=== PATIENT | male | born 1975 | race Caucasian/White ===

== ENCOUNTER 2024-12-18 22:11 | Emergency (ER) | payer SELFPAY ==
--- OUTSIDE RECORDS SUMMARY | 2024-12-18 22:20 | XMS REPORT | Continuity of Care Document ---
Author Name Unknown Address [address] [facility] [address] [place] [address] [facility] thconnect Address [address] [facility] [address] [place] [address] Care Team Providers Care Four Roll Calender Operator Name Role Phone Chente Garibay MD Primary Care Physician [phone] YUDY PHAN Attending Clinician Unavailable YUDY PHAN Attending Clinician Unavailable CHENTE GARIBAY Attending Clinician Unavailable NIKIA SANCHEZ Attending Clinician Unavailable HERNÁN ROJO Attending Clinician Unavailable HERNÁN ROJO Attending Clinician Unavailable Hernán Rojo DO Attending Clinician [phone] Chente Garibay MD Attending Clinician [phone] Doctor Unassigned, Nerstrand Attending Clinician U navailable Annabelle Cervantes Attending Clinician Unavaila ble Naa Lovelace Attending Clinician [phone] AUSTYN GONSALVES Attending Clinician Unavailable Austyn Gonsalves MD Attending Clinician [phone] NAA DUBON Attending Clinician Unavailable CHARO JOSHI Attending Clinician Unavailable Charo Kelley Attending Clinician [phone] ISAC ADAMS Attending Clinician Unavailable ISAC ADAMS Attending Clinician Unavailable Chente Garibay MD Attending Clinician [phone] Agnieszka Berg RN Attending Clinician Unavailable NELIDA MERCER Attending Clinician UnavailNelida Dunham MD Attending Clinician [phone] LORRAINE MCGEE Attending Clinician Unavailable LORRAINE MCGEE Attending Clinician Unavailable Jean KodiDeyvi Attending Clinician [phone] Doctor Unassigned, [place]erstrand Attending Clinician ALE Richardson Attending Clinician Unavailable Chelsey PAC, Nayla Aggawral Attending Clinician [phone] Ale Ayala MD Attending Clinician [phone] JOSE SAM Attending Clinician Unavailable DERRICK CHANCE Attending Clinician Unavailable Derrick Chance MD Attending Clinician [phone] KAYCE FLANNERY Attending Clinician Unavailable Kayce Chavez Attending Clinician [phone] BRENDA TUCKER Attending Clinician Unavailab Brenda Lopez MD Attending Clinician [phone] MARINA ECHEVERRIA Attending Clinician Unavailable Marina Echeverria MD Attending Clinician [phone] Los Rodrigues MD Attending Clinician [phone] Cecilia Chiu DO Attending Clinician [phone] SAGRARIO INFANTE Attending Clinician Unavailab Sagrario Dumont DO Attending Clinician [phone] Nurse, Castillo Chahal Attending Clinician Unavailable Sheila Andrew LVN Attending Clinician Unavailable HERBERT MANZO Attending Clinician Unavail Li Fabian MD Attending Clinician [phone] Herbert Kendall Attending Clinician [phone] PRICILA ESPINOZA Attending Clinician Unavaila JOANIE Leo Attending Clinician Unavail LI Fabian Attending Clinician Unavailable Joanie Tamayo MD Attending Clinician [phone] YUDY PHAN Admitting Clinician Unavailable NELIDA MERCER Admitting Clinician Unavailabl LORRAINE Abdi Admitting Clinician Unavailable ALE AYALA Admitting Clinician Unavailable Ale Ayala MD Admitting Clinician [phone] DERRICK CHANCE Admitting Clinician Unavailable KAYCE FLANNERY Admitting Clinician Unavailable CECILIA CHIU Admitting Clinician Unavailable Cecilia Chiu DO Admitting Clinician SAGRARIO INFANTE Admitting Clinician Unavailab HERBERT Doshi Admitting Clinician Unavail Herbert Hannah Admitting Clinician [phone] LI HURTADO Admitting Clinician Unavailable CHENTE GARIBAY Admitting Clinician Unavailable Payers Payer Name Policy Type Policy Number Effective Date Expirati on Date Source AILYN [facility] [id number] 2024 00:00:00 2025 00:00:00 Problems Condition Name Condition Details Condition Category Status Onset Date Resolution Date Last Treatment Date Treating Clinician Comments Source Acute on chronic cholecysti tis Acute on chronic cholecysti tis Disease Active 12-06 00:00: 00 [facility] Chronic cholecysti tis Chronic cholecysti tis Disease Active 05-03 00:00: 00 Overview: Formattin g of this note might be different from the original. Added automatic ally from request for surgery [id number] [facility] Dyslipidem ia Dyslipidem ia Disease Active 04-26 00:00: 00 [facility] Cigarette nicotine dependence , uncomplica luis Cigarette nicotine dependence , uncomplica luis Disease Active 04-26 00:00: 00 [facility] Cigarette nicotine dependence , uncomplica luis Cigarette nicotine dependence , uncomplica luis Disease Active 04-26 00:00: 00 [facility] Chest pain, unspecifie d type Chest pain, unspecifie d type Disease Active 04-07 00:00: 00 [facility] Anxiety Anxiety Disease Active 2020-11 00:00: 00 [facility] Acute otitis media, unspecifie d otitis media type Acute otitis media, unspecifie d otitis media type Disease Active 06-04 00:00: 00 [facility] Pop's palsy Pop's palsy Disease Active 06-04 00:00: 00 [facility] Paresthesi a Paresthesi a Disease Active 06-04 00:00: 00 [facility] Acute seasonal allergic rhinitis, unspecifie d trigger Acute seasonal allergic rhinitis, unspecifie d trigger Disease Active 06-04 00:00: 00 [facility] Otalgia of right ear Otalgia of right ear Disease Active 06-04 00:00: 00 [facility] ADD (attention deficit disorder) ADD (attention deficit disorder) Disease Active 06-11 00:00: 00 [facility] Pain in shoulder Pain in shoulder Disease Active 2014-11 00:00: 00 [facility] Chronic back pain greater than 3 months duration Chronic back pain greater than 3 months duration Disease Active 2014-11 014 00:00: 00 [facility] Allergies, Adverse Reactions, Alerts Allergy Name Allergy Type Status Severity Reaction(s) Onset Date Inactive Date Treating Clinician Comments Source GABAPENT IN DRUG INGREDI Active Unknown-Cmnt 2023-11 00:00: 00 [facility] Gabapent in Propensi ty to adverse reaction s Active Unknown - See comments 2023-11 00:00: 00 Per patient, he does not like this medicatio n [facility] VENOM-WA SP DRUG INGREDI Active Anaphylaxis 05-07 00:00: 00 [facility] Venom-Wa sp Propensi ty to adverse reaction s Active Anaphylaxis 05-07 00:00: 00 [facility] NO KNOWN ALLERGIE S Drug Class Active [facility] Social History Social Habit Start Date Stop Date Quantity Comments Source History SDOH Alcohol Std Drinks [facility] History SDOH Alcohol Binge [facility] History SDOH Social Connections Get Together [facility] History SDOH Social Connections Uatsdin [facility] History SDOH Social Connections Membership [facility] History SDOH Social Connections Meetings [facility] History of tobacco use Passive smoker [facility] Alcoholic beverage intake 2024-12-08 00:00:00 2024-12-08 00:00:00 Ex-drinker (finding) [facility] History of Social function 2024-05-13 00:00:00 2024-05-13 00:00:00 [facility] Cigarettes smoked current (pack per day) - Reported 2024-03-11 00:00:00 2024-03-11 00:00:00 [facility] Cigarette pack-years 2024-03-11 00:00:00 2024-03-11 00:00:00 [facility] Tobacco use and exposure 2024-03-11 00:00:00 2024-03-11 00:00:00 Smokeless tobacco non-user [facility] Alcohol intake 2024-01-17 00:00:00 2024-01-17 00:00:00 Ex-drinker (finding) [facility] Tobacco Comment 2023-05-04 00:00:00 2023-05-04 00:00:00 1/2 PPD; [facility] History SDOH Alcohol Frequency 2023-04-26 00:00:00 2023-04-26 00:00:00 1 [facility] History SDOH Social Connections Phone 2023-04-26 00:00:00 2023-04-26 00:00:00 5 [facility] History SDOH Social Connections Living 2023-04-26 00:00:00 2023-04-26 00:00:00 7 [facility] History SDOH Physical Activity DPW 2023-04-26 00:00:00 2023-04-26 00:00:00 3 [facility] History SDOH Physical Activity MPS 2023-04-26 00:00:00 2023-04-26 00:00:00 1 [facility] History SDOH Financial 2023-04-26 00:00:00 2023-04-26 00:00:00 5 [facility] History SDOH Food Worry 2023-04-26 00:00:00 2023-04-26 00:00:00 1 [facility] History SDOH Food Scarcity 2023-04-26 00:00:00 2023-04-26 00:00:00 1 [facility] History SDOH Transport Med 2023-04-26 00:00:00 2023-04-26 00:00:00 2 [facility] History SDOH Transport Non-Med 2023-04-26 00:00:00 2023-04-26 00:00:00 2 [facility] History SDOH Housing Unable to Pay 2023-04-26 00:00:00 2023-04-26 00:00:00 2 [facility] History SDOH Housing Places Lived 2023-04-26 00:00:00 2023-04-26 00:00:00 1 [facility] History SDOH Housing Homeless Last Year 2023-04-26 00:00:00 2023-04-26 00:00:00 2 [facility] Alcohol Comment 2023-04-26 00:00:00 2023-04-26 00:00:00 used to drink occasionaly [facility] Exposure to SARS-CoV-2 (event) 2023-03-26 00:00:00 2023-04-05 06:46:00 Not sure [facility] Sex assigned at 1975 00:00:00 1975 00:00:00 [facility] Smoking Status Start Date Stop Date Source Smokes tobacco daily 2024-03-11 00:00:00 [facility] Medications Ordered Medication Name Filled Medication Name Start Date Stop Date Current Medication? Ordering Clinician Indication Dosage Frequency Signature (SIG) Comments Components Source methylpheni date HCl 20 mg CR capsule 12-16 00:00: 00 Yes [id number] 20mg Take 1 capsule by mouth every morning. [facility] acetaminoph en-codeine 300-60 mg tablet 12-10 00:00: 00 Yes [id number] 1{tbl} Take 1 tablet by mouth every 4 (four) hours as needed for Pain. Indication s: chronic pain [facility] dextroamphe tamine-amph etamine (ADDERALL) 20 mg tablet 12-10 00:00: 00 Yes [id number] 20mg Take 1 tablet by mouth in the morning and 1 tablet in the evening. [facility] HYDROcodone -acetaminop hen 10-325 mg tablet 12-08 00:00: 00 12-16 05:59 :00 Yes [id number] 1{tbl} Take 1 tablet by mouth every 6 (six) hours as needed for Pain (scale 4-6) for up to 7 days. Indication s: chronic pain [facility] HYDROcodone -acetaminop hen 7.5-325 mg per tablet 12-03 00:00: 00 Yes [id number] 1{tbl} Take 1 tablet by mouth every 6 (six) hours as needed for Pain. Indication s: chronic pain [facility] HYDROcodone -acetaminop hen 7.5-325 mg per tablet 12-02 00:00: 00 12-02 00:00 :00 No [id number] 1{tbl} Take 1 tablet by mouth every 6 (six) hours as needed for Pain. Indication s: chronic pain [facility] HYDROcodone -acetaminop hen 7.5-325 mg per tablet 11-26 00:00: 00 12-02 00:00 :00 No [id number] 1{tbl} Take 1 tablet by mouth every 6 (six) hours as needed for Pain. Indication s: chronic pain [facility] atorvastati n 10 mg tablet 11-12 00:00: 00 Yes [id number] 10mg Take 1 tablet by mouth at bedtime. [facility] diazePAM 10 mg tablet 11-12 00:00: 00 Yes [id number] 2 10mg Take 1 tablet by mouth in the morning and 1 tablet at noon and 1 tablet in the evening. [facility] zolpidem 10 mg tablet 11-12 00:00: 00 Yes [id number] 10mg Take 1 tablet by mouth at bedtime as needed for Insomnia. [facility] dextroamphe tamine-amph etamine (ADDERALL) 20 mg tablet 11-12 00:00: 00 12-10 00:00 :00 No [id number] 20mg Take 1 tablet by mouth in the morning and 1 tablet in the evening. [facility] HYDROcodone -acetaminop hen 7.5-325 mg per tablet 2023-11 00:00: 00 11-26 00:00 :00 No [id number] 1{tbl} Take 1 tablet by mouth every 6 (six) hours as needed for Pain. Indication s: chronic pain [facility] dextroamphe tamine-amph etamine (ADDERALL) 20 mg tablet 2023-11 00:00: 00 11-12 00:00 :00 No [id number] 20mg Take 1 tablet by mouth in the morning and 1 tablet in the evening. [facility] HYDROcodone -acetaminop hen 7.5-325 mg per tablet 2023-11 00:00: 00 10-27 00:00 :00 No [id number] 1{tbl} Take 1 tablet by mouth every 6 (six) hours as needed for Pain. Indication s: chronic pain [facility] zolpidem 10 mg tablet 2023-11 00:00: 00 11-12 00:00 :00 No [id number] 10mg Take 1 tablet by mouth at bedtime as needed for Insomnia. [facility] diazePAM 10 mg tablet 2023-11 00:00: 00 11-12 00:00 :00 No [id number] 2 10mg Take 1 tablet by mouth in the morning and 1 tablet at noon and 1 tablet in the evening. [facility] dextroamphe tamine-amph etamine (ADDERALL) 20 mg tablet 2023-11 00:00: 00 10-13 00:00 :00 No [id number] 20mg Take 1 tablet by mouth in the morning and 1 tablet in the evening. [facility] ATORVASTATI N 10 mg tablet 2023-11 1- 00:00: 00 11-12 00:00 :00 No [id number] 10mg TAKE 1 TABLET BY MOUTH EVERYDAY AT BEDTIME [facility] HYDROcodone -acetaminop hen 7.5-325 mg per tablet 2023-11 030 00:00: 00 Yes [id number] 1{tbl} Take 1 tablet by mouth every 6 (six) hours as needed for Pain. Indication s: chronic pain [facility] dextroamphe tamine-amph etamine (ADDERALL) 20 mg tablet 2023-11 0-14 00:00: 00 09-16 00:00 :00 No [id number] 20mg Take 1 tablet by mouth in the morning and 1 tablet in the evening. [facility] HYDROcodone -acetaminop hen 7.5-325 mg per tablet 2023-11 00:00: 00 09-03 00:00 :00 No [id number] 1{tbl} Take 1 tablet by mouth every 6 (six) hours as needed for Pain. Indication s: chronic pain [facility] methylPREDN ISolone (MEDROL, FAINA,) 4 mg tablets 2023-11 00:00: 00 Yes [id number] Take by mouth SEE-INSTRU CTIONS. follow package directions [facility] zolpidem 10 mg tablet 07-21 00:00: 00 09-16 00:00 :00 No [id number] 10mg Take 1 tablet by mouth at bedtime as needed for Insomnia. [facility] diazePAM 10 mg tablet 07-21 00:00: 00 09-16 00:00 :00 No [id number] 10mg Take 1 tablet by mouth in the morning and 1 tablet at noon and 1 tablet in the evening. [facility] dextroamphe tamine-amph etamine (ADDERALL) 20 mg tablet 07-21 00:00: 00 08-18 00:00 :00 No [id number] 20mg Take 1 tablet by mouth in the morning and 1 tablet in the evening. [facility] HYDROcodone -acetaminop hen 7.5-325 mg per tablet 07-21 00:00: 00 08-07 00:00 :00 No [id number] 1{tbl} Take 1 tablet by mouth every 6 (six) hours as needed for Pain. Indication s: chronic pain [facility] ondansetron 4 mg disintegrat ing tablet 06-17 00:00: 00 Yes [id number] 4mg Take 1 tablet by mouth every 8 (eight) hours as needed for Nausea and Vomiting (N/V). [facility] esomeprazol e 40 mg capsule 06-17 00:00: 00 Yes [id number] 40mg Take 1 capsule by mouth daily with breakfast. [facility] amoxicillin 500 mg capsule 06-17 00:00: 00 Yes [id number] 500mg Take 1 capsule by mouth in the morning and 1 capsule at noon and 1 capsule in the evening. [facility] predniSONE 20 mg tablet 06-17 00:00: 00 Yes [id number] 20mg Take 1 tablet by mouth in the morning. [facility] HYDROcodone -acetaminop hen 7.5-325 mg per tablet 06-17 00:00: 00 07-21 00:00 :00 No [id number] 1{tbl} Take 1 tablet by mouth every 6 (six) hours as needed for Pain. Indication s: chronic pain [facility] dextroamphe tamine-amph etamine (ADDERALL) 20 mg tablet 06-17 00:00: 00 07-21 00:00 :00 No [id number] 20mg Take 1 tablet by mouth in the morning and 1 tablet in the evening. [facility] dexAMETHaso ne (DECADRON) tablet 8 mg 05-23 09:45: 00 05-23 08:50 :00 No 8mg 8 mg, Oral, ONCE NOW, 1 dose, On Sun05/23/24 at 0445, WILLIAN [facility] hydrOXYzine (ATARAX) tablet 25 mg 05-23 09:00: 00 05-23 08:50 :00 No 25mg 25 mg, Oral, ONCE, 1 dose, On Sun05/23/24 at 0400, WILLIAN [facility] methylPREDN ISolone 4 mg tablets 05-23 00:00: 00 Yes [id number] Take by mouth SEE-INSTRU CTIONS. follow package directions [facility] hydrOXYzine 25 mg tablet 05-23 00:00: 00 06-17 00:00 :00 No [id number] 25mg Take 1 tablet by mouth every 6 (six) hours as needed for Itching. [facility] HYDROcodone -acetaminop hen 7.5-325 mg per tablet 05-21 00:00: 00 06-17 00:00 :00 No [id number] 1{tbl} Take 1 tablet by mouth every 6 (six) hours as needed for Pain. Indication s: chronic pain [facility] dextroamphe tamine-amph etamine (ADDERALL) 20 mg tablet 05-21 00:00: 00 06-17 00:00 :00 No [id number] 20mg Take 1 tablet by mouth in the morning and 1 tablet in the evening. [facility] diazePAM 10 mg tablet 05-13 00:00: 00 07-21 00:00 :00 No [id number] 10mg Take 1 tablet by mouth in the morning and 1 tablet at noon and 1 tablet in the evening. [facility] zolpidem 10 mg tablet 05-13 00:00: 00 07-21 00:00 :00 No [id number] 10mg Take 1 tablet by mouth at bedtime as needed for Insomnia. [facility] HYDROcodone -acetaminop hen 7.5-325 mg per tablet 04-24 00:00: 00 05-21 00:00 :00 No [id number] 1{tbl} Take 1 tablet by mouth every 6 (six) hours as needed for Pain. Indication s: chronic pain [facility] dextroamphe tamine-amph etamine (ADDERALL) 20 mg tablet 04-24 00:00: 00 05-21 00:00 :00 No [id number] 20mg Take 1 tablet by mouth in the morning and 1 tablet in the evening. [facility] morpHINE (4 mg/mL) injection 4 mg 04-20 20:15: 00 04-20 19:35 :00 No 4mg 4 mg, Slow IV Push, ONCE, 1 dose, On 04/20/24 at 1515, WILLIAN [facility] ketorolac (TORADOL) injection 30 mg 04-20 20:15: 00 04-20 19:34 :00 No 30mg 30 mg, Slow IV Push, ONCE, 1 dose, On 04/20/24 at 1515, WILLIAN [facility] benzonatate (TESSALON PERLES) capsule 200 mg 04-20 18:15: 00 04-20 17:43 :00 No 200mg 200 mg, Oral, ONCE, 1 dose, On 04/20/24 at 1315, WILLIAN [facility] morpHINE (4 mg/mL) injection 4 mg 04-20 18:15: 00 04-20 17:41 :00 No 4mg 4 mg, Slow IV Push, ONCE, 1 dose, [facility] ([facility] 370-500 mL) injection 75 mL 04-20 18:00: 00 04-20 18:15 :00 No [id number] 75mL 75 mL, Intravenou s, ONCE, 1 dose, On 04/20/24 at 1315, Routine [facility] ondansetron (ZOFRAN (PF)) injection 4 mg 04-20 17:30: 00 04-20 17:41 :00 No 4mg 4 mg, Slow IV Push, ONCE, 1 dose, On 04/20/24 at 1230, WILLIAN [facility] levoFLOXaci n (LEVAQUIN) tablet 750 mg 04-20 00:30: 00 04-20 00:05 :00 No 750mg 750 mg, Oral, ONCE NOW, 1 dose, On 04/19/24 at 1930, WILLIAN, Reason for Anti-Infec tive: Empiric Therapy for Suspected Infection, Empiric Therapy Site: Respirator y, Duration of therapy: Once (ED) [facility] benzonatate 200 mg capsule 04-20 00:00: 00 Yes [id number] 200mg Take 1 capsule by mouth 3 (three) times daily as needed for Cough. [facility] traMADoL 50 mg tablet 04-20 00:00: 00 12-08 00:00 :00 No [id number] 50mg Take 1 tablet by mouth every 6 (six) hours as needed (pain). Indication s: acute pain [facility] nirmatrelvi r-ritonavir (PAXLOVID) 300 mg (150 mg x 2)-100 mg tablet 04-20 00:00: 00 06-17 00:00 :00 No [id number] 3{tbl} Take 3 tablets by mouth in the morning and 3 tablets in the evening. [facility] ibuprofen (IBU) tablet 600 mg 04-19 23:45: 00 04-20 00:05 :00 No 600mg 600 mg, Oral, ONCE, 1 dose, On 04/19/24 at 1845, WILLIAN [facility] codeine-gua ifenesin (ROBITUSSIN AC) 10-100 mg/5 mL oral solution 10 mL 04-19 22:15: 00 04-19 22:25 :00 No 10mL 10 mL, Oral, ONCE, 1 dose, On 04/19/24 at 1715, WILLIAN [facility] ibuprofen 600 mg tablet 04-19 00:00: 00 Yes [id number] 600mg Take 1 tablet by mouth every 6 (six) hours as needed for Pain (scale 4-6). [facility] codeine-gua ifenesin 10-100 mg/5 mL oral solution 04-19 00:00: 00 04-27 04:59 :00 No [id number] 5mL Take 5 mL by mouth every 6 (six) hours as needed for Cough for up to 7 days. Indication s: acute pain [facility] levoFLOXaci n 750 mg tablet 04-19 00:00: 00 04-25 04:59 :00 No [id number] 750mg Take 1 tablet by mouth every 24 (twenty-fo ur) hours for 5 days. [facility] dextroamphe tamine-amph etamine (ADDERALL) 20 mg tablet 03-27 00:00: 00 04-24 00:00 :00 No [id number] 20mg Take 1 tablet by mouth in the morning and 1 tablet in the evening. [facility] HYDROcodone -acetaminop hen 7.5-325 mg per tablet 14 00:00: 00 04-24 00:00 :00 No [id number] 1{tbl} Take 1 tablet by mouth every 6 (six) hours as needed for Pain. Indication s: chronic pain [facility] HYDROcodone -acetaminop hen 7.5-325 mg per tablet 03-12 00:00: 00 Yes [id number] 1{tbl} Take 1 tablet by mouth every 6 (six) hours as needed for Pain. Indication s: chronic pain [facility] diazePAM 10 mg tablet 03-12 00:00: 00 05-13 00:00 :00 No [id number] 10mg Take 1 tablet by mouth in the morning and 1 tablet at noon and 1 tablet in the evening. [facility] zolpidem 10 mg tablet 03-12 00:00: 00 05-13 00:00 :00 No [id number] 10mg Take 1 tablet by mouth at bedtime as needed for Insomnia. [facility] HYDROcodone -acetaminop hen 7.5-325 mg per tablet 03-11 00:00: 00 03-12 00:00 :00 No [id number] 1{tbl} Take 1 tablet by mouth every 6 (six) hours as needed for Pain. Indication s: chronic pain [facility] dextroamphe tamine-amph etamine (ADDERALL) 20 mg tablet 02-24 00:00: 00 03-27 00:00 :00 No [id number] 20mg Take 1 tablet by mouth in the morning and 1 tablet in the evening. [facility] HYDROcodone -acetaminop hen 7.5-325 mg per tablet 10 00:00: 00 03-11 00:00 :00 No [id number] 1{tbl} Take 1 tablet by mouth every 6 (six) hours as needed for Pain. Indication s: chronic pain [facility] dextroamphe tamine-amph etamine 10 mg tablet 325 00:00: 00 04-24 00:00 :00 No [id number] 20mg Take 2 tablets by mouth in the morning and 2 tablets in the evening. [facility] dextroamphe tamine-amph etamine (ADDERALL) 20 mg tablet 25 00:00: 00 02-24 00:00 :00 No [id number] 20mg Take 1 tablet by mouth in the morning and 1 tablet in the evening. [facility] dextroamphe tamine-amph etamine 10 mg tablet 01-22 00:00: 00 Yes [id number] 20mg Take 2 tablets by mouth in the morning and 2 tablets in the evening. [facility] dextroamphe tamine-amph etamine 10 mg tablet 01-21 00:00: 00 01-22 00:00 :00 No [id number] 20mg Take 2 tablets by mouth in the morning and 2 tablets in the evening. [facility] atorvastati n 10 mg tablet 01-16 00:00: 00 09-08 00:00 :00 No [id number] 10mg Take 1 tablet by mouth at bedtime. [facility] zolpidem 10 mg tablet 01-16 00:00: 00 03-12 00:00 :00 No [id number] 10mg Take 1 tablet by mouth at bedtime as needed for Insomnia. [facility] diazePAM 10 mg tablet 14 00:00: 00 03-12 00:00 :00 No [id number] 10mg Take 1 tablet by mouth in the morning and 1 tablet at noon and 1 tablet in the evening. [facility] HYDROcodone -acetaminop hen 7.5-325 mg per tablet 14 00:00: 00 02-12 00:00 :00 No [id number] 1{tbl} Take 1 tablet by mouth every 6 (six) hours as needed for Pain for up to 30 days. Indication s: chronic pain [facility] dextroamphe tamine-amph etamine 10 mg tablet 3-14 00:00: 00 01-21 00:00 :00 No [id number] 20mg Take 2 tablets by mouth in the morning and 2 tablets in the evening. [facility] dextroamphe tamine-amph etamine 10 mg tablet 2-12 00:00: 00 01-16 00:00 :00 No [id number] 20mg Take 2 tablets by mouth in the morning and 2 tablets in the evening. [facility] acetaminoph en-codeine 300-60 mg tablet 2-12 00:00: 00 01-16 00:00 :00 No [id number] 1{tbl} Take 1 tablet by mouth every 4 (four) hours as needed for Pain. Indication s: chronic pain [facility] HYDROcodone -acetaminop hen 5-325 mg tablet 2-08 00:00: 00 01-16 00:00 :00 No [id number] 1{tbl} Take 1 tablet by mouth every 6 (six) hours as needed for Pain (scale 4-6). Indication s: chronic pain [facility] HYDROcodone -acetaminop hen (NORCO) 10-325 mg tablet 2-08 00:00: 00 12-19 05:59 :00 No [id number] 1{tbl} Take 1 tablet by mouth every 6 (six) hours as needed for Pain (scale 4-6) for up to 5 days. Indication s: acute pain, S/P cholecyste ctomy [facility] HYDROcodone -acetaminop hen 5-325 mg tablet 2-07 00:00: 00 12-13 00:00 :00 No [id number] 1{tbl} Take 1 tablet by mouth every 6 (six) hours as needed for Pain (scale 4-6). Indication s: chronic pain [facility] famotidine (PEPCID AC) tablet 40 mg 2- 15:00: 00 Yes 40mg 40 mg, Oral, DAILY, First dose on 2/2/24 at 0900, Until Discontinu ed, Routine [facility] diazePAM (VALIUM) tablet 10 mg 12-07 06:00: 00 Yes 10mg 10 mg, Oral, Q8H ABX, First dose (after last modificati on) on Sun12/07/23 at 0000, Until Discontinu ed, Routine [facility] ketorolac (TORADOL) injection 30 mg 12-07 06:00: 00 12-10 05:59 :00 No 30mg 30 mg, Slow IV Push, Q6H, 12 doses, First dose on Sun12/07/23 at 0000, Last dose on Sun12/09/23 at 1800, Routine [facility] HYDROcodone -acetaminop hen (NORCO) 10-325 mg tablet 1 tablet 12-07 03:00: 00 Yes 1{tbl} 1 tablet, Oral, Q4HPRN, Starting on Sun12/06/23 at 2100, Until Discontinu ed, Routine, Pain (scale 4-6) [facility] atorvastati n (LIPITOR) tablet 10 mg 12-07 03:00: 00 Yes 10mg 10 mg, Oral, QHS, First dose on Sun12/06/23 at 2100, Until Discontinu ed, [facility]NE[facility]ONT[facility] 300 mg 12-07 02:00: 00 Yes 300mg 300 mg, Oral, TID, First dose on Sun12/06/23 at 2000, Until Discontinu ed, Routine [facility] dextroamphe tamine-amph etamine (ADDERALL) 10 mg tablet 20 mg 12-07 02:00: 00 Yes 20mg 20 mg, Oral, BID, First dose on Sun12/06/23 at 2000, Until Discontinu ed, Routine [facility] gabapentin 300 mg capsule 12-07 00:00: 00 12-23 05:59 :00 No [id number] 300mg Take 1 capsule by mouth in the morning and 1 capsule at noon and 1 capsule in the evening. Do all this for 15 days. [facility] HYDROcodone -acetaminop hen 5-325 mg tablet 12-07 00:00: 00 12-12 00:00 :00 No [id number] 1{tbl} Take 1 tablet by mouth every 6 (six) hours as needed for Pain (scale 4-6) for up to 5 days. Indication s: chronic pain [facility] nicotine (NICODERM) 21 mg/24 hr patch 1 Patch 12-06 23:00: 00 Yes 1{patch } 1 Patch, Topical, Administer over 24 Hours, Q24H, First dose on [place] 12/06/23 at 1700, Until Discontinu ed, Routine [facility] HYDROcodone -acetaminop hen (NORCO) 10-325 mg tablet 1 tablet 12-06 22:57: 19 12-07 02:52 :02 No 1{tbl} 1 tablet, Oral, Q6HPRN, Starting on [place] 12/06/23 at 1657, Until [place] 12/06/23 at 2052, Routine, Pain (scale 4-6) [facility] HYDROcodone -acetaminop hen (NORCO 5) 5-325 mg tablet 1 tablet 12-06 20:15: 00 12-06 20:41 :00 No 1{tbl} 1 tablet, Oral, ONCE, 1 dose, On [place] 12/06/23 at 1415, Routine, PACU [facility] FENTanyl PF (SUBLIMAZE (PF)) injection 25 mcg 12-06 20:11: 00 12-06 21:17 :01 No 25ug 25 mcg, Slow IV Push, Q5MIN PRN, 4 doses, Starting on [place] 12/06/23 at 1411, Until [place] 12/06/23 at 1517, Routine, Pain (scale 4-6), PACU [facility] diazePAM (VALIUM) tablet 10 mg 12-06 20:00: 00 12-06 22:22 :15 No 10mg 10 mg, Oral, TID, First dose on [place] 12/06/23 at 1400, Until Discontinu ed, Routine [facility] sodium chloride 0.9 % irrigation solution 12-06 19:56: 00 12-06 20:08 :51 No PRN, Starting on [place] 12/06/23 at 1356, Until [place] 12/06/23 at 1408, Intra-op [facility] bupivacaine (preserv free) (SENSORCAIN E MPF) 0.25 % (2.5 mg/mL) 30 mL, lidocaine-e pinephrine (XYLOCAINE W/EPINEPHRI NE) 1 %-1:200,000 30 mL 12-06 19:55: 00 12-06 20:08 :51 No PRN, Starting on [place] 12/06/23 at 1355, Intra-op [facility] FENTanyl PF (SUBLIMAZE (PF)) injection 75 mcg 12-06 18:30: 00 12-06 17:37 :00 No 75ug 75 mcg, Slow IV Push, ONCE, 1 dose, On [place] 12/06/23 at 1230, Routine [facility] NaCl 0.9% (NS) IV infusion 1,000 mL 12-06 18:15: 00 Yes 1000mL at 125 mL/hr, IV Infusion, CONTINUOUS , Starting on [place] 12/06/23 at 1215, Until Discontinu ed, Routine [facility] ondansetron (ZOFRAN (PF)) injection 4 mg 12-06 18:03: 27 Yes 4mg 4 mg, Slow IV Push, Q6HPRN, Starting on [place] 12/06/23 at 1203, Until Discontinu ed, Routine, Nausea and Vomiting (N/V) [facility] morpHINE (4 mg/mL) injection 4 mg 12-06 18:03: 25 12-07 16:22 :00 No 4mg 4 mg, Slow IV Push, Q4HPRN, Starting on [place] 12/06/23 at 1203, Until Sun12/07/23 at 1022, Routine, Pain (scale 7-10) [facility] acetaminoph en (TYLENOL) tablet 650 mg 12-06 18:03: 14 Yes 650mg 650 mg, Oral, Q6HPRN, Starting on [place] 12/06/23 at 1203, Until Discontinu ed, Routine, Pain (scale 1-3), Temp > 38 C [facility] zolpidem (AMBIEN) tablet 10 mg 12-06 18:01: 24 Yes 10mg 10 mg, Oral, QHSPRN, Starting on [place] 12/06/23 at 1201, Until Discontinu ed, Routine, Insomnia [facility] NaCl 0.9% (NS) bolus infusion 1,000 mL 12-06 17:00: 00 12-06 17:39 :00 No 1000mL at 999 mL/hr, 1,000 mL, IV Infusion, ONCE, 1 dose, On [place] 12/06/23 at 1100, STAT [facility] ondansetron (ZOFRAN (PF)) injection 4 mg 12-06 16:45: 00 12-06 15:48 :00 No 4mg 4 mg, Slow IV Push, ONCE, 1 dose, On [place] 12/06/23 at 1045, WILLIAN [facility] morpHINE (4 mg/mL) injection 4 mg 12-06 16:45: 00 12-06 15:48 :00 No 4mg 4 mg, Slow IV Push, ONCE, 1 dose, On [place] 24 at 1045, STAT [facility] acetaminoph en-codeine 300-30 mg tablet 11-28 00:00: 00 12-07 00:00 :00 No [id number] 1{tbl} Take 1 tablet by mouth every 4 (four) hours as needed for Pain (scale 4-6) for up to 20 days. Indication s: chronic pain [facility] zolpidem 10 mg tablet 11-22 00:00: 00 01-16 00:00 :00 No [id number] 10mg Take 1 tablet by mouth at bedtime as needed for Insomnia. [facility] diazePAM 10 mg tablet 11-22 00:00: 00 01-16 00:00 :00 No [id number] 10mg Take 1 tablet by mouth in the morning and 1 tablet at noon and 1 tablet in the evening. [facility] dextroamphe tamine-amph etamine 10 mg tablet 11-22 00:00: 00 12-17 00:00 :00 No [id number] 20mg Take 2 tablets by mouth in the morning and 2 tablets in the evening. [facility] HYDROcodone -acetaminop hen 10-325 mg tablet 2022-11 00:00: 00 12-07 00:00 :00 No [id number] 1{tbl} Take 1 tablet by mouth every 6 (six) hours as needed for Pain (scale 4-6). Indication s: chronic pain [facility] famotidine (PEPCID) 40 mg tablet 2022-11 00:00: 00 01-16 00:00 :00 No [id number] 40mg Take 1 tablet by mouth in the morning. [facility] dextroamphe tamine-amph etamine 10 mg tablet 2022-11 00:00: 00 11-22 00:00 :00 No [id number] 20mg Take 2 tablets by mouth in the morning and 2 tablets in the evening. [facility] acetaminoph en-codeine 300-30 mg tablet 2022-11 00:00: 00 11-05 05:59 :00 No [id number] 1{tbl} Take 1 tablet by mouth every 4 (four) hours as needed for Pain (scale 4-6) for up to 20 days. Indication s: chronic pain [facility] ketorolac (TORADOL) injection 30 mg 2022-11 12:30: 00 10-13 11:23 :00 No 30mg 30 mg, Slow IV Push, ONCE, 1 dose, On 10/13/23 at 0630, Routine [facility] iopamidol (ISOVUE 370-500 mL) injection 75 mL 2022-11 11:30: 00 10-13 11:30 :00 No [id number] 2 75mL 75 mL, Intravenou s, ONCE, 1 dose, On 10/13/23 at 0530, Routine [facility] ondansetron (ZOFRAN (PF)) injection 4 mg 2022-11 10:15: 00 10-13 10:18 :00 No 4mg 4 mg, Slow IV Push, ONCE, 1 dose, On 10/13/23 at 0415, WILLIAN [facility] morpHINE (4 mg/mL) injection 4 mg 2022-11 10:15: 00 10-13 10:18 :00 No 4mg 4 mg, Slow IV Push, ONCE, 1 dose, On 10/13/23 at 0415, STAT [facility] HYDROcodone -acetaminop hen 5-325 mg tablet 2022-11 00:00: 00 12-07 00:00 :00 No [id number] 1{tbl} Take 1 tablet by mouth every 6 (six) hours as needed for Pain (scale 4-6). Indication s: chronic pain [facility] HYDROcodone -acetaminop hen 5-325 mg tablet 2022-11 00:00: 00 10-27 05:59 :00 No [id number] 1{tbl} Take 1 tablet by mouth every 6 (six) hours as needed for Pain (scale 4-6) for up to 30 days. Indication s: chronic pain [facility] dextroamphe tamine-amph etamine 10 mg tablet 2022-11 00:00: 00 10-17 00:00 :00 No [id number] 20mg Take 2 tablets by mouth in the morning and 2 tablets in the evening. [facility] diazePAM 10 mg tablet 2022-11 00:00: 00 11-22 00:00 :00 No [id number] 10mg Take 1 tablet by mouth in the morning and 1 tablet at noon and 1 tablet in the evening. [facility] zolpidem 10 mg tablet 2022-11 00:00: 00 11-22 00:00 :00 No [id number] 10mg Take 1 tablet by mouth at bedtime as needed for Insomnia. [facility] HYDROcodone -acetaminop hen 10-325 mg tablet 2022-11 00:00: 00 11-01 00:00 :00 No [id number] 1{tbl} Take 1 tablet by mouth every 4 (four) hours as needed for Pain (scale 4-6). Indication s: chronic pain [facility] dextroamphe tamine-amph etamine 10 mg tablet 2022-11 00:00: 00 09-26 00:00 :00 No [id number] 20mg Take 2 tablets by mouth in the morning and 2 tablets in the evening. [facility] iopamidol (ISOVUE 370-500 mL) injection 90 mL 2022-11 01:30: 00 09-22 01:30 :00 No [id number] 2 90mL 90 mL, Intravenou s, ONCE, 1 dose, On Sun09/21/23 at 1930, Routine [facility] NaCl 0.9% (NS) IV infusion 1,000 mL 2022-11 01:00: 00 09-22 02:02 :00 No 1000mL at 999 mL/hr, Intravenou s, ONCE, 1 dose, On Sun09/21/23 at 1900, Routine [facility] morpHINE (4 mg/mL) injection 4 mg 2022-11 00:30: 00 09-22 00:44 :00 No 4mg 4 mg, Slow IV Push, ONCE, 1 dose, On Sun09/21/23 at 1830, STAT [facility] famotidine (PEPCID (PF)) injection 20 mg 2022-11 00:30: 00 09-22 00:42 :00 No 20mg 20 mg, Slow IV Push, ONCE, 1 dose, On Sun09/21/23 at 1830, WILLIAN [facility] NaCl 0.9% (NS) bolus infusion 1,000 mL 2022-11 23:00: 00 09-22 00:02 :00 No 1000mL at 999 mL/hr, 1,000 mL, IV Infusion, ONCE, 1 dose, On Sun09/21/23 at 1700, WILLIAN [facility] morpHINE (4 mg/mL) injection 4 mg 2022-11 22:15: 00 09-21 22:26 :00 No 4mg 4 mg, Slow IV Push, ONCE, 1 dose, On Sun09/21/23 at 1615, STAT [facility] ondansetron (ZOFRAN (PF)) injection 4 mg 2022-11 22:15: 00 09-21 22:26 :00 No 4mg 4 mg, Slow IV Push, ONCE, 1 dose, On Sun09/21/23 at 1615, WILLIAN [facility] ondansetron 4 mg disintegrat ing tablet 2022-11 00:00: 00 12-06 00:00 :00 No [id number] 4mg Take 1 tablet by mouth every 8 (eight) hours as needed for Nausea and Vomiting (N/V). [facility] famotidine (PEPCID) 40 mg tablet 2022-11 00:00: 00 10-17 00:00 :00 No [id number] 40mg Take 1 tablet by mouth in the morning. [facility] ATORVASTATI N 10 mg tablet 2022-11 00:00: 00 01-16 00:00 :00 No [id number] 10mg TAKE 1 TABLET BY MOUTH EVERYDAY AT BEDTIME [facility] HYDROcodone -acetaminop hen 10-325 mg tablet 2022-11 00:00: 00 09-24 00:00 :00 No [id number] 1{tbl} Take 1 tablet by mouth every 4 (four) hours as needed for Pain (scale 4-6). Indication s: chronic pain [facility] dextroamphe tamine-amph etamine 10 mg tablet 2022-11 00:00: 00 09-24 00:00 :00 No [id number] 20mg Take 2 tablets by mouth in the morning and 2 tablets in the evening. [facility] dextroamphe tamine-amph etamine 10 mg tablet 07-30 00:00: 00 Yes [id number] 20mg Take 2 tablets by mouth in the morning and 2 tablets in the evening. [facility] ETODOLAC 400 mg tablet 07-30 00:00: 00 01-16 00:00 :00 No [id number] TAKE 1 TABLET BY MOUTH TWICE DAILY NEEDED FOR SEVERE PAIN [facility] diazePAM 10 mg tablet 07-30 00:00: 00 09-24 00:00 :00 No [id number] 10mg Take 1 tablet by mouth in the morning and 1 tablet at noon and 1 tablet in the evening. [facility] zolpidem 10 mg tablet 07-30 00:00: 00 09-24 00:00 :00 No [id number] 10mg Take 1 tablet by mouth at bedtime as needed for Insomnia. [facility] atorvastati n 10 mg tablet 07-30 00:00: 00 09-18 00:00 :00 No [id number] 10mg Take 1 tablet by mouth at bedtime. [facility] HYDROcodone -acetaminop hen 10-325 mg tablet 07-30 00:00: 00 08-27 00:00 :00 No [id number] 1{tbl} Take 1 tablet by mouth every 4 (four) hours as needed for Pain (scale 4-6). Indication s: chronic pain [facility] HYDROcodone -acetaminop hen 10-325 mg tablet 07-02 00:00: 00 07-30 00:00 :00 No [id number] 1{tbl} Take 1 tablet by mouth every 4 (four) hours as needed for Pain (scale 4-6). Indication s: chronic pain [facility] diazePAM 10 mg tablet 07-02 00:00: 00 07-30 00:00 :00 No [id number] 10mg Take 1 tablet by mouth in the morning and 1 tablet at noon and 1 tablet in the evening. [facility] zolpidem 10 mg tablet 07-02 00:00: 00 07-30 00:00 :00 No [id number] 10mg Take 1 tablet by mouth at bedtime as needed for Insomnia. [facility] dextroamphe tamine-amph etamine 10 mg tablet 07-02 00:00: 00 07-30 00:00 :00 No [id number] 20mg Take 2 tablets by mouth in the morning and 2 tablets in the evening. [facility] dextroamphe tamine-amph etamine 10 mg tablet 06-11 00:00: 00 Yes [id number] 20mg Take 2 tablets by mouth in the morning and 2 tablets in the evening. [facility] etodolac 400 mg tablet 06-04 00:00: 00 07-30 00:00 :00 No [id number] 400mg Take 1 tablet by mouth 2 (two) times daily as needed for Pain (scale 7-10). [facility] diazePAM 10 mg tablet 06-04 00:00: 00 07-02 00:00 :00 No [id number] 10mg Take 1 tablet by mouth in the morning and 1 tablet at noon and 1 tablet in the evening. [facility] HYDROcodone -acetaminop hen 10-325 mg tablet 06-04 00:00: 00 07-02 00:00 :00 No [id number] 1{tbl} Take 1 tablet by mouth every 4 (four) hours as needed for Pain (scale 4-6). Indication s: chronic pain [facility] ATORVASTATI N 10 mg tablet 05-31 00:00: 00 07-30 00:00 :00 No [id number] 10mg TAKE 1 TABLET BY MOUTH AT BEDTIME [facility] morphine 15 mg TR12 05-17 00:00: 00 05-25 04:59 :00 No [id number] 1{tbl} Take 1 tablet by mouth every 12 (twelve) hours as needed for Pain (scale 7-10) for up to 7 days. Indication s: acute pain [facility] dextroamphe tamine-amph etamine 10 mg tablet 05-10 00:00: 06-11 00:00 :00 No [id number] 20mg Take 2 tablets by mouth in the morning and 2 tablets in the evening. [facility] morphine 15 mg TR12 05-09 00:00: 05-17 04:59 :00 No [id number] 15mg Take 15 mg by mouth every 12 (twelve) hours as needed for Pain (scale 7-10) for up to 7 days. Indication s: acute pain [facility] methylPREDN ISolone 4 mg tablets 05-08 00:00: 05-15 04:59 :00 No [id number] Take by mouth SEE-INSTRU CTIONS for 6 days. follow package directions [facility] ondansetron (ZOFRAN (PF)) injection 4 mg 05-07 22:00: 00 05-07 21:56 :00 No 4mg 4 mg, Slow IV Push, ONCE, 1 dose, On Sun05/07/23 at 1700, WILLIAN [facility] morpHINE (4 mg/mL) injection 4 mg 05-07 22:00: 00 05-07 21:56 :00 No 4mg 4 mg, Slow IV Push, ONCE, 1 dose, On Sun05/07/23 at 1700, STAT [facility] methylpredn isolone sod succ (SOLU-MEDRO L) injection 125 mg 05-07 22:00: 00 05-07 21:40 :00 No 125mg 125 mg, Intravenou s, ONCE, 1 dose, On Sun05/07/23 at 1700, 2 mL [facility] famotidine (PEPCID (PF)) injection 20 mg 05-07 21:15: 00 05-07 21:41 :00 No 20mg 20 mg, Slow IV Push, ONCE, 1 dose, On Sun05/07/23 at 1615, WILLIAN [facility] diphenhydrA MINE (BENADRYL) injection 25 mg 05-07 21:15: 00 05-07 21:41 :00 No 25mg 25 mg, Slow IV Push, ONCE, 1 dose, On Sun05/07/23 at 1615, STAT [facility] EPINEPHrine (EPIPEN) 0.3 mg/0.3 mL injection 05-07 00:00: 00 Yes [id number] .3mg 0.3 mL by Intramuscu lar route as needed for Rash or Itching (allergic reaction). [facility] HYDROcodone -acetaminop hen 10-325 mg tablet 05-02 00:00: 00 06-04 00:00 :00 No [id number] 1{tbl} Take 1 tablet by mouth every 4 (four) hours as needed for Pain (scale 4-6). Indication s: chronic pain [facility] ketorolac (TORADOL) injection 15 mg 04-28 05:15: 00 04-28 04:45 :00 No 15mg 15 mg, Slow IV Push, ONCE, 1 dose, On Sun04/28/23 at 0015, [facility] ondansetron (ZOFRAN (PF)) injection 4 mg 04-28 03:30: 00 04-28 02:43 :00 No 4mg 4 mg, Slow IV Push, ONCE, 1 dose, [facility]04/27/23 at 2230[facility] 4 mg 04-28 02:30: 00 04-28 03:02 :00 No 4mg 4 mg, Slow IV Push, ONCE, 1 dose, On Sun04/27/23 at 2130, Routine [facility] ondansetron 4 mg disintegrat ing tablet 04-28 00:00: 00 06-17 00:00 :00 No [id number] 4mg Take 1 tablet by mouth every 8 (eight) hours as needed for Nausea and Vomiting (N/V). [facility] etodolac 400 mg tablet 04-28 00:00: 00 06-04 00:00 :00 No [id number] 400mg Take 1 tablet by mouth 2 (two) times daily as needed for Pain (scale 7-10). [facility] enoxaparin (LOVENOX) injection 40 mg 04-26 14:00: 00 Yes 40mg 40 mg, Subcutaneo us, DAILY, First dose on Sun04/26/23 at 0900, Until Discontinu ed, Routine [facility] iopamidol (ISOVUE 370-500 mL) injection 75 mL 04-26 10:15: 00 04-26 09:18 :00 No [id number] 75mL 75 mL, Intravenou s, ONCE, 1 dose, On Sun04/26/23 at 0515, Routine [facility] aspirin E.C. (ECOTRIN) tablet 325 mg 04-26 06:45: 00 Yes 325mg 325 mg, Oral, DAILY, First dose on Sun04/26/23 at 0145, Until Discontinu ed, Routine [facility] zolpidem (AMBIEN) tablet 10 mg 04-26 06:30: 00 Yes 10mg 10 mg, Oral, QHS, First dose on Sun04/26/23 at 0130, Until Discontinu ed, Routine [facility] atorvastati n (LIPITOR) tablet 10 mg 04-26 06:30: 00 Yes 10mg 10 mg, Oral, QHS, First dose on Sun04/26/23 at 0130, Until Discontinu ed, [facility] -acetaminop hen (NORCO) 10-325 mg tablet 1 tablet 04-26 06:24: 35 Yes [id number] 1{tbl} 1 tablet, Oral, Q4HPRN, Starting on Sun04/26/23 at 0124, Until Discontinu ed, Routine, Pain (scale 4-6) [facility] diazePAM (VALIUM) tablet 10 mg 04-26 06:23: 26 Yes 10mg 10 mg, Oral, TIDPRN, Starting on Sun04/26/23 at 0123, Until Discontinu ed, Routine, anxiety, muscle spasm [facility] ondansetron (ZOFRAN (PF)) injection 4 mg 04-26 03:36: 07 Yes 4mg 4 mg, Slow IV Push, Q6HPRN, Starting on Sun04/25/23 at 2236, Until Discontinu ed, Routine, Nausea and Vomiting (N/V) [facility] acetaminoph en (TYLENOL) tablet 650 mg 04-26 03:35: 49 Yes 650mg 650 mg, Oral, Q6HPRN, Starting on Sun04/25/23 at 2235, Until Discontinu ed, Routine, Pain (scale 1-3) [facility] ondansetron (ZOFRAN (PF)) injection 4 mg 04-26 03:00: 00 04-26 02:01 :00 No 4mg 4 mg, Slow IV Push, ONCE, 1 dose, On Sun04/25/23 at 2200, Routine [facility] morpHINE (4 mg/mL) injection 4 mg 04-26 03:00: 00 04-26 02:03 :00 No 4mg 4 mg, Slow IV Push, ONCE, 1 dose, On Sun04/25/23 at 2200, STAT [facility] maalox:diph enhydrAMINE :lidocaine 2 % viscous 1:1:1 ([facility] oral suspension 15 mL 04-26 02:00: 00 04-26 02:08 :00 No 15mL 15 mL, Oral, ONCE, 1 dose, On Sun04/25/23 at 2100, Routine [facility] LORazepam (ATIVAN) injection 1 mg 04-26 02:00: 00 04-26 02:02 :00 No 1mg 1 mg, Slow IV Push, ONCE, 1 dose, On Sun04/25/23 at 2100, STAT [facility] zolpidem 10 mg tablet 04-05 00:00: 00 07-02 00:00 :00 No [id number] 10mg Take 1 tablet by mouth at bedtime as needed for Insomnia. [facility] dextroamphe tamine-amph etamine 10 mg tablet 04-05 00:00: 00 05-10 00:00 :00 No [id number] 20mg Take 2 tablets by mouth in the morning and 2 tablets in the evening. [facility] HYDROcodone -acetaminop hen 10-325 mg tablet 04-05 00:00: 00 05-02 00:00 :00 No [id number] 1{tbl} Take 1 tablet by mouth every 4 (four) hours as needed for Pain (scale 4-6). Indication s: chronic pain [facility] ketorolac (TORADOL) injection 30 mg 03-29 09:30: 00 03-29 08:43 :00 No 30mg 30 mg, Slow IV Push, ONCE, 1 dose, On [place] 03/29/23 at 0430, Routine [facility] maalox:diph enhydrAMINE :lidocaine 2 % viscous 1:1:1 ([facility]) oral suspension 15 mL 03-29 09:15: 00 03-29 09:18 :00 No 15mL 15 mL, Oral, ONCE, 1 dose, On [place] 03/29/23 at 0415, Routine [facility] famotidine (PEPCID (PF)) injection 20 mg 03-29 09:15: 00 03-29 09:19 :00 No 20mg 20 mg, Slow IV Push, ONCE, 1 dose, On [place] 03/29/23 at 0415, WILLIAN [facility] aspirin chewable tablet 324 mg 03-29 08:30: 00 03-29 07:49 :00 No 324mg 324 mg, Oral, ONCE, 1 dose, On [place] 03/29/23 at 0330, Routine [facility] ondansetron (ZOFRAN (PF)) injection 4 mg 03-29 08:00: 00 03-29 08:06 :00 No 4mg 4 mg, Slow IV Push, ONCE, 1 dose, On [place] 03/29/23 at 0300, WILLIAN [facility] LORazepam (ATIVAN) injection 1 mg 03-29 07:45: 00 03-29 07:50 :00 No 1mg 1 mg, Slow IV Push, ONCE, 1 dose, On Sun03/29/23 at 0245, STAT [facility] ATORVASTATI N 10 mg tablet 03-05 00:00: 00 05-31 00:00 :00 No [id number] 10mg TAKE 1 TABLET BY MOUTH AT BEDTIME [facility] dextroamphe tamine-amph etamine 10 mg tablet 03-05 00:00: 00 04-05 00:00 :00 No [id number] 20mg Take 2 tablets by mouth in the morning and 2 tablets in the evening. [facility] diazePAM 10 mg tablet 03-01 00:00: 00 06-04 00:00 :00 No [id number] 10mg Take 1 tablet by mouth in the morning and 1 tablet at noon and 1 tablet in the evening. [facility] HYDROcodone -acetaminop hen 10-325 mg tablet 03-01 00:00: 00 04-05 00:00 :00 No [id number] 1{tbl} Take 1 tablet by mouth every 4 (four) hours as needed for Pain (scale 4-6). Indication s: chronic pain [facility] zolpidem 10 mg tablet 02-05 00:00: 00 04-05 00:00 :00 No [id number] 10mg Take 1 tablet by mouth at bedtime as needed for Insomnia. [facility] dextroamphe tamine-amph etamine 10 mg tablet 02-05 00:00: 00 03-05 00:00 :00 No [id number] 20mg Take 2 tablets by mouth in the morning and 2 tablets in the evening. [facility] HYDROcodone -acetaminop hen 10-325 mg tablet 02-05 00:00: 00 03-01 00:00 :00 No [id number] 1{tbl} Take 1 tablet by mouth every 4 (four) hours as needed for Pain (scale 4-6). Indication s: chronic pain [facility] diazePAM 10 mg tablet 0 4-03 00:00: 00 03-01 00:00 :00 No [id number] 10mg Take 1 tablet by mouth in the morning and 1 tablet at noon and 1 tablet in the evening. [facility] HYDROcodone -acetaminop hen 10-325 mg tablet 0 3-01 00:00: 00 02-05 00:00 :00 No [id number] 1{tbl} Take 1 tablet by mouth every 4 (four) hours as needed for Pain (scale 4-6). Indication s: chronic pain [facility] dextroamphe tamine-amph etamine 10 mg tablet 2-20 00:00: 00 02-05 00:00 :00 No [id number] 20mg Take 2 tablets by mouth in the morning and 2 tablets in the evening. [facility] atorvastati n 10 mg tablet 2-02 00:00: 00 03-05 00:00 :00 No [id number] 10mg Take 1 tablet by mouth at bedtime. [facility] zolpidem 10 mg tablet 2-02 00:00: 00 02-05 00:00 :00 No [id number] 10mg Take 1 tablet by mouth at bedtime as needed for Insomnia. [facility] diazePAM 10 mg tablet 2-02 00:00: 00 02-05 00:00 :00 No [id number] 10mg Take 1 tablet by mouth in the morning and 1 tablet at noon and 1 tablet in the evening. [facility] HYDROcodone -acetaminop hen 10-325 mg tablet 0 2-02 00:00: 00 01-03 00:00 :00 No [id number] 1{tbl} Take 1 tablet by mouth every 4 (four) hours as needed for Pain (scale 4-6). Indication s: chronic pain [facility] dextroamphe tamine-amph etamine 10 mg tablet 0 1-18 00:00: 00 2023- 02-20 00:00 :00 No [id number] 20mg Take 2 tablets by mouth in the morning and 2 tablets in the evening. [facility] HYDROcodone -acetaminop hen 10-325 mg tablet - 00:00: 00 12-07 00:00 :00 No [id number] 1{tbl} Take 1 tablet by mouth every 4 (four) hours as needed for Pain (scale 4-6). Indication s: chronic pain [facility] amphetamine -dextroamph etamine 30 mg 24 hr capsule 2021-11 2-15 00:00: 00 04-05 00:00 :00 No [id number] 30mg Take 1 capsule by mouth in the morning and 1 capsule in the evening. [facility] zolpidem 10 mg tablet 2021-11 00:00: 00 12-07 00:00 :00 No [id number] 10mg Take 1 tablet by mouth at bedtime as needed for Insomnia. [facility] diazePAM 10 mg tablet 2021-11 00:00: 00 12-07 00:00 :00 No [id number] 10mg Take 1 tablet by mouth in the morning and 1 tablet at noon and 1 tablet in the evening. [facility] atorvastati n 10 mg tablet 2021-11 00:00: 00 12-07 00:00 :00 No [id number] 10mg Take 1 tablet by mouth at bedtime. [facility] HYDROcodone -acetaminop hen 10-325 mg tablet 2021-11 00:00: 00 11-07 00:00 :00 No [id number] 1{tbl} Take 1 tablet by mouth every 4 (four) hours as needed for Pain (scale 4-6). Indication s: chronic pain [facility] ATORVASTATI N 10 mg tablet 2021-11 00:00: 00 10-10 00:00 :00 No [id number] 10mg TAKE 1 TABLET BY MOUTH AT BEDTIME [facility] dextroamphe tamine-amph etamine 20 mg tablet 2021-11 1-16 00:00: 04-25 00:00 :00 No [id number] 20mg Take 1 tablet by mouth in the morning and 1 tablet at noon and 1 tablet in the evening. [facility] HYDROcodone -acetaminop hen 10-325 mg tablet 2021-11 1-03 00:00: 00 10-10 00:00 :00 No [id number] 1{tbl} Take 1 tablet by mouth every 4 (four) hours as needed for Pain (scale 4-6). Indication s: chronic pain [facility] amphetamine -dextroamph etamine 30 mg 24 hr capsule 2021-11 0- 00:00: 00 10-19 00:00 :00 No [id number] 30mg Take 1 capsule by mouth in the morning and 1 capsule in the evening. [facility] methylPREDN ISolone (MEDROL, FAINA,) 4 mg tablets 2021-11 0- 00:00: 00 04-25 00:00 :00 No [id number] Take by mouth SEE-INSTRU CTIONS. follow package directions [facility] diazePAM 10 mg tablet 2021-11 0-06 00:00: 00 10-10 00:00 :00 No [id number] 10mg Take 1 tablet by mouth in the morning and 1 tablet at noon and 1 tablet in the evening. [facility] zolpidem 10 mg tablet 2021-11 0- 00:00: 00 10-10 00:00 :00 No [id number] 10mg Take 1 tablet by mouth at bedtime as needed for Insomnia. [facility] HYDROcodone -acetaminop hen 10-325 mg tablet 2021-11 0-06 00:00: 00 09-07 00:00 :00 No [id number] 1{tbl} Take 1 tablet by mouth every 4 (four) hours as needed for Pain (scale 4-6). Indication s: chronic pain [facility] amphetamine -dextroamph etamine 30 mg 24 hr capsule 9-19 00:00: 00 08-23 00:00 :00 No [id number] 30mg Take 1 capsule by mouth in the morning and 1 capsule in the evening. [facility] HYDROcodone -acetaminop hen 10-325 mg tablet - 00:00: 00 08-10 00:00 :00 No 2745 1{tbl} Take 1 tablet by mouth every 4 (four) hours as needed for Pain (scale 4-6). Indication s: chronic pain [facility] ATORVASTATI N 10 mg tablet 07-11 00:00: 00 10-05 00:00 :00 No [id number] 10mg TAKE 1 TABLET BY MOUTH AT BEDTIME [facility] dextroamphe tamine-amph etamine 20 mg tablet - 00:00: 00 09-20 00:00 :00 No [id number] 20mg Take 1 tablet by mouth in the morning and 1 tablet at noon and 1 tablet in the evening. [facility] diazePAM 10 mg tablet 06-12 00:00: 00 08-10 00:00 :00 No [id number] 10mg Take 1 tablet by mouth in the morning and 1 tablet at noon and 1 tablet in the evening. [facility] HYDROcodone -acetaminop hen 10-325 mg tablet 8- 00:00: 00 07-12 00:00 :00 No [id number] 1{tbl} Take 1 tablet by mouth every 4 (four) hours as needed for Pain (scale 4-6). Indication s: chronic pain [facility] PAROXETINE 10 mg tablet 8-04 00:00: 00 06-12 00:00 :00 No [id number] 10mg TAKE 1 TABLET BY MOUTH DAILY [facility] HYDROcodone -acetaminop hen 10-325 mg tablet 7-06 00:00: 00 06-12 00:00 :00 No [id number] 1{tbl} Take 1 tablet by mouth every 4 (four) hours as needed for Pain (scale 4-6). Indication s: chronic pain [facility] dextroamphe tamine-amph etamine 20 mg tablet 6-27 00:00: 00 Yes [id number] 20mg Take 1 tablet by mouth 3 (three) times daily. [facility] atorvastati n 10 mg tablet 04-12 00:00: 00 07-11 00:00 :00 No [id number] 10mg Take 1 tablet by mouth at bedtime. [facility] diazePAM 10 mg tablet 04-12 00:00: 00 06-12 00:00 :00 No [id number] 10mg Take 1 tablet by mouth 3 (three) times daily. [facility] Vital Signs Vital Name Observation Time Observation Value Comments S kiana Systolic blood pressure 2024-12-19 03:40:00 120 mm[Hg] [facility] Diastolic blood pressure 2024-12-19 03:40:00 72 mm[Hg] [facility] Heart rate 2024-12-19 03:40:00 94 /min [facility] Body temperature 2024-12-19 03:40:00 36.61 Yisel [facility] Respiratory rate 2024-12-19 03:40:00 16 /min [facility] Oxygen saturation in Arterial blood by Pulse oximetry 2024-12-19 03:40:00 96 /min [facility] Body height 2024-12-19 01:56:00 172.7 cm [facility] Body weight 2024-12-19 01:56:00 77.111 kg [facility] BMI 2024-12-19 01:56:00 25.85 kg/m2 [facility] Systolic blood pressure 2024-12-08 18:14:00 136 mm[Hg] [facility] Diastolic blood pressure 2024-12-08 18:14:00 88 mm[Hg] [facility] Heart rate 2024-12-08 18:14:00 100 /min [facility] Body height 2024-12-08 18:14:00 170.2 cm [facility] Body weight 2024-12-08 18:14:00 79.198 kg [facility] BMI 2024-12-08 18:14:00 27.35 kg/m2 [facility] Oxygen saturation in Arterial blood by Pulse oximetry 2024-12-08 18:14:00 98 /min [facility] Systolic blood pressure 2024-11-12 19:12:00 132 mm[Hg] [facility] Diastolic blood pressure 2024-11-12 19:12:00 80 mm[Hg] [facility] Heart rate 2024-11-12 19:12:00 93 /min [facility] Body height 2024-11-12 19:12:00 172.7 cm [facility] Body weight 2024-11-12 19:12:00 81.194 kg [facility] BMI 2024-11-12 19:12:00 27.22 kg/m2 [facility] Oxygen saturation in Arterial blood by Pulse oximetry 2024-11-12 19:12:00 98 /min [facility] Respiratory rate 2024-10-30 17:54:00 16 /min [facility] Body height 2024-10-30 17:54:00 170.2 cm [facility] Body weight 2024-10-30 17:54:00 78.019 kg [facility] BMI 2024-10-30 17:54:00 26.94 kg/m2 [facility] Respiratory rate 2024-10-15 18:45:00 16 /min [facility] Body height 2024-10-15 18:45:00 170.2 cm [facility] Body weight 2024-10-15 18:45:00 78.2 kg [facility] BMI 2024-10-15 18:45:00 27.00 kg[facility] 2024-10-13 18:57:00 121 mm[Hg] [facility] Diastolic blood pressure 2024-10-13 18:57:00 80 mm[Hg] [facility] Heart rate 2024-10-13 18:57:00 93 /min [facility] Body height 2024-10-13 18:57:00 170.2 cm [facility] weight 2024-10-13 18:57:00 77.52 kg [facility] BMI 2024-10-13 18:57:00 26.77 kg/m2 [facility] Oxygen saturation in Arterial blood by Pulse oximetry 2024-10-13 18:57:00 97 /min [facility] Systolic blood pressure 2024-09-16 13:13:00 129 mm[Hg] [facility] Diastolic blood pressure 2024-09-16 13:13:00 80 mm[Hg] [facility] Heart rate 2024-09-16 13:13:00 86 /min [facility] Body height 2024-09-16 13:13:00 170.2 cm [facility] Body weight 2024-09-16 13:13:00 76.885 kg [facility] BMI 2024-09-16 13:13:00 26.55 kg/m2 [facility] Oxygen saturation in Arterial blood by Pulse oximetry 2024-09-16 13:13:00 96 /min [facility] Systolic blood pressure 2024-08-06 12:00:00 140 mm[Hg] [facility] Diastolic blood pressure 2024-08-06 12:00:00 90 mm[Hg] [facility] Heart rate 2024-08-06 11:59:00 85 /min [facility] Body height 2024-08-06 11:59:00 172.7 cm [facility] Body weight 2024-08-06 11:59:00 77.111 kg [facility] BMI 2024-08-06 11:59:00 25.85 kg/m2 [facility] Oxygen saturation in Arterial blood by Pulse oximetry 2024-08-06 11:59:00 100 /min [facility] Systolic blood pressure 2024-07-21 13:53:00 105 mm[Hg] [facility] Diastolic blood pressure 2024-07-21 13:53:00 70 mm[Hg] [facility] Heart rate 2024-07-21 13:53:00 103 /min [facility] Body height 2024-07-21 13:53:00 172.7 cm [facility] weight 2024-07-21 13:53:00 78.472 kg [facility] BMI 2024-07-21 13:53:00 26.30 kg/m2 [facility] Oxygen saturation in Arterial blood by Pulse oximetry 2024-07-21 13:53:00 97 /min [facility] Systolic blood pressure 2024-06-17 13:02:00 124 mm[Hg] [facility] Diastolic blood pressure 2024-06-17 13:02:00 78 mm[Hg] [facility] Heart rate 2024-06-17 13:02:00 116 /min [facility] Body height 2024-06-17 13:02:00 170.2 cm [facility] Body weight 2024-06-17 13:02:00 77.61 kg [facility] BMI 2024-06-17 13:02:00 26.80 kg/m2 [facility] Oxygen saturation in Arterial blood by Pulse oximetry 2024-06-17 13:02:00 99 /min [facility] Systolic blood pressure 2024-05-23 08:38:00 121 mm[Hg] [facility] Diastolic blood pressure 2024-05-23 08:38:00 79 mm[Hg] [facility] Heart rate 2024-05-23 08:38:00 109 /min [facility] Body temperature 2024-05-23 08:38:00 36.61 Yisel [facility] Respiratory rate 2024-05-23 08:38:00 18 /min [facility] Body height 2024-05-23 08:38:00 172.7 cm [facility] Body weight 2024-05-23 08:38:00 75.751 kg [facility] BMI 2024-05-23 08:38:00 25.39 kg/m2 [facility] Oxygen saturation in Arterial blood by Pulse oximetry 2024-05-23 08:38:00 98 /min [facility] Systolic blood pressure 2024-05-13 13:14:00 112 mm[Hg] [facility] Diastolic blood pressure 2024-05-13 13:14:00 74 mm[Hg] [facility] Heart rate 2024-05-13 13:14:00 92 /min [facility] Body height 2024-05-13 13:14:00 172.7 cm [facility] Body weight 2024-05-13 13:14:00 72.576 kg [facility] BMI 2024-05-13 13:14:00 24.33 kg/m2 [facility] Oxygen saturation in Arterial blood by Pulse oximetry 2024-05-13 13:14:00 98 /min [facility] Systolic blood pressure 2024-04-24 13:02:00 115 mm[Hg] [facility] Diastolic blood pressure 2024-04-24 13:02:00 78 mm[Hg] [facility] Heart rate 2024-04-24 13:02:00 89 /min [facility] Body height 2024-04-24 13:02:00 172.7 cm [facility] Body weight 2024-04-24 13:02:00 73.936 kg [facility] BMI 2024-04-24 13:02:00 24.78 kg/m2 [facility] Oxygen saturation in Arterial blood by Pulse oximetry 2024-04-24 13:02:00 98 /min [facility] Systolic blood pressure 2024-04-20 20:00:00 116 mm[Hg] [facility] Diastolic blood pressure 2024-04-20 20:00:00 100 mm[Hg] [facility] Heart rate 2024-04-20 20:00:00 88 /min [facility] Respiratory rate 2024-04-20 20:00:00 22 /min [facility] Oxygen saturation in Arterial blood by Pulse oximetry 2024-04-20 20:00:00 90 /min [facility] Body temperature 2024-04-20 16:30:00 36.5 Yisel [facility] Body height 2024-04-20 16:30:00 172.7 cm [facility] Body weight 2024-04-20 16:30:00 72.576 kg [facility] BMI 2024-04-20 16:30:00 24.33 kg/m2 [facility] Systolic blood pressure 2024-04-20 00:05:00 114 mm[Hg] [facility] Diastolic blood pressure 2024-04-20 00:05:00 66 mm[Hg] [facility] Heart rate 2024-04-20 00:05:00 80 /min [facility] Body temperature 2024-04-20 00:05:00 36.56 Yisel [facility] Respiratory rate 2024-04-20 00:05:00 20 /min [facility] Oxygen saturation in Arterial blood by Pulse oximetry 2024-04-20 00:05:00 99 /min [facility] Body height 2024-04-19 22:00:00 172.7 cm [facility] Body weight 2024-04-19 22:00:00 72.576 kg [facility] BMI 2024-04-19 22:00:00 24.33 kg/m2 [facility] Systolic blood pressure 2024-03-11 12:45:00 122 mm[Hg] [facility] Diastolic blood pressure 2024-03-11 12:45:00 82 mm[Hg] [facility] Heart rate 2024-03-11 12:45:00 93 /min [facility] Body height 2024-03-11 12:45:00 172.7 cm [facility] Body weight 2024-03-11 12:45:00 72.077 kg [facility] BMI 2024-03-11 12:45:00 24.16 kg/m2 [facility] Oxygen saturation in Arterial blood by Pulse oximetry 2024-03-11 12:45:00 97 /min [facility] Systolic blood pressure 2024-01-17 13:05:00 124 mm[Hg] [facility] Diastolic blood pressure 2024-01-17 13:05:00 79 mm[Hg] [facility] Heart rate 2024-01-17 13:05:00 98 /min [facility] Body height 2024-01-17 13:05:00 172.7 cm [facility] 2024-01-17 13:05:00 70.852 kg [facility] BMI 2024-01-17 13:05:00 23.75 kg/m2 [facility] Oxygen saturation in Arterial blood by Pulse oximetry 2024-01-17 13:05:00 97 /min [facility] Systolic blood pressure 2023-12-17 19:53:00 139 mm[Hg] [facility] Diastolic blood pressure 2023-12-17 19:53:00 98 mm[Hg] [facility] Heart rate 2023-12-17 19:52:00 119 /min [facility] Body height 2023-12-17 19:52:00 170.2 cm [facility] Body weight 2023-12-17 19:52:00 70.262 kg [facility] BMI 2023-12-17 19:52:00 24.26 kg/m2 [facility] Oxygen saturation in Arterial blood by Pulse oximetry 2023-12-17 19:52:00 98 /min [facility] Systolic blood pressure 2023-12-13 16:45:00 136 mm[Hg] [facility] Diastolic blood pressure 2023-12-13 16:45:00 85 mm[Hg] [facility] Heart rate 2023-12-13 16:45:00 105 /min [facility] Body temperature 2023-12-13 16:45:00 36.72 Yisel [facility] Body weight 2023-12-13 16:45:00 69.945 kg [facility] BMI 2023-12-13 16:45:00 24.15 kg/m2 [facility] Oxygen saturation in Arterial blood by Pulse oximetry 2023-12-13 16:45:00 98 /min [facility] Systolic blood pressure 2023-12-12 14:30:00 133 mm[Hg] [facility] Diastolic blood pressure 2023-12-12 14:30:00 84 mm[Hg] [facility] Heart rate 2023-12-12 14:30:00 110 /min [facility] Body temperature 2023-12-12 14:30:00 36.83 Yisel [facility] Body height 2023-12-12 14:30:00 170.2 cm [facility] Body weight 2023-12-12 14:30:00 70.852 kg [facility] BMI 2023-12-12 14:30:00 24.46 kg/m2 [facility] Oxygen saturation in Arterial blood by Pulse oximetry 2023-12-12 14:30:00 99 /min [facility] Systolic blood pressure 2023-12-07 14:00:00 129 mm[Hg] [facility] Diastolic blood pressure 2023-12-07 14:00:00 70 mm[Hg] [facility] Heart rate 2023-12-07 14:00:00 87 /min [facility] Respiratory rate 2023-12-07 14:00:00 14 /min [facility] Oxygen saturation in Arterial blood by Pulse oximetry 2023-12-07 14:00:00 97 /min [facility] Body temperature 2023-12-07 13:10:00 35.83 Yisel [facility] Body weight 2023-12-07 10:00:00 76.476 kg [facility] BMI 2023-12-07 10:00:00 26.41 kg/m2 [facility] Body height 2023-12-06 15:22:00 170.2 cm [facility] Systolic blood pressure 2023-12-06 21:20:00 129 mm[Hg] [facility] Diastolic blood pressure 2023-12-06 21:20:00 86 mm[Hg] [facility] Heart rate 2023-12-06 21:20:00 75 /min [facility] Body temperature 2023-12-06 21:20:00 36 Yisel [facility] Respiratory rate 2023-12-06 21:20:00 16 /min [facility] Oxygen saturation in Arterial blood by Pulse oximetry 2023-12-06 21:20:00 97 /min [facility] Body height 2023-12-06 15:22:00 170.2 cm [facility] Body weight 2023-12-06 15:22:00 71.668 kg [facility] BMI 2023-12-06 15:22:00 26.41 kg/m2 [facility] Systolic blood pressure 2023-12-06 14:31:00 123 mm[Hg] [facility] Diastolic blood pressure 2023-12-06 14:31:00 84 mm[Hg] [facility] Heart rate 2023-12-06 14:31:00 110 /min [facility] Body temperature 2023-12-06 14:31:00 36.67 Yisel [facility] Respiratory rate 2023-12-06 14:31:00 18 /min [facility] Body height 2023-12-06 14:31:00 170.2 cm [facility] Body weight 2023-12-06 14:31:00 68.493 kg [facility] BMI 2023-12-06 14:31:00 23.65 kg/m2 [facility] Oxygen saturation in Arterial blood by Pulse oximetry 2023-12-06 14:31:00 100 /min [facility] Systolic blood pressure 2023-11-22 13:01:00 118 mm[Hg] [facility] Diastolic blood pressure 2023-11-22 13:01:00 74 mm[Hg] [facility] Heart rate 2023-11-22 13:01:00 90 /min [facility] Body height 2023-11-22 13:01:00 172.7 cm [facility] Body weight 2023-11-22 13:01:00 68.856 kg [facility] BMI 2023-11-22 13:01:00 23.08 kg/m2 [facility] Oxygen saturation in Arterial blood by Pulse oximetry 2023-11-22 13:01:00 99 /min [facility] Systolic blood pressure 2023-10-17 14:21:00 138 mm[Hg] [facility] Diastolic blood pressure 2023-10-17 14:21:00 79 mm[Hg] [facility] Heart rate 2023-10-17 14:21:00 68 /min [facility] 2023-10-17 14:21:00 68.947 kg [facility] BMI 2023-10-17 14:21:00 23.11 kg/m2 [facility] Heart rate 2023-10-13 11:23:00 64 /min [facility] Oxygen saturation in Arterial blood by Pulse oximetry 2023-10-13 11:23:00 100 /min [facility] Systolic blood pressure 2023-10-13 10:00:00 155 mm[Hg] [facility] Diastolic blood pressure 2023-10-13 10:00:00 90 mm[Hg] [facility] Respiratory rate 2023-10-13 10:00:00 20 /min [facility] Body temperature 2023-10-13 09:22:00 37.11 Yisel [facility] Body height 2023-10-13 09:22:00 172.7 cm [facility] Body weight 2023-10-13 09:22:00 68.04 kg [facility] BMI 2023-10-13 09:22:00 22.81 kg/m2 [facility] Systolic blood pressure 2023-09-24 18:41:00 125 mm[Hg] [facility] Diastolic blood pressure 2023-09-24 18:41:00 74 mm[Hg] [facility] Heart rate 2023-09-24 18:41:00 88 /min [facility] Body height 2023-09-24 18:41:00 170.2 cm [facility] Body weight 2023-09-24 18:41:00 66.271 kg [facility] BMI 2023-09-24 18:41:00 22.88 kg/m2 [facility] Oxygen saturation in Arterial blood by Pulse oximetry 2023-09-24 18:41:00 100 /min [facility] Body temperature 2023-09-22 02:00:00 37 Yisel [facility] Systolic blood pressure 2023-09-22 01:00:00 139 mm[Hg] [facility] Diastolic blood pressure 2023-09-22 01:00:00 78 mm[Hg] [facility] Heart rate 2023-09-22 01:00:00 82 /min [facility] Respiratory rate 2023-09-22 01:00:00 9 /min [facility] Oxygen saturation in Arterial blood by Pulse oximetry 2023-09-22 01:00:00 99 /min [facility] Body height 2023-09-21 22:05:00 170.2 cm [facility] Body weight 2023-09-21 22:05:00 70.308 kg [facility] BMI 2023-09-21 22:05:00 24.28 kg/m2 [facility] Systolic blood pressure 2023-07-30 11:56:00 113 mm[Hg] [facility] Diastolic blood pressure 2023-07-30 11:56:00 74 mm[Hg] [facility] Heart rate 2023-07-30 11:56:00 89 /min [facility] 2023-07-30 11:56:00 170.2 cm [facility] Body weight 2023-07-30 11:56:00 69.037 kg [facility] BMI 2023-07-30 11:56:00 23.84 kg/m2 [facility] Oxygen saturation in Arterial blood by Pulse oximetry 2023-07-30 11:56:00 99 /min [facility] Systolic blood pressure 2023-06-04 12:03:00 112 mm[Hg] [facility] Diastolic blood pressure 2023-06-04 12:03:00 75 mm[Hg] [facility] Heart rate 2023-06-04 12:03:00 110 /min [facility] 2023-06-04 12:03:00 170.2 cm [facility] Body weight 2023-06-04 12:03:00 69.854 kg [facility] 2023-06-04 12:03:00 24.12 kg/m2 [facility] Oxygen saturation in Arterial blood by Pulse oximetry 2023-06-04 12:03:00 99 /min [facility] Systolic blood pressure 2023-05-09 15:52:00 111 mm[Hg] [facility] Diastolic blood pressure 2023-05-09 15:52:00 72 mm[Hg] [facility] Heart rate 2023-05-09 15:52:00 86 /min [facility] Respiratory rate 2023-05-09 15:52:00 18 /min [facility] Body height 2023-05-09 15:52:00 172.7 cm [facility] Body weight 2023-05-09 15:52:00 73.936 kg [facility] BMI 2023-05-09 15:52:00 24.78 kg/m2 [facility] Oxygen saturation in Arterial blood by Pulse oximetry 2023-05-09 15:52:00 98 /min [facility] Systolic blood pressure 2023 23:00:00 111 mm[Hg] [facility] Diastolic blood pressure 2023 23:00:00 80 mm[Hg] [facility] Heart rate 2023 23:00:00 80 /min [facility] Respiratory rate 2023 23:00:00 18 /min [facility] Oxygen saturation in Arterial blood by Pulse oximetry 2023 23:00:00 97 /min [facility] Body temperature 2023 21:04:00 37.28 Yisel [facility] Body height 2023 21:04:00 172.7 cm [facility] Body weight 2023 21:04:00 70.761 kg [facility] BMI 2023 21:04:00 23.72 kg/m2 [facility] Systolic blood pressure 2023-05-03 14:18:00 130 mm[Hg] [facility] Diastolic blood pressure 2023-05-03 14:18:00 74 mm[Hg] [facility] [facility] Heart rate 2023-05-03 14:18:00 109 /min Unive [facility] Body temperature 2023-05-03 14:18:00 37.11 Yisel [facility] Respiratory rate 2023-05-03 14:18:00 18 /min [facility] Body height 2023-05-03 14:18:00 172.7 cm [facility] Body weight 2023-05-03 14:18:00 71.033 kg [facility] BMI 2023-05-03 14:18:00 23.81 kg/m2 [facility] Oxygen saturation in Arterial blood by Pulse oximetry 2023-05-03 14:18:00 99 /min [facility] Systolic blood pressure 2023-05-02 13:35:00 120 mm[Hg] [facility] Diastolic blood pressure 2023-05-02 13:35:00 79 mm[Hg] [facility] Heart rate 2023-05-02 13:35:00 93 /[facility] Respiratory rate 2023-05-02 13:35:00 17 /min [facility] Body height 2023-05-02 13:35:00 170.2 cm [facility] Body weight 2023-05-02 13:35:00 69.536 kg [facility] BMI 2023-05-02 13:35:00 24.01 kg/m2 [facility] Oxygen saturation in Arterial blood by Pulse oximetry 2023-05-02 13:35:00 99 /min [facility] Systolic blood pressure 2023-04-28 05:35:00 123 mm[Hg] [facility] Diastolic blood pressure 2023-04-28 05:35:00 76 mm[Hg] [facility] Heart rate 2023-04-28 05:35:00 58 /min [facility] Respiratory rate 2023-04-28 05:35:00 18 /min [facility] Oxygen saturation in Arterial blood by Pulse oximetry 2023-04-28 05:35:00 98 /min [facility] Body temperature 2023-04-28 01:02:00 37.5 Yisel [facility] Body height 2023-04-28 01:02:00 170.2 cm [facility] Body weight 2023-04-28 01:02:00 70.308 kg [facility] BMI 2023-04-28 01:02:00 24.28 kg/m2 [facility] Systolic blood pressure 2023-04-27 16:07:00 125 mm[Hg] [facility] Diastolic blood pressure 2023-04-27 16:07:00 76 mm[Hg] [facility] Heart rate 2023-04-27 16:07:00 72 /min [facility] Body temperature 2023-04-27 16:07:00 36.67 Yisel [facility] Respiratory rate 2023-04-27 16:07:00 18 /min [facility] Oxygen saturation in Arterial blood by Pulse oximetry 2023-04-27 16:07:00 100 /min [facility] Body weight 2023-04-27 08:18:00 70.489 kg [facility] BMI 2023-04-27 08:18:00 24.34 kg/m2 [facility] Body height 2023-04-26 04:26:00 170.2 cm [facility] Systolic blood pressure 2023-04-05 12:01:00 100 mm[Hg] [facility] Diastolic blood pressure 2023-04-05 12:01:00 69 mm[Hg] [facility] Heart rate 2023-04-05 12:01:00 103 /min [facility] Body height 2023-04-05 12:01:00 170.2 cm [facility] Body weight 2023-04-05 12:01:00 72.757 kg [facility] BMI 2023-04-05 12:01:00 25.12 kg/m2 [facility] Oxygen saturation in Arterial blood by Pulse oximetry 2023-04-05 12:01:00 98 /min [facility] Systolic blood pressure 2023-03-29 09:53:00 113 mm[Hg] [facility] Diastolic blood pressure 2023-03-29 09:53:00 68 mm[Hg] [facility] Heart rate 2023-03-29 09:53:00 83 /min [facility] Respiratory rate 2023-03-29 09:53:00 18 /min [facility] Oxygen saturation in Arterial blood by Pulse oximetry 2023-03-29 09:53:00 97 /min [facility] Body temperature 2023-03-29 07:32:00 36.44 Yisel [facility] Body height 2023-03-29 07:32:00 170.2 cm [facility] Body weight 2023-03-29 07:32:00 72.576 kg [facility] BMI 2023-03-29 07:32:00 25.06 kg/m2 [facility] Systolic blood pressure 2023-03-01 17:19:00 124 mm[Hg] [facility] Diastolic blood pressure 2023-03-01 17:19:00 85 mm[Hg] [facility] Heart rate 2023-03-01 17:19:00 86 /min [facility] in Arterial blood by Pulse oximetry 2023-03-01 17:19:00 100 /min [facility] Body height 2023-03-01 17:12:00 170.2 cm [facility] Body weight 2023-03-01 17:12:00 72.848 kg [facility] BMI 2023-03-01 17:12:00 25.15 kg/m2 [facility] Systolic blood pressure 2023-02-05 12:05:00 108 mm[Hg] [facility] Diastolic blood pressure 2023-02-05 12:05:00 78 mm[Hg] [facility] Heart rate 2023-02-05 12:05:00 100 /min [facility] Body height 2023-02-05 12:05:00 172.7 cm [facility] Body weight 2023-02-05 12:05:00 73.437 kg [facility] 2023-02-05 12:05:00 24.62 kg/m2 [facility] Oxygen saturation in Arterial blood by Pulse oximetry 2023-02-05 12:05:00 100 /min [facility] Systolic blood pressure 2022-12-07 13:03:00 111 mm[Hg] [facility] Diastolic blood pressure 2022-12-07 13:03:00 77 mm[Hg] [facility] Heart rate 2022-12-07 13:02:00 115 /min [facility] Body height 2022-12-07 13:02:00 170.2 cm [facility] Body weight 2022-12-07 13:02:00 74.118 kg Univ [facility] BMI 2022-12-07 13:02:00 25.59 kg/m2 [facility] Oxygen saturation in Arterial blood by Pulse oximetry 2022-12-07 13:02:00 99 /min [facility] Systolic blood pressure 2022-10-10 13:04:00 119 mm[Hg] [facility] Diastolic blood pressure 2022-10-10 13:04:00 80 mm[Hg] [facility] Heart rate 2022-10-10 13:04:00 106 /min [facility] Body height 2022-10-10 13:04:00 170.2 cm [facility] Body weight 2022-10-10 13:04:00 72.303 kg Univ [facility] BMI 2022-10-10 13:04:00 24.97 kg/m2 [facility] Oxygen saturation in Arterial blood by Pulse oximetry 2022-10-10 13:04:00 99 /min [facility] Systolic blood pressure 2022-08-10 12:35:00 95 mm[Hg] [facility] Diastolic blood pressure 2022-08-10 12:35:00 67 mm[Hg] [facility] Heart rate 2022-08-10 12:35:00 111 /min [facility] Body weight 2022-08-10 12:35:00 71.623 kg [facility] BMI 2022-08-10 12:35:00 24.01 kg/m2 [facility] Systolic blood pressure 2022-06-12 12:04:00 116 mm[Hg] [facility] Diastolic blood pressure 2022-06-12 12:04:00 81 mm[Hg] [facility] Heart rate 2022-06-12 12:04:00 118 /min [facility] Body weight 2022-06-12 12:04:00 69.4 kg [facility] BMI 2022-06-12 12:04:00 23.26 kg/m2 [facility] Procedures Procedure Date / Time Performed Performing Clinician Source MR LUMBAR SPINE WO CONTRAST 2024-10-30 15:53:35 Naa Dubon [facility] EKG-12 LEAD 2024-04-20 20:35:12 Nelida Mercer [facility] CT CHEST PULMONARY ANGIOGRAM 2024-04-20 18:11:53 Nelida Mercer [facility] TROPONIN I 2024-04-20 17:40:00 Nelida Mercer [facility] COMP. METABOLIC PANEL ([id number]) 2024-04-20 17:40:00 Nelida Mercer [facility] CBC WITH DIFF 2024-04-20 17:40:00 [facility] 2024-04-20 17:40:00 Nelida Mercer [facility] INFLUENZA A/B RSV COVID NAAT 2024-04-19 22:25:00 Lorraine Mcgee [facility] HEPATIC FUNCTION PANEL ([id number]) (ALB,T.PRO,BILI T,BU/BC,ALT,AST,ALK PHOS) 2023-12-07 10:46:00 Jamie [facility] BASIC METABOLIC PANEL (NA, K, CL, CO2, GLUCOSE, BUN, CREATININE, CA) 2023-12-07 10:46:00 [facility] 2023-12-07 10:46:00 Jamie [facility] HEPATIC FUNCTION PANEL ([id number]) (ALB,T.PRO,BILI T,BU/BC,ALT,AST,ALK PHOS) 2023-12-07 10:46:00 Jamie [facility] BASIC METABOLIC PANEL (NA, K, CL, CO2, GLUCOSE, BUN, CREATININE, CA) 2023-12-07 10:46:00 Jamie [facility] CBC WITH DIFF 2023-12-07 10:46:00 Jamie [facility] LAPAROSCOPIC CHOLECYSTECTOMY 2023-12-06 18:32:00 Phan [facility] LAPAROSCOPIC CHOLECYSTECTOMY 2023-12-06 18:32:00 Phan, [facility] URINALYSIS 2023-12-06 17:39:00 [facility] URINALYSIS 2023-12-06 17:39:00 Nayla Barbosa [facility] HB ECG ROUTINE & RHYTHM STRIP 2023-12-06 15:40:28 Nayla Barbosa [facility] HB ECG ROUTINE & RHYTHM STRIP 2023-12-06 15:40:28 Nayla Barbosa [facility] LIPASE 2023-12-06 15:33:00 ChelseyNayla beasley [facility] MAGNESIUM 2023-12-06 15:33:00 Nayla Barbosa [facility] TROPONIN I 2023-12-06 15:33:00 Nayla Barbosa [facility] COMP. METABOLIC PANEL ([id number]) 2023-12-06 15:33:00 Nayla Barbosa [facility] CBC WITH DIFF 2023-12-06 15:33:00 Nayla Barbosage [facility] LIPASE 2023-12-06 15:33:00 [facility] MAGNESIUM 2023-12-06 15:33:00 Chelsey, K [facility] TROPONIN I 2023-12-06 15:33:00 [facility] COMP. METABOLIC PANEL ([id number]) 2023-12-06 15:33:00 Nayla Barbosa [facility] CBC WITH DIFF 2023-12-06 15:33:00 Nayla Barbosa [facility] CONSENT/REFUSAL FOR DIAGNOSIS AND TREATMENT 2023-12-06 15:14:56 Doctor Unassigned, Nerstrand [facility] CONSENT/REFUSAL FOR DIAGNOSIS AND TREATMENT 2023-12-06 15:14:56 Doctor Unassigned, Nerstrand [facility] CT ABDOMEN PELVIS W CONTRAST 2023-10-13 10:43:02 Derrick Chance [facility] LIPASE 2023-10-13 09:32:00 Derrick Chance [facility] COMP. METABOLIC PANEL ([id number]) 2023-10-13 09:32:00 Derrick Chance [facility] CBC WITH DIFF 2023-10-13 09:32:00 Derrick Chance [facility] URINALYSIS 2023-10-13 09:32:00 Derrick Chance [facility] CONSENT/REFUSAL FOR DIAGNOSIS AND TREATMENT 2023-10-13 09:17:43 Doctor Unassigned, [place] [facility] CT CHEST PULMONARY ANGIOGRAM 2023-09-22 00:42:45 Kayce Flannery [facility] CT ABDOMEN PELVIS W CONTRAST 2023-09-22 00:40:39 Kayce Flannery [facility] D-DIMER 2023-09-21 23:05:00 Kayce Flannery [facility] US GALL BLADDER 2023-09-21 22:51:43 [facility] 2023-09-21 22:17:00 [facility] TROPONIN I 2023-09-21 22:17:00 [facility] COMP. METABOLIC PANEL ([id number]) 2023-09-21 22:17:00 Kayce Flannery [facility] CBC WITH DIFF 2023-09-21 22:17:00 Kayce Flannery [facility] URINALYSIS 2023-09-21 22:17:00 [facility] CONSENT/REFUSAL FOR DIAGNOSIS AND TREATMENT 2023-09-21 21:58:50 Doctor Unassigned, [place]erstrand [facility] CONSENT/REFUSAL FOR DIAGNOSIS AND TREATMENT 2023 20:57:38 Doctor Unassigned, Nerstrand [facility] DISCLOSURE AND CONSENT, MEDICAL AND SURGICAL PROCEDURES 2023-05-04 05:01:00 Doctor Unassigned, Nerstrand [facility] COMP. METABOLIC PANEL ([id number]) 2023-04-28 02:46:00 Marina Echeverria [facility] CBC WITH DIFF 2023-04-28 02:46:00 Marina Echeverria [facility] CONSENT/REFUSAL FOR DIAGNOSIS AND TREATMENT 2023-04-28 00:50:32 Doctor Unassigned, [place] [facility] LIPASE 2023-04-27 09:25:00 [facility]FF 2023-04-27 09:25:00 Nivia Rick [facility] US GALL BLADDER 2023-04-26 22:54:01 Nivia Rick [facility] TROPONIN I 2023-04-26 17:06:00 [facility] TRANSTHORACIC ECHO (TTE) COMPLETE 2023-04-26 15:03:00 Blade Marie [facility] THYROID STIMULATING HORMONE 2023-04-26 10:03:00 Blade Marie [facility] PROCALCITONIN 2023-04-26 10:03:00 Bldae Marie [facility] PHOSPHORUS 2023-04-26 10:02:00 Blade Marie [facility] MAGNESIUM 2023-04-26 10:02:00 Blade Marie [facility] TROPONIN I 2023-04-26 10:02:00 Blade Marie [facility] COMP. METABOLIC PANEL ([id number]) 2023-04-26 10:02:00 Frank [facility] LIPID PANEL ([id number])(TOTAL CHOLESTEROL, TRIGLYCERIDES, HDL) 2023-04-26 10:02:00 Frank [facility] DIFF CONSULT BY PATHOLOGIST 2023-04-26 10:02:00 Frank [facility] CBC WITH DIFF 2023-04-26 10:02:00 [facility]ade [facility] N-TERMINAL PRO-BNP 2023-04-26 10:02:00 Frank [facility] DIFF CONSULT INTERPRETATION 2023-04-26 10:02:[address] [facility] CT ANGIOGRAM CHEST 2023-04-26 09:17:00 Frank [facility] XR CHEST 1 VW 2023-04-26 02:22:00 Hernán Rojo [facility] LIPASE 2023-04-26 01:50:00 [facility] MAGNESIUM 2023-04-26 01:50:00 [facility] TROPONIN I 2023-04-26 01:50:00 [facility] COMP. METABOLIC PANEL ([id number]) 2023-04-26 01:50:00 Singer [facility] CBC WITH DIFF 2023-04-26 01:50:00 Singer Hernán [facility] N-TERMINAL PRO-BNP 2023-04-26 01:50:00 Singer [facility] HB ECG ROUTINE & RHYTHM STRIP 2023-04-26 01:43:40 Singer [facility] CONSENT/REFUSAL FOR DIAGNOSIS AND TREATMENT 2023-04-26 01:31:41 Doctor Unassigned, Nerstrand [facility] EKG-12 LEAD 2023-03-29 09:50:08 Sagrario Infante Un [facility] COMP. METABOLIC PANEL ([id number]) 2023-03-29 08:27:00 Sagrario Infante [facility] TROPONIN I 2023-03-29 07:45:00 Sagrario Infante [facility] CBC WITH DIFF 2023-03-29 07:45:00 Sagrario Infante [facility] CONSENT/REFUSAL FOR DIAGNOSIS AND TREATMENT 2023-03-29 07:29:14 Doctor Unassigned, Nerstrand [facility] NOTICE OF PRIVACY PRACTICES 2023-03-29 07:28:26 Doctor Unassigned, Nerstrand [facility] Encounters Start Date/Time End Date/Time Encounter Type Admission Type Attending [facility] Facility Care Department Encounter ID Source 2023-05-03 16:29:05 Outpatient [place]UDY POTTER [place] [facility] CESAR [id number] [facility] 2021-09-01 19:11:03 Emergency [facility] [id number] [facility] 2024-12-31 07:30:00 2024-12-31 07:30:00 Outpatient NIKIA LILLY [facility] [id number] [facility] 2024-12-18 19:58:00 2024-12-18 21:48:00 Emergency X HERNÁN ROJO PHILLIP [facility] ERT [id number] [facility] 2024-12-18 19:58:00 2024-12-18 21:48:00 Emergency Hernán Rojo [facility] 840.114 350.1.13.10 4.2.7.2.686 [id number] [facility] 2024-12-15 00:00:00 2024-12-16 11:41:40 Telephone Chente Garibay [facility] 1.840.114 350.1.13.10 4.2.7.2.686 [id number] [facility] 2024-12-16 00:00:00 2024-12-16 10:44:09 Patient Secure Msg Doctor Unassigned, Nerstrand Doctor Unassigned, Nerstrand [facility] DAT?[facility] 1.2840.114 350.1.13.10 4.2.7.2.686 [id number] [facility] 2024-12-10 00:00:00 2024-12-10 15:11:06 Refill Phoenix Chente [facility] DAT?[facility] 1.2840.114 350.1.13.10 4.2.7.2.686 [id number] [facility] 2024-12-08 00:00:00 2024-12-10 11:02:32 Patient Secure Msg Doctor Unassigned, [place]er[place] Doctor Unassigned, Nerstrand [facility] DAT?[facility] 1.2840.114 350.1.13.10 4.2.7.2.686 [id number] [facility] 2024-12-09 00:00:00 2024-12-10 10:46:04 Telephone Annabelle Cervantes Melody A [facility] 1.2840.114 350.1.13.10 4.2.7.2.686 [id number] [facility] 2024-12-08 12:15:00 2024-12-08 12:30:00 Office Visit Chente Garibay [facility] DAT?[facility] 1.284.114 350.1.13.10 4.2.7.2.686 [id number] [facility] 2024-12-08 12:15:00 2024-12-08 12:15:00 Outpatient R CHENTE GARIBAY [facility] [id number] [facility] 2024-12-02 00:00:00 2024-12-03 06:19:06 Telephone Chente Garibay [facility] 1.2840.114 350.1.13.10 4.2.7.2.686 [id number] [facility] 2024-12-02 00:00:00 2024-12-02 10:58:45 Patient Secure Msg Doctor Unassigned, Nerstrand Doctor Unassigned, Nerstrand [facility] DAT?[facility] 1.2840.114 350.1.13.10 4.2.7.2.686 [id number] [facility] 2024-11-26 00:00:00 2024-11-26 14:02:31 Refill Chente Garibay [facility] 1.2840.114 350.1.13.10 4.2.7.2.686 [id number] [facility] 2024-11-26 00:00:00 2024-11-26 13:19:29 [facility] 1.2840.114 350.1.13.10 4.2.7.2.686 [id number] [facility] 2024-11-14 00:00:00 2024-11-14 08:07:54 Telephone Annabelle Cervantes Melody A [facility] [place] [facility] 1.2840.114 350.1.13.10 4.2.7.2.686 [id number] [facility] 2024-11-12 13:45:00 2024-11-12 14:00:00 Office Visit Chente Garibay [facility] DAT?[facility] 1.2840.114 350.1.13.10 4.2.7.2.686 [id number] [facility] 2024-11-12 13:45:00 2024-11-12 13:45:00 Outpatient R PHOENIX CHENTE [facility] [id number] [facility] 2024-09-30 00:00:00 2024-11-01 18:16:28 Patient Secure Msg Doctor Unassigned, Nerstrand Doctor Unassigned, Nerstrand [facility] 1..840.114 350.1.13.10 4.2.7.2.686 [id number] [facility] 2024-10-01 00:00:00 2024-11-01 18:15:18 Patient Secure Msg Doctor Unassigned, Nerstrand Doctor Unassigned, Nerstrand [facility] 1.2.840.114 350.1.13.10 4.2.7.2.686 [id number] [facility] 2024-10-30 08:33:53 2024-10-30 23:59:00 Hospital Encounter CristelaNaa [facility] 1.2.840.114 350.1.13.10 4.2.7.2.686 [id number] [facility] 2024-10-30 11:15:00 2024-10-30 13:19:17 Outpatient R AUSTYN GONSALVES [facility] [id number] [facility] 2024-10-30 11:15:00 2024-10-30 13:19:17 Office Visit Austyn Gonsalves [facility] 1.2.840.114 350.1.13.10 4.2.7.2.686 [id number] [facility] 2024-10-27 00:00:00 2024-10-27 08:49:19 Patient Secure Msg Doctor Unassigned, Nerstrand Doctor Unassigned, Nerstrand [facility] 1.84114 350.1.13.10 4.2.7.2.686 [id number] [facility] 2024-10-15 13:00:00 2024-10-15 13:26:55 Outpatient R CHARO JOSHI [facility] [id number] [facility] 2024-10-15 13:00:00 2024-10-15 13:26:55 Office Visit Charo Joshi [facility] 1.84114 350.1.13.10 4.2.7.2.686 [id number] [facility] 2024-10-14 00:00:00 2024-10-14 09:14:13 Telephone Annabelle Cervantes Melody A [facility] [place] [facility] 1.114 350.1.13.10 4.2.7.2.686 [id number] [facility] 2024-10-13 13:15:00 2024-10-13 13:15:00 Office Visit Phoenix Chente [facility] 1.84.114 350.1.13.10 4.2.7.2.686 [id number] [facility] 2024-10-13 13:15:00 2024-10-13 13:02:38 Outpatient R CHENTE GARIBAY [facility] [id number] [facility] 2024-09-29 00:00:00 2024-09-29 15:36:59 Patient Secure Msg Doctor Unassigned, Ner[place] Doctor Unassigned, Nerstrand [facility] 1.84.114 350.1.13.10 4.2.7.2.686 [id number] [facility] 2024-09-22 00:00:00 2024-09-22 14:21:45 Patient Secure Msg Doctor Unassigned, Nerstrand Doctor Unassigned, Nerstrand [facility] 1.2.840.114 350.1.13.10 4.2.7.2.686 [id number] [facility] 2024-09-16 07:30:00 2024-09-16 07:45:00 Office Visit [place] Chente [facility] DA[facility] 1.2.840.114 350.1.13.10 4.2.7.2.686 [id number] [facility] 2024-09-16 07:30:00 2024-09-16 07:30:00 Outpatient R CHENTE GARIBAY [facility] [id number] [facility] 2024-08-07 00:00:00 2024-09-13 18:26:57 Patient Secure Msg Doctor Unassigned, Ner[place] Doctor Unassigned, Nerstrand [facility] DAT?[facility] 1..840.114 350.1.13.10 4.2.7.2.686 [id number] [facility] 2024-09-05 00:00:00 2024-09-08 06:16:14 Refill [place] Chente [facility] 1.2.840.114 350.1.13.10 4.2.7.2.686 [id number] [facility] 2024-08-04 00:00:00 2024-09-06 18:22:42 Patient Secure Msg Doctor Unassigned, Ner[place] Doctor Unassigned, Nerstrand [facility] 1.2.840.114 350.1.13.10 4.2.7.2.686 [id number] [facility] 2024-09-03 00:00:00 2024-09-03 09:27:25 [facility] 1.2.840.114 350.1.13.10 4.2.7.2.686 [id number] 044 [id number] [facility] 2024-08-18 00:00:00 2024-08-18 15:01:29 [facility] 1.2.840.114 350.1.13.10 4.2.7.2.686 [id number] [id number] [facility] 2024-08-07 00:00:00 2024-08-07 09:48:[address] [facility] DAT?[facility] 1..840.114 350.1.13.10 4.2.7.2.686 [id number] [id number] [facility] 2024-08-06 07:15:00 2024-08-06 07:18:17 Outpatient R CHENTE GARIBAY [facility] [id number] [facility] 2024-08-06 07:15:00 2024-08-06 07:18:[address] [place] [facility] DAT?[facility] 1..840.114 350.1.13.10 4.2.7.2.686 [id number] [id number] [facility] 2024-08-04 00:00:00 2024-08-06 07:16:[address] [facility] DAT?[facility] 1.2.840.114 350.1.13.10 4.2.7.2.686 [id number] 044 [id number] [facility] 2024-08-04 00:00:00 2024-08-04 13:31:00 Refill Chente Garibay [facility] 1.84.114 350.1.13.10 4.2.7.2.686 [id number] 044 [id number] [facility] 2024-07-21 09:30:00 2024-07-21 09:45:00 Office Visit Chente Garibay [facility] DAG[facility] 1.84.114 350.1.13.10 4.2.7.2.686 [id number] 044 [id number] [facility] 2024-07-21 09:30:00 2024-07-21 09:30:00 Outpatient CHENTE DAN [facility] [id number] [facility] 2024-07-16 00:00:00 2024-07-16 09:42:15 Refill Chente Garibay [facility] DAT?[facility] 1.84.114 350.1.13.10 4.2.7.2.686 [id number] 044 [id number] [facility] 2024-06-17 08:15:00 2024-06-17 08:30:00 Office Visit Chente Garibay [facility] 1.84.114 350.1.13.10 4.2.7.2.686 [id number] 044 [id number] [facility] 2024-06-17 08:15:00 2024-06-17 08:15:00 Outpatient CHENTE DAN [facility] [id number] [facility] 2024-05-12 00:00:00 2024-06-14 18:21:46 Patient Secure Msg Doctor Unassigned, [place] Doctor Unassigned, [place]strand [facility] DAT?[facility] 1.84.114 350.1.13.10 4.2.7.2.686 [id number] 092 [id number] [facility] 2024-05-23 03:41:00 2024-05-23 04:09:00 Emergency X VASUT, ISAC ADAMS, ISAC [facility] ERT [id number] [facility] 2024-05-23 03:41:00 2024-05-23 04:09:00 Emergency Isac Adams [facility] 1.2.840.114 350.1.13.10 4.2.7.2.686 [id number] 084 [id number] [facility] 2024-05-21 00:00:00 2024-05-21 11:34:27 [facility] 1.2840.114 350.1.13.10 4.2.7.2.686 [id number] 044 [id number] [facility] 2024-05-21 00:00:00 2024-05-21 11:34:14 Refill Chente Garibay [facility] PROFESSIO NAL BUILDING 1.2840.114 350.1.13.10 4.2.7.2.686 [id number] 044 [id number] [facility] 2024-05-19 00:00:00 2024-05-19 10:53:07 [facility] 1.2840.114 350.1.13.10 4.2.7.2.686 [id number] 044 [id number] [facility] 2024-05-13 08:45:00 2024-05-13 09:00:00 [facility] 1.2840.114 350.1.13.10 4.2.7.2.686 [id number] 044 [id number] [facility] 2024-05-13 08:45:00 2024-05-13 08:45:00 Outpatient R CHENTE GARIBAY [facility] [id number] [facility] 2024-05-12 07:30:00 2024-05-12 07:30:00 Outpatient CHENTE DAN [facility] [id number] [facility] 2024-04-24 09:00:00 2024-04-24 09:30:00 Office Visit Chente Garibay [facility] 1..840.114 350.1.13.10 4.2.7.2.686 [id number] 044 [id number] [facility] 2024-04-24 09:00:00 2024-04-24 09:00:00 Outpatient CHENTE DAN [facility] [id number] [facility] 2024-04-21 00:00:00 2024-04-21 09:12:20 Nurse Triage Agnieszka Berg [facility] 1.840.114 350.1.13.10 4.2.7.2.686 [id number] 019 [id number] [facility] 2024-04-20 11:33:00 2024-04-20 15:53:00 Emergency X NELIDA MERCER [facility] ERT [id number] [facility] 2024-04-20 11:33:00 2024-04-20 15:53:00 Emergency Nelida Mercer [facility] 1.840.114 350.1.13.10 4.2.7.2.686 [id number] 084 [id number] [facility] 2024-04-19 17:02:00 2024-04-19 19:17:00 Emergency X LORRAINE MCGEE HEE-KWANG [facility] ERT [id number] [facility] 2024-04-19 17:02:00 2024-04-19 19:17:00 Emergency Lorraine Mcgee [facility] 1.840.114 350.1.13.10 4.2.7.2.686 [id number] 084 [id number] [facility] 2024-04-15 00:00:00 2024-04-15 13:17:02 Patient Secure Msg Doctor Unassigned, [place]erstrand [facility] AILYN DAUGHERTY?[facility] 1.2840.114 350.1.13.10 4.2.7.2.686 [id number] 044 [id number] [facility] 2024-03-27 00:00:00 2024-03-27 08:44:14 Refill Chente Garibay [facility] AILYN DAUGHERTY?[facility] 1.20.114 350.1.13.10 4.2.7.2.686 [id number] 044 [id number] [facility] 2024-03-17 00:00:00 2024-03-17 16:41:34 Telephone Chente Garibay [facility] DA[facility] 1.20.114 350.1.13.10 4.2.7.2.686 [id number] 044 [id number] [facility] 2024-03-11 00:00:00 2024-03-12 14:35:50 Telephone Chente Garibay [facility] AILYN DAUGHERTY?[facility] 1.2840.114 350.1.13.10 4.2.7.2.686 [id number] 044 [id number] [facility] 2024-03-11 00:00:00 2024-03-12 06:23:31 Telephone Chente Garibay [facility] AILYN DAUGHERTY?[facility] 1.2840.114 350.1.13.10 4.2.7.2.686 [id number] 044 [id number] [facility] 2024-03-11 00:00:00 2024-03-11 16:11:10 Patient Secure Msg Doctor Unassigned, [place] [facility] DA[facility] 1.2840.114 350.1.13.10 4.2.7.2.686 [id number] 044 [id number] [facility] 2024-03-11 00:00:00 2024-03-11 09:42:47 Telephone Chente Garibay [facility] 1.2840.114 350.1.13.10 4.2.7.2.686 [id number] 044 [id number] [facility] 2024-03-11 08:15:00 2024-03-11 08:30:00 [facility] 1.2840.114 350.1.13.10 4.2.7.2.686 [id number] 044 [id number] [facility] 2024-03-11 08:15:00 2024-03-11 08:15:00 Outpatient R CHENTE GARIBAY [facility] [id number] [facility] 2024-02-26 00:00:00 2024-02-26 00:00:[address] [facility] DAT?[facility] 1.2840.114 350.1.13.10 4.2.7.2.686 [id number] 044 [id number] [facility] 2024-02-25 00:00:00 2024-02-25 00:00:00 [facility] 1.2840.114 350.1.13.10 4.2.7.2.686 [id number] 044 [id number] [facility] 2024-02-13 00:00:00 2024-02-13 00:00:00 [facility]ill [place] [facility] 1.2840.114 350.1.13.10 4.2.7.2.686 [id number] 044 [id number] [facility] 2024-01-22 00:00:00 2024-01-22 00:00:00 Telephone Chente Garibay [facility] DAT?[facility] 1.840.114 350.1.13.10 4.2.7.2.686 [id number] 044 [id number] [facility] 2024-01-17 08:45:00 2024-01-17 09:00:00 Office Visit Chente Garibay [facility] 1.840.114 350.1.13.10 4.2.7.2.686 [id number] 044 [id number] [facility] 2024-01-17 08:45:00 2024-01-17 08:20:21 Outpatient R CHENTE GARIBAY [facility] [id number] [facility] 2023-12-17 14:15:00 2023-12-17 14:15:00 [facility] 1.84.114 350.1.13.10 4.2.7.2.686 [id number] 044 [id number] [facility] 2023-12-17 14:15:00 2023-12-17 14:06:46 Outpatient CHENTE DAN [facility] [id number] [facility] 2023-12-17 00:00:00 2023-12-17 00:00:00 Telephone Chente Garibay [facility] DAT?[facility] 1.84.114 350.1.13.10 4.2.7.2.686 [id number] 044 [id number] [facility] 2023-12-13 11:15:00 2023-12-13 11:30:00 [facility] 1.840.114 350.1.13.10 4.2.7.2.686 [id number] [facility] 2023-12-13 11:15:00 2023-12-13 11:15:00 [id number] 2023-12-12 09:00:00 2023-12-12 09:30:00 [facility] 1.2.840.114 350.1.13.10 4.2.7.2.686 [id number] 044 [id number] [facility] 2023-12-12 09:00:00 2023-12-12 09:00:00 [facility] [id number] [facility] 2023-12-12 00:00:00 2023-12-12 00:00:00 Telephone [facility] 1..840.114 350.1.13.10 4.2.7.2.686 [id number] 044 [id number] [facility] 2023-12-06 09:23:00 2023-12-07 13:05:00 Outpatient X ALE A[facility] [id number] [facility] 2023-12-06 09:23:00 2023-12-07 13:05:00 [facility].114 350.1.13.10 4.2.7.2.686 [id number] 080 [id number] [facility] 2023-12-06 13:00:00 2023-12-06 15:27:00 Surgery Emilie [facility] 1.2.840.114 350.1.13.10 4.2.7.2.686 [id number] 020 [id number] [facility] 2023-12-06 09:00:00 2023-12-06 10:00:04 Outpatient R YUDY PHAN [facility] [id number] [facility] 2023-12-06 09:00:00 2023-12-06 09:15:00 Office Visit Emilie [facility] 1.84.114 350.1.13.10 4.2.7.2.686 [id number] [facility] 2023-11-28 00:00:00 2023-11-28 00:00:[address] [facility] DAT?[facility] 1.84.114 350.1.13.10 4.2.7.2.686 [id number] 044 [id number] [facility] 2023-11-22 07:30:00 2023-11-22 07:45:00 [facility] 1.84.114 350.1.13.10 4.2.7.2.686 [id number] 044 [id number] [facility] 2023-11-22 07:30:00 2023-11-22 07:30:00 Outpatient R GARIBAY CHENTE [facility] [id number] [facility] 2023-11-22 00:00:00 2023-11-22 00:00:00 [facility] [place] [facility] 1.84.114 350.1.13.10 4.2.7.2.686 [id number] 044 [id number] [facility] 2023-11-08 08:45:00 2023-11-08 08:45:00 Outpatient R PHANYUDY EMILIE [facility] [id number] [facility] 2023-11-01 00:00:00 2023-11-01 00:00:[address] [facility] DAT?[facility] 1.84.114 350.1.13.10 4.2.7.2.686 [id number] 044 [id number] [facility] 2023-10-30 00:00:00 2023-10-30 00:00:00 [facility] 1.2.840.114 350.1.13.10 4.2.7.2.686 [id number] 044 [id number] [facility] 2023-10-24 00:00:00 2023-10-24 00:00:00 [facility] 1.2.840.114 350.1.13.10 4.2.7.2.686 [id number] 044 [id number] [facility] 2023-10-22 00:00:00 2023-10-22 00:00:00 Telephone Chente Garibay [facility] 1.2.840.114 350.1.13.10 4.2.7.2.686 [id number] 044 [id number] [facility] 2023-10-17 09:00:00 2023-10-17 09:30:00 Office Visit Chente Garibay [facility] DAT?[facility] 1.2.840.114 350.1.13.10 4.2.7.2.686 [id number] 044 [id number] [facility] 2023-10-17 09:00:00 2023-10-17 09:00:00 Outpatient R CHENTE GARIBAY [facility] [id number] [facility] 2023-10-15 00:00:00 2023-10-15 00:00:00 Telephone [facility] 1.2.840.114 350.1.13.10 4.2.7.2.686 [id number] 044 [id number] [facility] 2023-10-13 03:24:00 2023-10-13 05:59:00 Emergency X DERRICK CHANCE [facility] ERT [id number] [facility] 2023-10-13 03:24:00 2023-10-13 05:59:00 Emergency Derrick Chance [facility] 1.2.840.114 350.1.13.10 4.2.7.2.686 [id number] 084 [id number] [facility] 2023-10-10 00:00:00 2023-10-10 00:00:[address] [facility] DAT?[facility] 1.2.840.114 350.1.13.10 4.2.7.2.686 [id number] 044 [id number] [facility] 2023-10-09 00:00:00 2023-10-09 00:00:[address] [facility] DAT?[facility] 1.2840.114 350.1.13.10 4.2.7.2.686 [id number] 044 [id number] [facility] 2023-09-26 07:00:00 2023-09-26 07:00:00 Outpatient R CHENTE GARIBAY [facility] [id number] [facility] 2023-09-26 00:00:00 2023-09-26 00:00:00 [facility] 1.2840.114 350.1.13.10 4.2.7.2.686 [id number] 044 [id number] [facility] 2023-09-26 00:00:00 2023-09-26 00:00:[address] [facility] DAT?[facility] 1.2.840.114 350.1.13.10 4.2.7.2.686 [id number] 044 [id number] [facility] 2023-09-24 13:15:00 2023-09-24 13:15:00 Outpatient R CHENTE GARIBAY [facility] [id number] [facility] 2023-09-24 13:15:00 2023-09-24 13:15:00 [facility] 1.2840.114 350.1.13.10 4.2.7.2.686 [id number] 044 [id number] [facility] 2023-09-21 16:06:00 2023-09-21 20:04:00 Emergency X [facility] ERT [id number] [facility] 2023-09-21 16:06:00 2023-09-21 20:04:00 Emergency Kayce Flannery [facility] 1.2840.114 350.1.13.10 4.2.7.2.686 [id number] 084 [id number] [facility] 2023-09-18 00:00:00 2023-09-18 00:00:00 Refill [facility] 1.2840.114 350.1.13.10 4.2.7.2.686 [id number] 044 [id number] [facility] 2023-08-27 00:00:00 2023-08-27 00:00:00 [facility] 1.2.840.114 350.1.13.10 4.2.7.2.686 [id number] 044 [id number] [facility] 2023-07-30 07:15:00 2023-07-30 07:15:[address] [facility] DAT?[facility] 1.2840.114 350.1.13.10 4.2.7.2.686 [id number] 044 [id number] [facility] 2023-07-30 07:15:00 2023-07-30 07:12:20 Outpatient CHENTE DAN [facility] [id number] [facility] 2023-07-30 00:00:00 2023-07-30 00:00:00 [facility] 1.2.840.114 350.1.13.10 4.2.7.2.686 [id number] 044 [id number] [facility] 2023-07-30 00:00:00 2023-07-30 00:00:00 Refill Chente Garibay [facility] 1.2840.114 350.1.13.10 4.2.7.2.686 [id number] 044 [id number] [facility] 2023-07-02 00:00:00 2023-07-02 00:00:00 Refill [place] Chente [facility] 1.2840.114 350.1.13.10 4.2.7.2.686 [id number] 044 [id number] [facility] 2023-06-11 00:00:00 2023-06-11 00:00:00 [facility]ill [facility] 1.2840.114 350.1.13.10 4.2.7.2.686 [id number] 044 [id number] [facility] 2023-06-04 07:30:00 2023-06-04 07:45:00 Office Visit GaribayChente no [facility] 1.2840.114 350.1.13.10 4.2.7.2.686 [id number] 044 [id number] [facility] 2023-06-04 07:30:00 2023-06-04 07:30:00 Outpatient R CHENTE GARIBAY [facility] [id number] [facility] 2023-05-31 00:00:00 2023-05-31 00:00:[address] [facility] DAT?[facility] 1.2.840.114 350.1.13.10 4.2.7.2.686 [id number] 044 [id number] [facility] 2023-05-17 00:00:00 2023-05-17 00:00:00 Telephone Emilie [facility] BUILDING 1..840.114 350.1.13.10 4.2.7.2.686 [id number] [facility] 2023-05-09 12:30:00 2023-05-09 12:30:[address] [place] [facility] DAT?[facility] 1..840.114 350.1.13.10 4.2.7.2.686 [id number] 044 [id number] [facility] 2023-05-09 12:30:00 2023-05-09 11:11:35 [facility] [id number] 2023-05-09 00:00:00 2023-05-09 00:00:00 Telephone Emilie [facility] BUILDING 1.2.840.114 350.1.13.10 4.2.7.2.686 [id number] [facility] 2023-05-09 00:00:00 2023-05-09 00:00:[address] [facility] DAT?[facility] 1.2.840.114 350.1.13.10 4.2.7.2.686 [id number] 044 [id number] [facility] 2023-05-09 00:00:00 2023-05-09 00:00:00 [facility] 1..840.114 350.1.13.10 4.2.7.2.686 [id number] 044 [id number] [facility] 2023 16:08:00 2023 18:12:00 [facility] [id number] [facility] 2023 16:08:00 2023 18:12:00 Emergency Schoenstein , [facility] 1..840.114 350.1.13.10 4.2.7.2.686 [id number] 084 [id number] [facility] 2023-05-04 00:00:00 2023-05-04 00:00:00 Orders Only Doctor Unassigned, [place]erstrand [facility] 1..840.114 350.1.13.10 4.2.7.2.686 [id number] [facility] 2023-05-03 10:00:00 2023-05-03 10:30:00 Office Visit Emilie [facility] BUILDING 1.2.840.114 350.1.13.10 4.2.7.2.686 [id number] [facility] 2023-05-03 10:00:00 2023-05-03 10:00:00 Outpatient R YUDY PHAN [facility] [id number] [facility] 2023-05-03 00:00:00 2023-05-03 00:00:00 Prep For Surgery Emilie [facility] BUILDING 1.2.840.114 350.1.13.10 4.2.7.2.686 [id number] [facility] 2023-05-02 09:00:00 2023-05-02 09:00:00 Office Visit Chente Garibay [facility] 1..840.114 350.1.13.10 4.2.7.2.686 [id number] 044 [id number] [facility] 2023-05-02 09:00:00 2023-05-02 08:53:51 Outpatient R GARIBAYCHENTE NO [facility] [id number] [facility] 2023-04-27 20:05:00 2023-04-28 00:46:00 Emergency X JACKI MARINA [facility] ERT [id number] [facility] 2023-04-27 20:05:00 2023-04-28 00:46:00 Emergency Jacki Marina Stephanie [facility] 1.840.114 350.1.13.10 4.2.7.2.686 [id number] 084 [id number] [facility] 2023-04-25 20:33:00 2023-04-27 12:19:00 Outpatient X ALE AYALA [facility] [id number] [facility] 2023-04-25 20:33:00 2023-04-27 12:19:00 Emergency Hernán Rojo, lAe Chaves David [facility] 1..840.114 350.1.13.10 4.2.7.2.686 [id number] [facility] 2023-04-05 07:15:00 2023-04-05 07:18:47 Outpatient R GARIBAY CHENTE [facility] [id number] [facility] 2023-04-05 07:15:00 2023-04-05 07:18:47 Office Visit [place] Chente [facility] 1..840.114 350.1.13.10 4.2.7.2.686 [id number] [id number] [facility] 2023-03-29 02:29:00 2023-03-29 04:58:00 Emergency X SAGRARIO INFANTE [facility] ERT [id number] [facility] 2023-03-29 02:29:00 2023-03-29 04:58:00 Emergency Sagrario Infante [facility] 1..114 350.1.13.10 4.2.7.2.686 [id number] [id number] [facility] 2023-03-04 00:00:00 2023-03-04 00:00:[address] [place] [facility] DAT?[facility] 1.114 350.1.13.10 4.2.7.2.686 [id number] [id number] [facility] 2023-03-01 12:15:00 2023-03-01 12:32:27 [facility] [id number] 2023-03-01 12:15:00 2023-03-01 12:32:[address] [facility] DAT?[facility] 1.114 350.1.13.10 4.2.7.2.686 [id number] [id number] [facility] 2023-02-05 07:15:00 2023-02-05 07:25:23 Outpatient R CHENTE GARIBAY [facility] [id number] [facility] 2023-02-05 07:15:00 2023-02-05 07:25:23 Office Visit [place] Chente [facility] 1.114 350.1.13.10 4.2.7.2.686 [id number] 044 [id number] [facility] 2023-01-03 00:00:00 2023-01-03 00:00:[address] [place] [facility] 1.2.840.114 350.1.13.10 4.2.7.2.686 [id number] 044 [id number] [facility] 2022-12-25 00:00:00 2022-12-25 00:00:00 [facility] 1.2840.114 350.1.13.10 4.2.7.2.686 [id number] [id number] [facility] 2022-12-07 07:00:00 2022-12-07 07:15:00 [facility] 1.2840.114 350.1.13.10 4.2.7.2.686 [id number] 044 [id number] [facility] 2022-12-07 07:00:00 2022-12-07 07:00:00 Outpatient R CHENTE GARIBAY [facility] [id number] [facility] 2022-11-20 00:00:00 2022-11-20 00:00:[address] [place] [facility] DAT?[facility] 1.840.114 350.1.13.10 4.2.7.2.686 [id number] 044 [id number] [facility] 2022-11-07 00:00:00 2022-11-07 00:00:00 [facility]phone [facility] 1.2840.114 350.1.13.10 4.2.7.2.686 [id number] 044 [id number] [facility] 2022-10-19 00:00:00 2022-10-19 00:00:00 [facility] [place] [facility] 1.2840.114 350.1.13.10 4.2.7.2.686 [id number] 044 [id number] [facility] 2022-10-10 07:00:00 2022-10-10 07:15:00 Office Visit [facility] [facility] 1.2.840.114 350.1.13.10 4.2.7.2.686 [id number] 044 [id number] [facility] 2022-10-10 07:00:00 2022-10-10 07:00:00 Outpatient R GARIBAY CHENTE [facility] [id number] [facility] 2022-10-05 00:00:00 2022-10-05 00:00:00 [facility] 1.2.840.114 350.1.13.10 4.2.7.2.686 [id number] 044 [id number] [facility] 2022-09-19 00:00:00 2022-09-19 00:00:00 Telephone Chente Garibay [facility] 1.2.840.114 350.1.13.10 4.2.7.2.686 [id number] 044 [id number] [facility] 2022-09-07 00:00:00 2022-09-07 00:00:00 [facility]ill [place] [facility] 1.2.840.114 350.1.13.10 4.2.7.2.686 [id number] 044 [id number] [facility] 2022-08-23 00:00:00 2022-08-23 00:00:00 Refill Chente Garibay [facility] 1.2.840.114 350.1.13.10 4.2.7.2.686 [id number] 044 [id number] [facility] 2022-08-10 07:45:00 2022-08-10 08:00:00 [facility] 1.2.840.114 350.1.13.10 4.2.7.2.686 [id number] 044 [id number] [facility] 2022-08-10 07:45:00 2022-08-10 07:45:00 Outpatient R CHENTE GARIBAY [facility] [id number] [facility] 2022-07-24 00:00:00 2022-07-24 00:00:00 Telephone Nurse, Castillo Chahal [facility] DAT?[facility] 1.2.840.114 350.1.13.10 4.2.7.2.686 [id number] 044 [id number] [facility] 2022-07-09 00:00:00 2022-07-09 00:00:00 Refill Garibay, Chente [facility] DAT?ALBA [facility] 1.2.840.114 350.1.13.10 4.2.7.2.686 [id number] 044 [id number] [facility] 2022-06-26 00:00:00 2022-06-26 00:00:00 Refill [place] Chente [facility] DAT?[facility] 1.2.840.114 350.1.13.10 4.2.7.2.686 [id number] 044 [id number] [facility] 2022-06-12 07:00:00 2022-06-12 07:19:18 Office Visit Garibay Chente [facility] DAT?[facility] 1.2.840.114 350.1.13.10 4.2.7.2.686 [id number] 044 [id number] [facility] 2022-06-12 07:00:00 2022-06-12 07:00:00 Outpatient CHENTE DAN [facility] [id number] [facility] 2022-06-09 00:00:00 2022-06-09 00:00:00 Abstract Sheila Andrew [facility] 1.2840.114 350.1.13.10 4.2.7.2.686 [id number] 044 [id number] [facility] 2022-06-08 00:00:00 2022-06-08 00:00:00 Refill Chente Garibay [facility] 1.2840.114 350.1.13.10 4.2.7.2.686 [id number] 044 [id number] [facility] 2022-06-08 00:00:00 2022-06-08 00:00:00 Letter (Out) Chente Garibay [facility] 1.2840.114 350.1.13.10 4.2.7.2.686 [id number] 044 [id number] [facility] 2022-05-10 00:00:00 2022-05-10 00:00:00 Telephone Chente Garibay [facility] 1.2840.114 350.1.13.10 4.2.7.2.686 [id number] 044 [id number] [facility] 2022-05-01 00:00:00 2022-05-01 00:00:00 Refill Chente Garibay [facility] 1.2840.114 350.1.13.10 4.2.7.2.686 [id number] 044 [id number] [facility] 2022-05-01 00:00:00 2022-05-01 00:00:00 Telephone Chente Garibay [facility] 1.2840.114 350.1.13.10 4.2.7.2.686 [id number] 044 [id number] [facility] 2022-04-12 07:45:00 2022-04-12 08:00:00 Office [facility] [place] [facility] 1.2.840.114 350.1.13.10 4.2.7.2.686 [id number] 044 [id number] [facility] 2022-04-12 07:45:00 2022-04-12 07:45:00 Outpatient R CHENTE GARIBAY [facility] [id number] [facility] 2022-04-12 07:45:00 2022-04-12 07:45:00 Out[facility] [id number] [facility] 2022-04-10 00:00:00 2022-04-10 00:00:00 Letter (Out) [place] [facility] DAT?[facility]BA [facility] 1..840.114 350.1.13.10 4.2.7.2.686 [id number] 044 [id number] [facility] 2022-04-07 03:22:00 2022-04-09 15:14:00 [facility] [id number] 2022-04-07 03:22:00 2022-04-09 15:14:00 [facility] 1.840.114 350.1.13.10 4.2.7.2.686 [id number] [facility] 2022-04-04 00:00:00 2022-04-04 00:00:[address] [place] [facility] DAT?ALBA [facility] 1..840.114 350.1.13.10 4.2.7.2.686 [id number] [id number] [facility] 2022-03-07 00:00:00 2022-03-07 00:00:[address] [place] [facility] DAT?ALBA [facility] 1.84.114 350.1.13.10 4.2.7.2.686 [id number] 044 [id number] [facility] 2022-02-06 09:30:00 2022-02-06 09:45:00 Office Visit Chente Garibay [facility]?ALBA [facility] 1.84114 350.1.13.10 4.2.7.2.686 [id number] 044 [id number] [facility] 2022-02-06 09:30:00 2022-02-06 09:30:00 Outpatient CHENTE DAN [facility] [id number] [facility] 2022-02-06 00:00:00 2022-02-06 00:00:00 Letter (Out) Doctor Unassigned, [place] [facility] 1.84.114 350.1.13.10 4.2.7.2.686 [id number] 044 [id number] [facility] 2022-02-03 00:00:00 2022-02-03 00:00:00 Letter (Out) [facility]BA [facility] 1.84.114 350.1.13.10 4.2.7.2.686 [id number] 044 [id number] [facility] 2022-01-09 07:15:00 2022-01-09 07:15:00 Outpatient R CHENTE GARIBAY [facility] [id number] [facility] 2021-12-26 14:30:00 2021-12-26 14:45:00 Office Visit Chente Garibay [facility] 1.84.114 350.1.13.10 4.2.7.2.686 [id number] 044 [id number] [facility] 2021-12-26 14:30:00 2021-12-26 14:44:40 Outpatient R CHENTE GARIBAY [facility] [id number] [facility] 2021-12-26 14:30:00 2021-12-26 14:30:00 Outpatient R CHENTE GARIBAY [facility] [id number] [facility] 2021-12-26 00:00:00 2021-12-26 00:00:00 Orders Only Doctor Unassigned, [place] [facility] 1.2.840.114 350.1.13.10 4.2.7.2.686 [id number] [id number] [facility] 2021-12-06 00:00:00 2021-12-06 00:00:00 [facility] 1.2.840.114 350.1.13.10 4.2.7.2.686 [id number] 044 [id number] [facility] 2021-11-07 07:15:00 2021-11-07 07:30:00 [facility] 1..840.114 350.1.13.10 4.2.7.2.686 [id number] 044 [id number] [facility] 2021-11-07 07:15:00 2021-11-07 07:20:54 Outpatient CHENTE DAN [facility] [id number] [facility] 2021-11-07 07:15:00 2021-11-07 07:15:00 Outpatient CHENTE DAN [facility] [id number] [facility] 2021-10-06 07:45:00 2021-10-06 07:45:00 Outpatient CHENTE DAN [facility] [id number] [facility] 2021-10-06 07:45:00 2021-10-06 07:30:45 Outpatient CHENTE DAN [facility] [id number] [facility] 2021-10-06 07:10:11 2021-10-06 07:25:11 Office Visit Chente Garibay [facility] AILYN DAUGHERTY?[facility] 1..840.114 350.1.13.10 4.2.7.2.686 [id number] 044 [id number] [facility] 2021-10-06 00:00:00 2021-10-06 00:00:00 Orders Only Doctor Unassigned, [place] [facility] 1.2840.114 350.1.13.10 4.2.7.2.686 [id number] [id number] [facility] 2021-09-05 12:00:00 2021-09-05 12:00:00 Outpatient R CHENTE GARIBAY [facility] [id number] [facility] 2021-09-05 12:00:00 2021-09-05 12:00:00 Outpatient CHENTE DAN [facility] [id number] [facility] 2021-09-05 10:58:09 2021-09-05 11:13:09 Office Visit Chente Garibay [facility] 1..840.114 350.1.13.10 4.2.7.2.686 [id number] 044 [id number] [facility] 2021-09-05 00:00:00 2021-09-05 00:00:00 Telephone Chente Garibay [facility] AILYN DAUGHERTY?[facility] 1..840.114 350.1.13.10 4.2.7.2.686 [id number] 044 [id number] [facility] 2021-08-11 07:45:00 2021-08-11 07:45:00 Outpatient R CHENTE GARIBAY [facility] [id number] [facility] 2021-08-11 07:23:32 2021-08-11 07:38:32 [facility] 1.114 350.1.13.10 4.2.7.2.686 [id number] 044 [id number] [facility] 2021-07-12 00:00:00 2021-07-12 00:00:00 [facility] 1.114 350.1.13.10 4.2.7.2.686 [id number] 044 [id number] [facility] 2021-07-07 00:00:00 2021-07-07 00:00:00 Refill [place] [facility] Dat?Alba [facility] Building 1.114 350.1.13.10 4.2.7.2.686 [id number] 044 [id number] [facility] 2021-06-13 08:30:00 2021-06-13 08:30:00 Outpatient R CHENTE GARIBAY [facility] [id number] [facility] 2021-06-13 08:30:00 2021-06-13 08:30:00 Outpatient R CHENTE GARIBAY [facility] [id number] [facility] 2021-06-13 07:51:33 2021-06-13 08:06:33 [facility] .114 350.1.13.10 4.2.7.2.686 [id number] 044 [id number] [facility] 2021-06-13 00:00:00 2021-06-13 00:00:00 Orders Only Doctor Unassigned, [place] [facility] . 350.1.13.10 4.2.7.2.686 [id number] [id number] [facility] 2021-05-11 00:00:00 2021-05-11 00:00:00 Refill [place] [facility] Office Building One .2.840.114 350.1.13.10 4.2.7.2.686 [id number] 044 [id number] [facility] 2021-04-14 07:00:43 2021-04-14 07:15:43 Office Visit Chente Garibay [facility] Office Building One 1.840.114 350.1.13.10 4.2.7.2.686 [id number] 044 [id number] [facility] 2021-04-14 07:15:00 2021-04-14 07:15:00 Outpatient R GARIBAY CHENTE [facility] [id number] [facility] 2021-04-12 08:15:00 2021-04-12 08:15:00 Outpatient R GARIBAYCHENTE [facility] [id number] [facility] 2021-03-18 00:00:00 2021-03-18 00:00:00 [facility] 1.840.114 350.1.13.10 4.2.7.2.686 [id number] 044 [id number] [facility] 2021-03-09 00:00:00 2021-03-09 00:00:00 [facility] 1.840.114 350.1.13.10 4.2.7.2.686 [id number] 044 [id number] [facility] 2021-02-17 00:00:00 2021-02-17 00:00:00 Refill [facility] [facility] Building One 1.840.114 350.1.13.10 4.2.7.2.686 [id number] 044 [id number] [facility] 2021-02-10 09:15:00 2021-02-10 09:15:00 Outpatient R CHENTE GARIBAY [facility] [id number] [facility] 2021-02-10 08:25:17 2021-02-10 08:40:17 Office Visit Chente Garibay [facility] Building One 1.0.114 350.1.13.10 4.2.7.2.686 [id number] 044 [id number] [facility] 2021-02-10 00:00:00 2021-02-10 00:00:00 Orders Only Doctor Unassigned, [place] [facility] 1.2840.114 350.1.13.10 4.2.7.2.686 [id number] 009 [id number] [facility] 2021-01-20 00:00:00 2021-01-20 00:00:00 Refill [place] [facility] Office Building One 1..114 350.1.13.10 4.2.7.2.686 [id number] 044 [id number] [facility] 2021-01-10 00:00:00 2021-01-10 00:00:00 Telephone Chente Garibay [facility] One 1..114 350.1.13.10 4.2.7.2.686 [id number] 044 [id number] [facility] 2021-01-07 00:00:00 2021-01-07 00:00:00 Refill Chente Garibay [facility] One 1..114 350.1.13.10 4.2.7.2.686 [id number] 044 [id number] [facility] 2020-12-29 15:15:00 2020-12-29 15:15:00 Outpatient R CHENTE GARIBAY [facility] [id number] [facility] 2020-12-29 14:54:26 2020-12-29 15:09:26 Office Visit Chente Garibay [facility] Building One 1.2.840.114 350.1.13.10 4.2.7.2.686 [id number] 044 [id number] [facility] 2020-12-29 00:00:00 2020-12-29 00:00:00 Letter (Out) Doctor Unassigned, [place] [facility] 1.2840.114 350.1.13.10 4.2.7.2.686 [id number] 044 [id number] [facility] 2020-12-28 00:00:00 2020-12-28 00:00:00 Telephone [place] [facility] Building One 1.2840.114 350.1.13.10 4.2.7.2.686 [id number] 044 [id number] [facility] 2020-12-24 00:00:00 2020-12-24 00:00:00 Telephone Chente Garibay [facility] Building One 1.2840.114 350.1.13.10 4.2.7.2.686 [id number] 044 [id number] [facility] 2020-12-23 00:00:00 2020-12-23 00:00:00 Refill Chente Garibay [facility] Building 1.2840.114 350.1.13.10 4.2.7.2.686 [id number] 044 [id number] [facility] 2020-12-13 09:30:00 2020-12-13 09:30:00 Outpatient R CHENTE GARIBAY [facility] [id number] [facility] 2020-11-23 00:00:00 2020-11-23 00:00:00 Refill [place] [facility] Building One 1.2840.114 350.1.13.10 4.2.7.2.686 [id number] 044 [id number] [facility] 2020-11-11 00:00:2020-11-11 00:00:00 Refill Chente Garibay [facility] Building One 1.84.114 350.1.13.10 4.2.7.2.686 [id number] 044 [id number] [facility] 2020-10-25 00:00:00 2020-10-25 00:00:00 Refill Chente Garibay [facility] One 1.2.114 350.1.13.10 4.2.7.2.686 [id number] 044 [id number] [facility] 2020-10-18 08:30:00 2020-10-18 08:30:00 Outpatient R CHENTE GARIBAY [facility] [id number] [facility] 2020-10-11 10:15:00 2020-10-11 10:15:00 Outpatient R CHENTE GARIBAY [facility] [id number] [facility] 2020-10-11 09:35:25 2020-10-11 09:50:25 Office Visit [place] [facility] Office Building One 1.84.114 350.1.13.10 4.2.7.2.686 [id number] 044 [id number] [facility] 2020-10-05 00:00:00 2020-10-05 00:00:00 Telephone Chente Garibay [facility] Building One 1.284.114 350.1.13.10 4.2.7.2.686 [id number] 044 [id number] [facility] 2020-09-27 00:00:00 2020-09-27 00:00:00 Telephone Chente Garibay [facility] nal Building 1.2.114 350.1.13.10 4.2.7.2.686 [id number] 044 [id number] [facility] 2020-09-15 00:00:00 2020-09-15 00:00:00 Refill Garibay, Chente [facility] Building One 1.114 350.1.13.10 4.2.7.2.686 [id number] 044 [id number] [facility] 2020-08-30 00:00:00 2020-08-30 00:00:00 Chente Butcher [facility] Building One 1.114 350.1.13.10 4.2.7.2.686 [id number] 044 [id number] [facility] 2020-08-16 10:00:00 2020-08-16 10:00:00 Outpatient CHENTE DAN [facility] [id number] [facility] 2020-08-16 09:22:59 2020-08-16 09:37:59 Office Visit Chente Garibay [facility] Building One 1.114 350.1.13.10 4.2.7.2.686 [id number] 044 [id number] [facility] 2020-08-05 09:15:00 2020-08-05 09:15:00 Outpatient R CHENTE GARIBAY [facility] [id number] [facility] 2020-08-02 00:00:00 2020-08-02 00:00:00 Chente Butcher [facility] Office Building One 1.114 350.1.13.10 4.2.7.2.686 [id number] 044 [id number] [facility] 2020-07-08 16:15:00 2020-07-08 16:15:00 Outpatient R CHENTE GARIBAY [facility] [id number] [facility] 2020-07-08 13:18:41 2020-07-08 14:09:01 Office Visit Chente Garibay [facility] Building 1.114 350.1.13.10 4.2.7.2.686 [id number] 044 [id number] [facility] 2020-07-08 13:30:00 2020-07-08 13:30:00 Outpatient PRABHA DANONY [facility] [id number] [facility] 2020-07-08 00:00:00 2020-07-08 00:00:00 Telephone [place] [facility] Office Building One 1.2840.114 350.1.13.10 4.2.7.2.686 [id number] 044 [id number] [facility] 2020-07-07 00:00:00 2020-07-07 00:00:00 Telephone Chente Garibay [facility] Office Building One 1.2.840.114 350.1.13.10 4.2.7.2.686 [id number] 044 [id number] [facility] 2020-06-24 00:00:00 2020-06-24 00:00:00 Refill Chente Garibay [facility] Building One 1.2840.114 350.1.13.10 4.2.7.2.686 [id number] 044 [id number] [facility] 2020-06-22 00:00:00 2020-06-22 00:00:00 RefChente Perez [facility] Building One 1.2.840.114 350.1.13.10 4.2.7.2.686 [id number] 044 [id number] [facility] 2020-06-14 00:00:00 2020-06-14 00:00:00 Telephone [place] [facility] Office Building One 1.2840.114 350.1.13.10 4.2.7.2.686 [id number] 044 [id number] [facility] 2020-06-07 14:00:00 2020-06-07 14:00:00 Outpatient Susan GARIBAYCHENTE [facility] [id number] [facility] 2020-06-07 00:00:00 2020-06-07 00:00:00 Telephone Chente Garibay [facility] Office Building One 1.2.840.114 350.1.13.10 4.2.7.2.686 [id number] 044 [id number] [facility] 2020-06-03 00:00:00 2020-06-03 00:00:00 Telephone Chente Garibay [facility] Building One 1.2.840.114 350.1.13.10 4.2.7.2.686 [id number] 044 [id number] [facility] 2020-05-31 09:53:09 2020-05-31 10:08:09 Office Visit Chente Garibay [facility] Building 1.2.840.114 350.1.13.10 4.2.7.2.686 [id number] 044 [id number] [facility] 2020-05-31 10:00:00 2020-05-31 10:00:00 Outpatient CHENTE DAN [facility] [id number] [facility] 2020-05-27 00:00:00 2020-05-27 00:00:00 Refill Chente Garibay [facility] Building One 1.2840.114 350.1.13.10 4.2.7.2.686 [id number] 044 [id number] [facility] 2020-05-26 00:00:00 2020-05-26 00:00:00 [facility] 1.2840.114 350.1.13.10 4.2.7.2.686 [id number] 044 [id number] [facility] 2020-05-19 14:00:00 2020-05-19 14:00:00 Outpatient PRICILA JAMES [facility] [id number] [facility] 2020-05-14 00:00:00 2020-05-14 00:00:00 Refrobbie Garibay [facility] Office Building One 1..114 350.1.13.10 4.2.7.2.686 [id number] 044 [id number] [facility] 2020-05-12 13:00:00 2020-05-12 13:00:00 Outpatient R JOANIE TAMAYO [facility] [id number] [facility] 2020-05-03 00:00:00 2020-05-03 00:00:00 Refrobbie Garibay [facility] Office Building One 1.0.114 350.1.13.10 4.2.7.2.686 [id number] 044 [id number] [facility] 2020-04-14 00:00:00 2020-04-14 00:00:00 Refrobbie Garibay [facility] Office Building One 1..114 350.1.13.10 4.2.7.2.686 [id number] 044 [id number] [facility] 2020-03-18 08:45:00 2020-03-18 08:45:00 Outpatient R CHENTE GARIBAY [facility] [id number] [facility] 2020-03-18 07:55:07 2020-03-18 08:10:07 Office Visit Chente Garibay [facility] Building 1..114 350.1.13.10 4.2.7.2.686 [id number] [id number] [facility] 2020-03-16 00:00:00 2020-03-16 00:00:00 Telephone Chente Garibay [facility] Office Building One 1..114 350.1.13.10 4.2.7.2.686 [id number] [facility] 2020-03-08 08:45:00 2020-03-08 08:45:00 Outpatient R PRABHA GARIBAYONY [facility] [id number] [facility] 2020-03-08 07:21:42 2020-03-08 07:36:42 Telemedici ne Visit Chente Garibay [facility] Building 1.2.840.114 350.1.13.10 4.2.7.2.686 [id number] [facility] 2020-03-01 23:04:49 2020-03-02 00:38:00 Emergency X LI HURTADO [facility] ERT [id number] [facility] 2020-03-01 23:04:49 2020-03-02 00:38:00 Emergency Li Hurtado [facility] 1.2.840.114 350.1.13.10 4.2.7.2.686 [id number] [facility] 2020-03-02 00:00:00 2020-03-02 00:00:00 Refill [place] [facility] Office Building One 1.2.840.114 350.1.13.10 4.2.7.2.686 [id number] [facility] 2020-02-24 00:00:00 2020-02-24 00:00:00 Refill [place] [facility] Office Building One 1.2.840.114 350.1.13.10 4.2.7.2.686 [id number] [facility] 2020-02-12 00:00:00 2020-02-12 00:00:00 Telephone [place] [facility] Office Building One 1.2.840.114 350.1.13.10 4.2.7.2.686 [id number] [facility] 2020-02-10 13:15:00 2020-02-10 13:15:00 Outpatient JOANIE BRICEÑO [facility] [id number] [facility] 2020-02-10 08:07:04 2020-02-10 08:22:04 Telemedici ne Visit Joanie Tamayo [facility] Building 1.2.840.114 350.1.13.10 4.2.7.2.686 [id number] [facility] 2020-02-10 00:00:00 2020-02-10 00:00:00 Telephone [place] [facility] Office Building One 1.2.840.114 350.1.13.10 4.2.7.2.686 [id number] [facility] 2020-02-09 08:15:00 2020-02-09 08:15:00 Outpatient [facility] [id number] [facility] 2020-02-09 06:56:25 2020-02-09 07:11:25 Telemedici ne Visit Chente Garibay [facility] nal Building 1.2.840.114 350.1.13.10 4.2.7.2.686 [id number] [facility] 2020-01-30 00:00:00 2020-01-30 00:00:00 Orders Only Doctor Unassigned, [place] [facility] 1.2.840.114 350.1.13.10 4.2.7.2.686 [id number] [facility] 2020-01-27 00:00:00 2020-01-27 00:00:00 Telephone [place] [facility] Office Building One 1.2840.114 350.1.13.10 4.2.7.2.686 [id number] 044 [id number] [facility] 2020-01-27 00:00:00 2020-01-27 00:00:00 Telephone [place] [facility] Office [facility] 1.2.840.114 350.1.13.10 4.2.7.2.686 [id number] [facility] 2020-01-21 00:00:00 2020-01-21 00:00:00 Telephone Chente Garibay [facility] Office [facility] 1.0.114 350.1.13.10 4.2.7.2.686 [id number] 044 [id number] [facility] 2020-01-19 00:00:00 2020-01-19 00:00:00 Refill [place] [facility] 1..114 350.1.13.10 4.2.7.2.686 [id number] [facility] 2020-01-13 09:11:09 2020-01-13 23:59:00 Outpatient CHENTE DAN [facility] [id number] [facility] 2020-01-13 09:11:00 2020-01-13 23:59:00 Hospital Encounter Chente Garibay [facility] 1..114 350.1.13.10 4.2.7.2.686 [id number] [facility] 2020-01-13 00:00:00 2020-01-13 00:00:00 Outpatient CHENTE DAN [facility] [id number] [facility] 2019-12-24 00:00:00 2019-12-24 00:00:00 Telephone Chente Garibay [facility] 1..114 350.1.13.10 4.2.7.2.686 [id number] [facility] 2019-12-22 07:05:26 2019-12-22 07:35:26 [facility] 1.0.114 350.1.13.10 4.2.7.2.686 [id number] [facility] 2019-12-22 00:00:00 2019-12-22 00:00:00 Orders Only Doctor Unassigned, [place] [facility] 1.2.840.114 350.1.13.10 4.2.7.2.686 [id number] [facility] 2019-12-20 13:12:36 2019-12-20 17:57:00 Emergency X LI HURTADO [facility] ERT [id number] [facility] 2019-12-20 13:12:36 2019-12-20 17:57:00 Emergency Li Hurtado [facility] 1.2.840.114 350.1.13.10 4.2.7.2.686 [id number] [facility] 2019-12-20 00:00:00 2019-12-20 00:00:00 Orders Only Doctor Unassigned, [place] [facility] 1.2.840.114 350.1.13.10 4.2.7.2.686 [id number] [facility] 2019-12-19 00:00:00 2019-12-19 00:00:[address] [facility] Office Building One 1.2.840.114 350.1.13.10 4.2.7.2.686 [id number] [facility] 2019-12-11 08:33:50 2019-12-11 08:48:50 Office Visit [facility] Office Building One 1.2.840.114 350.1.13.10 4.2.7.2.686 [id number] [facility] 2019-12-11 00:00:00 2019-12-11 00:00:00 Orders Only Doctor Unassigned, [place] [facility] 1.2.840.114 350.1.13.10 4.2.7.2.686 [id number] [facility] 2019-11-20 00:00:00 2019-11-20 00:00:00 Telephone Chente Garibay [facility] One 1.2.840.114 350.1.13.10 4.2.7.2.686 [id number] [facility] 2019-06-17 00:00:00 2019-06-17 00:00:00 Refill Chente Garibay [facility] Office [facility] One 1.2.840.114 350.1.13.10 4.2.7.2.686 [id number] [facility] Results Test Description Test Time Test Comments Results Result Comments Source MR Lumbar spine wo contrast 21:35:02 MR LUMBAR SPINE WO CONTRAST HISTORY: 49 year old male with PMH R L4-5 hemilaminectomy/discectomy [id number] at [facility] presenting to neurosurgery clinic with chronic,constant low back pain w/radiation down posterior BLE to calves worseningover last few years. + muscle spasms. BLE weakness R>L with numbness toright foot and toes. Denies gait instability, bowel/bladder incontinence orsaddle anesthesia. COMPARISON: Date 08/24/2020 TECHNIQUE: MRI lumbar spine without contrast FINDINGS: The lumbar lordosis is normal. Postsurgical changes of right L4-D6cfyxujhywlbzqmr. The vertebral bodies are normal in height and alignment.The conus medullaris terminates at the level of L1. The cauda equina nerveroots are unremarkable. Disc desiccation is noted at L3-S1. Disc space height loss at the L4-L5 andL5-S1 with associated Modic type II endplate changes. The background marrowsignal is unremarkable. L1-L2: No significant spinal canal stenosis or neural foraminal narrowing. L2-L3: No significant spinal canal stenosis and neural foraminal narrowing. L3-L4: Disc bulge and mild facet arthrosis and ligamentum flavumthickening, result in mild bilateral neural foraminal narrowing. Nosignificant spinal canal stenosis. L4-L5: Prior right hemilaminectomy. Disc bulge, endplate osteophytes andmild facet arthrosis result in moderate bilateral neural foraminalnarrowing, greater on the left. No significant spinal canal stenosis. L5-S1: Disc bulge and mild facet arthrosis arthrosis result in in moderatebilateral neural foraminal narrowing. No significant spinal canal stenosis. [facility] CT CHEST PULMONARY ANGIOGRAM 18:59:53 INDICATION: ?PE suspected, high pretest prob COVID (+); chest pain, dyspnea, smoker ORDERING PROVIDER: ?NELIDA MERCER TECHNIQUE: ?Helical CT imaging was performed through the chest followingthe infusion of intravenous contrast according to pulmonary embolusprotocol. ?Maximum intensity projection images were created and reviewed. CT was performed in accordance with the principles of ALARA. HS:YRL: ?[id number]: ?[id number] COMPARISON: ?CT angiogram 09/21/2023 FINDINGS: ?No pulmonary arterial filling defect is identified to suggestpulmonary embolus. No pericardial effusion is identified. No mediastinal or hilarlymphadenopathy is demonstrated. While the examination has not beenoptimized for evaluation of the thoracic aorta, and the thoracic aorta issuboptimally opacified, no convincing aortic dissection is noted within thestudy limitations. Emphysematous changes of the lungs again noted. Mild bilateral dependentatelectasis is present. No pleural effusion, pneumothorax, or pulmonaryconsolidation identified. Tiny nodule (2 mm) within the right upper lobe isunchanged. No acute osseous abnormality demonstrated. [facility] (ALB,T.PRO,BILI T,BU/BC,ALT,AST,ALK PHOS)2023-12-07 12:59:57* Test Item Value Reference Range Interpretation Comme nts TOTAL BILI (test code = 0472240536) 0.5 mg/dL 0.1-1.1 BILI UNCON (test code = 9083263491) 0.2 mg/dL 0.1-1.1 BILI CONJ (test code = 1218471619) 0.0 mg/dL 0.0-0.3 T PROTEIN (test code = 4222978523) 6.4 g/dL 6.3-8.2 ALBUMIN (test code = 8070733951) 3.7 g/dL 3.5-5.0 ALK PHOS (test code = 3982995536) 38 U/L 34-122 ALTv (test code = 1742-6) 45 U/L 5-50 AST(SGOT) (test code = 7982010523) 44 U/L 13-40 H Lab Interpretation (test cod e = 39437-8) [facility]normal [facility] (NA, K, CL, CO2, GLUCOSE, BUN, CREATININE, CA)2023-12-07 12:59:57* Test Item Value Reference Range Interpretation Comme nts NA (test code = 5739660735) 134 mmol/L 135-145 L K (test code = 5946528535) 4.5 mmol/L 3.5-5.0 CL (test code = 5853277636) 106 mmol/L 98-108 CO2 TOTAL (test code = 8650055928) 24 mmol/L 23-31 AGAP (test code = 0982274277) 4 2-16 BUN (test code = 7736056970) 16 mg/dL 7-23 GLUCOSE (test code = 0949670697) 110 mg/dL 70-110 CREATININE (test code = 2971435884) 0.61 mg/dL 0.60-1.25 CALCIUM (test code = 5084618148) 8.9 mg/dL 8.6-10.6 eGFR (test code = 28614-9) 118.5 mL/min/1.73m2 CKD-EPI eGFR (2020). Assuming creatinine has been stable day-to-day for at least three months, the eGFR indicates Category G1 (>= 90 mL/min/1.73 m2) Lab Interpretation (test code = 87046-2) [facility]normal [facility] (ALB,T.PRO,BILI T,BU/BC,ALT,AST,ALK PHOS)2023-12-07 12:59:57* Test Item Value Reference Range Interpretation Comme nts TOTAL BILI (test code = 3258211395) 0.5 mg/dL 0.1-1.1 BILI UNCON (test code = 9361188062) 0.2 mg/dL 0.1-1.1 BILI CONJ (test code = 0653678580) 0.0 mg/dL 0.0-0.3 T PROTEIN (test code = 4320133221) 6.4 g/dL 6.3-8.2 ALBUMIN (test code = 2743917677) 3.7 g/dL 3.5-5.0 ALK PHOS (test code = 1557893540) 38 U/L 34-122 ALTv (test code = 1742-6) 45 U/L 5-50 AST(SGOT) (test code = 1288535679) 44 U/L 13-40 H Lab Interpretation (test cod e = 36482-7) Abnormal [facility] with Dhitawdldbwu1161-96-70 12:29:33* Test Item Value Reference Range Interpretation Comme nts WBC (test code = 6690-2) 15.74 4.20-10.70 H RBC (test code = 789-8) 4.01 4.26-5.52 L HGB (test code = 718-7) 12.6 g/dL 12.2-16.4 HCT (test code = 4544-3) 37.0 % 38.4-49.3 L MCV (test code = 787-2) 92.3 fL 81.7-95.6 MCH (test code = 785-6) 31.4 pg 26.1-32.7 MCHC (test code = 786-4) 34.1 g/dL 31.2-35.0 RDW-SD (test code = 99869-8) 44.3 fL 38.5-51.6 RDW-CV (test code = 788-0) 13.0 % 12.1-15.4 PLT (test code = 777-3) 251 150-328 MPV (test code = 89415-8) 10.4 fL 9.8-13.0 NRBC/100 WBC (test code = 4476637625) 0.0 0.0-10.0 NRBC x10^3 (test code = 9169242679) See_Comment [Automated message] The system which generated this result transmitted reference range: 10*3/?L. The reference range was not used to interpret this result as normal/abnormal. GRAN MAT (NEUT) % (test code = 770-8) 87.8 % IMM GRAN % (test code = 7222536614) 0.50 % LYMPH % (test code = 736-9) 6.6 % MONO % (test code = 5905-5) 4.8 % EOS % (test code = 713-8) 0.1 % BASO % (test code = 706-2) 0.2 % GRAN MAT x10^3(ANC) (test code = 6400769612) 13.83 10*3/uL 1.99-6.95 H IMM GRAN x10^3 (test code = 3493708530) 0.08 10*3/uL 0.00-0.06 H LYMPH x10^3 (test code = 731-0) 1.04 10*3/uL 1.09-3.23 L MONO x10^3 (test code = 742-7) 0.75 10*3/uL 0.36-1.02 EOS x10^3 (test code = 711-2) 0.06-0.53 L BASO x10^3 (test code = 704-7) 0.03 10*3/uL 0.01-0.09 Lab Interpretation (test code = 83281-5) [facility] Zsgibgocmivm9136-02-59 12:29:33* Test Item Value Reference Range Interpretation Comme nts WBC (test code = 6690-2) 15.74 4.20-10.70 H RBC (test code = 789-8) 4.01 4.26-5.52 L HGB (test code = 718-7) 12.6 g/dL 12.2-16.4 HCT (test code = 4544-3) 37.0 % 38.4-49.3 L MCV (test code = 787-2) 92.3 fL 81.7-95.6 MCH (test code = 785-6) 31.4 pg 26.1-32.7 MCHC (test code = 786-4) 34.1 g/dL 31.2-35.0 RDW-SD (test code = 91341-3) 44.3 fL 38.5-51.6 RDW-CV (test code = 788-0) 13.0 % 12.1-15.4 PLT (test code = 777-3) 251 150-328 MPV (test code = 70485-0) 10.4 fL 9.8-13.0 NRBC/100 WBC (test code = 2416418904) 0.0 0.0-10.0 NRBC x10^3 (test code = 0383302883) See_Comment [Automated message] The system which generated this result transmitted reference range: 10*3/?L. The reference range was not used to interpret this result as normal/abnormal. GRAN MAT (NEUT) % (test code = 770-8) 87.8 % IMM GRAN % (test code = 2088350225) 0.50 % LYMPH % (test code = 736-9) 6.6 % MONO % (test code = 5905-5) 4.8 % EOS % (test code = 713-8) 0.1 % BASO % (test code = 706-2) 0.2 % GRAN MAT x10^3(ANC) (test code = 9722911130) 13.83 10*3/uL 1.99-6.95 H IMM GRAN x10^3 (test code = 5093784627) 0.08 10*3/uL 0.00-0.06 H LYMPH x10^3 (test code = 731-0) 1.04 10*3/uL 1.09-3.23 L MONO x10^3 (test code = 742-7) 0.75 10*3/uL 0.36-1.02 EOS x10^3 (test code = 711-2) 0.06-0.53 L BASO x10^3 (test code = 704-7) 0.03 10*3/uL 0.01-0.09 Lab Interpretation (test code = 55386-2) [facility]normal [facility] [id number] 16:42:32* Test Item Value Reference Range Interpretation Comme nts TROPONIN I (test code = 3125663832) 0.000 ng/mL <=0.034 MAXWELL (test code = MAXWELL) Reference (Normal) Range (defined by the 99th percentile reference limit): <= 0.034 ng/mL Note: Cardiac troponin begins to rise 3-4 hours after the onset of ischemia. Repeat in 4-6 hours if the sample was drawn within 3-4 hours of the onset of the symptom and found normal. Diagnosis of myocardial injury is made with acute changes in cTn concentrations with at least one serial sample above the 99th percentile upper reference limit (URL), taken together with the patient's clinical presentation. Biotin has been reported to cause a negative bias, interpret results relative to patient's use of biotin. Lab Interpretation (test code = 33042-6) Normal [facility] [id number] 16:42:32* Test Item Value Reference Range Interpretation Comme nts TROPONIN I (test code = 3951322289) 0.000 ng/mL <=0.034 MAXWELL (test code = MAXWELL) Reference (Normal) Range (defined by the 99th percentile reference limit): <= 0.034 ng/mL Note: Cardiac troponin begins to rise 3-4 hours after the onset of ischemia. Repeat in 4-6 hours if the sample was drawn within 3-4 hours of the onset of the symptom and found normal. Diagnosis of myocardial injury is made with acute changes in cTn concentrations with at least one serial sample above the 99th percentile upper reference limit (URL), taken together with the patient's clinical presentation. Biotin has been reported to cause a negative bias, interpret results relative to patient's use of biotin. Lab Interpretation (test code = 80893-7) Normal [facility] (81144)2023-12-06 16:31:12* Test Item Value Reference Range Interpretation Comme nts NA (test code = 5083107075) 137 mmol/L 135-145 K (test code = 4985816847) 4.3 mmol/L 3.5-5.0 CL (test code = 3235694937) 105 mmol/L 98-108 CO2 TOTAL (test code = 0193075739) 24 mmol/L 23-31 AGAP (test code = 3422757045) 8 2-16 BUN (test code = 9893422812) 15 mg/dL 7-23 GLUCOSE (test code = 9449422284) 101 mg/dL 70-110 CREATININE (test code = 2688661646) 0.76 mg/dL 0.60-1.25 TOTAL BILI (test code = 8988553912) 0.4 mg/dL 0.1-1.1 CALCIUM (test code = 9941346963) 9.6 mg/dL 8.6-10.6 T PROTEIN (test code = 9795379434) 7.6 g/dL 6.3-8.2 ALBUMIN (test code = 8399630053) 4.5 g/dL 3.5-5.0 ALK PHOS (test code = 0163390922) 56 U/L 34-122 ALTv (test code = 1742-6) 36 U/L 5-50 AST(SGOT) (test code = 6797625120) 36 U/L 13-40 eGFR (test code = 84497-0) 110.9 mL/min/1.73m2 CKD-EPI eGFR (20 21). Assuming creatinine has been stable day-to-day for at least three months, the eGFR indicates Category G1 (>= 90 mL/min/1.73 m2) [facility] 16:31:12* Test Item Value Reference Range Interpretation Comme nts MAGNESIUM (test code = 4008399149) 2.0 mg/dL 1.7-2.4 Lab Interpretation (test cod e = 19132-1) Normal [facility] (15772)2023-12-06 16:31:12* Test Item Value Reference Range Interpretation Comme nts NA (test code = 3955452888) 137 mmol/L 135-145 K (test code = 5102132364) 4.3 mmol/L 3.5-5.0 CL (test code = 9581362413) 105 mmol/L 98-108 CO2 TOTAL (test code = 1390762763) 24 mmol/L 23-31 AGAP (test code = 4790946082) 8 2-16 BUN (test code = 7281730264) 15 mg/dL 7-23 GLUCOSE (test code = 0435525957) 101 mg/dL 70-110 CREATININE (test code = 1492078419) 0.76 mg/dL 0.60-1.25 TOTAL BILI (test code = 7914424996) 0.4 mg/dL 0.1-1.1 CALCIUM (test code = 5682068756) 9.6 mg/dL 8.6-10.6 T PROTEIN (test code = 7330443723) 7.6 g/dL 6.3-8.2 ALBUMIN (test code = 4572009814) 4.5 g/dL 3.5-5.0 ALK PHOS (test code = 0564266539) 56 U/L 34-122 ALTv (test code = 1742-6) 36 U/L 5-50 AST(SGOT) (test code = 6926281418) 36 U/L 13-40 eGFR (test code = 98585-1) 110.9 mL/min/1.73m2 CKD-EPI eGFR (20 21). Assuming creatinine has been stable day-to-day for at least three months, the eGFR indicates Category G1 (>= 90 mL/min/1.73 m2) [facility] 16:31:12* Test Item Value Reference Range Interpretation Comme nts MAGNESIUM (test code = 7014246918) 2.0 mg/dL 1.7-2.4 Lab Interpretation (test cod e = 98338-4) Normal [facility]2024-[facility] 16:30:51* Test Item Value Reference Range Interpretation Comme nts LIPASE (test code = 9505975150) 89 U/L 0-220 Lab Interpretation (test cod e = 48766-9) Normal [facility]24-[facility] 16:30:51* Test Item Value Reference Range Interpretation Comme nts LIPASE (test code = 6244631635) 89 U/L 0-220 Lab Interpretation (test cod e = 13014-7) Normal [facility] with Lkwm7289-68-90 16:00:43* Test Item Value Reference Range Interpretation Comme nts WBC (test code = 6690-2) 8.56 4.20-10.70 RBC (test code = 789-8) 4.65 4.26-5.52 HGB (test code = 718-7) 14.9 g/dL 12.2-16.4 HCT (test code = 4544-3) 42.6 % 38.4-49.3 MCV (test code = 787-2) 91.6 fL 81.7-95.6 MCH (test code = 785-6) 32.0 pg 26.1-32.7 MCHC (test code = 786-4) 35.0 g/dL 31.2-35.0 RDW-SD (test code = 13982-8) 43.0 fL 38.5-51.6 RDW-CV (test code = 788-0) 13.0 % 12.1-15.4 PLT (test code = 777-3) 265 150-328 MPV (test code = 68309-9) 10.3 fL 9.8-13.0 NRBC/100 WBC (test code = 4313896258) 0.0 0.0-10.0 NRBC x10^3 (test code = 2125393152) See_Comment [Automated me ssage] The system which generated this result transmitted reference range: 10*3/?L. The reference range was not used to interpret this result as normal/abnormal. GRAN MAT (NEUT) % (test code = 770-8) 51.2 % IMM GRAN % (test code = 7753610660) 0.40 % LYMPH % (test code = 736-9) 35.5 % MONO % (test code = 5905-5) 7.4 % EOS % (test code = 713-8) 4.4 % BASO % (test code = 706-2) 1.1 % GRAN MAT x10^3(ANC) (test code = 6493924320) 4.39 10*3/uL 1.99-6.95 IMM GRAN x10^3 (test code = 1126656543) 0.03 10*3/uL 0.00-0.06 LYMPH x10^3 (test code = 731-0) 3.04 10*3/uL 1.09-3.23 MONO x10^3 (test code = 742-7) 0.63 10*3/uL 0.36-1.02 EOS x10^3 (test code = 711-2) 0.38 10*3/uL 0.06-0.53 BASO x10^3 (test code = 704-7) 0.09 10*3/uL 0.01-0.09 [facility] with Djty7918-75-49 16:00:43* Test Item Value Reference Range Interpretation Comme nts WBC (test code = 6690-2) 8.56 4.20-10.70 RBC (test code = 789-8) 4.65 4.26-5.52 HGB (test code = 718-7) 14.9 g/dL 12.2-16.4 HCT (test code = 4544-3) 42.6 % 38.4-49.3 MCV (test code = 787-2) 91.6 fL 81.7-95.6 MCH (test code = 785-6) 32.0 pg 26.1-32.7 MCHC (test code = 786-4) 35.0 g/dL 31.2-35.0 RDW-SD (test code = 26035-5) 43.0 fL 38.5-51.6 RDW-CV (test code = 788-0) 13.0 % 12.1-15.4 PLT (test code = 777-3) 265 150-328 MPV (test code = 51203-5) 10.3 fL 9.8-13.0 NRBC/100 WBC (test code = 1396548344) 0.0 0.0-10.0 NRBC x10^3 (test code = 7431340287) See_Comment [Automated me ssage] The system which generated this result transmitted reference range: 10*3/?L. The reference range was not used to interpret this result as normal/abnormal. GRAN MAT (NEUT) % (test code = 770-8) 51.2 % IMM GRAN % (test code = 4623781790) 0.40 % LYMPH % (test code = 736-9) 35.5 % MONO % (test code = 5905-5) 7.4 % EOS % (test code = 713-8) 4.4 % BASO % (test code = 706-2) 1.1 % GRAN MAT x10^3(ANC) (test code = 0140039104) 4.39 10*3/uL 1.99-6.95 IMM GRAN x10^3 (test code = 2401358379) 0.03 10*3/uL 0.00-0.06 LYMPH x10^3 (test code = 731-0) 3.04 10*3/uL 1.09-3.23 MONO x10^3 (test code = 742-7) 0.63 10*3/uL 0.36-1.02 EOS x10^3 (test code = 711-2) 0.38 10*3/uL 0.06-0.53 BASO x10^3 (test code = 704-7) 0.09 10*3/uL 0.01-0.09 [facility] [id number] 00:59:19* Test Item Value Reference Range Interpretation Comme nts TROPONIN I (test code = 2185979003) 0.003 ng/mL <=0.034 MAXWELL (test code = MAXWELL) Reference (Normal) Range (defined by the 99th percentile reference limit): <= 0.034 ng/mL Note: Cardiac troponin begins to rise 3-4 hours after the onset of ischemia. Repeat in 4-6 hours if the sample was drawn within 3-4 hours of the onset of the symptom and found normal. Diagnosis of myocardial injury is made with acute changes in cTn concentrations with at least one serial sample above the 99th percentile upper reference limit (URL), taken together with the patient's clinical presentation. Biotin has been reported to cause a negative bias, interpret results relative to patient's use of biotin. Lab Interpretation (test code = 91109-6) Normal [facility] WITH [id number] 23:51:53* Test Item Value Reference Range Interpretation Comme nts WBC (test code = 6690-2) 12.01 See_Comment H [Automated messa ge] The system which generated this result transmitted reference range: 4.20 - 10.70 10*3/?L. The reference range was not used to interpret this result as normal/abnormal. RBC (test code = 789-8) 4.68 See_Comment [Automated messa ge] The system which generated this result transmitted reference range: 4.26 - 5.52 10*6/?L. The reference range was not used to interpret this result as normal/abnormal. HGB (test code = 718-7) 15.1 g/dL 12.2-16.4 HCT (test code = 4544-3) 42.2 % 38.4-49.3 MCV (test code = 787-2) 90.2 fL 81.7-95.6 MCH (test code = 785-6) 32.3 pg 26.1-32.7 MCHC (test code = 786-4) 35.8 g/dL 31.2-35.0 H RDW-SD (test code = 08887-1) 42.2 fL 38.5-51.6 RDW-CV (test code = 788-0) 12.9 % 12.1-15.4 PLT (test code = 777-3) 346 See_Comment H [Automated messa ge] The system which generated this result transmitted reference range: 150 - 328 10*3/?L. The reference range was not used to interpret this result as normal/abnormal. MPV (test code = 93586-9) 10.7 fL 9.8-13.0 NRBC/100 WBC (test code = 6282528013) 0.0 See_Comment [Automated Carnad ssage] The system which generated this result transmitted reference range: 0.0 - 10.0 /100 WBCs. The reference range was not used to interpret this result as normal/abnormal. NRBC x10^3 (test code = 0683740447) See_Comment [Automated In Flowa ge] The system which generated this result transmitted reference range: 10*3/?L. The reference range was not used to interpret this result as normal/abnormal. SEG % (test code = 68018-9) 53 % 33-76 BAND % (test code = 99587-2) 3 % 0-1 H LYMPH % (test code = 83649-2) 31 % 14-54 REACT LYMPH % (test code = 2282974796) 2 % MONO % (test code = 73096-3) 8 % 0-4 H EOS % (test code = 66742-9) 3 % 0-3 ANC (test code = 753-4) 6.73 10*3/uL 1.99-6.95 Lab Interpretation (test code = 49372-8) [facility] (97201)2023-09-21 23:26:27* Test Item Value Reference Range Interpretation Comme nts NA (test code = 2846574325) 143 mmol/L 135-145 K (test code = 2456024045) 4.4 mmol/L 3.5-5.0 CL (test code = 8081556641) 107 mmol/L 98-108 CO2 TOTAL (test code = 9190952014) 27 mmol/L 23-31 AGAP (test code = 2792500682) 9 2-16 BUN (test code = 2037798002) 14 mg/dL 7-23 GLUCOSE (test code = 0476051522) 114 mg/dL 70-110 H CREATININE (test code = 8729850961) 1.92 mg/dL 0.60-1.25 H TOTAL BILI (test code = 8704830848) 0.3 mg/dL 0.1-1.1 CALCIUM (test code = 9315032760) 9.5 mg/dL 8.6-10.6 T PROTEIN (test code = 5906131920) 7.2 g/dL 6.3-8.2 ALBUMIN (test code = 9152620791) 4.7 g/dL 3.5-5.0 ALK PHOS (test code = 7131835801) 53 U/L 34-122 ALTv (test code = 1742-6) 34 U/L 5-50 AST(SGOT) (test code = 1905906432) 24 U/L 13-40 eGFR (test code = 79565-8) 42.4 mL/min/1.73m2 CKD-EPI eGFR (2020). Assuming creatinine has been stable day-to-day for at least three months, the eGFR indicates Category G3b (30 - 44 mL/min/1.73 m2) Lab Interpretation (test code = 60813-3) [facility] Test Item Value Reference Range Interpretation Comme nts LIPASE (test code = 3516677922) 320 U/L 0-220 H Lab Interpretation (test cod e = 49287-9) [facility] [id number] 21:49:53 LEUKOCYTOSIS WITH ABSOLUTE NEUTROPHILIA AND LYMPHOCYTOSIS. NO INCREASE IN BLASTS IDENTIFIED. NORMOCYTIC, MILDLY HYPERCHROMIC RED BLOOD CELLS. PLATELETS ARE UNREMARKABLE.[facility]IN2023-[facility]-22 16:26:27 * Test Item Value Reference Range Interpretation Comme nts Procalcitonin (test code = 8882377323) <=0.07 MAXWELL (test code = MAXWELL) INTERPRETATION OF PROCALCITONIN RESULTS IN ADULTS >= 18 YEARS OF AGE Initiation and discontinuation of antibiotics on patients with suspected or confirmed Lower Respiratory Tract Infection in Adults >= 18 years of age. + +-------- --------+ + -----+|Procalcitonin |Interpretation ?|Antibiotic ? ? |Considerations ? |ng/mL ? | ?|recommendation | ? + +-------- --------+ + -----+| <0.1 ? | Bacterial ? ? ?| Strongly ? ? ?| ? | ?| infection very | discouraged ? | Overruling: ? | ?| unlikely ? ? ? | ? | ? Clinically unstable ? ? ? + +-------- --------+ + ? High risk for adverse ? ? | <0.25 ?| Bacterial ? ? ?| Discouraged ? | ? outcome ? | ?| infection ? ? ?| ? | ? SEE IMPORTANT NOTE ?| ?| unlikely ? ? ? | ? | ? + +-------- --------+ + -----+| >=0.25 ? ? ? | Bacterial ? ? ?| Encouraged ? ?| ? | ?| infection ? ? ?| ? | ? | ?| likely ? | ? | Consider treatment failure ?+ +------- ---------+ -+ if levels does not decrease | >0.5 ? | Bacterial ? ? ?| Strongly ? ? ?| appropriately ? | ?| infection very | encouraged ? ?| ? | ?| likely ? | ? | ? + +-------- --------+ + -----+ Discontinuation of antibiotics in high-acuity patients with suspected or confirmed sepsis in Adults >= 18 years of age. + +-------- --------+ + -----+|Procalcitonin |Interpretation ?|Antibiotic ? ? |Considerations ? |ng/mL ? | ?|recommendation | ? + +-------- --------+ + -----+| <0.25 ?| Bacterial ? ? ?| Strongly ? ? ?| ? | ?| infection very | discouraged ? | Overruling: ? | ?| unlikely ? ? ? | ? | ? Clinically unstable ? ? ? + +-------- --------+ + ? High risk for adverse ? ? | <0.5 or drop | Bacterial ? ? ?| Discouraged ? | ? outcome ? | >80% from ? ?| infection ? ? ?| ? | ? SEE IMPORTANT NOTE ?| highest PCT ?| unlikely ? ? ? | ? | ? | level ?| ?| ? | ? + +-------- --------+ + -----+| >=0.5 ?| Bacterial ? ? ?| Encouraged ? ?| ? | ?| infection ? ? ?| ? | ? | ?| likely ? | ? | Consider treatment failure ?+ +------- ---------+ -+ if levels does not decrease | >1.0 ? | Bacterial ? ? ?| Strongly ? ? ?| appropriately ? | ?| infection very | encouraged ? ?| ? | ?| likely ? | ? | ? + +-------- --------+ + -----+ Percentage of drop of Procalcitonin calculation for Discontinuation of antibiotics in high-acuity patients with suspected or confirmed sepsis in Adults >= 18 years of age. ? Procalcitonin highest{}-Procalcitonin current{}Delta Procalcitonin = x100% ? Procalcitonin current {} IMPORTANT NOTE: Procalcitonin may be elevated without bacterial infection by physiologic stress related to trauma, forde, chronic dialysis, metastatic cancer, surgery in the past seven days, malaria, some fungal infections, and some forms of vasculitis. The interpretation algorithm may not apply to patients with immunosuppression (equivalent of >10 mg of prednisone daily), HIV with CD4 cell count < 350 cells/mm3, active malignancy on systemic chemotherapy, solid organ transplant or hematopoietic stem cell transplantation, or hospital acquired pneumonia. Additionally, some clinical trials of procalcitonin have excluded patients with shock requiring vasopressor use, acute respiratory failure requiring mechanical ventilation, or those with known lung abscess/empyema. For further information please refer to:[email or web address] Lab Interpretation (test code = 30057-0) [id number] 11:53:42 * Test Item Value Reference Range Interpretation Comme nts TSH (test code = 3156729722) 4.40 See_Comment Biotin has been reported to cause a negative bias, interpret results relative to patient's use of biotin. [Automated message] The system which generated this result transmitted reference range: 0.45 - 4.70 mIU/L. The reference range was not used to interpret this result as normal/abnormal. Lab Interpretation (test code = 41156-4) [facility] [id number] 11:52:42* Test Item Value Reference Range Interpretation Comme nts WBC (test code = 6690-2) 12.82 See_Comment H [Automated messa ge] The system which generated this result transmitted reference range: 4.20 - 10.70 10*3/?L. The reference range was not used to interpret this result as normal/abnormal. RBC (test code = 789-8) 4.00 See_Comment L [Automated messa ge] The system which generated this result transmitted reference range: 4.26 - 5.52 10*6/?L. The reference range was not used to interpret this result as normal/abnormal. HGB (test code = 718-7) 13.0 g/dL 12.2-16.4 HCT (test code = 4544-3) 36.0 % 38.4-49.3 L MCV (test code = 787-2) 90.0 fL 81.7-95.6 MCH (test code = 785-6) 32.5 pg 26.1-32.7 MCHC (test code = 786-4) 36.1 g/dL 31.2-35.0 H RDW-SD (test code = 40344-0) 42.6 fL 38.5-51.6 RDW-CV (test code = 788-0) 12.9 % 12.1-15.4 PLT (test code = 777-3) 226 See_Comment [Automated messa ge] The system which generated this result transmitted reference range: 150 - 328 10*3/?L. The reference range was not used to interpret this result as normal/abnormal. MPV (test code = 43894-4) 11.4 fL 9.8-13.0 NRBC/100 WBC (test code = 2406363290) 0.0 See_Comment [Automated [place]age] The system which generated this result transmitted reference range: 0.0 - 10.0 /100 WBCs. The reference range was not used to interpret this result as normal/abnormal. NRBC x10^3 (test code = 7471180752) See_Comment [Automated messa ge] The system which generated this result transmitted reference range: 10*3/?L. The reference range was not used to interpret this result as normal/abnormal. GRAN MAT (NEUT) % (test code = 770-8) 59.3 % IMM GRAN % (test code = 6197117053) 0.30 % LYMPH % (test code = 736-9) 31.7 % MONO % (test code = 5905-5) 6.3 % EOS % (test code = 713-8) 1.7 % BASO % (test code = 706-2) 0.7 % GRAN MAT x10^3(ANC) (test code = 7903752223) 7.59 10*3/uL 1.99-6.95 H IMM GRAN x10^3 (test code = 1454363468) 0.04 10*3/uL 0.00-0.06 LYMPH x10^3 (test code = 731-0) 4.07 10*3/uL 1.09-3.23 H MONO x10^3 (test code = 742-7) 0.81 10*3/uL 0.36-1.02 EOS x10^3 (test code = 711-2) 0.22 10*3/uL 0.06-0.53 BASO x10^3 (test code = 704-7) 0.09 10*3/uL 0.01-0.09 REACT LYMPHS (test code = 6620065943) Rare Lab Interpretation (test code = 68148-4) [id number] 11:34:03* Test Item Value Reference Range Interpretation Comme nts TROPONIN I (test code = 5290165340) 0.003 ng/mL <=0.034 MAXWELL (test code = MAXWELL) Reference (Normal) Range (defined by the 99th percentile reference limit): <= 0.034 ng/mL Note: Cardiac troponin begins to rise 3-4 hours after the onset of ischemia. Repeat in 4-6 hours if the sample was drawn within 3-4 hours of the onset of the symptom and found normal. Diagnosis of myocardial injury is made with acute changes in cTn concentrations with at least one serial sample above the 99th percentile upper reference limit (URL), taken together with the patient's clinical presentation. Biotin has been reported to cause a negative bias, interpret results relative to patient's use of biotin. Lab Interpretation (test code = 96065-7) [facility] [id number] 11:30:21* Test Item Value Reference Range Interpretation Comme nts NT-proBNP (test code = 8276726730) 77 pg/mL <=125 MAXWELL (test code = MAXWELL) Biotin has been reported to cause a negative bias, interpret results relative to patient's use of biotin. Lab Interpretation (test code = 34676-8) [facility] (48738)(TOTAL CHOLESTEROL, TRIGLYCERIDES, HDL)2023-04-26 11:23:40* Test Item Value Reference Range Interpretation Comme nts CHOL (test code = 1649162366) 131 mg/dL 120-200 HDL (test code = 8074153601) 35 mg/dL >=40 L HDLC RATIO (test code = 6505441518) 3.7 <=5.0 TRIG (test code = 0577463333) 157 mg/dL 30-170 LDL CHOL (test code = 00706-0) 65 mg/dL <=160 VLDL (test code = 1266136337) 31 mg/dL 5-60 Lab Interpretation (test cod e = 46374-0) [facility] 11:23:20* Test Item Value Reference Range Interpretation Comme nts MAGNESIUM (test code = 2721547606) 1.7 mg/dL 1.7-2.4 Lab Interpretation (test cod e = 43889-3) Normal [facility]. METABOLIC PANEL (21078)2023-04-26 11:23:00* Test Item Value Reference Range Interpretation Comme nts NA (test code = 4405505152) 139 mmol/L 135-145 K (test code = 4355689679) 3.6 mmol/L 3.5-5.0 CL (test code = 0865071338) 100 mmol/L 98-108 CO2 TOTAL (test code = 1644884435) 31 mmol/L 23-31 AGAP (test code = 0767908425) 8 2-16 BUN (test code = 3287900570) 10 mg/dL 7-23 GLUCOSE (test code = 8214922253) 114 mg/dL 70-110 H CREATININE (test code = 6677739726) 0.69 mg/dL 0.60-1.25 TOTAL BILI (test code = 9048727050) 0.5 mg/dL 0.1-1.1 CALCIUM (test code = 7875162382) 8.9 mg/dL 8.6-10.6 T PROTEIN (test code = 9715430566) 6.2 g/dL 6.3-8.2 L ALBUMIN (test code = 0767483077) 3.7 g/dL 3.5-5.0 ALK PHOS (test code = 6986573892) 58 U/L 34-122 ALTv (test code = 1742-6) 21 U/L 5-50 AST(SGOT) (test code = 8424616798) 18 U/L 13-40 eGFR (test code = 3559674081) 122.9 mL/min/1.73m2 MAXWELL (test code = MAXWELL) Association of Glomerular Filtration Rate (GFR) and Staging of Kidney Disease* + --+ --+ ------+| GFR (mL/min/1.73 m2) ?| With Kidney Damage ?| ?Without Kidney Damage+ --------+ --------+ +| ?>90 ?| ?Stage one ?| ? Normal ?+ ---+ ---+ -------+| ?60-89 ?| ?Stage two ?| ? Decreased GFR ? + --+ --+ ------+| ?30-59 ?| ?Stage three ?| ? Stage three ? + --+ --+ ------+| ?15-29 ?| ?Stage four ? | ? Stage four ?+ ---+ ---+ -------+| ?<15 (or dialysis) ? ?| ?Stage five ? | ? Stage five ?+ ---+ ---+ -------+ *Each stage assumes the associated GFR level has been in effect for at least three months. ?Stages 1 to 5, with or without kidney disease, indicate chronic kidney disease. Notes: Determination of stages one and two (with eGFR >59mL/min/1.73 m2) requires estimation of kidney damage for at least three months as defined by structural or functional abnormalities of the kidney, manifested by either:Pathological abnormalities or Markers of kidney damage (including abnormalities in the composition of the blood or urine or abnormalities in imaging tests). Lab Interpretation (test code = 20041-6) [facility] 11:23:00* Test Item Value Reference Range Interpretation Comme nts PHOSPHORUS (test code = 4669253120) 3.8 mg/dL 2.5-5.0 Lab Interpretation (test cod e = 67543-9) [facility] [id number] 03:11:32* Test Item Value Reference Range Interpretation Comme nts TROPONIN I (test code = 4714985430) 0.001 ng/mL <=0.034 MAXWELL (test code = MAXWELL) Reference (Normal) Range (defined by the 99th percentile reference limit): <= 0.034 ng/mL Note: Cardiac troponin begins to rise 3-4 hours after the onset of ischemia. Repeat in 4-6 hours if the sample was drawn within 3-4 hours of the onset of the symptom and found normal. Diagnosis of myocardial injury is made with acute changes in cTn concentrations with at least one serial sample above the 99th percentile upper reference limit (URL), taken together with the patient's clinical presentation. Biotin has been reported to cause a negative bias, interpret results relative to patient's use of biotin. Lab Interpretation (test code = 52246-5) [facility] [id number] 03:08:10* Test Item Value Reference Range Interpretation Comme nts NT-proBNP (test code = 2095949054) 39 pg/mL <=125 MAXWELL (test code = MAXWELL) Biotin has been reported to cause a negative bias, interpret results relative to patient's use of biotin. Lab Interpretation (test code = 60747-1) [facility] 02:59:47* Test Item Value Reference Range Interpretation Comme nts MAGNESIUM (test code = 4273037208) 1.7 mg/dL 1.7-2.4 Lab Interpretation (test cod e = 41701-0) [facility] METABOLIC PANEL (22094)2023-04-26 02:59:27* Test Item Value Reference Range Interpretation Comme nts NA (test code = 2192955215) 140 mmol/L 135-145 K (test code = 5352893392) 3.7 mmol/L 3.5-5.0 CL (test code = 9466225574) 101 mmol/L 98-108 CO2 TOTAL (test code = 6777663804) 27 mmol/L 23-31 AGAP (test code = 2279307842) 12 2-16 BUN (test code = 6438298777) 11 mg/dL 7-23 GLUCOSE (test code = 8451902814) 104 mg/dL 70-110 CREATININE (test code = 1384061672) 0.71 mg/dL 0.60-1.25 TOTAL BILI (test code = 3666681025) 0.5 mg/dL 0.1-1.1 CALCIUM (test code = 5622805940) 9.9 mg/dL 8.6-10.6 T PROTEIN (test code = 5675260054) 7.0 g/dL 6.3-8.2 ALBUMIN (test code = 5217944444) 4.5 g/dL 3.5-5.0 ALK PHOS (test code = 0918215750) 72 U/L 34-122 ALTv (test code = 1742-6) 22 U/L 5-50 AST(SGOT) (test code = 8929278014) 19 U/L 13-40 eGFR (test code = 5409803798) 118.9 mL/min/1.73m2 MAXWELL (test code = MAXWELL) Association of Glomerular Filtration Rate (GFR) and Staging of Kidney Disease* + + +- +| GFR (mL/min/1.73 m2) ?| With Kidney Damage ?| ?Without Kidney Damage+ ------+ ----+ ------+| ?>90 ?| ?Stage one ?| ? Normal ?+ -+ + -+| ?60-89 ?| ?Stage two ?| ? Decreased GFR ? + + +- +| ?30-59 ?| ?Stage three ?| ? Stage three ? + + +- +| ?15-29 ?| ?Stage four ? | ? Stage four ?+ -+ + -+| ?<15 (or dialysis) ? ?| ?Stage five ? | ? Stage five ?+ -+ + -+ *Each stage assumes the associated GFR level has been in effect for at least three months. ?Stages 1 to 5, with or without kidney disease, indicate chronic kidney disease. Notes: Determination of stages one and two (with eGFR >59mL/min/1.73 m2) requires estimation of kidney damage for at least three months as defined by structural or functional abnormalities of the kidney, manifested by either:Pathological abnormalities or Markers of kidney damage (including abnormalities in the composition of the blood or urine or abnormalities in imaging tests). [facility] 02:59:07* Test Item Value Reference Range Interpretation Comme nts LIPASE (test code = 7628630737) 265 U/L 0-220 H Lab Interpretation (test cod e = 17779-5) [facility]normal [facility] WITH [id number] 02:51:11* Test Item Value Reference Range Interpretation Comme nts WBC (test code = 6690-2) 17.28 See_Comment H [Automated message] The system which generated this result transmitted reference range: 4.20 - 10.70 10*3/?L. The reference range was not used to interpret this result as normal/abnormal. RBC (test code = 789-8) 4.37 See_Comment [Automated message] The system which generated this result transmitted reference range: 4.26 - 5.52 10*6/?L. The reference range was not used to interpret this result as normal/abnormal. HGB (test code = 718-7) 14.0 g/dL 12.2-16.4 HCT (test code = 4544-3) 39.5 % 38.4-49.3 MCV (test code = 787-2) 90.4 fL 81.7-95.6 MCH (test code = 785-6) 32.0 pg 26.1-32.7 MCHC (test code = 786-4) 35.4 g/dL 31.2-35.0 H RDW-SD (test code = 66843-9) 42.1 fL 38.5-51.6 RDW-CV (test code = 788-0) 12.8 % 12.1-15.4 PLT (test code = 777-3) 302 See_Comment [Automated message] The system which generated this result transmitted reference range: 150 - 328 10*3/?L. The reference range was not used to interpret this result as normal/abnormal. MPV (test code = 89985-6) 11.8 fL 9.8-13.0 NRBC/100 WBC (test code = 5733347672) 0.0 See_Comment [Automated message] The system which generated this result transmitted reference range: 0.0 - 10.0 /100 WBCs. The reference range was not used to interpret this result as normal/abnormal. NRBC x10^3 (test code = 5907082253) See_Comment [Automated message] The system which generated this result transmitted reference range: 10*3/?L. The reference range was not used to interpret this result as normal/abnormal. GRAN MAT (NEUT) % (test code = 770-8) 69.5 % IMM GRAN % (test code = 8170840471) 1.30 % LYMPH % (test code = 736-9) 21.6 % MONO % (test code = 5905-5) 5.6 % EOS % (test code = 713-8) 1.2 % BASO % (test code = 706-2) 0.8 % GRAN MAT x10^3(ANC) (test code = 1805975889) 12.01 10*3/uL 1.99-6.95 H IMM GRAN x10^3 (test code = 9977589371) 0.23 10*3/uL 0.00-0.06 H LYMPH x10^3 (test code = 731-0) 3.73 10*3/uL 1.09-3.23 H MONO x10^3 (test code = 742-7) 0.97 10*3/uL 0.36-1.02 EOS x10^3 (test code = 711-2) 0.21 10*3/uL 0.06-0.53 BASO x10^3 (test code = 704-7) 0.13 10*3/uL 0.01-0.09 H Lab Interpretation (test code = 95756-8) Abnormal [facility] WITH [id number] 09:07:38* Test Item Value Reference Range Interpretation Comme nts WBC (test code = 6690-2) 23.15 See_Comment H [Automated message] The system which generated this result transmitted reference range: 4.20 - 10.70 10*3/?L. The reference range was not used to interpret this result as normal/abnormal. RBC (test code = 789-8) 4.71 See_Comment [Automated message] The system which generated this result transmitted reference range: 4.26 - 5.52 10*6/?L. The reference range was not used to interpret this result as normal/abnormal. HGB (test code = 718-7) 14.9 g/dL 12.2-16.4 HCT (test code = 4544-3) 42.4 % 38.4-49.3 MCV (test code = 787-2) 90.0 fL 81.7-95.6 MCH (test code = 785-6) 31.6 pg 26.1-32.7 MCHC (test code = 786-4) 35.1 g/dL 31.2-35.0 H RDW-SD (test code = 63526-2) 44.8 fL 38.5-51.6 RDW-CV (test code = 788-0) 13.6 % 12.1-15.4 PLT (test code = 777-3) 353 See_Comment H [Automated message] The system which generated this result transmitted reference range: 150 - 328 10*3/?L. The reference range was not used to interpret this result as normal/abnormal. MPV (test code = 03102-4) 11.7 fL 9.8-13.0 NRBC/100 WBC (test code = 0430118315) 0.0 See_Comment [Automated message] The system which generated this result transmitted reference range: 0.0 - 10.0 /100 WBCs. The reference range was not used to interpret this result as normal/abnormal. NRBC x10^3 (test code = 9893883320) See_Comment [Automated message] The system which generated this result transmitted reference range: 10*3/?L. The reference range was not used to interpret this result as normal/abnormal. SEG % (test code = 17960-6) 80 % 33-76 H LYMPH % (test code = 17844-7) 12 % 14-54 L MONO % (test code = 84400-5) 4 % 0-4 EOS % (test code = 60418-4) 4 % 0-3 H ANC (test code = 753-4) 18.52 10*3/uL 1.99-6.95 H Lab Interpretation (test code = 68603-2) [facility] 08:47:10* Test Item Value Reference Range Interpretation Comme nts NA (test code = 4772578447) 139 mmol/L 135-145 K (test code = 9230583364) 3.6 mmol/L 3.5-5.0 CL (test code = 2426781486) 105 mmol/L 98-108 CO2 TOTAL (test code = 7957434421) 22 mmol/L 23-31 L AGAP (test code = 1102971713) 12 2-16 BUN (test code = 9559555499) 12 mg/dL 7-23 GLUCOSE (test code = 0833710229) 117 mg/dL 70-110 H CREATININE (test code = 6329028317) 0.62 mg/dL 0.60-1.25 TOTAL BILI (test code = 4628293923) 0.4 mg/dL 0.1-1.1 CALCIUM (test code = 8269650743) 9.1 mg/dL 8.6-10.6 T PROTEIN (test code = 7610292403) 6.6 g/dL 6.3-8.2 ALBUMIN (test code = 7201515632) 4.2 g/dL 3.5-5.0 ALK PHOS (test code = 9197288122) 69 U/L 34-122 ALTv (test code = 1742-6) 29 U/L 5-50 AST(SGOT) (test code = 7588889976) 20 U/L 13-40 eGFR (test code = 1084984443) 139.1 mL/min/1.73m2 MAXWELL (test code = MAXWELL) Association of Glomerular Filtration Rate (GFR) and Staging of Kidney Disease* + --+ --+ ------+| GFR (mL/min/1.73 m2) ?| With Kidney Damage ?| ?Without Kidney Damage+ --------+ --------+ +| ?>90 ?| ?Stage one ?| ? Normal ?+ ---+ ---+ -------+| ?60-89 ?| ?Stage two ?| ? Decreased GFR ? + --+ --+ ------+| ?30-59 ?| ?Stage three ?| ? Stage three ? + --+ --+ ------+| ?15-29 ?| ?Stage four ? | ? Stage four ?+ ---+ ---+ -------+| ?<15 (or dialysis) ? ?| ?Stage five ? | ? Stage five ?+ ---+ ---+ -------+ *Each stage assumes the associated GFR level has been in effect for at least three months. ?Stages 1 to 5, with or without kidney disease, indicate chronic kidney disease. Notes: Determination of stages one and two (with eGFR >59mL/min/1.73 m2) requires estimation of kidney damage for at least three months as defined by structural or functional abnormalities of the kidney, manifested by either:Pathological abnormalities or Markers of kidney damage (including abnormalities in the composition of the blood or urine or abnormalities in imaging tests). Lab Interpretation (test code = 95342-6) [facility] [id number] 08:30:04* Test Item Value Reference Range Interpretation Comme nts TROPONIN I (test code = 3171844634) 0.021 ng/mL <=0.034 MAXWELL (test code = MAXWELL) Reference (Normal) Range (defined by the 99th percentile reference limit): <= 0.034 ng/mL Note: Cardiac troponin begins to rise 3-4 hours after the onset of ischemia. Repeat in 4-6 hours if the sample was drawn within 3-4 hours of the onset of the symptom and found normal. Diagnosis of myocardial injury is made with acute changes in cTn concentrations with at least one serial sample above the 99th percentile upper reference limit (URL), taken together with the patient's clinical presentation. Biotin has been reported to cause a negative bias, interpret results relative to patient's use of biotin. Lab Interpretation (test code = 37951-0) Normal [facility] Consult Notes Date/Time Note Provider Source 2023-12-06 10:36:29 Associated Order(s): CONSULT/REFERRAL GENERAL SURGERY GENERAL SURGERY CLINIC NOTE Reason for Visit / Chief Complaint: Chronic cholecystitis History of Present Illness: Kinga Ames is a 48 year old male with PMHx as below who presents for persistent RUQ abdominal pain that persists daily and is causing him significant discomfort. He cannot keep food or water down. He reports going to the ER monthly. Last month he had CT finding of hydropic gallbladder, US with no stones - but he does have an US 6 months ago with gallstones. He has been trying to get indigent care set up but he says he hasn't been able to secure it. I had him scheduled for a lap megan 6 months ago, but he could not afford it. Past Medical History: Past Medical History: Diagnosis Date Anxiety disorder, unspecified Chronic back pain Chronic pain Dyslipidemia Past Surgical History: Past Surgical History: Procedure Laterality Date SPINE SURGERY L3-L4 Allergies: Allergies Allergen Reactions Venom-Wasp Anaphylaxis Medications: Patient's Medications START taking these medications No medications on file CONTINUE taking these medications which have NOT CHANGED ACETAMINOPHEN-CODEINE 300-30 MG TABLET Take 1 tablet by mouth every 4 (four) hours as needed for Pain (scale 4-6) for up to 20 days. Indications: chronic pain ATORVASTATIN 10 MG TABLET TAKE 1 TABLET BY MOUTH EVERYDAY AT BEDTIME DEXTROAMPHETAMINE-AMPHETAMINE 10 MG TABLET Take 2 tablets by mouth in the morning and 2 tablets in the evening. DIAZEPAM 10 MG TABLET Take 1 tablet by mouth in the morning and 1 tablet at noon and 1 tablet in the evening. EPINEPHRINE (EPIPEN) 0.3 MG/0.3 ML INJECTION 0.3 mL by Intramuscular route as needed for Rash or Itching (allergic reaction). ETODOLAC 400 MG TABLET TAKE 1 TABLET BY MOUTH TWICE DAILY NEEDED FOR SEVERE PAIN FAMOTIDINE (PEPCID) 40 MG TABLET Take 1 tablet by mouth in the morning. HYDROCODONE-ACETAMINOPHEN 10-325 MG TABLET Take 1 tablet by mouth every 6 (six) hours as needed for Pain (scale 4-6). Indications: chronic pain HYDROCODONE-ACETAMINOPHEN 5-325 MG TABLET Take 1 tablet by mouth every 6 (six) hours as needed for Pain (scale 4-6). Indications: chronic pain ONDANSETRON 4 MG DISINTEGRATING TABLET Take 1 tablet by mouth every 8 (eight) hours as needed for Nausea and Vomiting (N/V). ONDANSETRON 4 MG DISINTEGRATING TABLET Take 1 tablet by mouth every 8 (eight) hours as needed for Nausea and Vomiting (N/V). ZOLPIDEM 10 MG TABLET Take 1 tablet by mouth at bedtime as needed for Insomnia. START taking Modified Medications as Prescribed No medications on file STOP taking these medications No medications on file No current facility-administered medications for this encounter. Current Outpatient Medications Medication Sig Dispense Refill acetaminophen-codeine 300-30 mg tablet Take 1 tablet by mouth every 4 (four) hours as needed for Pain (scale 4-6) for up to 20 days. Indications: chronic pain 120 tablet 0 dextroamphetamine-amphetamine 10 mg tablet Take 2 tablets by mouth in the morning and 2 tablets in the evening. 120 tablet 0 diazePAM 10 mg tablet Take 1 tablet by mouth in the morning and 1 tablet at noon and 1 tablet in the evening. 90 tablet 1 zolpidem 10 mg tablet Take 1 tablet by mouth at bedtime as needed for Insomnia. 30 tablet 1 HYDROcodone-acetaminophen 10-325 mg tablet Take 1 tablet by mouth every 6 (six) hours as needed for Pain (scale 4-6). Indications: chronic pain 120 tablet 0 famotidine (PEPCID) 40 mg tablet Take 1 tablet by mouth in the morning. 30 tablet 5 HYDROcodone-acetaminophen 5-325 mg tablet Take 1 tablet by mouth every 6 (six) hours as needed for Pain (scale 4-6). Indications: chronic pain 120 tablet 0 ondansetron 4 mg disintegrating tablet Take 1 tablet by mouth every 8 (eight) hours as needed for Nausea and Vomiting (N/V). 15 tablet 0 ATORVASTATIN 10 mg tablet TAKE 1 TABLET BY MOUTH EVERYDAY AT BEDTIME 90 tablet 1 ETODOLAC 400 mg tablet TAKE 1 TABLET BY MOUTH TWICE DAILY NEEDED FOR SEVERE PAIN 60 tablet 1 EPINEPHrine (EPIPEN) 0.3 mg/0.3 mL injection 0.3 mL by Intramuscular route as needed for Rash or Itching (allergic reaction). 1 Each 1 ondansetron 4 mg disintegrating tablet Take 1 tablet by mouth every 8 (eight) hours as needed for Nausea and Vomiting (N/V). 15 tablet 0 Family History: Family History Problem Relation Age of Onset No Significant Medical Problems Mother No Significant Medical Problems Father Other - see comments Brother pacemaker Social History: Social History Socioeconomic History Marital status: Tobacco Use Smoking status: Every Day Packs/day: 0.50 Years: 20.00 Additional pack years: 0.00 Total pack years: 10.00 Types: Cigarettes Passive exposure: Current Smokeless tobacco: Never Tobacco comments: 1/2 PPD; Substance and Sexual Activity Alcohol use: Not Currently Comment: used to drink occasionaly Drug use: Not Currently Social Determinants of Health Financial Resource Strain: Low Risk (04/26/2023) Overall Financial Resource Strain (CARDIA) Difficulty of Paying Living Expenses: Not hard at all Food Insecurity: No Food Insecurity (04/26/2023) Hunger Vital Sign Worried About Running Out of Food in the Last Year: Never true Ran Out of Food in the Last Year: Never true Transportation Needs: No Transportation Needs (04/26/2023) PRAPARE - Transportation Lack of Transportation (Medical): No Lack of Transportation (Non-Medical): No Physical Activity: Insufficiently Active (04/26/2023) Exercise Vital Sign Days of Exercise per Week: 3 days Minutes of Exercise per Session: 10 min Social Connections: Unknown (04/26/2023) Social Connection and Isolation Panel [NHANES] Frequency of Communication with Friends and Family: More than three times a week Marital Status: Never Housing Stability: Low Risk (04/26/2023) Housing Stability Vital Sign Unable to Pay for Housing in the Last Year: No Number of Places Lived in the Last Year: 1 Unstable Housing in the Last Year: No Review of Systems: A 14 point ROS was obtained, only positive responses are in BOLD Constitutional: Fever, chills, loss of appetite, fatigue, unexplained weight loss, unexplained weight gain, weakness Head/Ears/Nose/Mouth/Throat: Head: Headache, head injury, neck pain, neck stiffness Ears: Ear discharge, hearing loss, ear pain, tinnitus Nose: Nose bleeds, sinus congestion, runny nose, postnasal drip, sneezing, sinus pressure Mouth: Dental problems, mouth sores, sore tongue, dry mouth Throat: Sore throat, trouble swallowing, voice change Eyes: Discharge, itching, pain, redness, pain, vision disturbance, blurred vision, vision loss, cataracts, glaucoma CV: Chest pain, palpitations, arrhythmias, dyspnea on exertion, othopnea, claudication, edema, coronary artery disease/history of [place] Respiratory: Cough, sputum production, hemoptysis, wheezing, shortness of breath, sleep apnea GI: Dysphagia, abdominal pain, abdominal distention, indigestion, nausea, vomiting, diarrhea, constipation, hematemesis, blood in stool or dark stool, rectal bleeding, rectal pain, jaundice : Frequency, urgency, pain or burning with urination, flank pain, hematuria, incontinence, change in urinary stream, discharge, bleeding, pelvic pain, irregular menses Musculoskeletal: Muscle pain, joint pain, joint swelling, back pain, stiffness, weakness, limitation of motion, arthritis, trauma Integumentary/Breast: Integumentary: Rash, itching, pigmented lesions, lumps, tenderness, swelling, wound Breast: Pain, lumps, nipple discharge, skin changes Neurological: Weakness, sensory changes, syncope, seizures, headache, numbness, tingling, tremor, trauma Hematologic/Lymphatic: Hematologic: Bleeding tendency, easy bruising, history of blood clots, anticoagulation/antiplatelet therapy Lymphatic: Lymphadenopathy Endocrine: Polyuria, polydipsia, polyphagia, heat or cold intolerance, hair loss, appetite changes Allergic/Immunologic: Allergic: Allergic reactions Immunologic: Recurrent infections Psychiatric: Agitation, confusion, decreased concentration, hallucinations, anxiety, self-injury, sleep disturbance, suicidal ideation Physical Exam: BP 139/86 | Pulse 108 | Temp 37.1 ?C (98.8 ?F) (Oral) | Resp 18 | Ht 1.702 m (5' 7") | Wt 71.7 kg (158 lb) | SpO2 98% | BMI 24.75 kg/m? Constitutional: Awake, alert, oriented, in no acute distress Head: Normocephalic, atraumatic Cardiovascular: Regular rate and rhythm without murmurs, gallops, or rubs Respiratory: Symmetry of chest wall motion, clear to ausculation bilaterally, no respiratory distress GI: Rectal: Extremities: No clubbing, cyanosis, or edema Musculoskeletal: Normal tone and strength, normal range of motion Neurologic: CN II through XII grossly intact, no focal deficits Skin: Warm and dry, capillary refill <2 seconds, no jaundice, rashes, lesions, or erythema Hematologic/lymphatic: No cervical, axillary, or inguinal lymphadenopathy Psychiatric: Appropriate mood and affect, no obvious deficits of insight or judgment Labs: CBC WBC (10*3/?L) Date Value 12/06/2023 8.56 RBC (10*6/?L) Date Value 12/06/2023 4.65 PLT (10*3/?L) Date Value 12/06/2023 265 HGB (g/dL) Date Value 12/06/2023 14.9 HCT (%) Date Value 12/06/2023 42.6 BMP NA (mmol/L) Date Value 12/06/2023 137 K (mmol/L) Date Value 12/06/2023 4.3 CALCIUM (mg/dL) Date Value 12/06/2023 9.6 CL (mmol/L) Date Value 12/06/2023 105 BUN (mg/dL) Date Value 12/06/2023 15 CREATININE (mg/dL) Date Value 12/06/2023 0.76 GLUCOSE (mg/dL) Date Value 12/06/2023 101 CO2 TOTAL (mmol/L) Date Value 12/06/2023 24 Hepatic Function Panel ALBUMIN (g/dL) Date Value 12/06/2023 4.5 T PROTEIN (g/dL) Date Value 12/06/2023 7.6 TOTAL BILI (mg/dL) Date Value 12/06/2023 0.4 BILI UNCON (mg/dL) Date Value 03/01/2020 0.7 BILI CONJ (mg/dL) Date Value 03/01/2020 0.0 ALT(SGPT) (U/L) Date Value 02/10/2016 41 ALTv (U/L) Date Value 12/06/2023 36 AST(SGOT) (U/L) Date Value 12/06/2023 36 ALK PHOS (U/L) Date Value 12/06/2023 56 Microbiology: There are no current results on file for these tests and/or test for 1 year.QUANTATIVE CULTURE There are no current results on file for these tests and/or test for 1 year.wound culture Radiology: No final results containing an impression from the past 30 days were found. No results found for this visit on 12/06/23. Assessment: Kinga Ames is a 48 year old male with acute on chronic cholecystitis He does report SOB and CP He had cardiac workup done 6 months ago after a hospitalization at [facility], which was all reassuring. He was discharged to followup with surgery. I deemed him a surgical candidate for lap megan 6 months ago but he couldn't afford it. He has been in the ER again and again and still has RUQ Last ER visit with JADEN (likely from poor PO intake) Plan: Pending labs, will plan for Lap megan He has chronic pain and normally takes [place] 10 q6h Yudy Phan M.D. 12/06/2023 10:36 GLUER AND SLICER [facility]-SURGERY STAFF [facility] - Health History and Physical Notes Date/Time Note Provider Source 2023-12-06 20:49:[address] [facility] Hospitalist Admission H&P Date of Service: 12/06/2023 CHIEF COMPLAINT: Acute cholecystitis HISTORY OF PRESENT ILLNESS Kinga Ames is a 48 year old male who presents with abdominal pain and was diagnosed with acute cholecystitis. Patient was taken to the operating room for laparoscopic cholecystectomy. He has been dealing with his gallbladder issues for a long time according to the patient. He did not have the financial means to go ahead and get a laparoscopic cholecystectomy so he delayed it. He went to see general surgery today and patient was admitted directly to the hospital. Patient was taken to the operating room and had a laparoscopic cholecystectomy. Patient is doing well but still having some pain. He states that the incision is causing a lot of discomfort. Patient has had chronic pain for quite a while. He is on medication at home for pain hydrocodone. Will continue with pain management at this time. Will advance diet. As long as patient is doing well clinically he should be able to discharge in the morning. Outpatient pain management and outpatient general surgery follow-up. PAST MEDICAL HISTORY Past Medical History: Diagnosis Date Anxiety disorder, unspecified Chronic back pain Chronic pain Dyslipidemia PAST SURGICAL HISTORY Past Surgical History: Procedure Laterality Date SPINE SURGERY L3-L4 ALLERGIES Allergies Allergen Reactions Venom-Wasp Anaphylaxis MEDICATIONS Current home medication list reviewed: Current Discharge Medication List STOP taking these medications acetaminophen-codeine 300-30 mg tablet Comments: Reason for Stopping: dextroamphetamine-amphetamine 10 mg tablet Comments: Reason for Stopping: diazePAM 10 mg tablet Comments: Reason for Stopping: zolpidem 10 mg tablet Comments: Reason for Stopping: HYDROcodone-acetaminophen 10-325 mg tablet Comments: Reason for Stopping: famotidine (PEPCID) 40 mg tablet Comments: Reason for Stopping: HYDROcodone-acetaminophen 5-325 mg tablet Comments: Reason for Stopping: ATORVASTATIN 10 mg tablet Comments: Reason for Stopping: ETODOLAC 400 mg tablet Comments: Reason for Stopping: EPINEPHrine (EPIPEN) 0.3 mg/0.3 mL injection Comments: Reason for Stopping: ondansetron 4 mg disintegrating tablet Comments: Reason for Stopping: FAMILY HISTORY Family History Problem Relation Age of Onset No Significant Medical Problems Mother No Significant Medical Problems Father Other - see comments Brother pacemaker SOCIAL HISTORY Social History Socioeconomic History Marital status: Tobacco Use Smoking status: Every Day Packs/day: 0.50 Years: 20.00 Additional pack years: 0.00 Total pack years: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 Tobacco Use Every Day; 0.5 packs/day; Smoked an average of 0.5 packs/day for 20.0 years; Types: Cigarettes Passive Exposure: Current Smokeless Tobacco: Never used smokeless tobacco. Comments: 1/2 PPD; Alcohol Use Not Currently. Comments: used to drink occasionaly Drug Use Not Currently. Past Surgical History: Past Surgical History: Procedure Laterality Date LAPAROSCOPIC CHOLECYSTECTOMY N/A 12/06/2023 Surgeon: Yudy Phan MD; Location: [facility] L3-L4 Review of Systems: Review of Systems Constitutional: Negative. HENT: Negative. Eyes: Negative. Respiratory: Negative. Breasts: Negative. Cardiovascular: Negative. Genitourinary: Negative. Musculoskeletal: Negative. Skin: Positive for rash. Neurological: Negative. Psychiatric/Behavioral: Negative. Endocrine: Endocrine negative Physical Exam: ED Triage Vitals [05/23/24 0338] Weight 75.8 kg (167 lb) Actual or estimated Estimated by patient/family report Height 1.727 m (5' 8") BP 121/79 Pulse 109 Resp 18 Temp 36.6 ?C (97.9 ?F) Temp source Oral SpO2 98 % Measured on Room air Physical Exam Vitals and nursing note reviewed. Constitutional: General: He is not in acute distress. Appearance: Normal appearance. He is not ill-appearing, toxic-appearing or diaphoretic. HENT: Mouth/Throat: Mouth: Mucous membranes are moist. Eyes: Pupils: Pupils are equal, round, and reactive to light. Cardiovascular: Pulses: Normal pulses. Pulmonary: Effort: Pulmonary effort is normal. No respiratory distress. Skin: Capillary Refill: Capillary refill takes less than 2 seconds. Comments: Erythematous, lacy rash to arms and legs Neurological: General: No focal deficit present. Mental Status: He is alert and oriented to person, place, and time. Psychiatric: Mood and Affect: Mood normal. Behavior: Behavior normal. Radiology: No orders to display Lab Results: Lab Results - No data to display EKG: If EKG completed, see Procedure Note. Orders and Treatments: No orders of the defined types were placed in this encounter. Orders Placed This Encounter Medications dexAMETHasone (DECADRON) tablet 8 mg hydrOXYzine (ATARAX) tablet 25 mg First Provider Eval: ED Events Date/Time Event User Comments 05/23/24341 Medical Screening Begins ISAC ADAMS MD -- 05/23/24341 First Provider Evaluation ISAC ADAMS MD -- ED COURSE Diagnosis/Impression as of 05/23/24 9128 Poison terri dermatitis Procedures: Procedures MDM: Medical Decision Making Risk Prescription drug management. Flowsheet Documentation: Scoring Tools: No data recorded A) Poison terri (Toxicodendron) dermatitis Disposition/Condition: Medrol Dospak, Atarax, f/u PCP ED Disposition None Discharge Medications: Patient's Medications START taking these medications No medications on file CONTINUE taking these medications which have NOT CHANGED ATORVASTATIN 10 MG TABLET Take 1 tablet by mouth at bedtime. BENZONATATE 200 MG CAPSULE Take 1 capsule by mouth 3 (three) times daily as needed for Cough. DEXTROAMPHETAMINE-AMPHETAMINE (ADDERALL) 20 MG TABLET Take 1 tablet by mouth in the morning and 1 tablet in the evening. DIAZEPAM 10 MG TABLET Take 1 tablet by mouth in the morning and 1 tablet at noon and 1 tablet in the evening. EPINEPHRINE (EPIPEN) 0.3 MG/0.3 ML INJECTION 0.3 mL by Intramuscular route as needed for Rash or Itching (allergic reaction). HYDROCODONE-ACETAMINOPHEN 7.5-325 MG PER TABLET Take 1 tablet by mouth every 6 (six) hours as needed for Pain. Indications: chronic pain IBUPROFEN 600 MG TABLET Take 1 tablet by mouth every 6 (six) hours as needed for Pain (scale 4-6). NIRMATRELVIR-RITONAVIR (PAXLOVID) 300 MG (150 MG X 2)-100 MG TABLET Take 3 tablets by mouth in the morning and 3 tablets in the evening. ONDANSETRON 4 MG DISINTEGRATING TABLET Take 1 tablet by mouth every 8 (eight) hours as needed for Nausea and Vomiting (N/V). TRAMADOL 50 MG TABLET Take 1 tablet by mouth every 6 (six) hours as needed (pain). Indications: acute pain ZOLPIDEM 10 MG TABLET Take 1 tablet by mouth at bedtime as needed for Insomnia. START taking Modified Medications as Prescribed No medications on file STOP taking these medications No medications on file Follow-up: PCP Electronically signed by: Isac Adams MD 05/23/24 0350 [facility] 2024-05-21 10:51:12 Notes: Please Review Last Refilled: dextroamphetamine-amphetamine (ADDERALL) 20 mg tablet 60 tablet 0 04/24/2024 -- -- Sig: Take 1 tablet by mouth in the morning and 1 tablet in the evening. Sent to pharmacy as: dextroamphetamine-amphetamine 20 mg tablet (AdderalL) Class: eRX Earliest Fill Date: 04/24/2024 Route: Oral Order: [id number] Date/Time Signed: 04/24/2024 08:20 E-Prescribing Status: Receipt confirmed by pharmacy (04/24/2024 8:20 AM CDT) Disp Refills Start End MARYJANE HYDROcodone-acetaminophen 7.5-325 mg per tablet 120 tablet 0 04/24/2024 -- -- Sig: Take 1 tablet by mouth every 6 (six) hours as needed for Pain. Indications: chronic pain Sent to pharmacy as: hydrocodone 7.5 mg-acetaminophen 325 mg tablet (NORCO) Class: eRX Earliest Fill Date: 04/24/2024 Route: Oral Order: [id number] Date/Time Signed: 04/24/2024 08:20 E-Prescribing Status: Receipt confirmed by pharmacy (04/24/2024 8:20 AM CDT) Recent Visits Date Type Provider Dept 05/13/24 Office Visit Chente Garibay MD [facility] 04/24/24 Office Visit Chente Garibay MD [facility] 03/11/24 Office Visit Chente Garibay MD [facility] 01/17/24 Office Visit Chente Garibay MD [facility] 12/17/23 Office Visit Chente Garibay MD [facility] 12/12/23 Office Visit Chente Garibay MD [facility] 11/22/23 Office Visit Chente Garibay MD [facility] 10/17/23 Office Visit Chente Garibay MD [facility] 09/24/23 Office Visit Chente Garibay MD [facility] 07/30/23 Office Visit Chente Garibay MD [facility] Showing recent visits within past 540 days with a meds authorizing provider and meeting all other requirements Future Appointments Date Type Provider Dept 07/21/24 Appointment Chente Garibay MD [facility] Showing future appointments within next 150 days with a meds authorizing provider and meeting all other requirements [facility] 2024-05-21 10:03:19 Notes: Please Review Last Refilled: Disp Refills Start End MARYJANE dextroamphetamine-amphetamine (ADDERALL) 20 mg tablet 60 tablet 0 04/24/2024 -- -- Sig: Take 1 tablet by mouth in the morning and 1 tablet in the evening. Sent to pharmacy as: dextroamphetamine-amphetamine 20 mg tablet (AdderalL) Class: eRX Earliest Fill Date: 04/24/2024 Route: Oral Order: [id number] Date/Time Signed: 04/24/2024 08:20 E-Prescribing Status: Receipt confirmed by pharmacy (04/24/2024 8:20 AM CDT) Disp Refills Start End MARYJANE HYDROcodone-acetaminophen 7.5-325 mg per tablet 120 tablet 0 04/24/2024 -- -- Sig: Take 1 tablet by mouth every 6 (six) hours as needed for Pain. Indications: chronic pain Sent to pharmacy as: hydrocodone 7.5 mg-acetaminophen 325 mg tablet (NORCO) Class: eRX Earliest Fill Date: 04/24/2024 Route: Oral Order: [id number] Date/Time Signed: 04/24/2024 08:20 E-Prescribing Status: Receipt confirmed by pharmacy (04/24/2024 8:20 AM CDT) Recent Visits Date Type Provider Dept 05/13/24 Office Visit Chente Garibay MD [facility] 04/24/24 Office Visit Chente Garibay MD [facility] 03/11/24 Office Visit Chente Garibay MD [facility] 01/17/24 Office Visit Chente Garibay MD [facility] 12/17/23 Office Visit Chente Garibay MD [facility] 12/12/23 Office Visit Chente Garibay MD [facility] 11/22/23 Office Visit Chente Garibay MD [facility] 10/17/23 Office Visit Chente Garibay MD [facility] 09/24/23 Office Visit Chente Garibay MD [facility] 07/30/23 Office Visit Chente Garibay MD [facility] Showing recent visits within past 540 days with a meds authorizing provider and meeting all other requirements Future Appointments Date Type Provider Dept 07/21/24 Appointment Chente Garibay MD [facility] Showing future appointments within next 150 days with a meds authorizing provider and meeting all other requirements T [facility] 2024-05-21 10:03:15 From: Kinga Ames To: Office of hCente Garibay Sent: 05/21/2024 8:43 AM CDT Subject: Medication Renewal Request Refills have been requested for the following medications: HYDROcodone-acetaminophen 7.5-325 mg per tablet [Chente Garibay] dextroamphetamine-amphetamine (ADDERALL) 20 mg tablet [Chente Garibay] Preferred pharmacy: [facility]/PHARMACY #[id number] - [place], [place] - [address] [facility] [address] Delivery method: Pickup T [facility] 2024-05-21 09:05:37 Kinga Ames is a 49 year old male and is calling to get a refill of his ADDERALL 20 mg tablet & HYDROcodone-acetaminophen 7.5-325 mg per tablet. Pt states he is wanting to get these refilled before Dr. Garibay's leaves for the week. Please advise the pt. [id number] [place] [facility] [address] [place] [address] [address] [address] Cara Contreras [facility] 2024-05-19 10:49:[address] Garibay T [facility] 2024-05-19 10:47:50 Notes: please Review Last Refilled: dextroamphetamine-amphetamine (ADDERALL) 20 mg tablet 60 tablet 0 04/24/2024 -- -- Sig: Take 1 tablet by mouth in the morning and 1 tablet in the evening. Sent to pharmacy as: dextroamphetamine-amphetamine 20 mg tablet (AdderalL) Class: eRX Earliest Fill Date: 04/24/2024 Route: Oral Order: [id number] Date/Time Signed: 04/24/2024 08:20 E-Prescribing Status: Receipt confirmed by pharmacy (04/24/2024 8:20 AM CDT) Disp Refills Start End MARYJANE HYDROcodone-acetaminophen 7.5-325 mg per tablet 120 tablet 0 04/24/2024 -- -- Sig: Take 1 tablet by mouth every 6 (six) hours as needed for Pain. Indications: chronic pain Sent to pharmacy as: hydrocodone 7.5 mg-acetaminophen 325 mg tablet (NORCO) Class: eRX Earliest Fill Date: 04/24/2024 Route: Oral Order: [id number] Date/Time Signed: 04/24/2024 08:20 E-Prescribing Status: Receipt confirmed by pharmacy (04/24/2024 8:20 AM CDT) Recent Visits Date Type Provider Dept 05/13/24 Office Visit Chente Garibay MD [facility] 04/24/24 Office Visit Chente Garibay MD [facility] 03/11/24 Office Visit Chente Garibay MD [facility] 01/17/24 Office Visit Chente Garibay MD [facility] 12/17/23 Office Visit Chente Garibay MD [facility] 12/12/23 Office Visit Chente Garibay MD [facility] 11/22/23 Office Visit Chente Garibay MD [facility] 10/17/23 Office Visit Chente Garibay MD [facility] 09/24/23 Office Visit Chente Garibay MD [facility] 07/30/23 Office Visit Chente Garibay MD [facility] Showing recent visits within past 540 days with a meds authorizing provider and meeting all other requirements Future Appointments Date Type Provider Dept 07/21/24 Appointment Chente Garibay MD [facility] Showing future appointments within next 150 days with a meds authorizing provider and meeting all other requirements [facility] 2024-05-19 10:41:28 Kinga Ames is a 49 year old male Patient calling for refills on ADDERALL) 20 mg tablet HYDROcodone-acetaminophen 7.5-325 mg per tablet To be sent to pharmacy on file. Annabelle Schumacher [facility] 2024-04-21 08:33:00 Regarding: Chest pain x 4 days, asking to speak with nurse ----- Message from Pierce Swan sent at 04/21/2024 8:32 AM CDT ----- Chest pain x 4 days, asking to speak with nurse Agnieszka Berg RN [facility] 2024-04-21 08:33:00 Adult Triage Assessment Last Clinic Visit: 04/20/2024 ER - COVID-19; chest pain, unspecified type; dyspnea, unspecified type Currently scheduled for follow up on Primary Symptom: chest pain Onset / Duration: past few days Location / Description: COVID-19 positive, ER twice in last two day, Pain / Severity: "it's up there" Associated Symptoms: cough Fever / Method: "been a few days since running fever" Hydration: "Mouth as been staying dry since all of this"; last void this morning Treatment so far: Paxlovid 300 mg (150 mg x 2) - 100 mg tablet - has not yet received, pharmacy didn't have it; levofloxacin 750 mg - first taken today; ibuprofen 600 mg as needed Effect on ADL's: concerned and unsure what to do - patient noted the tramadol sent by the ER was not received by the pharmacy LMP: NA Pre-existing condition / Immunocompromised: chronic back pain greater than 3 months duration; pain in shoulder; attention deficit disorder; otalgia of right ear; acute otitis media, unspecified otitis media type; Lannon' palsy; paresthesia; acute seasonal allergic rhinitis, unspecified trigger; anxiety; chest pain, unspecified type; dyslipidemia; cigarette nicotine dependence, uncomplicated; chronic cholecystitis; acute on chronic cholecystitis Advice given per Coronavirus (COVID-19) Diagnosed or Suspected Adult Protocol. Home care discussed with patient who voices understanding and denies further needs or concerns at this time. Would like an earlier follow up appointment with PCP if possible. He is currently scheduled for 04/24/2024 at 0900. Reason for Disposition Chest pain Protocols used: Coronavirus (COVID-19) - Diagnosed or [id number] [facility] 2024-04-21 08:33:00 Needs to get his meds, should be good for f/u, see how he is. [facility] 2024-04-20 15:50:47 Patient given discharge instructions on covid. Given prescriptions X 3 for tessalon perles, paxlovid, and tramadol. Pt advised to follow up with pcp. Pt left ER ambulatory, no signs of distress. Leslie Abraham RN [facility] 2024-04-20 11:29:06 Patient was here yesterday and diagnosed with covid, states he was unable to get some of his medicines due to the pharmacy not having them. He states his chest is hurting bad and he is having trouble breathing. Pain started 5 days ago. LYT Naresh Gonzalez RN [facility] 2024-04-20 11:24:00 Associated Order(s): EKG-12 Lead ROUTINE ONCE Pre-Procedure Diagnose(s): Chest pain, unspecified type Post-Procedure Diagnose(s): Chest pain, unspecified type [facility] Emergency Department Note Patient Name: Kinga Ames Date of : 1975 48 year old male Treatment Room: Room/bed info not found Primary Care Physician: Chente Garibay Patient Escorted by: Self [9] Mode of Arrival: Personal means [1] EMS Treatment Prior to ED Arrival: UNDERCOATER treatment: Analgesic UNDERCOATER treatment comments: ibuprofen 600mg last taken at 0800 Travel and Exposure Screening: Symptoms Does patient have any of these symptoms?: (not recorded) Exposure Screening Has patient had contact with someone with a communicable disease in the last month?: (not recorded) Diseases exposed to:: (not recorded) Is Patient ?: (not recorded) Exposure Date: (not recorded) Chief Complaint: Chief Complaint Patient presents with Chest Pain History of Present Illness: At least 5 days of progressively intensifying chest pain, left and right anterior, constant, aggravated with exertion, no definitive relieving factors. Concurrent dyspnea at rest and exertion. No orthopnea. (+) subjective fever at onset, resolved last 3 days. (+) cough, non-productive. (+) nausea without emesis. No diarrhea. No abdominal pain. (+) smoker. Recent encounter: . 04/19/2024. [facility] ED. 5 days of cold symptoms. COVID (+). CXR unremarkable. Rx robitussin AC, ibuprofen, levofloxacin. Levofloxacin is at pharmacy awaiting pickup. Robitussin AC is out of stock. History provided by: Patient Past Medical History/Immunizations: Past Medical History: Diagnosis Date Anxiety disorder, unspecified Chronic back pain Chronic pain Dyslipidemia Tetanus received in last 5 years: No Childhood immunizations: Up-to-date Allergies: Allergies Allergen Reactions Venom-Wasp Anaphylaxis Past Social History: Tobacco Use Every Day; 0.5 packs/day; Smoked an average of 0.5 packs/day for 20.0 years; Types: Cigarettes Passive Exposure: Current Smokeless Tobacco: Never used smokeless tobacco. Comments: 1/2 PPD; Alcohol Use Not Currently. Comments: used to drink occasionaly Drug Use Not Currently. Past Surgical History: Past Surgical History: Procedure Laterality Date LAPAROSCOPIC CHOLECYSTECTOMY N/A 12/06/2023 Surgeon: Yudy Phan MD; Location: [facility] L3-L4 Review of Systems: Review of Systems Constitutional: Positive for fever. HENT: Negative. Eyes: Negative. Respiratory: Positive for cough and shortness of breath. Cardiovascular: Positive for chest pain. Gastrointestinal: Positive for nausea. Negative for abdominal pain, diarrhea and vomiting. Genitourinary: Negative. Musculoskeletal: Negative. Skin: Negative. Neurological: Negative. Psychiatric/Behavioral: Negative. Physical Exam: ED Triage Vitals [04/20/24 1130] Weight 72.6 kg (160 lb) Actual or estimated Height 1.727 m (5' 8") BP 114/66 Pulse 101 Resp 24 Temp 36.5 ?C (97.7 ?F) Temp source Oral SpO2 100 % Measured on Physical Exam Vitals and nursing note reviewed. Constitutional: General: He is not in acute distress. Appearance: Normal appearance. He is not ill-appearing, toxic-appearing or diaphoretic. HENT: Head: Normocephalic and atraumatic. Right Ear: External ear normal. Left Ear: External ear normal. Nose: Nose normal. Mouth/Throat: Mouth: Mucous membranes are moist. Eyes: Extraocular Movements: Extraocular movements intact. Conjunctiva/sclera: Conjunctivae normal. Cardiovascular: Rate and Rhythm: Normal rate and regular rhythm. Pulmonary: Effort: Pulmonary effort is normal. Breath sounds: Rales (RLL) present. Abdominal: General: There is no distension. Palpations: Abdomen is soft. Tenderness: There is no abdominal tenderness. Musculoskeletal: General: Normal range of motion. Cervical back: Normal range of motion. Skin: General: Skin is warm and dry. Neurological: General: No focal deficit present. Mental Status: He is alert. Psychiatric: Mood and Affect: Mood normal. Behavior: Behavior normal. Thought Content: Thought content normal. Judgment: Judgment normal. Radiology: CT CHEST PULMONARY ANGIOGRAM Final Result INDICATION: PE suspected, high pretest prob COVID (+); chest pain, dyspnea, smoker ORDERING PROVIDER: NELIDA MERCER TECHNIQUE: Helical CT imaging was performed through the chest following the infusion of intravenous contrast according to pulmonary embolus protocol. Maximum intensity projection images were created and reviewed. CT was performed in accordance with the principles of ALARA. HS:Y RL: [id number] AFC: [id number] COMPARISON: CT angiogram 09/21/2023 FINDINGS: No pulmonary arterial filling defect is identified to suggest pulmonary embolus. No pericardial effusion is identified. No mediastinal or hilar lymphadenopathy is demonstrated. While the examination has not been optimized for evaluation of the thoracic aorta, and the thoracic aorta is suboptimally opacified, no convincing aortic dissection is noted within the study limitations. Emphysematous changes of the lungs again noted. Mild bilateral dependent atelectasis is present. No pleural effusion, pneumothorax, or pulmonary consolidation identified. Tiny nodule (2 mm) within the right upper lobe is unchanged. No acute osseous abnormality demonstrated. IMPRESSION No pulmonary embolus identified. Emphysematous changes and mild dependent atelectasis. Stable tiny pulmonary nodule. Lab Results: Lab Results COMP. METABOLIC PANEL (08854) - Abnormal Result Value Ref Range NA 140 135 - 145 mmol/L K 3.7 3.5 - 5.0 mmol/L CL 107 98 - 108 mmol/L CO2 TOTAL 29 23 - 31 mmol/L AGAP 4 2 - 16 BUN 11 7 - 23 mg/dL GLUCOSE 89 70 - 110 mg/dL CREATININE 0.76 0.60 - 1.25 mg/dL TOTAL BILI 0.3 0.1 - 1.1 mg/dL CALCIUM 8.8 8.6 - 10.6 mg/dL T PROTEIN 6.4 6.3 - 8.2 g/dL ALBUMIN 3.6 3.5 - 5.0 g/dL ALK PHOS 57 34 - 122 U/L ALTv 52 (*) 5 - 50 U/L AST(SGOT) 27 13 - 40 U/L eGFR 110.9 mL/min/1.73m2 TROPONIN I - Normal TROPONIN I 0.003 <=0.034 ng/mL N-TERMINAL PRO-BNP - Normal NT-proBNP <20 <=125 pg/mL CBC WITH DIFF WBC 4.77 4.20 - 10.70 10*3/?L RBC 4.36 4.26 - 5.52 10*6/?L HGB 13.6 12.2 - 16.4 g/dL HCT 40.4 38.4 - 49.3 % MCV 92.7 81.7 - 95.6 fL MCH 31.2 26.1 - 32.7 pg MCHC 33.7 31.2 - 35.0 g/dL RDW-SD 44.8 38.5 - 51.6 fL RDW-CV 13.1 12.1 - 15.4 % PLT 187 150 - 328 10*3/?L MPV 10.9 9.8 - 13.0 fL NRBC/100 WBC 0.0 0.0 - 10.0 /100 WBCs NRBC x10 3 <0.01 10*3/?L GRAN MAT (NEUT) % 47.9 % IMM GRAN % 0.20 % LYMPH % 39.6 % MONO % 8.4 % EOS % 3.1 % BASO % 0.8 % GRAN MAT x10 3 (ANC) 2.28 1.99 - 6.95 10*3/uL IMM GRAN x10 3 <0.03 0.00 - 0.06 10*3/uL LYMPH x10 3 1.89 1.09 - 3.23 10*3/uL MONO x10 3 0.40 0.36 - 1.02 10*3/uL EOS x10 3 0.15 0.06 - 0.53 10*3/uL BASO x10 3 0.04 0.01 - 0.09 10*3/uL EKG: If EKG completed, see Procedure Note. Orders and Treatments: Orders Placed This Encounter Procedures CT CHEST PULMONARY ANGIOGRAM CBC WITH DIFF COMP. METABOLIC PANEL (35309) TROPONIN I N-TERMINAL PRO-BNP Orders Placed This Encounter Medications morpHINE (4 mg/mL) injection 4 mg ondansetron (ZOFRAN (PF)) injection 4 mg benzonatate (TESSALON PERLES) capsule 200 mg iopamidol (ISOVUE 370-500 mL) injection 75 mL ketorolac (TORADOL) injection 30 mg morpHINE (4 mg/mL) injection 4 mg benzonatate 200 mg capsule traMADoL 50 mg tablet nirmatrelvir-ritonavir (PAXLOVID) 300 mg (150 mg x 2)-100 mg tablet First Provider Eval: ED Events Date/Time Event User Comments 04/20/24 1131 Medical Screening Begins NELIDA MERCER MD -- 04/20/24 1131 First Provider Evaluation NELIDA MERCER MD -- ED COURSE Diagnosis/Impression as of 04/20/24 1535 Chest pain, unspecified type Dyspnea, unspecified type COVID-19 Procedures: EKG-12 Lead ROUTINE ONCE Date/Time: 04/20/2024 12:25 PM Performed by: Nelida Mercer MD Authorized by: Nelida Mercer MD ECG interpreted by ED Physician in the absence of a forger helper: yes Previous ECG: Previous ECG: Compared to current Comparison ECG info: Compared to EKG of 04/19/2024 no significant changes Interpretation: Interpretation: non-specific Rate: ECG rate: 88 ECG rate assessment: normal Rhythm: Rhythm: sinus rhythm Ectopy: Ectopy: none QRS: QRS axis: Right (+101) ST segments: ST segments: Non-specific T waves: T waves: non-specific Comments: Qtc 428 MDM: Medical Decision Making Primary impression: covid 19 infection Secondary impression: chest pain, dyspnea Differential Diagnoses, including but not limited to: electrolyte / glucose abnl, jaden, anemia, arrhythmia, acute coronary event, pulmonary embolism, pneumonia. Problems Addressed: Chest pain, unspecified type: acute illness or injury COVID-19: acute illness or injury Dyspnea, unspecified type: acute illness or injury Amount and/or Complexity of Data Reviewed Independent Historian: Details: self External Data Reviewed: notes. Details: Recent encounter: 1. 04/19/2024. [facility] ED. 5 days of cold symptoms. COVID (+). CXR unremarkable. Rx robitussin AC, ibuprofen, levofloxacin. Levofloxacin is at pharmacy awaiting pickup. Robitussin AC is out of stock. Labs: ordered. Radiology: ordered. ECG/medicine tests: ordered and independent interpretation performed. Decision-making details documented in ED Course. Discussion of management or test interpretation with external provider(s): N/A Risk OTC drugs. Prescription drug management. Parenteral controlled substances. Risk Details: Unremarkable OBS in ED. Symptoms improved. Findings and plan discussed with patient. No findings that require acute hospitalization today. Robitussin AC out of stock. He reports symptom improvement with benzonatate in ED. Equivocal for paxlovid effectiveness. Will provide rx. Symptomatic mgmt as well. Flowsheet Documentation: Scoring Tools: No data recorded Disposition/Condition: ED Disposition ED Disposition Disch - Home Condition Stable Comment -- Discharge Medications: Patient's Medications START taking these medications BENZONATATE 200 MG CAPSULE Take 1 capsule by mouth 3 (three) times daily as needed for Cough. NIRMATRELVIR-RITONAVIR (PAXLOVID) 300 MG (150 MG X 2)-100 MG TABLET Take 3 tablets by mouth in the morning and 3 tablets in the evening. TRAMADOL 50 MG TABLET Take 1 tablet by mouth every 6 (six) hours as needed (pain). Indications: acute pain CONTINUE taking these medications which have NOT CHANGED ATORVASTATIN 10 MG TABLET Take 1 tablet by mouth at bedtime. CODEINE-GUAIFENESIN 10-100 MG/5 ML ORAL SOLUTION Take 5 mL by mouth every 6 (six) hours as needed for Cough for up to 7 days. Indications: acute pain DEXTROAMPHETAMINE-AMPHETAMINE (ADDERALL) 20 MG TABLET Take 1 tablet by mouth in the morning and 1 tablet in the evening. DEXTROAMPHETAMINE-AMPHETAMINE 10 MG TABLET Take 2 tablets by mouth in the morning and 2 tablets in the evening. DIAZEPAM 10 MG TABLET Take 1 tablet by mouth in the morning and 1 tablet at noon and 1 tablet in the evening. EPINEPHRINE (EPIPEN) 0.3 MG/0.3 ML INJECTION 0.3 mL by Intramuscular route as needed for Rash or Itching (allergic reaction). HYDROCODONE-ACETAMINOPHEN 7.5-325 MG PER TABLET Take 1 tablet by mouth every 6 (six) hours as needed for Pain. Indications: chronic pain IBUPROFEN 600 MG TABLET Take 1 tablet by mouth every 6 (six) hours as needed for Pain (scale 4-6). LEVOFLOXACIN 750 MG TABLET Take 1 tablet by mouth every 24 (twenty-four) hours for 5 days. ONDANSETRON 4 MG DISINTEGRATING TABLET Take 1 tablet by mouth every 8 (eight) hours as needed for Nausea and Vomiting (N/V). ZOLPIDEM 10 MG TABLET Take 1 tablet by mouth at bedtime as needed for Insomnia. START taking Modified Medications as Prescribed No medications on file STOP taking these medications No medications on file Follow-up: A PCP Electronically signed by: Nelida Mercer MD 04/20/24 1535 [facility] 2024-04-19 19:15:33 Pt given printed and verbal discharge instructions regarding Covid, encouraged hydration, Prescriptions provided Discussed ibuprofen and to take with food to avoid GI distress. Discussed antibiotic therapy and to take until all completed unless adverse reaction occurs - if occurs, discontinue medication and follow up with pcp/seek medical attention Discussed codeine side affects and to avoid driving/operating machinery/or engaging in activities requiring alertness while taking. Pt verbalized understanding of instructions, pt awake alert oriented, resp reg unlabored, skin w/d, color appropriate for race, moves all ext well,pt encouraged to follow up with pcp. Advised to seek medical attention for new/prolonged/worsening of symptoms. No adverse reaction to meds given in ER noted upon discharge Awake, alert oriented, resp reg unlabored, skin w/d, pt leaving amb with steady gait, in no apparent distress. Cheri Blanca RN [facility] 2024-04-19 16:58:02 Patient reports that he has been having a cough, congestion for at least 1 week and has gotten worse. States that he has been taking OTC Cough / cold medicine with minimal relief. Patient reports that he has a sore throat and his throat and chest forde when he coughs. [facility] 2024-04-19 16:52:[address] [facility] Emergency Department Note Patient Name: Kinga Ames Date of : 1975 48 year old male Treatment Room: [facility] ED [facility] Primary Care Physician: Chente Garibay Patient Escorted by: Self [9] Mode of Arrival: Personal means [1] EMS Treatment Prior to ED Arrival: UNDERCOATER treatment: None Travel and Exposure Screening: Symptoms Does patient have any of these symptoms?: (not recorded) Exposure Screening Has patient had contact with someone with a communicable disease in the last month?: (not recorded) Diseases exposed to:: (not recorded) Is Patient ?: (not recorded) Exposure Date: (not recorded) Chief Complaint: Chief Complaint Patient presents with Cough History of Present Illness: Patient here for cough, nasal congestion, pleuritic CP and SOB with fevers for the past 5 days. + smoker. Hx of HLD. Patient is taking OTC cold and cough medication which is not helping much. Denies MIRANDA, dizziness, abdominal pain, vomiting, diarrhea. Past Medical History/Immunizations: Past Medical History: Diagnosis Date Anxiety disorder, unspecified Chronic back pain Chronic pain Dyslipidemia Tetanus received in last 5 years: Unknown Allergies: Allergies Allergen Reactions Venom-Wasp Anaphylaxis Past Social History: Tobacco Use Every Day; 0.5 packs/day; Smoked an average of 0.5 packs/day for 20.0 years; Types: Cigarettes Passive Exposure: Current Smokeless Tobacco: Never used smokeless tobacco. Comments: 1/2 PPD; Alcohol Use Not Currently. Comments: used to drink occasionaly Drug Use Not Currently. Past Surgical History: Past Surgical History: Procedure Laterality Date LAPAROSCOPIC CHOLECYSTECTOMY N/A 12/06/2023 Surgeon: Yudy Phan MD; Location: [facility] L3-L4 Review of Systems: Review of Systems Constitutional: Positive for fatigue and fever. Negative for activity change, appetite change, chills, diaphoresis, unexpected weight change, weight gain and weight loss. HENT: Positive for congestion. Negative for dental problem, drooling, ear discharge, ear pain, facial swelling, hearing loss, mouth sores, nosebleeds, postnasal drip, rhinorrhea, sinus pressure, sneezing, sore throat, tinnitus, trouble swallowing and voice change. Eyes: Negative for photophobia, pain, discharge, redness, itching and visual disturbance. Respiratory: Positive for cough and shortness of breath. Negative for apnea, choking, chest tightness, wheezing and stridor. Breasts: Negative for discharge, mass, pain and unequal size. Cardiovascular: Negative for chest pain, palpitations and leg swelling. Gastrointestinal: Negative for abdominal distention, abdominal pain, anal bleeding, blood in stool, constipation, diarrhea, nausea, rectal pain and vomiting. Genitourinary: Negative for bladder incontinence, dysuria, urgency, polyuria, frequency, hematuria, flank pain, decreased urine volume, discharge, penile swelling, scrotal swelling, enuresis, difficulty urinating, genital sores, penile pain, testicular pain and nocturia. Musculoskeletal: Negative for arthralgias, back pain, gait problem, joint swelling, myalgias, neck pain and neck stiffness. Skin: Negative for color change, pallor, rash and wound. Neurological: Negative for dizziness, tremors, seizures, syncope, facial asymmetry, speech difficulty, weakness, light-headedness, numbness and headaches. Psychiatric/Behavioral: Negative for agitation, behavioral problems, confusion, decreased concentration, dysphoric mood, hallucinations, self-injury, sleep disturbance and suicidal ideas. The patient is not nervous/anxious and is not hyperactive. Hematological: Negative for adenopathy, cold intolerance and heat intolerance. Does not bruise/bleed easily. Endocrine: Negative for goiter, hair loss, cold intolerance, heat intolerance, polydipsia, polyphagia, polyuria, weight gain and weight loss. Physical Exam: ED Triage Vitals [04/19/24 1700] Weight 72.6 kg (160 lb) Actual or estimated Estimated by patient/family report Height 1.727 m (5' 8") BP 100/71 Pulse 108 Resp 18 Temp 37.2 ?C (98.9 ?F) Temp source Oral SpO2 98 % Measured on Room air Physical Exam Constitutional: General: He is not in acute distress. Appearance: Normal appearance. He is normal weight. He is not ill-appearing, toxic-appearing or diaphoretic. HENT: Head: Normocephalic and atraumatic. Right Ear: Tympanic membrane and ear canal normal. There is no impacted cerumen. Left Ear: Tympanic membrane and ear canal normal. There is no impacted cerumen. Nose: Congestion and rhinorrhea present. Mouth/Throat: Mouth: Mucous membranes are moist. Pharynx: Oropharynx is clear. No oropharyngeal exudate or posterior oropharyngeal erythema. Eyes: General: No scleral icterus. Right eye: No discharge. Left eye: No discharge. Extraocular Movements: Extraocular movements intact. Conjunctiva/sclera: Conjunctivae normal. Pupils: Pupils are equal, round, and reactive to light. Neck: Vascular: No carotid bruit. Cardiovascular: Rate and Rhythm: Normal rate and regular rhythm. Pulses: Normal pulses. Heart sounds: Normal heart sounds. No murmur heard. No friction rub. No gallop. Pulmonary: Effort: Pulmonary effort is normal. No respiratory distress. Breath sounds: Normal breath sounds. No stridor. No wheezing, rhonchi or rales. Chest: Chest wall: No tenderness. Abdominal: General: Abdomen is flat. Bowel sounds are normal. There is no distension. Palpations: Abdomen is soft. There is no mass. Tenderness: There is no abdominal tenderness. There is no right CVA tenderness, left CVA tenderness, guarding or rebound. Hernia: No hernia is present. Musculoskeletal: General: No swelling, tenderness, deformity or signs of injury. Normal range of motion. Cervical back: Normal range of motion and neck supple. No rigidity or tenderness. Right lower leg: No edema. Left lower leg: No edema. Lymphadenopathy: Cervical: No cervical adenopathy. Skin: General: Skin is warm and dry. Capillary Refill: Capillary refill takes less than 2 seconds. Coloration: Skin is not jaundiced or pale. Findings: No bruising, erythema, lesion or rash. Neurological: General: No focal deficit present. Mental Status: He is alert and oriented to person, place, and time. Mental status is at baseline. Cranial Nerves: No cranial nerve deficit. Sensory: No sensory deficit. Motor: No weakness. Coordination: Coordination normal. Gait: Gait normal. Deep Tendon Reflexes: Reflexes normal. Psychiatric: Mood and Affect: Mood normal. Behavior: Behavior normal. Thought Content: Thought content normal. Judgment: Judgment normal. Radiology: XR CHEST 2 VW Preliminary Result EXAM: XR CHEST 2 VW 04/19/2024 5:16 PM HISTORY: 48 years-old Male with cough . TECHNIQUE: PA and lateral chest radiographs. COMPARISON: Chest radiograph dated 04/25/2023, CT abdomen pelvis dated 10/13/2023., CT chest dated 09/21/2023 IMPRESSION FINDINGS/IMPRESSION: Lungs and pleura: The lungs are a mildly hyperinflated. No pleural effusion or pneumothorax is visualized. Mild hazy airspace and interstitial opacity of the right mid lung and retrocardiac could be related to aspiration/infection. Mild peribronchial thickening could be seen with bronchitis. Clinical correlation is recommended. Heart/Mediastinum: The cardiomediastinal silhouette appears normal accounting for technique and degree of inspiration. Bones and soft tissues: No acute osseous abnormality. Preliminary Report Dictated by Resident: Sharee Lr Lab Results: Lab Results INFLUENZA A/B RSV COVID NAAT - Abnormal Result Value Ref Range Influenza A NAAT Negative Negative Influenza B NAAT Negative Negative RSV by PCR Negative Negative SARS-CoV-2 NAAT Positive (*) Negative LAB ONLY SARS-COV-2 SEQUENCING EKG: If EKG completed, see Procedure Note. Orders and Treatments: Orders Placed This Encounter Procedures XR CHEST 2 VW Influenza A B RSV COVID NAAT Lab Only COVID Interpretation Lab Only Sars-Cov-2 Sequencing Orders Placed This Encounter Medications codeine-guaifenesin (ROBITUSSIN AC) 10-100 mg/5 mL oral solution 10 mL levoFLOXacin (LEVAQUIN) tablet 750 mg ibuprofen (IBU) tablet 600 mg First Provider Eval: ED Events Date/Time Event User Comments 04/19/241657 First Provider Evaluation KODI MCGEE DO -- 04/19/241658 Medical Screening Begins KODI MCGEE DO -- ED COURSE Diagnosis/Impression as of 04/19/24 1855 Acute cough COVID-19 Procedures: Procedures MDM: Medical Decision Making Patient here for cough, nasal congestion, pleuritic CP and SOB with fevers for the past 5 days. + smoker. Hx of HLD. Patient is taking OTC cold and cough medication which is not helping much. Denies MIRANDA, dizziness, abdominal pain, vomiting, diarrhea. Amount and/or Complexity of Data Reviewed Labs: ordered. Decision-making details documented in ED Course. Details: COVID positive Radiology: ordered. Decision-making details documented in ED Course. Details: EXAM: XR CHEST 2 VW 04/19/2024 5:16 PM HISTORY: 48 years-old Male with cough . TECHNIQUE: PA and lateral chest radiographs. COMPARISON: Chest radiograph dated 04/25/2023, CT abdomen pelvis dated 10/13/2023., CT chest dated 09/21/2023 IMPRESSION FINDINGS/IMPRESSION: Lungs and pleura: The lungs are a mildly hyperinflated. No pleural effusion or pneumothorax is visualized. Mild hazy airspace and interstitial opacity of the right mid lung and retrocardiac could be related to aspiration/infection. Mild peribronchial thickening could be seen with bronchitis. Clinical correlation is recommended. Heart/Mediastinum: The cardiomediastinal silhouette appears normal accounting for technique and degree of inspiration. Bones and soft tissues: No acute osseous abnormality. Preliminary Report Dictated by Resident: Sharee Lr This result has not been signed. Information might be incomplete. ECG/medicine tests: ordered and independent interpretation performed. Details: NSR 98 bpm, no acute ST-T wave changes. Discussion of management or test interpretation with external provider(s): + for COVID. No hypoxia, no respiratory distress. Risk OTC drugs. Prescription drug management. Flowsheet Documentation: Scoring Tools: No data recorded Dx: Cough, pleuritic chest pain. COVID positive, possible pneumonia. Disposition/Condition: Discharged home. Lorraine Mcgee D.O. EM Physician RTI Billing ID #[id number] Lorraine Mcgee DO 04/19/24 1852 [facility] 2024-03-27 07:56:27 Outpatient Medication Detail Disp Refills Start End MARYJANE dextroamphetamine-amphetamine (ADDERALL) 20 mg tablet 60 tablet 0 02/25/2024 -- -- Sig: Take 1 tablet by mouth in the morning and 1 tablet in the evening. Sent to pharmacy as: dextroamphetamine-amphetamine 20 mg tablet (AdderalL) Class: eRX Earliest Fill Date: 02/25/2024 Route: Oral Order: [id number] Date/Time Signed: 02/25/2024 09:32 E-Prescribing Status: Receipt confirmed by pharmacy (02/25/2024 9:32 AM CDT) Recent Visits Date Type Provider Dept 03/11/24 Office Visit Chente Garibay MD [facility] 01/17/24 Office Visit Chente Garibay MD [facility] 12/17/23 Office Visit Chente Garibay MD [facility] 12/12/23 Office Visit Chente Garibay MD [facility] 11/22/23 Office Visit Chente Garibay MD [facility] 10/17/23 Office Visit Chente Garibay MD [facility] 09/24/23 Office Visit Chente Garibay MD [facility] 07/30/23 Office Visit Chente Garibay MD [facility] 06/04/23 Office Visit Chente Garibay MD [facility] 05/09/23 Office Visit Chente aGribay MD [facility] Showing recent visits within past 540 days with a meds authorizing provider and meeting all other requirements Future Appointments Date Type Provider Dept 05/12/24 Appointment Chente Garibay MD [facility] Showing future appointments within next 150 days with a meds authorizing provider and meeting all other requirements T [facility] 2024-03-27 07:49:24 Kinga Ames is a 48 year old male Pt is needing a refill for ADDERALL 20 mg tablet. [facility]/pharmacy #[id number] [place] [address] Jenny Al [facility] 2024-03-18 06:34:30 Addended by: CHENTE GARIBAY MD on: 03/18/2024 06:34 AM Modules accepted: Orders T [facility] 2024-03-17 16:27:46 Copied from [facility] #[id number]. Topic: Clinical - Medical Advice >> March 17, 2024 4:23 PM Patient Aircraft Servicer wrote: Pt called and states that [facility] in [place] has medication. Please send WILLIAN due to limited supply. Katherine Abdi [facility] 2024-03-12 06:35:35 Sent meds this morning [facility] 2024-03-11 11:59:11 Kinga Ames is a 48 year old male. Patient calling stating that the [facility] in [place] is refusing to fill any of his medication that's prescribed by Dr. Garibay. Patient is asking if the prescriptions zolpidem 10 mg tablet , diazePAM 10 mg tablet ,and HYDROcodone-acetaminophen 7.5-325 mg per tablet to the [facility] in [place]. [id number] [address] [place] [address] Maggi Orr [facility] 2024-03-11 09:39:16 Patient called back stating he is on his way to the clinic to discuss the medications [facility] pharmacy will not accept going forward and stated he has to find a new pharmacy. Apolinar Arauz [facility] 2024-03-11 09:27:17 Kinga Ames is a 48 year old male. Patient is calling stating that the pharmacy stated that they have not received the prescription HYDROcodone-acetaminophen 7.5-325 mg per tablet . Patient is asking if the medication can be resent again. Maggi Orr [facility] 2024-02-26 12:00:43 Images from the original note were not included. Received PA placed in providers basket Tete Pavon [facility] 2024-02-26 10:51:24 Rx clarification received from [facility] Placing in providers basket for review Diego Suarez [facility] 2024-02-25 08:42:18 Images from the original note were not included. Requested Renewals dextroamphetamine-amphetamine (ADDERALL) 20 mg tablet Sig: Take 1 tablet by mouth in the morning and 1 tablet in the evening. Disp: 60 tablet Refills: 0 Start: 02/25/2024 Earliest Fill Date: 02/25/2024 Class: eRX Non-formulary For: Attention deficit disorder, unspecified hyperactivity presence Last ordered: 4 weeks ago (01/28/2024) by Chente Garibay MD Provider Review Required Tfuofe2002/25/2024 08:35 AM Protocol Details This refill cannot be delegated Valid encounter within last 12 months To be filled at: [facility] [id number] [place], [place] - [address] [facility] [address] Recent Visits Date Type Provider Dept 01/17/24 Office Visit Chente Garibay MD [facility] 12/17/23 Office Visit Chente Garibay MD [facility] 12/12/23 Office Visit Chente Garibay MD [facility] 11/22/23 Office Visit Chente Garibay MD [facility] 10/17/23 Office Visit Chente Garibay MD [facility] 09/24/23 Office Visit Chente Garibay MD [facility] 07/30/23 Office Visit Chente Garibay MD [facility] 06/04/23 Office Visit Chente Garibay MD [facility] 05/09/23 Office Visit Chente Garibay MD [facility] 05/02/23 Office Visit Chente Garibay MD [facility] Showing recent visits within past 540 days with a meds authorizing provider and meeting all other requirements Future Appointments Date Type Provider Dept 03/18/24 Appointment Chente Garibay MD [facility] Showing future appointments within next 150 days with a meds authorizing provider and meeting all other requirements Constance Vásquez LVN [facility] 2024-02-13 08:35:16 Notes: Please Review Last Refilled: HYDROcodone-acetaminophen 7.5-325 mg per tablet 120 tablet 0 01/17/2024 02/16/2024 No Sig: Take 1 tablet by mouth every 6 (six) hours as needed for Pain for up to 30 days. Indications: chronic pain Sent to pharmacy as: hydrocodone 7.5 mg-acetaminophen 325 mg tablet (NORCO) Class: eRX Earliest Fill Date: 01/17/2024 Route: Oral Order: [id number] Date/Time Signed: 01/17/2024 08:14 E-Prescribing Status: Receipt confirmed by pharmacy (01/17/2024 8:15 AM CDT) Recent Visits Date Type Provider Dept 01/17/24 Office Visit Chente Garibay MD [facility] 12/17/23 Office Visit Chente Garibay MD [facility] 12/12/23 Office Visit Chente Garibay MD [facility] 11/22/23 Office Visit Chente Garibay MD [facility] 10/17/23 Office Visit Chente Garibay MD [facility] 09/24/23 Office Visit Chente Garibay MD [facility] 07/30/23 Office Visit Chente Garibay MD [facility] 06/04/23 Office Visit Chente Garibay MD [facility] 05/09/23 Office Visit Chente Garibay MD [facility] 05/02/23 Office Visit Chente Garibay MD [facility] Showing recent visits within past 540 days with a meds authorizing provider and meeting all other requirements Future Appointments Date Type Provider Dept 03/18/24 Appointment Chente Garibay MD [facility] Showing future appointments within next 150 days with a meds authorizing provider and meeting all other requirements [facility] 2024-02-13 08:27:22 Copied from [facility] #[id number]. Topic: Clinical - Order >> Feb 13, 2024 8:24 AM Patient Aircraft Servicer wrote: Patient requesting a refill of: Medication: HYDROcodone-acetaminophen Dose: 7.5 -325 mg per tablet Route: refill Quantity: 120 Pharmacy: [facility] Last appt.: 01/17/24 Next appt.: . [facility] 2024-01-23 06:20:09 Addended by: CHENTE GARIBAY MD on: 01/23/2024 06:20 AM Modules accepted: Orders [facility] 2024-01-22 11:09:59 Please review and advise. Stephanie Castelan RN [facility] 2024-01-22 11:06:23 Copied from [facility] #[id number]. Topic: Clinical - Medical Advice >> Jan 22, 2024 11:02 AM Patient Aircraft Servicer wrote: Patient is notifying the clinic that the [facility] [address] AT [address] will not fill his prescription due to the fact that the pharmacist refuses to due to the other medicines the patient is currently on. Patient is requesting prescription be sent to [place] [id number] [place] [address] Dashawn Evans [facility] 2024-01-22 09:34:45 Contacted patient and advised him we received his request and it will be sent when [place] gets to the request. He verbalized understanding [facility] 2024-01-22 09:18:32 Copied from [facility] #[id number]. Topic: Clinical - Medical Advice >> Jan 22, 2024 9:15 AM Patient Aircraft Servicer wrote: Patient needs a prescription for dextroamphetamine-amphetamine 10 mg tablet to be sent to [facility] [address] AT [address] due to other pharmacy being out of medication. Please send stat due to patient currently being at [facility]. Patient is completely out of the medication. Dashawn Evans [facility] 2023-12-17 15:40:27 I thought we were doing the T#4 [facility] 2023-12-17 14:23:58 Kinga Ames is a 48 year old male Pt is calling stating he spoke w his pharmacy & they told pt they have (HYDROcodone-acetaminophen (NORCO) 10-325 mg tablet) in 7.5 mg. Pt is wanting to see if pcp can prescribe him the 7.5mg Please advise [facility]/pharmacy #[id number] - [place], [place] - [address] [place] [address] [address] [facility] Jame Spivey [facility] 2023-12-13 12:10:31 He needs it sent to [facility] which is what I pended it for [facility] 2023-12-13 10:56:19 So what am I supposed to do [facility] 2023-12-12 16:12:24 Kinga Ames is a 48 year old male would like a call from the clinic in regards to the medication HYDROcodone-acetaminophen 5-325 mg tablet. Please advise [facility]. [phone] (home) Patient is currently taking Tylenol 3 and has one pill left. [employer] Dashawn Evans [facility] 2023-12-12 11:15:21 Kinga Ames is a 48 year old male Pt is needing to speak to nurse directly in concerns of what to do since shortages all thru [facility] for HYDROcodone-acetaminophen 5-325 mg tablet . Pt states also that the tylenol #3 does not work and not sure if he can call in something else. Pt states unsure what to do now. [employer]ER Lulu Mejia [facility] 2023-12-12 10:36:10 Kinga Ames is a 48 year old male Pt called and states that he is now needing medication sent to the [facility] in [place]. They have medication in stock. Please advise. Y Abdi [facility] 2023-12-12 09:27:11 Kinga Ames is a 48 year old male Needs HYDROCODONE Rx sent to [facility] [id number] [place] [address] He states its the only place he can find with the Rx in stock however it is only half of the prescribed quantity Y Morales [facility] 2023-12-12 09:18:10 Pt would like to request an alternative medication for his pain. LUC 12/12/23 Please advise. [facility]/pharmacy #[id number] - [place], [place] - [address] [facility] [address] [facility] [address] [facility] [address] Y Swan [facility] 2023-12-12 09:07:21 Kinga Ames is a 48 year old male Pt called and states that pharmacy never received medication. Please re-send medication. HYDROcodone-acetaminophen 5-325 mg tablet [facility]/pharmacy #[id number] [facility] [address] [place] [address] [facility] 2023-12-07 10:54:45 Problem: Pain Goal: Control of pain at or below patient's documented comfort goal Outcome: Resolved Goal: Reduction in pain sensation Outcome: Resolved Problem: Falls, Risk of Goal: Absence of falls Outcome: Resolved Problem: Infection Risk Goal: Absence of infection Outcome: Resolved Problem: Discharge Planning Goal: Adequate for discharge Outcome: Resolved Goal: Effective communication Outcome: Resolved Y Burroughs RN [facility] 2023-12-07 10:42:51 Problem: Pain Goal: Control of pain at or below patient's documented comfort goal Outcome: Resolved Goal: Reduction in pain sensation Outcome: Resolved Problem: Falls, Risk of Goal: Absence of falls Outcome: Resolved Problem: Infection Risk Goal: Absence of infection Outcome: Resolved Problem: Discharge Planning Goal: Adequate for discharge Outcome: Resolved Goal: Effective communication Outcome: Resolved [facility] 2023-12-07 03:47:40 Problem: Pain Goal: Control of pain at or below patient's documented comfort goal Outcome: Progressing as expected Goal: Reduction in pain sensation Outcome: Progressing as expected Problem: Falls, Risk of Goal: Absence of falls Outcome: Progressing as expected Problem: Infection Risk Goal: Absence of infection Outcome: Progressing as expected Problem: Discharge Planning Goal: Adequate for discharge Outcome: Progressing as expected Goal: Effective communication Outcome: Progressing as expected [employer]ICER Jai Cloud RN [facility] 2023-12-06 17:09:12 Problem: Pain Goal: Control of pain at or below patient's documented comfort goal Outcome: Progressing as expected Goal: Reduction in pain sensation Outcome: Progressing as expected Problem: Falls, Risk of Goal: Absence of falls Outcome: Progressing as expected Problem: Infection Risk Goal: Absence of infection Outcome: Progressing as expected Problem: Discharge Planning Goal: Adequate for discharge Outcome: Progressing as expected Goal: Effective communication Outcome: Progressing as expected 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 Complications: None Indications: Kinga Ames is a 48 year old male who presented with a complaint of right upper quadrant abdominal pain. Clinical and radiological evidence demonstrated acute on chronic cholecystitis. Diagnosis and treatment options were discussed with the patient, the patient wished to proceed with surgery. Procedure: Risks, benefits, alternatives were explained to the patient; all questions were answered; and informed consent was obtained. The patient was brought to the operating room and placed in the supine position on the operating room table. IV sedation and general anesthesia with endotracheal intubation was performed by the anesthesia team without difficulty. Preoperative antibiotics were administered prior to skin incision. SCD's were placed, initiated before induction, and used throughout the operative procedure. The patient s abdomen was then prepped and draped in the standard sterile fashion. A time out was performed verifying patient data, allergies, and planned procedure prior to skin incision. The abdomen was entered through a Joann cutdown at the umbilical site. The fascia was elevated and incised. A finger sweep was performed to ensure no adhesions against the abdominal wall. A Joann port was placed and the abdomen was insufflated to 15 mmHg. Patient tolerated insufflation. A laparoscope was placed through the Joann port and a brief examination was performed. There were no injury from our cut down approach. The patient was then placed in the reverse Trendelenburg position and rotated to the left. An 5 mm port was placed in the subxiphoid region at the midline and two 5 mm port below the right costal margin in the mid clavicular and anterior axillary lines, all under direct vision and after the use of 0.25% Marcaine with epinephrine. The gallbladder was retracted superiorly over the liver and the infundibulum retracted laterally. Blunt dissection with a Maryland dissector was performed to identify the cystic duct and cystic artery. Both the cystic duct and cystic artery were readily identified, dissected, and skeletonized using the Maryland dissector. The critical view was obtained - there were only two structures entering the gallbladder and the lower 1/3 of the gallbladder was dissected off the liver. Attention was first turned to the cystic duct. Three clips were placed across the cystic duct, with two remaining on the remnant side of the cystic duct. The cystic duct was then divided using laparoscopic scissors. Attention was then turned to the cystic artery. Three clips were placed across the cystic artery, with two remaining on the cystic artery remnant. The cystic artery was then divided with laparoscopic scissors. The gallbladder was then dissected from the gallbladder fossa using electrocautery. The gallbladder was then placed in an endoscopic retrieval bag and removed via the umbilical site. The gallbladder was passed of the sterile field as a surgical specimen. The patient's right upper quadrant was then examined and hemostasis was achieved with electrocautery. The clips across the cystic duct and cystic artery were noted to be intact without evidence of bile leakage or bleeding. The fascia of the umbilicus was closed with a 0-Vicryl in simple interrupted fashion. All remaining ports were then removed under direct vision with evacuation of the pneumoperitoneum. All skin incisions were then closed using 4-0 Monocryl in a subcuticular fashion. Dermabond was applied to all skin incisions. The patient was then awakened from general anesthesia, extubated in the operating room, and then transferred to the recovery room in satisfactory condition. The counts were correct at the end of the case. The patient received no blood products. Dr. Phan was present and scrubbed for the entirety of the operative procedure. Yudy Phan M.D. 12/06/2023 14:13 [employer] [facility] 2023-12-06 11:40:06 Pt to surgery by w/c Y Escoto RN [facility] 2023-12-06 11:28:04 Patient report called to Elian SAXENA. 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 Y Burroughs RN [facility] 2023-12-06 09:21:22 Patient states "my gallbladder has been bad for a while." Patient c/o abdominal pain and vomiting, referred to the ER by Dr. Phan. Y Beard RN [facility] 2023-12-06 09:14:00 Associated Order(s): EKG-12 Lead ROUTINE ONCE Pre-Procedure Diagnose(s): Abdominal pain, unspecified abdominal location Post-Procedure Diagnose(s): Abdominal pain, unspecified abdominal location [facility] Emergency Department Note Patient Name: Kinga Ames Date of : 1975 48 year old male Treatment Room: MA5/MA5 Primary Care Physician: Chente Garibay Patient Escorted by: Family [5] Mode of Arrival: Personal means [1] EMS Treatment Prior to ED Arrival: UNDERCOATER treatment comments: Tylenol #3 Travel and Exposure Screening: Symptoms Does patient have any of these symptoms?: (not recorded) Exposure Screening Has patient had contact with someone with a communicable disease in the last month?: (not recorded) Diseases exposed to:: (not recorded) Is Patient ?: (not recorded) Exposure Date: (not recorded) Chief Complaint: Chief Complaint Patient presents with Abdominal Pain History of Present Illness: Kinga is sent to ER from Dr. Phan's office. He has a known history of cholecystitis. Complains of right upper quadrant pain and vomiting. He is able to hold down very little food and has had persistent pain. Symptoms have been present for approximately 6 months but he has flares of severe pain monthly with frequent ER visits. His RUQ pain radiates into his chest and into his right scapula. Last food was yesterday. + sip of coke this am. Past Medical History/Immunizations: Past Medical History: Diagnosis Date Anxiety disorder, unspecified Chronic back pain Chronic pain Dyslipidemia Tetanus received in last 5 years: No Childhood immunizations: Up-to-date Allergies: Allergies Allergen Reactions Venom-Wasp Anaphylaxis Past Social History: Tobacco Use Every Day; 0.50 packs/day for 20.00 years; Types: Cigarettes Passive Exposure: Current Smokeless Tobacco: Never used smokeless tobacco. Comments: 1/2 PPD; Alcohol Use Not Currently. Comments: used to drink occasionaly Drug Use Not Currently. Past Surgical History: Past Surgical History: Procedure Laterality Date SPINE SURGERY L3-L4 Review of Systems: Review of Systems Constitutional: Negative for fever. Gastrointestinal: Positive for abdominal pain, nausea and vomiting. Physical Exam: ED Triage Vitals [12/06/23 0922] Weight 71.7 kg (158 lb) Actual or estimated Height 1.702 m (5' 7") BP 139/86 Pulse 108 Resp 18 Temp 37.1 ?C (98.8 ?F) Temp source Oral SpO2 98 % Measured on Physical Exam Constitutional: General: He is not in acute distress. Appearance: Normal appearance. He is normal weight. He is ill-appearing. HENT: Head: Normocephalic. Mouth/Throat: Mouth: Mucous membranes are moist. Cardiovascular: Rate and Rhythm: Normal rate and regular rhythm. Pulses: Normal pulses. Heart sounds: Normal heart sounds. No murmur heard. Pulmonary: Effort: Pulmonary effort is normal. No respiratory distress. Breath sounds: Normal breath sounds. Abdominal: General: Bowel sounds are normal. There is no distension. Palpations: Abdomen is soft. Tenderness: There is abdominal tenderness (RUQ tender to light palpation). There is no guarding. Musculoskeletal: Cervical back: Normal range of motion and neck supple. Skin: General: Skin is warm and dry. Neurological: Mental Status: He is alert. Radiology: No orders to display Lab Results: Lab Results MAGNESIUM - Normal Result Value Ref Range MAGNESIUM 2.0 1.7 - 2.4 mg/dL LIPASE - Normal LIPASE 89 0 - 220 U/L TROPONIN I - Normal TROPONIN I 0.000 <=0.034 ng/mL CBC WITH DIFF WBC 8.56 4.20 - 10.70 10*3/?L RBC 4.65 4.26 - 5.52 10*6/?L HGB 14.9 12.2 - 16.4 g/dL HCT 42.6 38.4 - 49.3 % MCV 91.6 81.7 - 95.6 fL MCH 32.0 26.1 - 32.7 pg MCHC 35.0 31.2 - 35.0 g/dL RDW-SD 43.0 38.5 - 51.6 fL RDW-CV 13.0 12.1 - 15.4 % PLT 265 150 - 328 10*3/?L MPV 10.3 9.8 - 13.0 fL NRBC/100 WBC 0.0 0.0 - 10.0 /100 WBCs NRBC x10 3 <0.01 10*3/?L GRAN MAT (NEUT) % 51.2 % IMM GRAN % 0.40 % LYMPH % 35.5 % MONO % 7.4 % EOS % 4.4 % BASO % 1.1 % GRAN MAT x10 3 (ANC) 4.39 1.99 - 6.95 10*3/uL IMM GRAN x10 3 0.03 0.00 - 0.06 10*3/uL LYMPH x10 3 3.04 1.09 - 3.23 10*3/uL MONO x10 3 0.63 0.36 - 1.02 10*3/uL EOS x10 3 0.38 0.06 - 0.53 10*3/uL BASO x10 3 0.09 0.01 - 0.09 10*3/uL COMP. METABOLIC PANEL (75665) NA 137 135 - 145 mmol/L K 4.3 3.5 - 5.0 mmol/L CL 105 98 - 108 mmol/L CO2 TOTAL 24 23 - 31 mmol/L AGAP 8 2 - 16 BUN 15 7 - 23 mg/dL GLUCOSE 101 70 - 110 mg/dL CREATININE 0.76 0.60 - 1.25 mg/dL TOTAL BILI 0.4 0.1 - 1.1 mg/dL CALCIUM 9.6 8.6 - 10.6 mg/dL T PROTEIN 7.6 6.3 - 8.2 g/dL ALBUMIN 4.5 3.5 - 5.0 g/dL ALK PHOS 56 34 - 122 U/L ALTv 36 5 - 50 U/L AST(SGOT) 36 13 - 40 U/L eGFR 110.9 mL/min/1.73m2 URINALYSIS EKG: If EKG completed, see Procedure Note. Orders and Treatments: Orders Placed This Encounter Procedures Cbc with Diff Comp. Metabolic Panel (85047) Urinalysis Magnesium Lipase Troponin I Orders Placed This Encounter Medications morpHINE (4 mg/mL) injection 4 mg ondansetron (ZOFRAN (PF)) injection 4 mg NaCl 0.9% (NS) bolus infusion 1,000 mL FENTanyl PF (SUBLIMAZE (PF)) injection 75 mcg ondansetron (ZOFRAN (PF)) injection 4 mg First Provider Eval: ED Events Date/Time Event User Comments 12/06/23921 Medical Screening Begins ALESSIA RODRIGUEZ -- 12/06/23921 First Provider Evaluation ALESSIA RODRIGUEZ -- ED COURSE Diagnosis/Impression as of 12/06/23 1139 Abdominal pain, unspecified abdominal location Acute on chronic cholecystitis Chronic pain syndrome Procedures: EKG-12 Lead ROUTINE ONCE Date/Time: 12/06/2023 9:40 AM Performed by: Nayla Barbosa PAC Authorized by: Nayla Barbosa PAC ECG interpreted by ED Physician in the absence of a forger helper: yes Previous ECG: Previous ECG: Compared to current Similarity: No change Interpretation: Interpretation: normal Rate: ECG rate: 86 ECG rate assessment: normal Rhythm: Rhythm: sinus rhythm Ectopy: Ectopy: none QRS: QRS axis: Normal QRS intervals: Normal QRS conduction: normal ST segments: ST segments: Normal T waves: T waves: normal Q waves: Abnormal Q-waves: not present MDM: Medical Decision Making Pt sent from Dr Phan's office for eval of RUQ pain with known chronic cholecystitis. Cbc,chem unremarkable Trop neg, EKG nl Dr Holbrook states she already has gall bladder us from previous eval and does not need repeat. Admit for surgery today. Pt d/w DR Ayala Problems Addressed: Abdominal pain, unspecified abdominal location: acute illness or injury Acute on chronic cholecystitis: acute illness or injury Chronic pain syndrome: acute illness or injury Amount and/or Complexity of Data Reviewed External Data Reviewed: labs, radiology, ECG and notes. Labs: ordered. Decision-making details documented in ED Course. ECG/medicine tests: ordered and independent interpretation performed. Decision-making details documented in ED Course. Discussion of management or test interpretation with external provider(s): Pt hx, exam, and labs d/w DR Phan, surg, and Dr Gomez,hospitalist Risk Prescription drug management. Parenteral controlled substances. Flowsheet Documentation: Scoring Tools: No data recorded Disposition/Condition: ED Disposition ED Disposition Admit - Observation Condition -- Comment Is (or was) this a planned re-admission?: No Treatment Team: [facility] [[id number]] Is this patient COVID positive or a patient under investigation (PUI)?: No Electronically signed by: Nayla Barbosa PAC 12/06/23 1139 [employer] Associated attestation - Sagrario Infante DO - 12/06/2023 5:57 PM HAND [employer] I was personally available for consultation in the Emergency Department during this encounter and patient evaluation by Alessia Barbosa. [facility] 2023-11-28 13:57:03 Kinga Ames is a 48 year old male is requesting a prescription for tylenol 3 because HYDROcodone-acetaminophen 10-325 mg tablet is currently on back order. Please advise. [phone] (home) [employer] Dashawn Evans [facility] 2023-11-22 15:39:43 Addended by: CHENTE GARIBAY MD on: 11/22/2023 03:39 PM Modules accepted: Orders [facility] 2023-11-22 10:08:20 Addended by: CHENTE GARIBAY MD on: 11/22/2023 10:08 AM Modules accepted: Orders [facility] 2023-11-22 09:10:01 Pt is calling to have the Rx for his dextroamphetamine-amphetamine 10 mg tablet resent. States pharmacy is missing medication. Please advise. [facility] Pierce Swan [facility] 2023-11-01 09:52:21 Patient is requesting hydrocodone refill. His tylenol 3 was just filled 10/15/23 qty 120 and is not up for renewal until 11/04/23. Advised patient we cannot fill pain medication until 11/04/23. Please advise [facility] Constance Vásquez LVN [facility] 2023-11-01 09:22:10 Kinga Ames is a 48 year old male Pt called requesting to speak with a nurse. He states that his refill got denied because it was too soon, but he states that he hasn't gotten his medication in 2 months due to it being out of stock. Please advise. Call back number: [phone] [employer] Katherine Abdi [facility] 2023-11-01 09:05:11 Kinga Ames is a 48 year old male calling wanting to speak with a nurse about his medication refill being denied [employer] Meek Brody [facility] 2023-10-31 09:32:34 Kinga Ames is a 48 year old male Pt is calling stating he spoke w his pharmacy & they have the medication in stock. Pt is needing it refilled. Pt has not taken it for 2 mnth now. Med:(HYDROcodone-acetaminophe n 10-325 mg tablet) Please advise Thank you [facility]/pharmacy #[id number] - [place], [place] - [address] [facility] [id number] [facility] 2023-10-30 12:54:06 Kinga Ames is a 48 year old male Pt states [facility] is requesting a new script for the HYDROcodone-acetaminophen 10-325 mg tablet because last filled on 08/27/23 because not in stock since then. Contact pt because has concerns if medication not being in stock. Pt would like to speak to nurse before sending because unsure if he should get the acetaminophen-codeine 300-30 mg tablet or HYDROcodone-acetaminophen 10-325 mg table. [facility] 2023-07-02 08:47:35 Formatting of this n ote is different from the original. Recent Visits Date Type Provider Dept 06/04/23 Office Visit Chente Garibay MD [facility] 05/09/23 Office Visit Chente Garibay MD [facility] 05/02/23 Office Visit Chente Garibay MD [facility] 04/05/23 Office Visit Chente Garibay MD [facility] 03/01/23 Office Visit Chente Garibay MD [facility] 02/05/23 Office Visit Chente Garibay MD [facility] 12/07/22 Office Visit Chente Garibay MD [facility] 10/10/22 Office Visit Chente Garibay MD [facility] 08/10/22 Office Visit Chente Garibay MD [facility] 06/12/22 Office Visit Chente Garibya MD [facility] Showing recent visits within past 540 days with a meds authorizing provider and meeting all other requirements Future Appointments Date Type Provider Dept 07/30/23 Appointment Chente Garibay MD [facility] Showing future appointments within next 150 days with a meds authorizing provider and meeting all other requirements [facility] 2023-07-02 07:55:23 Formatting of this n ote might be different from the original. Pt calling for refills dextroamphetamine-amphetamine 10 mg tablet diazePAM 10 mg tablet HYDROcodone-acetaminophen 10-325 mg tablet [facility] #[id number] [place], [place] - [address] [facility] Eunice Romero [facility] 2023-06-11 08:24:45 Formatting of this n ote is different from the original. Images from the original note were not included. Requested Renewals dextroamphetamine-amphetamine 10 mg tablet Sig: Take 2 tablets by mouth in the morning and 2 tablets in the evening. Disp: 120 tablet Refills: 0 Start: 06/11/2023 Earliest Fill Date: 06/11/2023 Class: eRX For: Attention deficit disorder, unspecified hyperactivity presence Last ordered: 1 month ago (05/10/2023) by Chente Garibay MD Provider Review Required Failed 06/11/2023 07:44 AM Protocol Details This refill cannot be delegated Valid encounter within last 12 months To be filled at: [facility] #[id number] - [place], [place] - [address] [facility] [employer] Recent Visits Date Type Provider Dept 06/04/23 Office Visit Chente Garibay MD [facility] 05/09/23 Office Visit Chente Garibay MD [facility] 05/02/23 Office Visit Chente Garibay MD [facility] 04/05/23 Office Visit Chente Garibay MD [facility] 03/01/23 Office Visit Chente Garibay MD [facility] 02/05/23 Office Visit Chente Garibay MD [facility] 12/07/22 Office Visit Chente Garibay MD [facility] 10/10/22 Office Visit Chente Garibay MD [facility] 08/10/22 Office Visit Chente Garibay MD [facility] 06/12/22 Office Visit Chente Garibay MD [facility] Showing recent visits within past 540 days with a meds authorizing provider and meeting all other requirements Future Appointments Date Type Provider Dept 07/30/23 Appointment Chente Gariaby MD [facility] Showing future appointments within next 150 days with a meds authorizing provider and meeting all other requirements [facility] 2023-06-11 07:41:55 Formatting of this n ote might be different from the original. Kinga Ames is a 48 year old male Patient is calling to refill medication. [id number] [place] [id number] [address] [facility] GIUL[place] ' [facility] 2023-06-04 07:30:00 Addended by: CHENTE GARIBAY MD on: 06/04/2023 07:12 AM Modules accepted: Orders [facility]
[2024-12-18] MEDS ORDERED: ONDANSETRON 4 MG/2 ML VIAL ONE (22:51)
[2024-12-18] MEDS ORDERED: KETOROLAC 30 MG/ML INJ ONE (22:51)
[2024-12-18] MEDS ORDERED: METHOCARBAMOL 1,000 MG/10 ML VIAL ONE (22:51)
[2024-12-18] MEDS ORDERED: NA CHLORIDE 0.9% 500 ML ONE (22:52)
[2024-12-18] MEDS ORDERED: MORPHINE 4 MG/ML SYR ONE (22:52)
[2024-12-18] MEDS ORDERED: NA CHLORIDE 0.9% 100 ML ONE (22:52)
[2024-12-19] MEDS ORDERED: HYDROCODONE/APAP 5/325 MG TAB ONE (00:47)
--- NOTE | 2024-12-19 01:07 | RAD REPORT ---
EXAM DESCRIPTION: Spine Lumbar Wo Con CLINICAL HISTORY: 49 years Male Back pain acute. COMPARISON: None. TECHNIQUE: Images were obtained in axial, coronal and sagittal planes. No contrast administration. This exam was performed according to our departmental dose-optimization program which includes use of Automated Exposure Control, adjustment of the mA and/or kV according to patient size and/or use of iterative re construction technique. FINDINGS: Height of the vertebral bodies is intact. Satisfactory alignment and articular facets. Moderate anter ior and lateral osteophyte formation L4-5 and L5-S1 levels. Vacuum disc phenomenon seen at these levels. No sacral fracture. Transverse processes intact all levels. T12-L1 intervertebral disc is within normal limits. Neural foramina are patent bilaterally at this le aziza. No significant narrowing of the canal. L1-2 intervertebral disc is within normal limits. Neural foramen are patent bilaterally at this level . No significant narrowing of spinal canal. L2-3 intervertebral disc is within normal limits. Neural foramina are patent bilaterally at this leve l. No significant narrowing of spinal canal. Mild right lateral bulging at L3-4 intervertebral disc. Neural foraminal narrowing at this level on t he right. Patent neural foramen on the left. No significant narrowing of spinal canal. Intervertebral disc space narrowing L4-5 level. Diffuse bulging L4-5 intervertebral disc. Neural fora nedra narrowing bilaterally at this level. No significant narrowing of spinal canal. Diffuse bulging L5-S1 intervertebral disc. Neural foraminal narrowing bilaterally at this level. No s ignificant narrowing of spinal canal. Mild distention right renal pelvis. IMPRESSION: No acute fracture or subluxation seen. 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 Multilev el disc bulging with no significant narrowing of spinal canal. Electronically signed by: Janice Mckay MD 12/19/2024 12:55 AM [facility] Due to temporary technical issues with the PACS/[employer] reporting system, reports are being young d by the in-house radiologist without review as a courtesy to ensure prompt reporting the interpreting radiologist is fully responsible for the content of the report. Transcribed Date/Time: 12/19/2024 1:07 AM
--- NOTE | 2024-12-19 01:07 | RAD REPORT ---
EXAM DESCRIPTION: Pelvis Wo Cont CLINICAL HISTORY: 49 years Male Acute severe back pain. COMPARISON: None. TECHNIQUE: Images were obtained in axial, coronal and sagittal planes. No contrast administration. This exam was performed according to our departmental dose-optimization program which includes use of Automated Exposure Control, adjustment of the mA and/or kV according to patient size and/or use of iterative re construction technique. FINDINGS: Satisfactory articulation of femoral heads bilaterally with acetabular regions. No acute fractures se en. Normal bony mineralization. No erosive or lytic lesions. Unremarkable sacroiliac joints bilaterally. No sacral fracture. Moderate degenerative changes lower lumbar spine. Vacuum disc phenomenon at L5-S1. No abnormality i nvolving the coccyx. No abnormal pelvic fluid. Prostate gland is mildly enlarged measuring 4.2 cm in transverse dimension. Unremarkable bladder. IMPRESSION: No acute fracture or dislocation seen. Moderate degenerative changes lower lumbar spine. Unremarkable pelvis. Electronically signed by: Janice Mckay MD 12/19/2024 01:01 AM [facility] Due to temporary technical issues with the PACS/[employer] reporting system, reports are being young d by the in-house radiologist without review as a courtesy to ensure prompt reporting the interpreting radiologist is fully responsible for the content of the report. Transcribed Date/Time: 12/19/2024 1:07 AM
--- NOTE | 2024-12-19 01:10 | RAD REPORT ---
CLINICAL HISTORY: Acute back pain. COMPARISON: None. 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 FINDINGS: There is no acute fracture. Vertebral body heights are preserved. Alignment is anatomic. Disc spaces are maintained. Soft tissues are unremarkable. IMPRESSION: No acute fracture or subluxation. Electronically signed by: Horacio Healy MD 12/19/2024 01:05 AM [facility] Due to temporary technical issues with the PACS/[employer] reporting system, reports are being young d by the in-house radiologist without review as a courtesy to ensure prompt reporting the interpreting radiologist is fully responsible for the content of the report. Transcribed Date/Time: 12/19/2024 1:09 AM
--- NOTE | 2024-12-19 01:27 | EDPHYS ---
Physician Documentation [facility] Name: Juanito Diaz Age: 49 yrs Sex: Male : 1975 Arrival Date: 12/18/2024 Time: 22:11 Bed 4 Private MD: ED Physician Berto Fang HPI: 12/18 22:20 This 49 yrs old Male presents to ER via Unassigned with complaints of Fall sp4 Injury, Back Pain. 12/20 00:56 49-year-old male presents with complaint of back pain after a fall. Moderate to severe sp4 back pain reported. Historical: - Allergies: 12/18 22:40 GABAPENTIN; ha1 - PSHx: 22:40 BACK SURGERY 2011; Cholecystectomy; ha1 - Immunization history:: Adult Immunizations up to date. - Infectious Disease History:: Denies. - Social history:: Smoking status: Patient reports the use of cigarette tobacco products, denies chronic smoking, but will smoke occasionally. - Family history:: not pertinent. ROS: 12/20 00:56 Constitutional: Negative for fever, chills, and weight loss, positive lower back pain sp4 All other systems are negative, Exam: 00:56 Constitutional: This is a well developed, well nourished patient who is awake, alert, sp4 and in no acute distress. Head/Face: Normocephalic, atraumatic. Eyes: Pupils equal round and reactive to light, extra-ocular motions intact. Lids and lashes normal. Conjunctiva and sclera are not injected. Cornea within normal limits. Periorbital areas with no swelling, redness, or edema. ENT: Nares patent. No nasal discharge, no septal abnormalities noted. Tympanic membranes are normal and external auditory canals are clear. Oropharynx with no redness, swelling, or masses, exudates, or evidence of obstruction, uvula midline. Mucous membranes moist. Neck: Trachea midline, no thyromegaly or masses palpated, and no cervical lymphadenopathy. Supple, full range of motion without nuchal rigidity, or vertebral point tenderness. Chest/axilla: Normal chest wall appearance and motion. Nontender with no deformity. No lesions are appreciated. Cardiovascular: Regular rate and rhythm with a normal S1 and S2. No gallops, murmurs, or rubs. Normal PMI, no JVD. No pulse deficits. Respiratory: Lungs have equal breath sounds bilaterally, clear to auscultation and percussion. No rales, rhonchi or wheezes noted. No increased work of breathing, no retractions or nasal flaring. Abdomen/GI: Soft, with normal bowel sounds. No distension or tympany. No guarding or rebound. No evidence of tenderness throughout. Back: No spinal tenderness. No costovertebral tenderness. Skin: Warm, dry with normal turgor. Normal color with no rashes, no lesions, and no evidence of cellulitis. MS/ Extremity: Pulses equal, no cyanosis. Neurovascular intact. Full, normal range of motion. Neuro: Awake and alert, GCS 15, oriented to person, place, time, and situation. Cranial nerves II-XII grossly intact. Motor strength 5/5 in all extremities. Sensory grossly intact. Psych: Awake, alert, with orientation to person, place and time. Behavior, mood, and affect are within normal limits Vital Signs: 12/18 22:19 BP 132 / 86; Pulse 87; Resp 18 S; Temp 97.6; Pulse Ox 98% on R/A; Weight 81.19 kg; ha1 Height 5 ft. 9 in. ; 23:00 BP 115 / 70; Pulse 80; Resp 16; Pulse Ox 97% on R/A; dd2 12/19 00:00 BP 113 / 71; Pulse 75; Resp 16; Pulse Ox 98% on R/A; dd2 01:32 BP 121 / 75; Pulse 78; Resp 16; Temp 98.2; Pulse Ox 98% on R/A; dd2 12/18 22:19 Body Mass Index 26.43 (81.19 kg, 175.26 cm) ha1 Hernandez Coma Score: 12/18 22:56 Eye Response: spontaneous(4). Motor Response: obeys commands(6). Verbal Response: dd2 oriented(5). Total: 15. 12/20 00:56 Eye Response: spontaneous(4). Motor Response: obeys commands(6). Verbal Response: sp4 oriented(5). Total: 15. MDM: 12/18 23:06 Medical Screening Exam initiated sp4 12/19 01:04 ED course: EXAM DESCRIPTION: Pelvis Wo Cont CLINICAL HISTORY: 49 years Male Acute sp4 severe back pain. COMPARISON: None. TECHNIQUE: Images were obtained in axial, coronal and sagittal planes. No contrast administration. This exam was performed according to our departmental dose-optimization program which includes use of Automated Exposure Control, adjustment of the mA and/or kV according to patient size and/or use of iterative reconstruction technique. FINDINGS: Satisfactory articulation of femoral heads bilaterally with acetabular regions. No acute fractures seen. Normal bony mineralization. No erosive or lytic lesions. Unremarkable sacroiliac joints bilaterally. No sacral fracture. Moderate degenerative changes lower lumbar spine. Vacuum disc phenomenon at L5-S1. No abnormality involving the coccyx. No abnormal pelvic fluid. Prostate gland is mildly enlarged measuring 4.2 cm in transverse dimension. Unremarkable bladder. IMPRESSION: No acute fracture or dislocation seen. Moderate degenerative changes lower lumbar spine. Unremarkable pelvis. . ED course: TECHNIQUE: Images were obtained in axial, coronal and sagittal planes. No contrast administration. This exam was performed according to our departmental dose-optimization program which includes use of Automated Exposure Control, adjustment of the mA and/or kV according to patient size and/or use of iterative reconstruction technique. FINDINGS: Satisfactory articulation of femoral heads bilaterally with acetabular regions. No acute fractures seen. Normal bony mineralization. No erosive or lytic lesions. Unremarkable sacroiliac joints bilaterally. No sacral fracture. Moderate degenerative changes lower lumbar spine. Vacuum disc phenomenon at L5-S1. No abnormality involving the coccyx. No abnormal pelvic fluid. Prostate gland is mildly enlarged measuring 4.2 cm in transverse dimension. Unremarkable bladder. IMPRESSION: No acute fracture or dislocation seen. Moderate degenerative changes lower lumbar spine. Unremarkable pelvis. . ED course: COMPARISON: None. TECHNIQUE: Images were obtained in axial, coronal and sagittal planes. No contrast administration. This exam was performed according to our departmental dose-optimization program which includes use of Automated Exposure Control, adjustment of the mA and/or kV according to patient size and/or use of iterative reconstruction technique. FINDINGS: Height of the vertebral bodies is intact. Satisfactory alignment and articular facets. Moderate anterior and lateral osteophyte formation L4-5 and L5-S1 levels. Vacuum disc phenomenon seen at these levels. No sacral fracture. Transverse processes intact all levels. T12-L1 intervertebral disc is within normal limits. Neural foramina are patent bilaterally at this level. No significant narrowing of the canal. L1-2 intervertebral disc is within normal limits. Neural foramen are patent bilaterally at this level. No significant narrowing of spinal canal. L2-3 intervertebral disc is within normal limits. Neural foramina are patent bilaterally at this level. No significant narrowing of spinal canal. Mild right lateral bulging at L3-4 intervertebral disc. Neural foraminal narrowing at this level on the right. Patent neural foramen on the left. No significant narrowing of spinal canal. Intervertebral disc space narrowing L4-5 level. Diffuse bulging L4-5 intervertebral disc. Neural foraminal narrowing bilaterally at this level. No significant narrowing of spinal canal. Diffuse bulging L5-S1 intervertebral disc. Neural foraminal narrowing bilaterally at this level. No significant narrowing of spinal canal. Mild distention right renal pelvis. IMPRESSION: No acute fracture or subluxation seen. 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 Multilevel disc bulging with no significant narrowing of spinal canal. Electronically signed by: Janice Mckay MD 12/19/2024 12:55 AM . ED course: CLINICAL HISTORY: Acute back pain. COMPARISON: None. TECHNIQUE: CT THORACIC SPINE WITHOUT IV CONTRAST on 12/18/2024 10:31 PM HEALTHCARE TECHNICIAN This exam was performed according to our departmental dose-optimization program, which includes automated exposure control, adjustment of the mA and/or kV according to patient size and/or use of iterative reconstruction technique. FINDINGS: There is no acute fracture. Vertebral body heights are preserved. Alignment is anatomic. Disc spaces are maintained. Soft tissues are unremarkable. IMPRESSION: No acute fracture or subluxation. Electronically signed by: Horacio Healy MD 12/19/2024 . 12/20 00:56 Differential diagnosis: abrasion, contusion, multiple trauma, sprain, strain. Data sp4 reviewed: vital signs, nurses notes, radiologic studies, CT scan. Consideration of Admission/Observation Escalation of care including admission/observation considered. ED course: Patient improved after medications. Patient stable for discharge home.. 12/18 22:31 Order name: CT Thoracic Spine Wo Cont sp4 12/18 22:31 Order name: CT Lumbar Spine Wo Con sp4 12/18 22:32 Order name: CT Pelvis wo Cont sp4 12/18 22:31 Order name: Saline Lock; Complete Time: 22:43 sp4 Administered Medications: 12/18 23:07 Drug: morphine IVP or IV 8 mg IVP once over 4 mins Route: IVP; Infused Over: 4 mins; dd2 Site: left antecubital; 23:22 Follow up: Response: No adverse reaction dd2 23:08 Drug: Ketorolac IVP 30 mg IVP once Route: IVP; Site: left antecubital; dd2 23:23 Follow up: Response: No adverse reaction dd2 23:08 Drug: Ondansetron IVP 4 mg IVP once; over 2 minutes Route: IVP; Site: left antecubital; dd2 23:23 Follow up: Response: No adverse reaction dd2 23:08 Drug: Methocarbamol IVPB 1 grams IVPB once over 1 hrs; (mix in NS 100 mL) Route: IVPB; dd2 Infused Over: 1 hrs; Site: left antecubital; 12/19 00:08 Follow up: IV Status: Completed infusion; IV Intake: 100ml dd2 12/18 23:08 Drug: NS 0.9% IV 500 ml 500 ml IV at 1 bolus once; to be given as a bolus over 30 dd2 minutes Volume: 500 ml; Route: IV; Rate: 1 bolus; Site: left antecubital; 12/19 00:38 Follow up: IV Status: Completed infusion; IV Intake: 500ml dd2 00:49 Drug: HYDROcodone-acetaminophen PO 5 mg-325 mg 2 tabs PO once Route: PO; dd2 01:19 Follow up: Response: No adverse reaction dd2 01:44 Drug: predniSONE PO 60 mg PO once Route: PO; dd2 01:50 Follow up: Response: Medication administered at discharge. dd2 Disposition: 12/20 00:58 Chart complete. sp4 Disposition Summary: 12/19/24 01:26 Discharge Ordered Notes: Location: Home sp4 Problem: new sp4 Symptoms: have improved sp4 Condition: Stable sp4 Diagnosis - Multiple herniated lumbar disks, lumbar foraminal narrowing, acute right lower sp4 back pain, acute lumbar radiculopathy, Followup: sp4 - With: Private Physician - When: 7 - 10 days - Reason: Recheck today's complaints Discharge Instructions: - Discharge Summary Sheet sp4 - Lumbosacral Radiculopathy sp4 Forms: - Patient Portal Instructions sp4 Prescriptions: - naproxen 500 mg Oral tablet - take 1 tablet ORAL route every 12 hours as needed for pain; 30 tablet; Refills: sp4 0, Product Selection Permitted - Prednisone 20 mg Oral Tablet - take 2 tablets ORAL route once daily for 5 days; 10 tablet; Refills: 0, Product sp4 Selection Permitted - methocarbamol 750 mg Oral tablet - take 2 tablets ORAL route every 8 hours for 2 days PRN pain; 60 tablet; sp4 Refills: 0, Product Selection Permitted Signatures: Dispatcher [employer] Agata Real RN RN ha1 Berto Fang MD MD sp4 MARVIN DRAKE RN RN dd2
--- NOTE | 2024-12-19 01:27 | ER ---
Nurse's Notes [facility] Name: Juanito Diaz Age: 49 yrs Sex: Male : 1975 Arrival Date: 12/18/2024 Time: 22:11 Bed 4 Private MD: Diagnosis: Multiple herniated lumbar disks, lumbar foraminal narrowing, acute right lower back pain, acute lumbar radiculopathy, Presentation: 12/18 22:19 Chief complaint: Patient states: I FELL AND HURT MY BACK. I INJURED MY BACK ON 2011 AND ha1 HAD IT FIXED. TODAY I STOOD UP AND THEN I HEARD A POPPING ON MY BACK. SEVER BACK PAIN AND NAUSEA. 22:19 Coronavirus screen: Client denies travel out of the [place] in the last 14 days. Ebola ha1 Screen: Patient negative for fever greater than or equal to 101.5 degrees Fahrenheit, and additional compatible Ebola Virus Disease symptoms. Initial Sepsis Screen: Does the patient meet any 2 criteria? No. Patient's initial sepsis screen is negative. Does the patient have a suspected source of infection? No. Patient's initial sepsis screen is negative. Risk Assessment: Do you want to hurt yourself or someone else? Patient reports no desire to harm self or others. Onset of symptoms was December 18, 2024. 22:19 Method Of Arrival: Wheelchair ha1 22:19 Acuity: OLYA 3 ha1 Historical: - Allergies: 22:40 GABAPENTIN; ha1 - PSHx: 22:40 BACK SURGERY 2011; Cholecystectomy; ha1 - Immunization history:: Adult Immunizations up to date. - Infectious Disease History:: Denies. - Social history:: Smoking status: Patient reports the use of cigarette tobacco products, denies chronic smoking, but will smoke occasionally. - Family history:: not pertinent. Screenin:56 [facility] ED Fall Risk Assessment (Adult) History of falling in the last 3 months, dd2 including since admission Yes- single mechanical fall (1 pt) Confusion or Disorientation No (0 pts) Intoxicated or Sedated No (0 pts) Impaired Gait No (0 pts) Mobility Assist Device Used No (0 pt) Altered Elimination No (0 pt) Score/Fall Risk Level 0 - 2 = Low Risk Oriented to surroundings, Maintained a safe environment, Educated pt \T\ family on fall prevention, incl call for assistance when getting out of bed, Assessed \T\ reinforced patient's understanding of fall precautions, Hourly rounding (assess needs \T\ fall precautionary measures) done. Abuse screen: Denies threats or abuse. Nutritional screening: No deficits noted. Tuberculosis screening: No symptoms or risk factors identified. Assessment: 22:56 General: Appears in no apparent distress. uncomfortable, Behavior is calm, cooperative, dd2 appropriate for age. Pain: Complains of pain in back Pain does not radiate. Pain currently is 10 out of 10 on a pain scale. Quality of pain is described as shooting, stabbing. Neuro: Escobar Agitation-Sedation Scale (RASS): 0 - Alert and Calm Level of Consciousness is awake, alert, obeys commands, Oriented to person, place, time, situation, Appropriate for age. Cardiovascular: No deficits noted. Patient's skin is warm and dry. Respiratory: No deficits noted. Airway is patent Respiratory effort is even, unlabored, Respiratory pattern is regular, symmetrical. GI: No deficits noted. No signs and/or symptoms were reported involving the gastrointestinal system. Abdomen is non-distended, Abd is soft and non tender X 4 quads. : No deficits noted. No signs and/or symptoms were reported regarding the genitourinary system. EENT: No deficits noted. No signs and/or symptoms were reported regarding the EENT system. Derm: No deficits noted. No signs and/or symptoms reported regarding the dermatologic system. Musculoskeletal: Circulation, motion, and sensation intact. Range of motion: intact in all extremities, Tenderness present in back Reports pain in back. Vital Signs: 22:19 BP 132 / 86; Pulse 87; Resp 18 S; Temp 97.6; Pulse Ox 98% on R/A; Weight 81.19 kg; ha1 Height 5 ft. 9 in. ; 23:00 BP 115 / 70; Pulse 80; Resp 16; Pulse Ox 97% on R/A; dd2 12/19 00:00 BP 113 / 71; Pulse 75; Resp 16; Pulse Ox 98% on R/A; dd2 01:32 BP 121 / 75; Pulse 78; Resp 16; Temp 98.2; Pulse Ox 98% on R/A; dd2 12/18 22:19 Body Mass Index 26.43 (81.19 kg, 175.26 cm) ha1 Jaime Coma Score: 12/18 22:56 Eye Response: spontaneous(4). Motor Response: obeys commands(6). Verbal Response: dd2 oriented(5). Total: 15. 12/20 00:56 Eye Response: spontaneous(4). Motor Response: obeys commands(6). Verbal Response: sp4 oriented(5). Total: 15. ED Course: 12/18 22:13 Patient arrived in ED. ra3 22:19 Berto Fang MD is Attending Physician. sp4 22:30 Harley Purcell, HEMANTH is Primary Nurse. bm8 22:40 Triage completed. ha1 22:43 No provider procedures requiring assistance completed. Inserted saline lock: 20 gauge dd2 in left antecubital area, using aseptic technique. Flushed with 10 mL NS. 22:56 Patient maintains SpO2 saturation greater than 95% on room air. dd2 22:56 Patient has correct armband on for positive identification. Bed in low position. Call dd2 light in reach. Side rails up X2. Client placed on continuous cardiac and pulse oximetry monitoring. NIBP monitoring applied. Door closed. Noise minimized. Warm blanket given. Pillow given. Verbal reassurance given. 23:50 CT Thoracic Spine Wo Cont In Process Unspecified. EDMS 23:50 CT Lumbar Spine Wo Con In Process Unspecified. EDMS 23:50 CT Pelvis wo Cont In Process Unspecified. EDMS 12/19 01:48 IV discontinued, intact, bleeding controlled, No redness/swelling at site. Pressure dd2 dressing applied. Administered Medications: 12/18 23:07 Drug: morphine IVP or IV 8 mg IVP once over 4 mins Route: IVP; Infused Over: 4 mins; dd2 Site: left antecubital; 23:22 Follow up: Response: No adverse reaction dd2 23:08 Drug: Ketorolac IVP 30 mg IVP once Route: IVP; Site: left antecubital; dd2 23:23 Follow up: Response: No adverse reaction dd2 23:08 Drug: Ondansetron IVP 4 mg IVP once; over 2 minutes Route: IVP; Site: left antecubital; dd2 23:23 Follow up: Response: No adverse reaction dd2 23:08 Drug: Methocarbamol IVPB 1 grams IVPB once over 1 hrs; (mix in NS 100 mL) Route: IVPB; dd2 Infused Over: 1 hrs; Site: left antecubital; 12/19 00:08 Follow up: IV Status: Completed infusion; IV Intake: 100ml dd2 12/18 23:08 Drug: NS 0.9% IV 500 ml 500 ml IV at 1 bolus once; to be given as a bolus over 30 dd2 minutes Volume: 500 ml; Route: IV; Rate: 1 bolus; Site: left antecubital; 12/19 00:38 Follow up: IV Status: Completed infusion; IV Intake: 500ml dd2 00:49 Drug: HYDROcodone-acetaminophen PO 5 mg-325 mg 2 tabs PO once Route: PO; dd2 01:19 Follow up: Response: No adverse reaction dd2 01:44 Drug: predniSONE PO 60 mg PO once Route: PO; dd2 01:50 Follow up: Response: Medication administered at discharge. dd2 Medication: 12/18 22:56 VIS not applicable for this client. dd2 Intake: 12/19 00:08 IV: 100ml; Total: 100ml. dd2 00:38 IV: 500ml; Total: 600ml. dd2 Outcome: 01:26 Discharge ordered by . sp4 01:48 Discharged to home via wheelchair, with family, dd2 01:48 Condition: stable 01:48 Discharge instructions given to patient, Instructed on discharge instructions, follow up and referral plans. medication usage, Demonstrated understanding of instructions, follow-up care, medications, Prescriptions given X 4, 01:49 Patient left the ED. dd2 Signatures: Dispatcher [employer] EDMS Agata Curran, RN RN ha1 Berto Fang MD MD spDori Workman ra3 Harley Purcell RN RN bm8 MARVIN DRAKE RN RN dd2 Corrections: (The following items were deleted from the chart) 01:49 02 22:56 [facility] ED Fall Risk Assessment (Adult) History of falling in the last 3 dd2 months, including since admission No falls in past 3 months (0 pts) Confusion or Disorientation No (0 pts) Intoxicated or Sedated No (0 pts) Impaired Gait No (0 pts) Mobility Assist Device Used No (0 pt) Altered Elimination No (0 pt) Score/Fall Risk Level 0 - 2 = Low Risk Oriented to surroundings, Maintained a safe environment, Educated pt \T\ family on fall prevention, incl call for assistance when getting out of bed, Assessed \T\ reinforced patient's understanding of fall precautions, Hourly rounding (assess needs \T\ fall precautionary measures) done, dd2
[2024-12-19] MEDS ORDERED: predniSONE 20 MG TAB ONE (01:31)
[2024-12-19 02:31] VITALS: O2SAT 98
[2024-12-19 02:32] VITALS: BP 121/75; TEMP 98.2
== END 2024-12-19 01:49 | disposition home or self-care (01) ==
LOC: ER 22:11
DX: M51.16 Intervertebral disc disorders with radiculopathy, lumbar region (principal); M48.061 Spinal stenosis, lumbar region without neurogenic claudication
CPT/HCPCS: 72128; 72131; 72192; 96365; 96375; 99284; J2405; J2800; J7040; J7512

== ENCOUNTER 2024-12-25 14:51 | Emergency (ER) | payer SELFPAY ==
--- OUTSIDE RECORDS SUMMARY | 2024-12-25 14:59 | XMS REPORT | Continuity of Care Document ---
Author Name Unknown Address [address] [place] [address] [facility] thconnect Address [address] [place] [address] Care Team Providers Care Maintenance Technician Name Role Phone Pcp, Pcp Primary Care Physician Unavailab YUDY Cooper Attending Clinician Unavailable YUDY PHAN Attending Clinician Unavailable CHENTE GARIBAY Attending Clinician Unavailable AUSTYN GONSALVES Attending Clinician Unavailable NIKIA SANCHEZ Attending Clinician Unavailable Doctor Unassigned, Kronenwetter Attending Clinician U Chente Lowery MD Attending Clinician [phone] CAESAR JOSHUA Attending Clinician Unav CAESAR Cardenas Attending Clinician Unav Caesar Cardenas MD Attending Clinician + Opal Garibay MD Attending Clinician [phone] OPAL GARIBAY Attending Clinician UnavailHERNÁN Hobbs Attending Clinician Unavailable HERNÁN ROJO Attending Clinician Unavailable Hernán Rojo DO Attending Clinician [phone] Annabelle Cervantes Attending Clinician Unavaila Naa Beaver Attending Clinician [phone] Austyn Gonsalves MD Attending Clinician [phone] NAA DUBON Attending Clinician Unavailable CHARO JOSHI Attending Clinician Unavailable Charo Kelley Attending Clinician [phone] ISAC ADAMS Attending Clinician Unavailable ISAC ADAMS Attending Clinician Unavailable Chente Garibay MD Attending Clinician [phone] Agnieszka Berg RN Attending Clinician Unavailable NELIDA MERCER Attending Clinician UnavailNelida Dunham MD Attending Clinician [phone] LORRAINE MCGEE Attending Clinician Unavailable EVERARDOLORRAINE Corona Attending Clinician Unavailable Everardo DO KodiHeideCalvin Attending Clinician [phone] Doctor Unassigned, Kronenwetter Attending Clinician U ALE Leal Attending Clinician Unavailable Nayla Hankins Attending Clinician [phone] Ale Ayala MD Attending Clinician [phone] JOSE SAM Attending Clinician Unavailable DERRICK CHANCE Attending Clinician Unavailable Derrick Chance MD Attending Clinician [phone] KAYCE FLANNERY Attending Clinician Unavailable Kayce Chavez Attending Clinician [phone] BRENDA TUCKER Attending Clinician Unavailab Brenda Lopez MD Attending Clinician [phone] MARINA ECHEVERRIA Attending Clinician Unavailable Marina Echeverria MD Attending Clinician [phone] Los Rodrigues MD Attending Clinician [phone] Cecilia Chiu DO Attending Clinician [phone] SAGRARIO INFANTE Attending Clinician Unavailab Sagrario Dumont DO Attending Clinician [phone] NurseCastillo Attending Clinician Unavailable Sheila Andrew LVN Attending Clinician Unavailable HERBERT MANZO Attending Clinician Unavail able Li Hurtado MD Attending Clinician [phone] Herbert Kendall Attending Clinician [phone] PRICILA ESPINOZA Attending Clinician Unavaila JOANIE Leo Attending Clinician Unavail able LI HURTADO Attending Clinician Unavailable Joanie Tamayo MD Attending Clinician [phone] PHAN, YUDY Admitting Clinician Unavailable NELIDA MERCER Admitting Clinician Unavailstarla LORRAINE Abdi Admitting Clinician Unavailable ALE AYALA Admitting Clinician Unavailable Ale Ayala MD Admitting Clinician [phone] DERRICK CHANCE Admitting Clinician Unavailable KAYCE FLANNERY Admitting Clinician Unavailable CECILIA CHIU Admitting Clinician Unavailable Cecilia Chiu DO Admitting Clinician [phone] SAGRARIO INFANTE Admitting Clinician Unavailab le HERBERT MANZO Admitting Clinician Unavail able Jovany Herbert CHAVEZ Admitting Clinician [phone] LI HURTADO Admitting Clinician Unavailable CHENTE GARIBAY Admitting Clinician Unavailable Payers Payer Name Policy Type Policy Number Effective Date Expirati on Date Source [id number] 2024 00:00:00 2025 00:00:00 Problems Condition Name Condition Details Condition Category Status Onset Date Resolution Date Last Treatment Date Treating Clinician Comments Source Acute on chronic cholecysti tis Acute on chronic cholecysti tis Disease Active 12-06 00:00: 00 [facility] Chronic cholecysti tis Chronic cholecysti tis Disease Active 05-03 00:00: 00 Overview: Formattin g of this note might be different from the original. Added automatic ally from request for surgery [id number] [facility] Dyslipidem ia Dyslipidem ia Disease Active 04-26 00:00: 00 [facility] Cigarette nicotine dependence , uncomplica luis Cigarette nicotine dependence , uncomplica luis Disease Active 04-26 00:00: 00 [facility] Cigarette nicotine dependence , uncomplica luis Cigarette nicotine dependence , uncomplica luis Disease Active 04-26 00:00: 00 [facility] Chest pain, unspecifie d type Chest pain, unspecifie d type Disease Active 04-07 00:00: 00 [facility] Anxiety Anxiety Disease Active 2020-11 2 00:00: 00 [facility] Acute otitis media, unspecifie d otitis media type Acute otitis media, unspecifie d otitis media type Disease Active 06-04 00:00: 00 [facility] Pop's palsy Pop's palsy Disease Active 06-04 00:00: 00 [facility] Paresthesi a Paresthesi a Disease Active 06-04 00:00: 00 [facility] Acute seasonal allergic rhinitis, unspecifie d trigger Acute seasonal allergic rhinitis, unspecifie d trigger Disease Active 06-04 00:00: 00 [facility] Otalgia of right ear Otalgia of right ear Disease Active 06-04 00:00: 00 [facility] ADD (attention deficit disorder) ADD (attention deficit disorder) Disease Active 06-11 00:00: 00 [facility] Pain in shoulder Pain in shoulder Disease Active 2014-11 112 00:00: 00 [facility] Chronic back pain greater than 3 months duration Chronic back pain greater than 3 months duration Disease Active 2014-11 014 00:00: 00 [facility] Allergies, Adverse Reactions, Alerts Allergy Name Allergy Type Status Severity Reaction(s) Onset Date Inactive Date Treating Clinician Comments Source Gabapent in Propensi ty to adverse reaction s Active Itching 12-21 00:00: 00 Gavin Nunes GABAPENT IN DRUG INGREDI Active Unknown-Cmnt 2023-11 00:00: 00 [facility] Gabapent in Propensi ty to adverse reaction s Active Unknown - See comments 2023-11 00:00: 00 Per patient, he does not like this medicatio n [facility] VENOM-WA SP DRUG INGREDI Active Anaphylaxis 05-07 00:00: 00 [facility] Venom-Wa sp Propensi ty to adverse reaction s Active Anaphylaxis 05-07 00:00: 00 [facility] NO KNOWN ALLERGIE S Drug Class Active [facility] Social History Social Habit Start Date Stop Date Quantity Comments Source History SDOH Alcohol Std Drinks [facility] History SDOH Alcohol Binge [facility] History SDOH Social Connections Get Together [facility] History SDOH Social Connections Hoahaoism [facility] History SDOH Social Connections Membership [facility] History SDFL Social Connections Meetings [facility] History of tobacco use Passive smoker [facility] Gender identity Josias rey Nunes Sexual orientation Jb morales Armando Nunes Alcoholic beverage intake 2024-12-24 00:00:00 2024-12-24 00:00:00 Ex-drinker (finding) [facility] History of Social function 2024-05-13 00:00:00 2024-05-13 00:00:[address] [facility] Cigarettes smoked current (pack per day) - Reported 2024-03-11 00:00:00 2024-03-11 00:00:[address] [facility] Cigarette pack-years 2024-03-11 00:00:00 2024-03-11 00:00:[address] [facility] Tobacco use and exposure 2024-03-11 00:00:00 2024-03-11 00:00:00 Smokeless tobacco non-user [facility] Alcohol intake 2024-01-17 00:00:00 2024-01-17 00:00:00 Ex-drinker (finding) [facility] Tobacco Comment 2023-05-04 00:00:00 2023-05-04 00:00:00 1/2 PPD; [facility] History SDOH Alcohol Frequency 2023-04-26 00:00:00 2023-04-26 00:00:[address] [facility] History SDOH Social Connections Phone 2023-04-26 00:00:00 2023-04-26 00:00:[address] [facility] History SDOH Social Connections Living 2023-04-26 00:00:00 2023-04-26 00:00:[address] [facility] History SDOH Physical Activity DPW 2023-04-26 00:00:00 2023-04-26 00:00:[address] [facility] History SDOH Physical Activity MPS 2023-04-26 00:00:00 2023-04-26 00:00:[address] [facility] History SDOH Financial 2023-04-26 00:00:00 2023-04-26 00:00:[address] [facility] History SDOH Food Worry 2023-04-26 00:00:00 2023-04-26 00:00:[address] [facility] History SDOH Food Scarcity 2023-04-26 00:00:00 2023-04-26 00:00:[address] [facility] History SDOH Transport Med 2023-04-26 00:00:00 2023-04-26 00:00:[address] [facility] History SDOH Transport Non-Med 2023-04-26 00:00:00 2023-04-26 00:00:[address] [facility] History SDOH Housing Unable to Pay 2023-04-26 00:00:00 2023-04-26 00:00:[address] [facility] History SDOH Housing Places Lived 2023-04-26 00:00:00 2023-04-26 00:00:[address] [facility] History SDOH Housing Homeless Last Year 2023-04-26 00:00:00 2023-04-26 00:00:[address] [facility] Alcohol Comment 2023-04-26 00:00:00 2023-04-26 00:00:00 used to drink occasionaly [facility] Exposure to SARS-CoV-2 (event) 2023-03-26 00:00:00 2023-04-05 06:46:[address] [facility] Sex assigned at 1975 00:00:00 1975 00:00:[address] [facility] Smoking Status Start Date Stop Date Source Tobacco smoking consumption unknown [facility] Smokes tobacco daily 2024-03-11 00:00:[address] [facility] Medications Ordered Medication Name Filled Medication Name Start Date Stop Date Current Medication? Ordering Clinician Indication Dosage Frequency Signature (SIG) Comments Components Source ketorolac (TORADOL) injection 60 mg 12-24 21:45: 00 12-24 21:15 :00 No [id number] 2 60mg 60 mg, Intramuscu lar, ONCE, 1 dose, On Sun12/24/24 at 1545, [facility] HYDROcodone -acetaminop hen (NORCO) 10-325 mg tablet 1 tablet 12-24 02:30: 00 12-24 01:38 :00 No 1{tbl} 1 tablet, Oral, ONCE NOW, 1 dose, On Sun12/23/24 at 2030, Routine [facility] ketorolac (TORADOL) injection 15 mg 12-24 01:45: 00 12-24 01:01 :00 No 15mg 15 mg, Slow IV Push, ONCE NOW, 1 dose, On Sun12/23/24 at 1945, Routine [facility] methylpredn isolone sod succ (SOLU-MEDRO L) injection 125 mg 12-24 00:45: 00 12-23 23:58 :00 No 125mg 125 mg, Intravenou s, ONCE, 1 dose, On Sun12/23/24 at 1845, 2 mL [facility] ondansetron (ZOFRAN (PF)) injection 4 mg 12-23 23:45: 00 12-23 23:58 :00 No 4mg 4 mg, Slow IV Push, ONCE, 1 dose, On Sun12/23/24 at 1745, Administer over 2-5 Minutes, 2 mL [facility] fentanyl PF (SUBLIMAZE (PF)) injection 50 mcg 12-23 23:45: 00 12-23 23:56 :00 No 50ug 50 mcg, Slow IV Push, ONCE, 1 dose, On Sun12/23/24 at 1745, Routine [facility] ketorolac 10 mg tablet 12-23 00:00: 00 Yes [id number] 10mg Take 1 tablet by mouth every 6 (six) hours as needed for Pain (scale 4-6). [facility] cyclobenzap rine 10 mg tablet 12-23 00:00: 00 12-29 05:59 :00 Yes [id number] 10mg Take 1 tablet by mouth in the morning and 1 tablet at noon and 1 tablet in the evening. Do all this for 5 days. [facility] HYDROmorpho ne (Dilaudid) injection 1 mg HYDROmorpho ne (Dilaudid) injection 1 mg 16 18:50: 00 12-21 19:06 :00 No 1mg 1 mg, Intramuscu lar, Once, On 12/21/24 at 1850, For 1 dose Gavin Nunes cyclobenzap rine (Flexeril) tablet 10 mg cyclobenzap rine (Flexeril) tablet 10 mg 12-21 17:30: 00 12-21 17:46 :00 No 10mg 10 mg, Oral, Once, On 12/21/24 at 1730, For 1 dose Gavin Nunes HYDROcodone -acetaminop hen ([place]) 10-325 MG per tablet 1 tablet HYDROcodone -acetaminop hen ([place]) 10-325 MG per tablet 1 tablet 12-21 17:30: 00 12-21 17:46 :00 No 1{tbl} 1 tablet, Oral, Once, On 12/21/24 at 1730, For 1 dose Gavin Nunes methocarbam ol (Robaxin) 750 MG tablet methocarbam ol (Robaxin) 750 MG tablet 12-21 00:00: 00 12-31 23:59 :00 No 750mg Q.25D Take 1 tablet by mouth in the morning and 1 tablet at noon and 1 tablet in the evening and 1 tablet before bedtime. Do all this for 10 days. Gavin Nunes methylPREDN ISolone (Medrol Dospak) 4 MG tablets methylPREDN ISolone (Medrol Dospak) 4 MG tablets 12-21 00:00: 00 12-28 23:59 :00 No Follow schedule on package instructio ns Gavin Nunes ketorolac (Toradol) 10 MG tablet ketorolac (Toradol) 10 MG tablet 16 00:00: 00 12-26 23:59 :00 No 10mg Q6H Take 1 tablet by mouth every 6 hours if needed for moderate pain (4-6) for up to 5 days. Gavin Nunes HYDROcodone -acetaminop hen (NORCO) 10-325 mg tablet 1 tablet 12-19 03:00: 00 12-19 02:16 :00 No 1{tbl} 1 tablet, Oral, ONCE, 1 dose, On [facility] 12/18/24 at 2100, Routine [facility] dexamethaso ne (DECADRON) injection 10 mg 12-19 03:00: 00 12-19 02:19 :00 No 10mg 10 mg, Oral, ONCE, 1 dose, On [facility] 12/18/24 at 2100, Routine [facility] diazePAM (VALIUM) tablet 5 mg 12-19 02:00: 00 12-19 02:16 :00 No 5mg 5 mg, Oral, ONCE, 1 dose, On [facility] 12/18/24 at 1999, [facility] methocarbam oL (ROBAXIN) tablet 1,000 mg 12-19 02:00: 00 12-19 02:16 :00 No 1000mg 1,000 mg, Oral, ONCE, 1 dose, On [facility] 12/18/24 at 2000, [facility] methylpheni date HCl 20 mg CR capsule 12-16 00:00: 00 Yes [id number] 20mg Take 1 capsule by mouth every morning. [facility] acetaminoph en-codeine 300-60 mg tablet 12-10 00:00: 00 Yes [id number] 1{tbl} Take 1 tablet by mouth every 4 (four) hours as needed for Pain. Indication s: chronic pain [facility] dextroamphe tamine-amph etamine (ADDERALL) 20 mg tablet 2 00:00: 00 Yes [id number] 20mg Take 1 tablet by mouth in the morning and 1 tablet in the evening. [facility] HYDROcodone -acetaminop hen 10-325 mg tablet 2- 00:00: 00 12-16 05:59 :00 Yes [id number] 1{tbl} Take 1 tablet by mouth every 6 (six) hours as needed for Pain (scale 4-6) for up to 7 days. Indication s: chronic pain [facility] HYDROcodone -acetaminop hen 7.5-325 mg per tablet 12-03 00:00: 00 Yes [id number] 1{tbl} Take 1 tablet by mouth every 6 (six) hours as needed for Pain. Indication s: chronic pain [facility] HYDROcodone -acetaminop hen 7.5-325 mg per tablet 12-02 00:00: 12-02 00:00 :00 No [id number] 1{tbl} Take 1 tablet by mouth every 6 (six) hours as needed for Pain. Indication s: chronic pain [facility] HYDROcodone -acetaminop hen 7.5-325 mg per tablet 11-26 00:00: 00 12-02 00:00 :00 No [id number] 1{tbl} Take 1 tablet by mouth every 6 (six) hours as needed for Pain. Indication s: chronic pain [facility] atorvastati n 10 mg tablet 11-12 00:00: 00 Yes [id number] 10mg Take 1 tablet by mouth at bedtime. [facility] diazePAM 10 mg tablet 11-12 00:00: 00 Yes [id number] 2 10mg Take 1 tablet by mouth in the morning and 1 tablet at noon and 1 tablet in the evening. [facility] zolpidem 10 mg tablet 11-12 00:00: 00 Yes [id number] 10mg Take 1 tablet by mouth at bedtime as needed for Insomnia. [facility] dextroamphe tamine-amph etamine (ADDERALL) 20 mg tablet 11-12 00:00: 00 12-10 00:00 :00 No [id number] 20mg Take 1 tablet by mouth in the morning and 1 tablet in the evening. [facility] HYDROcodone -acetaminop hen 7.5-325 mg per tablet 2023-11 00:00: 00 11-26 00:00 :00 No [id number] 1{tbl} Take 1 tablet by mouth every 6 (six) hours as needed for Pain. Indication s: chronic pain [facility] dextroamphe tamine-amph etamine (ADDERALL) 20 mg tablet 2023-11 2-09 00:00: 00 11-12 00:00 :00 No [id number] 20mg Take 1 tablet by mouth in the morning and 1 tablet in the evening. [facility] HYDROcodone -acetaminop hen 7.5-325 mg per tablet 2023-11 1 00:00: 00 10-27 00:00 :00 No [id number] 1{tbl} Take 1 tablet by mouth every 6 (six) hours as needed for Pain. Indication s: chronic pain [facility] zolpidem 10 mg tablet 2023-11 00:00: 00 11-12 00:00 :00 No [id number] 10mg Take 1 tablet by mouth at bedtime as needed for Insomnia. [facility] diazePAM 10 mg tablet 2023-11 00:00: 00 11-12 00:00 :00 No [id number] 2 10mg Take 1 tablet by mouth in the morning and 1 tablet at noon and 1 tablet in the evening. [facility] dextroamphe tamine-amph etamine (ADDERALL) 20 mg tablet 2023-11 00:00: 00 10-13 00:00 :00 No [id number] 20mg Take 1 tablet by mouth in the morning and 1 tablet in the evening. [facility] ATORVASTATI N 10 mg tablet 2023-11 1-04 00:00: 00 11-12 00:00 :00 No [id number] 10mg TAKE 1 TABLET BY MOUTH EVERYDAY AT BEDTIME [facility] HYDROcodone -acetaminop hen 7.5-325 mg per tablet 2023-11 0-30 00:00: 00 Yes [id number] 1{tbl} Take 1 tablet by mouth every 6 (six) hours as needed for Pain. Indication s: chronic pain [facility] dextroamphe tamine-amph etamine (ADDERALL) 20 mg tablet 2023-11 0-14 00:00: 00 09-16 00:00 :00 No [id number] 20mg Take 1 tablet by mouth in the morning and 1 tablet in the evening. [facility] HYDROcodone -acetaminop hen 7.5-325 mg per tablet 2023-11 00:00: 00 09-03 00:00 :00 No [id number] 1{tbl} Take 1 tablet by mouth every 6 (six) hours as needed for Pain. Indication s: chronic pain [facility] methylPREDN ISolone (MEDROL, FAINA,) 4 mg tablets 2023-11 00:00: 00 Yes [id number] Take by mouth SEE-INSTRU CTIONS. follow package directions [facility] zolpidem 10 mg tablet 07-21 00:00: 00 09-16 00:00 :00 No [id number] 10mg Take 1 tablet by mouth at bedtime as needed for Insomnia. [facility] diazePAM 10 mg tablet 07-21 00:00: 00 09-16 00:00 :00 No [id number] 10mg Take 1 tablet by mouth in the morning and 1 tablet at noon and 1 tablet in the evening. [facility] dextroamphe tamine-amph etamine (ADDERALL) 20 mg tablet 07-21 00:00: 00 08-18 00:00 :00 No [id number] 20mg Take 1 tablet by mouth in the morning and 1 tablet in the evening. [facility] HYDROcodone -acetaminop hen 7.5-325 mg per tablet 07-21 00:00: 00 08-07 00:00 :00 No [id number] 1{tbl} Take 1 tablet by mouth every 6 (six) hours as needed for Pain. Indication s: chronic pain [facility] ondansetron 4 mg disintegrat ing tablet 06-17 00:00: 00 Yes [id number] 4mg Take 1 tablet by mouth every 8 (eight) hours as needed for Nausea and Vomiting (N/V). [facility] esomeprazol e 40 mg capsule 06-17 00:00: 00 Yes [id number] 40mg Take 1 capsule by mouth daily with breakfast. [facility] amoxicillin 500 mg capsule 06-17 00:00: 00 Yes [id number] 500mg Take 1 capsule by mouth in the morning and 1 capsule at noon and 1 capsule in the evening. [facility] predniSONE 20 mg tablet 06-17 00:00: 00 Yes [id number] 20mg Take 1 tablet by mouth in the morning. [facility] HYDROcodone -acetaminop hen 7.5-325 mg per tablet 06-17 00:00: 00 07-21 00:00 :00 No [id number] 1{tbl} Take 1 tablet by mouth every 6 (six) hours as needed for Pain. Indication s: chronic pain [facility] dextroamphe tamine-amph etamine (ADDERALL) 20 mg tablet 06-17 00:00: 00 07-21 00:00 :00 No [id number] 20mg Take 1 tablet by mouth in the morning and 1 tablet in the evening. [facility] dexAMETHaso ne (DECADRON) tablet 8 mg 05-23 09:45: 00 05-23 08:50 :00 No 8mg 8 mg, Oral, ONCE NOW, 1 dose, On Sun05/23/24 at 0445, [facility] hydrOXYzine (ATARAX) tablet 25 mg 05-23 09:00: 00 05-23 08:50 :00 No 25mg 25 mg, Oral, ONCE, 1 dose, On Sun05/23/24 at 0400, [facility] methylPREDN ISolone 4 mg tablets 05-23 00:00: 00 Yes [id number] Take by mouth SEE-INSTRU CTIONS. follow package directions [facility] hydrOXYzine 25 mg tablet 05-23 00:00: 00 06-17 00:00 :00 No [id number] 25mg Take 1 tablet by mouth every 6 (six) hours as needed for Itching. [facility] HYDROcodone -acetaminop hen 7.5-325 mg per tablet 05-21 00:00: 00 06-17 00:00 :00 No [id number] 1{tbl} Take 1 tablet by mouth every 6 (six) hours as needed for Pain. Indication s: chronic pain [facility] dextroamphe tamine-amph etamine (ADDERALL) 20 mg tablet 05-21 00:00: 00 06-17 00:00 :00 No [id number] 20mg Take 1 tablet by mouth in the morning and 1 tablet in the evening. [facility] diazePAM 10 mg tablet 05-13 00:00: 00 07-21 00:00 :00 No [id number] 10mg Take 1 tablet by mouth in the morning and 1 tablet at noon and 1 tablet in the evening. [facility] zolpidem 10 mg tablet 05-13 00:00: 00 07-21 00:00 :00 No [id number] 10mg Take 1 tablet by mouth at bedtime as needed for Insomnia. [facility] HYDROcodone -acetaminop hen 7.5-325 mg per tablet 04-24 00:00: 00 05-21 00:00 :00 No [id number] 1{tbl} Take 1 tablet by mouth every 6 (six) hours as needed for Pain. Indication s: chronic pain [facility] dextroamphe tamine-amph etamine (ADDERALL) 20 mg tablet 04-24 00:00: 00 05-21 00:00 :00 No [id number] 20mg Take 1 tablet by mouth in the morning and 1 tablet in the evening. [facility] morpHINE (4 mg/mL) injection 4 mg 04-20 20:15: 00 04-20 19:35 :00 No 4mg 4 mg, Slow IV Push, ONCE, 1 dose, On 04/20/24 at 1515, [facility] ketorolac (TORADOL) injection 30 mg 04-20 20:15: 00 04-20 19:34 :00 No 30mg 30 mg, Slow IV Push, ONCE, 1 dose, [facility]TESSALON PERLES[facility] capsule 200 mg 04-20 18:15: 00 04-20 17:43 :00 No 200mg 200 mg, Oral, ONCE, 1 dose, On 04/20/24 at 1315, [facility] acute [facility] morpHINE (4 mg/mL) injection 4 mg 04-20 18:15: 00 04-20 17:41 :00 No 4mg 4 mg, Slow IV Push, ONCE, 1 dose, On 04/20/24 at 1315, [facility] acute [facility] iopamidol (ISOVUE 370-500 mL) injection 75 mL 04-20 18:00: 00 04-20 18:15 :00 No [id number] 75mL 75 mL, Intravenou s, ONCE, 1 dose, On 04/20/24 at 1315, Routine [facility] ondansetron (ZOFRAN (PF)) injection 4 mg 04-20 17:30: 00 04-20 17:41 :00 No 4mg 4 mg, Slow IV Push, ONCE, 1 dose, On 04/20/24 at 1230, [facility] acute [facility] levoFLOXaci n (LEVAQUIN) tablet 750 mg 04-20 00:30: 00 04-20 00:05 :00 No 750mg 750 mg, Oral, ONCE NOW, 1 dose, On 04/19/24 at 1930, [facility], Reason for Anti-Infec tive: Empiric Therapy for Suspected Infection, Empiric Therapy Site: Respirator y, Duration of therapy: Once (ED) [facility] benzonatate 200 mg capsule 04-20 00:00: 00 Yes [id number] 200mg Take 1 capsule by mouth 3 (three) times daily as needed for Cough. [facility] traMADoL 50 mg tablet 04-20 00:00: 00 12-08 00:00 :00 No [id number] 50mg Take 1 tablet by mouth every 6 (six) hours as needed (pain). Indication s: acute pain [facility] nirmatrelvi r-ritonavir (PAXLOVID) 300 mg (150 mg x 2)-100 mg tablet 04-20 00:00: 00 06-17 00:00 :00 No [id number] 3{tbl} Take 3 tablets by mouth in the morning and 3 tablets in the evening. [facility] ibuprofen (IBU) tablet 600 mg 04-19 23:45: 00 04-20 00:05 :00 No 600mg 600 mg, Oral, ONCE, 1 dose, On 04/19/24 at 1845, [facility] codeine-gua ifenesin (ROBITUSSIN AC) 10-100 mg/5 mL oral solution 10 mL 04-19 22:15: 00 04-19 22:25 :00 No 10mL 10 mL, Oral, ONCE, 1 dose, On 04/19/24 at 1715, [facility] ibuprofen 600 mg tablet 04-19 00:00: 00 Yes [id number] 600mg Take 1 tablet by mouth every 6 (six) hours as needed for Pain (scale 4-6). [facility] codeine-gua ifenesin 10-100 mg/5 mL oral solution 04-19 00:00: 00 04-27 04:59 :00 No [id number] 5mL Take 5 mL by mouth every 6 (six) hours as needed for Cough for up to 7 days. Indication s: acute pain [facility] levoFLOXaci n 750 mg tablet 04-19 00:00: 00 04-25 04:59 :00 No [id number] 750mg Take 1 tablet by mouth every 24 (twenty-fo ur) hours for 5 days. [facility] dextroamphe tamine-amph etamine (ADDERALL) 20 mg tablet 03-27 00:00: 00 04-24 00:00 :00 No [id number] 20mg Take 1 tablet by mouth in the morning and 1 tablet in the evening. [facility] HYDROcodone -acetaminop hen 7.5-325 mg per tablet 5-14 00:00: 00 04-24 00:00 :00 No [id number] 1{tbl} Take 1 tablet by mouth every 6 (six) hours as needed for Pain. Indication s: chronic pain [facility] HYDROcodone -acetaminop hen 7.5-325 mg per tablet 08 00:00: 00 Yes [id number] 1{tbl} Take 1 tablet by mouth every 6 (six) hours as needed for Pain. Indication s: chronic pain [facility] diazePAM 10 mg tablet 03-12 00:00: 00 05-13 00:00 :00 No [id number] 10mg Take 1 tablet by mouth in the morning and 1 tablet at noon and 1 tablet in the evening. [facility] zolpidem 10 mg tablet 03-12 00:00: 00 05-13 00:00 :00 No [id number] 10mg Take 1 tablet by mouth at bedtime as needed for Insomnia. [facility] HYDROcodone -acetaminop hen 7.5-325 mg per tablet 03-11 00:00: 00 03-12 00:00 :00 No [id number] 1{tbl} Take 1 tablet by mouth every 6 (six) hours as needed for Pain. Indication s: chronic pain [facility] dextroamphe tamine-amph etamine (ADDERALL) 20 mg tablet 02-24 00:00: 00 03-27 00:00 :00 No [id number] 20mg Take 1 tablet by mouth in the morning and 1 tablet in the evening. [facility] HYDROcodone -acetaminop hen 7.5-325 mg per tablet -10 00:00: 00 03-11 00:00 :00 No [id number] 1{tbl} Take 1 tablet by mouth every 6 (six) hours as needed for Pain. Indication s: chronic pain [facility] dextroamphe tamine-amph etamine 10 mg tablet 01-27 00:00: 00 04-24 00:00 :00 No [id number] 20mg Take 2 tablets by mouth in the morning and 2 tablets in the evening. [facility] dextroamphe tamine-amph etamine (ADDERALL) 20 mg tablet 01-27 00:00: 00 02-24 00:00 :00 No [id number] 20mg Take 1 tablet by mouth in the morning and 1 tablet in the evening. [facility] dextroamphe tamine-amph etamine 10 mg tablet 01-22 00:00: 00 Yes [id number] 20mg Take 2 tablets by mouth in the morning and 2 tablets in the evening. [facility] dextroamphe tamine-amph etamine 10 mg tablet 01-21 00:00: 00 01-22 00:00 :00 No [id number] 20mg Take 2 tablets by mouth in the morning and 2 tablets in the evening. [facility] atorvastati n 10 mg tablet 01-16 00:00: 00 09-08 00:00 :00 No [id number] 10mg Take 1 tablet by mouth at bedtime. [facility] zolpidem 10 mg tablet 01-16 00:00: 00 03-12 00:00 :00 No [id number] 10mg Take 1 tablet by mouth at bedtime as needed for Insomnia. [facility] diazePAM 10 mg tablet 01-16 00:00: 00 03-12 00:00 :00 No [id number] 10mg Take 1 tablet by mouth in the morning and 1 tablet at noon and 1 tablet in the evening. [facility] HYDROcodone -acetaminop hen 7.5-325 mg per tablet 01-16 00:00: 00 02-12 00:00 :00 No [id number] 1{tbl} Take 1 tablet by mouth every 6 (six) hours as needed for Pain for up to 30 days. Indication s: chronic pain [facility] dextroamphe tamine-amph etamine 10 mg tablet 2024-0 3-14 00:00: 00 01-21 00:00 :00 No [id number] 20mg Take 2 tablets by mouth in the morning and 2 tablets in the evening. [facility] dextroamphe tamine-amph etamine 10 mg tablet 2-12 00:00: 00 01-16 00:00 :00 No [id number] 20mg Take 2 tablets by mouth in the morning and 2 tablets in the evening. [facility] acetaminoph en-codeine 300-60 mg tablet 2-12 00:00: 00 01-16 00:00 :00 No [id number] 1{tbl} Take 1 tablet by mouth every 4 (four) hours as needed for Pain. Indication s: chronic pain [facility] HYDROcodone -acetaminop hen 5-325 mg tablet - 00:00: 00 01-16 00:00 :00 No [id number] 1{tbl} Take 1 tablet by mouth every 6 (six) hours as needed for Pain (scale 4-6). Indication s: chronic pain [facility] HYDROcodone -acetaminop hen (NORCO) 10-325 mg tablet -08 00:00: 00 12-19 05:59 :00 No [id number] 1{tbl} Take 1 tablet by mouth every 6 (six) hours as needed for Pain (scale 4-6) for up to 5 days. Indication s: acute pain, S/P cholecyste ctomy [facility] HYDROcodone -acetaminop hen 5-325 mg tablet 2-07 00:00: 00 12-13 00:00 :00 No [id number] 1{tbl} Take 1 tablet by mouth every 6 (six) hours as needed for Pain (scale 4-6). Indication s: chronic pain [facility] famotidine (PEPCID AC) tablet 40 mg 12-07 15:00: 00 Yes 40mg 40 mg, Oral, DAILY, First dose on Sun12/07/23 at 0900, Until Discontinu ed, Routine [facility] diazePAM (VALIUM) tablet 10 mg 12-07 06:00: 00 Yes 10mg 10 mg, Oral, Q8H ABX, First dose (after last modificati on) on Sun12/07/23 at 0000, Until Discontinu ed, Routine [facility] ketorolac (TORADOL) injection 30 mg 12-07 06:00: 00 12-10 05:59 :00 No 30mg 30 mg, Slow IV Push, Q6H, 12 doses, First dose on Sun12/07/23 at 0000, Last dose on Sun12/09/23 at 1800, [facility] -[facility]aminop [facility] (NORCO) 10-325 mg tablet 1 tablet 12-07 03:00: 00 Yes 1{tbl} 1 tablet, Oral, Q4HPRN, Starting on Sun12/06/23 at 2100, Until Discontinu ed, Routine, Pain (scale 4-6) [facility] atorvastati n (LIPITOR) tablet 10 mg 12-07 03:00: 00 Yes 10mg 10 mg, Oral, QHS, First dose on Sun12/06/23 at 2100, Until Discontinu ed, [facility] gab[facility] (NEURONTIN) capsule 300 mg 12-07 02:00: 00 Yes 300mg 300 mg, Oral, TID, First dose on Sun12/06/23 at 2000, Until Discontinu ed, Routine [facility] dextroamphe tamine-amph etamine (ADDERALL) 10 mg tablet 20 mg 12-07 02:00: 00 Yes 20mg 20 mg, Oral, BID, First dose on Sun12/06/23 at 2000, Until Discontinu ed, [facility] 300 mg capsule 12-07 00:00: 00 12-23 05:59 :00 No [id number] 300mg Take 1 capsule by mouth in the morning and 1 capsule at noon and 1 capsule in the evening. Do all this for 15 days. [facility] HYDROcodone -acetaminop hen 5-325 mg tablet 12-07 00:00: 00 12-12 00:00 :00 No [id number] 1{tbl} Take 1 tablet by mouth every 6 (six) hours as needed for Pain (scale 4-6) for up to 5 days. Indication s: chronic pain [facility] nicotine (NICODERM) 21 mg/24 hr patch 1 Patch 12-06 23:00: 00 Yes 1{patch } 1 Patch, Topical, Administer over 24 Hours, Q24H, First dose on Isamar 12/06/23 at 1700, Until Discontinu ed, Routine [facility] HYDROcodone -acetaminop hen (NORCO) 10-325 mg tablet 1 tablet 12-06 22:57: 19 12-07 02:52 :02 No 1{tbl} 1 tablet, Oral, Q6HPRN, Starting on Isamar 12/06/23 at 1657, Until Isamar 12/06/23 at 2052, Routine, Pain (scale 4-6) [facility] HYDROcodone -acetaminop hen (NORCO 5) 5-325 mg tablet 1 tablet 12-06 20:15: 00 12-06 20:41 :00 No 1{tbl} 1 tablet, Oral, ONCE, 1 dose, On Isamar 12/06/23 at 1415, Routine, PACU [facility] FENTanyl PF (SUBLIMAZE (PF)) injection 25 mcg 12-06 20:11: 00 12-06 21:17 :01 No 25ug 25 mcg, Slow IV Push, Q5MIN PRN, 4 doses, Starting on Isamar 12/06/23 at 1411, Until Isamar 12/06/23 at 1517, Routine, Pain (scale 4-6), PACU [facility] diazePAM (VALIUM) tablet 10 mg 12-06 20:00: 00 12-06 22:22 :15 No 10mg 10 mg, Oral, TID, First dose on Isamar 12/06/23 at 1400, Until Discontinu ed, Routine [facility] sodium chloride 0.9 % irrigation solution 12-06 19:56: 00 12-06 20:08 :51 No PRN, Starting on Isamar 12/06/23 at 1356, Until Isamar 12/06/23 at 1408, Intra-op [facility] bupivacaine (preserv free) (SENSORCAIN E MPF) 0.25 % (2.5 mg/mL) 30 mL, lidocaine-e pinephrine (XYLOCAINE W/EPINEPHRI NE) 1 %-1:200,000 30 mL 12-06 19:55: 00 12-06 20:08 :51 No PRN, Starting on Isamar 12/06/23 at 1355, Intra-op [facility] FENTanyl PF (SUBLIMAZE (PF)) injection 75 mcg 12-06 18:30: 00 12-06 17:37 :00 No 75ug 75 mcg, Slow IV Push, ONCE, 1 dose, On Isamar 12/06/23 at 1230, Routine [facility] NaCl 0.9% (NS) IV infusion 1,000 mL 12-06 18:15: 00 Yes 1000mL at 125 mL/hr, IV Infusion, CONTINUOUS , Starting on Isamar 12/06/23 at 1215, Until Discontinu ed, Routine [facility] ondansetron (ZOFRAN (PF)) injection 4 mg 12-06 18:03: 27 Yes 4mg 4 mg, Slow IV Push, Q6HPRN, Starting on Isamar 12/06/23 at 1203, Until Discontinu ed, Routine, Nausea and Vomiting (N/V) [facility] morpHINE (4 mg/mL) injection 4 mg 12-06 18:03: 25 12-07 16:22 :00 No 4mg 4 mg, Slow IV Push, Q4HPRN, Starting on Isamar 12/06/23 at 1203, Until Sun12/07/23 at 1022, Routine, Pain (scale 7-10) [facility] acetaminoph en (TYLENOL) tablet 650 mg 12-06 18:03: 14 Yes 650mg 650 mg, Oral, Q6HPRN, Starting on Isamar 12/06/23 at 1203, Until Discontinu ed, Routine, Pain (scale 1-3), Temp > 38 C [facility] zolpidem (AMBIEN) tablet 10 mg 12-06 18:01: 24 Yes 10mg 10 mg, Oral, QHSPRN, Starting on Isamar 12/06/23 at 1201, Until Discontinu ed, Routine, Insomnia [facility] NaCl 0.9% (NS) bolus infusion 1,000 mL 12-06 17:00: 00 12-06 17:39 :00 No 1000mL at 999 mL/hr, 1,000 mL, IV Infusion, ONCE, 1 dose, On Isamar 12/06/23 at 1100, STAT [facility] ondansetron (ZOFRAN (PF)) injection 4 mg 12-06 16:45: 00 12-06 15:48 :00 No 4mg 4 mg, Slow IV Push, ONCE, 1 dose, On Isamar 12/06/23 at 1045, [facility] morpHINE (4 mg/mL) injection 4 mg 12-06 16:45: 00 12-06 15:48 :00 No 4mg 4 mg, Slow IV Push, ONCE, 1 dose, On Isamar 12/06/23 at 1045, STAT [facility] acetaminoph en-codeine 300-30 mg tablet 11-28 00:00: 00 12-07 00:00 :00 No [id number] 1{tbl} Take 1 tablet by mouth every 4 (four) hours as needed for Pain (scale 4-6) for up to 20 days. Indication s: chronic pain [facility] zolpidem 10 mg tablet 11-22 00:00: 00 01-16 00:00 :00 No [id number] 10mg Take 1 tablet by mouth at bedtime as needed for Insomnia. [facility] diazePAM 10 mg tablet 18 00:00: 00 01-16 00:00 :00 No [id number] 10mg Take 1 tablet by mouth in the morning and 1 tablet at noon and 1 tablet in the evening. [facility] dextroamphe tamine-amph etamine 10 mg tablet 11-22 00:00: 00 12-17 00:00 :00 No [id number] 20mg Take 2 tablets by mouth in the morning and 2 tablets in the evening. [facility] HYDROcodone -acetaminop hen 10-325 mg tablet 2022-11 00:00: 00 12-07 00:00 :00 No [id number] 1{tbl} Take 1 tablet by mouth every 6 (six) hours as needed for Pain (scale 4-6). Indication s: chronic pain [facility] famotidine (PEPCID) 40 mg tablet 2022-11 00:00: 00 01-16 00:00 :00 No [id number] 40mg Take 1 tablet by mouth in the morning. [facility] dextroamphe tamine-amph etamine 10 mg tablet 2022-11 00:00: 00 11-22 00:00 :00 No [id number] 20mg Take 2 tablets by mouth in the morning and 2 tablets in the evening. [facility] acetaminoph en-codeine 300-30 mg tablet 2022-11 00:00: 00 11-05 05:59 :00 No [id number] 1{tbl} Take 1 tablet by mouth every 4 (four) hours as needed for Pain (scale 4-6) for up to 20 days. Indication s: chronic pain [facility] ketorolac (TORADOL) injection 30 mg 2022-11 12:30: 00 10-13 11:23 :00 No 30mg 30 mg, Slow IV Push, ONCE, 1 dose, On 10/13/23 at 0630, Routine [facility] iopamidol (ISOVUE 370-500 mL) injection 75 mL 2022-11 11:30: 00 10-13 11:30 :00 No [id number] 2 75mL 75 mL, Intravenou s, ONCE, 1 dose, On 10/13/23 at 0530, Routine [facility] ondansetron (ZOFRAN (PF)) injection 4 mg 2022-11 10:15: 00 10-13 10:18 :00 No 4mg 4 mg, Slow IV Push, ONCE, 1 dose, On 10/13/23 at 0415, [facility] morpHINE (4 mg/mL) injection 4 mg 2022-11 10:15: 00 10-13 10:18 :00 No 4mg 4 mg, Slow IV Push, ONCE, 1 dose, On 10/13/23 at 0415, STAT [facility] HYDROcodone -acetaminop hen 5-325 mg tablet 2022-11 00:00: 00 12-07 00:00 :00 No [id number] 1{tbl} Take 1 tablet by mouth every 6 (six) hours as needed for Pain (scale 4-6). Indication s: chronic pain [facility] HYDROcodone -acetaminop hen 5-325 mg tablet 2022-11 00:00: 00 10-27 05:59 :00 No 2745 1{tbl} Take 1 tablet by mouth every 6 (six) hours as needed for Pain (scale 4-6) for up to 30 days. Indication s: chronic pain [facility] dextroamphe tamine-amph etamine 10 mg tablet 2022-11 00:00: 00 10-17 00:00 :00 No [id number] 20mg Take 2 tablets by mouth in the morning and 2 tablets in the evening. [facility] diazePAM 10 mg tablet 2022-11 00:00: 00 11-22 00:00 :00 No [id number] 10mg Take 1 tablet by mouth in the morning and 1 tablet at noon and 1 tablet in the evening. [facility] zolpidem 10 mg tablet 2022-11 00:00: 00 11-22 00:00 :00 No [id number] 10mg Take 1 tablet by mouth at bedtime as needed for Insomnia. [facility] HYDROcodone -acetaminop hen 10-325 mg tablet 2022-11 00:00: 00 11-01 00:00 :00 No [id number] 1{tbl} Take 1 tablet by mouth every 4 (four) hours as needed for Pain (scale 4-6). Indication s: chronic pain [facility] dextroamphe tamine-amph etamine 10 mg tablet 2022-11 00:00: 00 09-26 00:00 :00 No [id number] 20mg Take 2 tablets by mouth in the morning and 2 tablets in the evening. [facility] iopamidol (ISOVUE 370-500 mL) injection 90 mL 2022-11 01:30: 00 09-22 01:30 :00 No [id number] 2 90mL 90 mL, Intravenou s, ONCE, 1 dose, On Sun09/21/23 at 1930, Routine [facility] NaCl 0.9% (NS) IV infusion 1,000 mL 2022-11 01:00: 00 09-22 02:02 :00 No 1000mL at 999 mL/hr, Intravenou s, ONCE, 1 dose, On Sun09/21/23 at 1900, Routine [facility] morpHINE (4 mg/mL) injection 4 mg 2022-11 00:30: 00 09-22 00:44 :00 No 4mg 4 mg, Slow IV Push, ONCE, 1 dose, On Sun09/21/23 at 1830, STAT [facility] famotidine (PEPCID (PF)) injection 20 mg 2022-11 00:30: 00 09-22 00:42 :00 No 20mg 20 mg, Slow IV Push, ONCE, 1 dose, On Sun09/21/23 at 1830, [facility] NaCl 0.9% (NS) bolus infusion 1,000 mL 2022-11 23:00: 00 09-22 00:02 :00 No 1000mL at 999 mL/hr, 1,000 mL, IV Infusion, ONCE, 1 dose, On Sun09/21/23 at 1700, [facility] morpHINE (4 mg/mL) injection 4 mg 2022-11 22:15: 00 09-21 22:26 :00 No 4mg 4 mg, Slow IV Push, ONCE, 1 dose, On Sun09/21/23 at 1615, STAT [facility] ondansetron (ZOFRAN (PF)) injection 4 mg 2022-11 22:15: 00 09-21 22:26 :00 No 4mg 4 mg, Slow IV Push, ONCE, 1 dose, On Sun09/21/23 at 1615, [facility] ondansetron 4 mg disintegrat ing tablet 2022-11 00:00: 00 12-06 00:00 :00 No [id number] 4mg Take 1 tablet by mouth every 8 (eight) hours as needed for Nausea and Vomiting (N/V). [facility] famotidine (PEPCID) 40 mg tablet 2022-11 00:00: 00 10-17 00:00 :00 No [id number] 40mg Take 1 tablet by mouth in the morning. [facility] ATORVASTATI N 10 mg tablet 2022-11 00:00: 00 01-16 00:00 :00 No [id number] 10mg TAKE 1 TABLET BY MOUTH EVERYDAY AT BEDTIME [facility] HYDROcodone -acetaminop hen 10-325 mg tablet 2022-11 00:00: 00 09-24 00:00 :00 No [id number] 1{tbl} Take 1 tablet by mouth every 4 (four) hours as needed for Pain (scale 4-6). Indication s: chronic pain [facility] dextroamphe tamine-amph etamine 10 mg tablet 2022-11 00:00: 00 09-24 00:00 :00 No [id number] 20mg Take 2 tablets by mouth in the morning and 2 tablets in the evening. [facility] dextroamphe tamine-amph etamine 10 mg tablet - 00:00: 00 Yes [id number] 20mg Take 2 tablets by mouth in the morning and 2 tablets in the evening. [facility] ETODOLAC 400 mg tablet 07-30 00:00: 00 01-16 00:00 :00 No [id number] TAKE 1 TABLET BY MOUTH TWICE DAILY NEEDED FOR SEVERE PAIN [facility] diazePAM 10 mg tablet 07-30 00:00: 00 09-24 00:00 :00 No [id number] 10mg Take 1 tablet by mouth in the morning and 1 tablet at noon and 1 tablet in the evening. [facility] zolpidem 10 mg tablet 07-30 00:00: 00 09-24 00:00 :00 No [id number] 10mg Take 1 tablet by mouth at bedtime as needed for Insomnia. [facility] atorvastati n 10 mg tablet 07-30 00:00: 00 09-18 00:00 :00 No [id number] 10mg Take 1 tablet by mouth at bedtime. [facility] HYDROcodone -acetaminop hen 10-325 mg tablet 07-30 00:00: 00 08-27 00:00 :00 No [id number] 1{tbl} Take 1 tablet by mouth every 4 (four) hours as needed for Pain (scale 4-6). Indication s: chronic pain [facility] HYDROcodone -acetaminop hen 10-325 mg tablet 07-02 00:00: 00 07-30 00:00 :00 No 2745 1{tbl} Take 1 tablet by mouth every 4 (four) hours as needed for Pain (scale 4-6). Indication s: chronic pain [facility] diazePAM 10 mg tablet 07-02 00:00: 00 07-30 00:00 :00 No [id number] 10mg Take 1 tablet by mouth in the morning and 1 tablet at noon and 1 tablet in the evening. [facility] zolpidem 10 mg tablet 07-02 00:00: 00 07-30 00:00 :00 No [id number] 10mg Take 1 tablet by mouth at bedtime as needed for Insomnia. [facility] dextroamphe tamine-amph etamine 10 mg tablet 07-02 00:00: 00 07-30 00:00 :00 No [id number] 20mg Take 2 tablets by mouth in the morning and 2 tablets in the evening. [facility] dextroamphe tamine-amph etamine 10 mg tablet 06-11 00:00: 00 Yes [id number] 20mg Take 2 tablets by mouth in the morning and 2 tablets in the evening. [facility] etodolac 400 mg tablet 06-04 00:00: 00 07-30 00:00 :00 No [id number] 400mg Take 1 tablet by mouth 2 (two) times daily as needed for Pain (scale 7-10). [facility] diazePAM 10 mg tablet 06-04 00:00: 00 07-02 00:00 :00 No [id number] 10mg Take 1 tablet by mouth in the morning and 1 tablet at noon and 1 tablet in the evening. [facility] HYDROcodone -acetaminop hen 10-325 mg tablet 06-04 00:00: 00 07-02 00:00 :00 No [id number] 1{tbl} Take 1 tablet by mouth every 4 (four) hours as needed for Pain (scale 4-6). Indication s: chronic pain [facility] ATORVASTATI N 10 mg tablet 05-31 00:00: 00 07-30 00:00 :00 No [id number] 10mg TAKE 1 TABLET BY MOUTH AT BEDTIME [facility] morphine 15 mg TR12 7-13 00:00: 00 05-25 04:59 :00 No [id number] 1{tbl} Take 1 tablet by mouth every 12 (twelve) hours as needed for Pain (scale 7-10) for up to 7 days. Indication s: acute pain [facility] dextroamphe tamine-amph etamine 10 mg tablet 05-10 00:00: 00 06-11 00:00 :00 No [id number] 20mg Take 2 tablets by mouth in the morning and 2 tablets in the evening. [facility] morphine 15 mg TR12 05-09 00:00: 05-17 04:59 :00 No [id number] 15mg Take 15 mg by mouth every 12 (twelve) hours as needed for Pain (scale 7-10) for up to 7 days. Indication s: acute pain [facility] methylPREDN ISolone 4 mg tablets 05-08 00:00: 00 05-15 04:59 :00 No [id number] Take by mouth SEE-INSTRU CTIONS for 6 days. follow package directions [facility] ondansetron (ZOFRAN (PF)) injection 4 mg 05-07 22:00: 00 05-07 21:56 :00 No 4mg 4 mg, Slow IV Push, ONCE, 1 dose, On Sun05/07/23 at 1700, [facility] morpHINE (4 mg/mL) injection 4 mg 05-07 22:00: 00 05-07 21:56 :00 No 4mg 4 mg, Slow IV Push, ONCE, 1 dose, On Sun05/07/23 at 1700, STAT [facility] methylpredn isolone sod succ (SOLU-MEDRO L) injection 125 mg 05-07 22:00: 00 05-07 21:40 :00 No 125mg 125 mg, Intravenou s, ONCE, 1 dose, On Sun05/07/23 at 1700, 2 mL [facility] famotidine (PEPCID (PF)) injection 20 mg 05-07 21:15: 00 05-07 21:41 :00 No 20mg 20 mg, Slow IV Push, ONCE, 1 dose, On Sun05/07/23 at 1615, [facility] diphenhydrA MINE (BENADRYL) injection 25 mg 05-07 21:15: 00 05-07 21:41 :00 No 25mg 25 mg, Slow IV Push, ONCE, 1 dose, On Sun05/07/23 at 1615, STAT [facility] EPINEPHrine (EPIPEN) 0.3 mg/0.3 mL injection 05-07 00:00: 00 Yes [id number] .3mg 0.3 mL by Intramuscu lar route as needed for Rash or Itching (allergic reaction). [facility] HYDROcodone -acetaminop hen 10-325 mg tablet 05-02 00:00: 00 06-04 00:00 :00 No [id number] 1{tbl} Take 1 tablet by mouth every 4 (four) hours as needed for Pain (scale 4-6). Indication s: chronic pain [facility] ketorolac (TORADOL) injection 15 mg 04-28 05:15: 00 04-28 04:45 :00 No 15mg 15 mg, Slow IV Push, ONCE, 1 dose, On Sun04/28/23 at 0015, [facility] ondansetron (ZOFRAN (PF)) injection 4 mg 04-28 03:30: 00 04-28 02:43 :00 No 4mg 4 mg, Slow IV Push, ONCE, 1 dose, On Sun04/27/23 at 2230, [facility] morpHINE (4 mg/mL) injection 4 mg 04-28 02:30: 00 04-28 03:02 :00 No 4mg 4 mg, Slow IV Push, ONCE, 1 dose, On Sun04/27/23 at 2130, Routine [facility] ondansetron 4 mg disintegrat ing tablet 04-28 00:00: 00 06-17 00:00 :00 No [id number] 4mg Take 1 tablet by mouth every 8 (eight) hours as needed for Nausea and Vomiting (N/V). [facility] etodolac 400 mg tablet 04-28 00:00: 00 06-04 00:00 :00 No [id number] 400mg Take 1 tablet by mouth 2 (two) times daily as needed for Pain (scale 7-10). [facility] enoxaparin (LOVENOX) injection 40 mg 04-26 14:00: 00 Yes 40mg 40 mg, Subcutaneo us, DAILY, First dose on Sun04/26/23 at 0900, Until Discontinu ed, Routine [facility] iopamidol (ISOVUE 370-500 mL) injection 75 mL 04-26 10:15: 00 04-26 09:18 :00 No [id number] 75mL 75 mL, Intravenou s, ONCE, 1 dose, On Sun04/26/23 at 0515, Routine [facility] aspirin E.C. (ECOTRIN) tablet 325 mg 04-26 06:45: 00 Yes 325mg 325 mg, Oral, DAILY, First dose on Sun04/26/23 at 0145, Until Discontinu ed, Routine [facility] zolpidem (AMBIEN) tablet 10 mg 04-26 06:30: 00 Yes 10mg 10 mg, Oral, QHS, First dose on Sun04/26/23 at 0130, Until Discontinu ed, [facility] at[facility] (LIPITOR[facility] tablet 10 mg 04-26 06:30: 00 Yes 10mg 10 mg, Oral, QHS, First dose on Sun04/26/23 at 0130, Until Discontinu ed, [facility] HYDR[facility] -acetaminop hen (NORCO) 10-325 mg tablet 1 tablet 04-26 06:24: 35 Yes [id number] 1{tbl} 1 tablet, Oral, Q4HPRN, Starting on Sun04/26/23 at 0124, Until Discontinu ed, Routine, Pain (scale 4-6) [facility] diazePAM (VALIUM) tablet 10 mg 04-26 06:23: 26 Yes 10mg 10 mg, Oral, TIDPRN, Starting on Sun04/26/23 at 0123, Until Discontinu ed, Routine, anxiety, muscle spasm [facility] ondansetron (ZOFRAN (PF)) injection 4 mg 04-26 03:36: 07 Yes 4mg 4 mg, Slow IV Push, Q6HPRN, Starting on Sun04/25/23 at 2236, Until Discontinu ed, Routine, Nausea and Vomiting (N/V) [facility] acetaminoph en (TYLENOL) tablet 650 mg 04-26 03:35: 49 Yes 650mg 650 mg, Oral, Q6HPRN, Starting on Sun04/25/23 at 2235, Until Discontinu ed, Routine, Pain (scale 1-3) [facility] ondansetron (ZOFRAN (PF)) injection 4 mg 04-26 03:00: 00 04-26 02:01 :00 No 4mg 4 mg, Slow IV Push, ONCE, 1 dose, On Sun04/25/23 at 2200, Routine [facility] morpHINE (4 mg/mL) injection 4 mg 04-26 03:00: 00 04-26 02:03 :00 No 4mg 4 mg, Slow IV Push, ONCE, 1 dose, On Sun04/25/23 at 2200, STAT [facility] maalox:diph enhydrAMINE :lidocaine 2 % viscous 1:1:1 ([facility]) oral suspension 15 mL 04-26 02:00: 00 04-26 02:08 :00 No 15mL 15 mL, Oral, ONCE, 1 dose, On Sun04/25/23 at 2100, Routine [facility] LORazepam (ATIVAN) injection 1 mg 04-26 02:00: 00 04-26 02:02 :00 No 1mg 1 mg, Slow IV Push, ONCE, 1 dose, On Sun04/25/23 at 2100, STAT [facility] zolpidem 10 mg tablet 04-05 00:00: 00 07-02 00:00 :00 No [id number] 10mg Take 1 tablet by mouth at bedtime as needed for Insomnia. [facility] dextroamphe tamine-amph etamine 10 mg tablet 04-05 00:00: 00 05-10 00:00 :00 No [id number] 20mg Take 2 tablets by mouth in the morning and 2 tablets in the evening. [facility] HYDROcodone -acetaminop hen 10-325 mg tablet 04-05 00:00: 00 05-02 00:00 :00 No [id number] 1{tbl} Take 1 tablet by mouth every 4 (four) hours as needed for Pain (scale 4-6). Indication s: chronic pain [facility] ketorolac (TORADOL) injection 30 mg 03-29 09:30: 00 03-29 08:43 :00 No 30mg 30 mg, Slow IV Push, ONCE, 1 dose, On Isamar 03/29/23 at 0430, Routine [facility] maalox:diph enhydrAMINE :lidocaine 2 % viscous 1:1:1 ([facility]) oral suspension 15 mL 03-29 09:15: 00 03-29 09:18 :00 No 15mL 15 mL, Oral, ONCE, 1 dose, On Isamar 03/29/23 at 0415, Routine [facility] famotidine (PEPCID (PF)) injection 20 mg 03-29 09:15: 00 03-29 09:19 :00 No 20mg 20 mg, Slow IV Push, ONCE, 1 dose, On Isamar 03/29/23 at 0415, [facility] aspirin chewable tablet 324 mg 03-29 08:30: 00 03-29 07:49 :00 No 324mg 324 mg, Oral, ONCE, 1 dose, On Isamar 03/29/23 at 0330, Routine [facility] ondansetron (ZOFRAN (PF)) injection 4 mg 03-29 08:00: 00 03-29 08:06 :00 No 4mg 4 mg, Slow IV Push, ONCE, 1 dose, On Isamar 03/29/23 at 0300, [facility] LORazepam (ATIVAN) injection 1 mg 03-29 07:45: 00 03-29 07:50 :00 No 1mg 1 mg, Slow IV Push, ONCE, 1 dose, On Isamar 03/29/23 at 0245, STAT [facility] ATORVASTATI N 10 mg tablet 03-05 00:00: 05-31 00:00 :00 No [id number] 10mg TAKE 1 TABLET BY MOUTH AT BEDTIME [facility] dextroamphe tamine-amph etamine 10 mg tablet 03-05 00:00: 04-05 00:00 :00 No [id number] 20mg Take 2 tablets by mouth in the morning and 2 tablets in the evening. [facility] diazePAM 10 mg tablet 03-01 00:00: 06-04 00:00 :00 No [id number] 10mg Take 1 tablet by mouth in the morning and 1 tablet at noon and 1 tablet in the evening. [facility] HYDROcodone -acetaminop hen 10-325 mg tablet 03-01 00:00: 00 04-05 00:00 :00 No [id number] 1{tbl} Take 1 tablet by mouth every 4 (four) hours as needed for Pain (scale 4-6). Indication s: chronic pain [facility] zolpidem 10 mg tablet 02-05 00:00: 00 04-05 00:00 :00 No [id number] 10mg Take 1 tablet by mouth at bedtime as needed for Insomnia. [facility] dextroamphe tamine-amph etamine 10 mg tablet 02-05 00:00: 00 03-05 00:00 :00 No [id number] 20mg Take 2 tablets by mouth in the morning and 2 tablets in the evening. [facility] HYDROcodone -acetaminop hen 10-325 mg tablet 02-05 00:00: 00 03-01 00:00 :00 No 2745 1{tbl} Take 1 tablet by mouth every 4 (four) hours as needed for Pain (scale 4-6). Indication s: chronic pain [facility] diazePAM 10 mg tablet 2023-0 4-03 00:00: 00 03-01 00:00 :00 No [id number] 10mg Take 1 tablet by mouth in the morning and 1 tablet at noon and 1 tablet in the evening. [facility] HYDROcodone -acetaminop hen 10-325 mg tablet 0 3-01 00:00: 00 02-05 00:00 :00 No [id number] 1{tbl} Take 1 tablet by mouth every 4 (four) hours as needed for Pain (scale 4-6). Indication s: chronic pain [facility] dextroamphe tamine-amph etamine 10 mg tablet 2-20 00:00: 00 02-05 00:00 :00 No [id number] 20mg Take 2 tablets by mouth in the morning and 2 tablets in the evening. [facility] atorvastati n 10 mg tablet 2-02 00:00: 00 03-05 00:00 :00 No [id number] 10mg Take 1 tablet by mouth at bedtime. [facility] zolpidem 10 mg tablet 2-02 00:00: 00 02-05 00:00 :00 No [id number] 10mg Take 1 tablet by mouth at bedtime as needed for Insomnia. [facility] diazePAM 10 mg tablet 2-02 00:00: 00 02-05 00:00 :00 No [id number] 10mg Take 1 tablet by mouth in the morning and 1 tablet at noon and 1 tablet in the evening. [facility] HYDROcodone -acetaminop hen 10-325 mg tablet 0 2-02 00:00: 00 01-03 00:00 :00 No [id number] 1{tbl} Take 1 tablet by mouth every 4 (four) hours as needed for Pain (scale 4-6). Indication s: chronic pain [facility] dextroamphe tamine-amph etamine 10 mg tablet 0 1-18 00:00: 00 12-25 00:00 :00 No [id number] 20mg Take 2 tablets by mouth in the morning and 2 tablets in the evening. [facility] HYDROcodone -acetaminop hen 10-325 mg tablet - 00:00: 00 12-07 00:00 :00 No 2745 1{tbl} Take 1 tablet by mouth every 4 (four) hours as needed for Pain (scale 4-6). Indication s: chronic pain [facility] amphetamine -dextroamph etamine 30 mg 24 hr capsule 2021-11 2-15 00:00: 00 04-05 00:00 :00 No [id number] 30mg Take 1 capsule by mouth in the morning and 1 capsule in the evening. [facility] zolpidem 10 mg tablet 2021-11 00:00: 00 12-07 00:00 :00 No [id number] 10mg Take 1 tablet by mouth at bedtime as needed for Insomnia. [facility] diazePAM 10 mg tablet 2021-11 00:00: 12-07 00:00 :00 No [id number] 10mg Take 1 tablet by mouth in the morning and 1 tablet at noon and 1 tablet in the evening. [facility] atorvastati n 10 mg tablet 2021-11 00:00: 00 12-07 00:00 :00 No [id number] 10mg Take 1 tablet by mouth at bedtime. [facility] HYDROcodone -acetaminop hen 10-325 mg tablet 2021-11- 00:00: 00 11-07 00:00 :00 No 2745 1{tbl} Take 1 tablet by mouth every 4 (four) hours as needed for Pain (scale 4-6). Indication s: chronic pain [facility] ATORVASTATI N 10 mg tablet 2021-11 2- 00:00: 00 10-10 00:00 :00 No [id number] 10mg TAKE 1 TABLET BY MOUTH AT BEDTIME [facility] dextroamphe tamine-amph etamine 20 mg tablet 2021-11 1-16 00:00: 00 04-25 00:00 :00 No [id number] 20mg Take 1 tablet by mouth in the morning and 1 tablet at noon and 1 tablet in the evening. [facility] HYDROcodone -acetaminop hen 10-325 mg tablet 2021-11 1- 00:00: 00 10-10 00:00 :00 No [id number] 1{tbl} Take 1 tablet by mouth every 4 (four) hours as needed for Pain (scale 4-6). Indication s: chronic pain [facility] amphetamine -dextroamph etamine 30 mg 24 hr capsule 2021-11 00:00: 00 10-19 00:00 :00 No [id number] 30mg Take 1 capsule by mouth in the morning and 1 capsule in the evening. [facility] methylPREDN ISolone (MEDROL, FAINA,) 4 mg tablets 2021-11 0 00:00: 00 04-25 00:00 :00 No [id number] Take by mouth SEE-INSTRU CTIONS. follow package directions [facility] diazePAM 10 mg tablet 2021-11 00:00: 00 10-10 00:00 :00 No [id number] 10mg Take 1 tablet by mouth in the morning and 1 tablet at noon and 1 tablet in the evening. [facility] zolpidem 10 mg tablet 2021-11 0 00:00: 00 10-10 00:00 :00 No [id number] 10mg Take 1 tablet by mouth at bedtime as needed for Insomnia. [facility] HYDROcodone -acetaminop hen 10-325 mg tablet 2021-11 0 00:00: 00 09-07 00:00 :00 No 2745 1{tbl} Take 1 tablet by mouth every 4 (four) hours as needed for Pain (scale 4-6). Indication s: chronic pain [facility] amphetamine -dextroamph etamine 30 mg 24 hr capsule 07-24 00:00: 00 08-23 00:00 :00 No [id number] 30mg Take 1 capsule by mouth in the morning and 1 capsule in the evening. [facility] HYDROcodone -acetaminop hen 10-325 mg tablet 07-12 00:00: 08-10 00:00 :00 No 2745 1{tbl} Take 1 tablet by mouth every 4 (four) hours as needed for Pain (scale 4-6). Indication s: chronic pain [facility] ATORVASTATI N 10 mg tablet 07-11 00:00: 00 10-05 00:00 :00 No [id number] 10mg TAKE 1 TABLET BY MOUTH AT BEDTIME [facility] dextroamphe tamine-amph etamine 20 mg tablet 8-23 00:00: 00 09-20 00:00 :00 No [id number] 20mg Take 1 tablet by mouth in the morning and 1 tablet at noon and 1 tablet in the evening. [facility] diazePAM 10 mg tablet 06-12 00:00: 00 08-10 00:00 :00 No [id number] 10mg Take 1 tablet by mouth in the morning and 1 tablet at noon and 1 tablet in the evening. [facility] HYDROcodone -acetaminop hen 10-325 mg tablet 8-08 00:00: 00 07-12 00:00 :00 No 2745 1{tbl} Take 1 tablet by mouth every 4 (four) hours as needed for Pain (scale 4-6). Indication s: chronic pain [facility] PAROXETINE 10 mg tablet 8-04 00:00: 00 06-12 00:00 :00 No [id number] 10mg TAKE 1 TABLET BY MOUTH DAILY [facility] HYDROcodone -acetaminop hen 10-325 mg tablet 7-06 00:00: 00 06-12 00:00 :00 No 2745 1{tbl} Take 1 tablet by mouth every 4 (four) hours as needed for Pain (scale 4-6). Indication s: chronic pain [facility] dextroamphe tamine-amph etamine 20 mg tablet 6-27 00:00: 00 Yes [id number] 20mg Take 1 tablet by mouth 3 (three) times daily. [facility] atorvastati n 10 mg tablet 04-12 00:00: 00 07-11 00:00 :00 No [id number] 10mg Take 1 tablet by mouth at bedtime. [facility] diazePAM 10 mg tablet 04-12 00:00: 00 06-12 00:00 :00 No [id number] 10mg Take 1 tablet by mouth 3 (three) times daily. [facility] Vital Signs Vital Name Observation Time Observation Value Comments S ource Systolic blood pressure 2024-12-24 20:30:00 138 [facility]Hg[facility] Di[facility] blood [facility] 2024-12-24 20:30:00 88 mm[Hg] [facility] Heart rate 2024-12-24 20:30:00 101 /min [facility] Body height 2024-12-24 20:30:00 175.3 cm [facility] Body weight 2024-12-24 20:30:00 83.416 kg [facility] BMI 2024-12-24 20:30:00 27.16 kg/m2 [facility] Oxygen saturation in Arterial blood by Pulse oximetry 2024-12-24 20:30:00 98 /min [facility] Systolic blood pressure 2024-12-24 01:00:00 119 mm[Hg] [facility] Diastolic blood pressure 2024-12-24 01:00:00 78 mm[Hg] [facility] Heart rate 2024-12-24 01:00:00 79 /min [facility] Body temperature 2024-12-24 01:00:[address] [facility] Respiratory rate 2024-12-24 01:00:00 11 /min [facility] Oxygen saturation in Arterial blood by Pulse oximetry 2024-12-24 01:00:00 95 /min [facility] Body height 2024-12-23 23:16:00 172.7 cm [facility] Body weight 2024-12-23 23:16:00 79.379 kg [facility] BMI 2024-12-23 23:16:00 26.61 kg/m2 [facility] Systolic blood pressure 2024-12-21 19:12:00 125 mm[Hg] [facility] Diastolic blood pressure 2024-12-21 19:12:00 84 mm[Hg] [facility] Al[facility] Heart rate 2024-12-21 19:12:00 84 /min [facility] [place] [facility] Body temperature 2024-12-21 19:12:00 36.67 Yisel [facility] [place] [facility] Respiratory rate 2024-12-21 19:12:00 18 /min [facility] [place] [facility] Oxygen saturation in Arterial blood by Pulse oximetry 2024-12-21 19:12:00 100 /min [facility] BMI 2024-12-21 16:40:00 25.11 kg/m2 [facility] [place] [facility] Body height 2024-12-21 16:40:00 172.7 cm [facility] [place] [facility] Body weight 2024-12-21 16:40:00 74.9 kg [facility] [place] [facility] Systolic blood pressure 2024-12-21 19:12:00 125 mm[Hg] [facility] Diastolic blood pressure 2024-12-21 19:12:00 84 mm[Hg] [facility] Heart rate 2024-12-21 19:12:00 84 /min [facility] Body temperature 2024-12-21 19:12:00 36.67 Yisel [facility] [place] [facility] Respiratory rate 2024-12-21 19:12:00 18 /min [facility] Oxygen saturation in Arterial blood by Pulse oximetry 2024-12-21 19:12:00 100 /min [facility] vil[facility] BMI 2024-12-21 16:40:00 25.11 kg/m2 [facility] [place] [facility] Body height 2024-12-21 16:40:00 172.7 cm [facility] Body weight 2024-12-21 16:40:00 74.9 kg [facility] [place] [facility] Systolic blood pressure 2024-12-19 03:40:00 120 mm[Hg] [facility] Diastolic blood pressure 2024-12-19 03:40:00 72 mm[Hg] [facility] Heart rate 2024-12-19 03:40:00 94 /min [facility] Body temperature 2024-12-19 03:40:[address] [facility] Respiratory rate 2024-12-19 03:40:00 16 /min [facility] Oxygen saturation in Arterial blood by Pulse oximetry 2024-12-19 03:40:00 96 /min [facility] Body height 2024-12-19 01:56:00 172.7 cm [facility] Body weight 2024-12-19 01:56:00 77.111 kg [facility] BMI 2024-12-19 01:56:00 25.85 kg/m2 [facility] Systolic blood pressure 2024-12-08 18:14:00 136 mm[Hg] [facility] Diastolic blood pressure 2024-12-08 18:14:00 88 mm[Hg] [facility] Heart rate 2024-12-08 18:14:00 100 /min [facility] Body height 2024-12-08 18:14:00 170.2 cm [facility] Body weight 2024-12-08 18:14:00 79.198 kg [facility] BMI 2024-12-08 18:14:00 27.35 kg/m2 [facility] Oxygen saturation in Arterial blood by Pulse oximetry 2024-12-08 18:14:00 98 /min [facility] Systolic blood pressure 2024-11-12 19:12:00 132 mm[Hg] [facility] Diastolic blood pressure 2024-11-12 19:12:00 80 mm[Hg] [facility] Heart rate 2024-11-12 19:12:00 93 /min [facility] Body height 2024-11-12 19:12:00 172.7 cm [facility] Body weight 2024-11-12 19:12:00 81.194 kg [facility] BMI 2024-11-12 19:12:00 27.22 [facility] in Arterial blood by Pulse oximetry 2024-11-12 19:12:00 98 /min [facility] Respiratory rate 2024-10-30 17:54:00 16 /min [facility] Body height 2024-10-30 17:54:00 170.2 cm [facility] Body weight 2024-10-30 17:54:00 78.019 kg [facility] BMI 2024-10-30 17:54:00 26.94 kg/m2 [facility] Respiratory rate 2024-10-15 18:45:00 16 /min [facility] Body height 2024-10-15 18:45:00 170.2 cm [facility] Body weight 2024-10-15 18:45:00 78.2 kg [facility] BMI 2024-10-15 18:45:00 27.00 kg/m2 [facility] Systolic blood pressure 2024-10-13 18:57:00 121 mm[Hg] [facility] Diastolic blood pressure 2024-10-13 18:57:00 80 mm[Hg] [facility] Heart rate 2024-10-13 18:57:00 93 /min [facility] Body height 2024-10-13 18:57:00 170.2 cm [facility] Body weight 2024-10-13 18:57:00 77.52 kg [facility] BMI 2024-10-13 18:57:00 26.77 kg/m2 [facility] Oxygen saturation in Arterial blood by Pulse oximetry 2024-10-13 18:57:00 97 /min [facility] Systolic blood pressure 2024-09-16 13:13:00 129 mm[Hg] [facility] Diastolic blood pressure 2024-09-16 13:13:00 80 mm[Hg] [facility] Heart rate 2024-09-16 13:13:00 86 /min [facility] Body height 2024-09-16 13:13:00 170.2 cm [facility] Body weight 2024-09-16 13:13:00 76.885 kg [facility] BMI 2024-09-16 13:13:00 26.55 kg/m2 [facility] Oxygen saturation in Arterial blood by Pulse oximetry 2024-09-16 13:13:00 96 /min [facility] Systolic blood pressure 2024-08-06 12:00:00 140 mm[Hg] [facility] Diastolic blood pressure 2024-08-06 12:00:00 90 mm[Hg] [facility] Heart rate 2024-08-06 11:59:00 85 /min [facility] Body height 2024-08-06 11:59:00 172.7 cm [facility] Body weight 2024-08-06 11:59:00 77.111 kg [facility] BMI 2024-08-06 11:59:00 25.85 kg/m2 [facility] Oxygen saturation in Arterial blood by Pulse oximetry 2024-08-06 11:59:00 100 /min [facility] Systolic blood pressure 2024-07-21 13:53:00 105 mm[Hg] [facility] Diastolic blood pressure 2024-07-21 13:53:00 70 mm[Hg] [facility] Heart rate 2024-07-21 13:53:00 103 /min [facility] Body height 2024-07-21 13:53:00 172.7 cm [facility] Body weight 2024-07-21 13:53:00 78.472 kg [facility] BMI 2024-07-21 13:53:00 26.30 kg/m2 [facility] Oxygen saturation in Arterial blood by Pulse oximetry 2024-07-21 13:53:00 97 /min [facility] Systolic blood pressure 2024-06-17 13:02:00 124 mm[Hg] [facility] Diastolic blood pressure 2024-06-17 13:02:00 78 mm[Hg] [facility] Heart rate 2024-06-17 13:02:00 116 /min [facility] Body height 2024-06-17 13:02:00 170.2 cm [facility] Body weight 2024-06-17 13:02:00 77.61 kg [facility] BMI 2024-06-17 13:02:00 26.80 kg/m2 [facility] Oxygen saturation in Arterial blood by Pulse oximetry 2024-06-17 13:02:00 99 /min [facility] Systolic blood pressure 2024-05-23 08:38:00 121 mm[Hg] [facility] Diastolic blood pressure 2024-05-23 08:38:00 79 mm[Hg] [facility] Heart rate 2024-05-23 08:38:00 109 /min [facility] Body temperature 2024-05-23 08:38:[address] [facility] Respiratory rate 2024-05-23 08:38:00 18 /min [facility] Body height 2024-05-23 08:38:00 172.7 cm [facility] Body weight 2024-05-23 08:38:00 75.751 kg [facility] BMI 2024-05-23 08:38:00 25.39 kg/m2 [facility] Oxygen saturation in Arterial blood by Pulse oximetry 2024-05-23 08:38:00 98 /min [facility] Systolic blood pressure 2024-05-13 13:14:00 112 mm[Hg] [facility] Diastolic blood pressure 2024-05-13 13:14:00 74 mm[Hg] [facility] Heart rate 2024-05-13 13:14:00 92 /min [facility] height 2024-05-13 13:14:00 172.7 cm [facility] Body weight 2024-05-13 13:14:00 72.576 kg [facility] BMI 2024-05-13 13:14:00 24.33 kg/m2 [facility] Oxygen saturation in Arterial blood by Pulse oximetry 2024-05-13 13:14:00 98 /min [facility] Systolic blood pressure 2024-04-24 13:02:00 115 mm[Hg] [facility] Diastolic blood pressure 2024-04-24 13:02:00 78 mm[Hg] [facility] Heart rate 2024-04-24 13:02:00 89 /min [facility] Body height 2024-04-24 13:02:00 172.7 cm [facility] Body weight 2024-04-24 13:02:00 73.936 kg [facility] BMI 2024-04-24 13:02:00 24.78 kg/m2 [facility] Oxygen saturation in Arterial blood by Pulse oximetry 2024-04-24 13:02:00 98 /min [facility] Systolic blood pressure 2024-04-20 20:00:00 116 mm[Hg] [facility] Diastolic blood pressure 2024-04-20 20:00:00 100 mm[Hg] [facility] Heart rate 2024-04-20 20:00:00 88 /min [facility] Respiratory rate 2024-04-20 20:00:00 22 /min [facility] Oxygen saturation in Arterial blood by Pulse oximetry 2024-04-20 20:00:00 90 /min [facility] Body temperature 2024-04-20 16:30:[address] [facility] Body height 2024-04-20 16:30:00 172.7 cm [facility] Body weight 2024-04-20 16:30:00 72.576 kg [facility] BMI 2024-04-20 16:30:00 24.33 kg/m2 [facility] Systolic blood pressure 2024-04-20 00:05:00 114 mm[Hg] [facility] Diastolic blood pressure 2024-04-20 00:05:00 66 mm[Hg] [facility] Heart rate 2024-04-20 00:05:00 80 /min [facility] Body temperature 2024-04-20 00:05:[address] [facility] Respiratory rate 2024-04-20 00:05:00 20 /min [facility] Oxygen saturation in Arterial blood by Pulse oximetry 2024-04-20 00:05:00 99 /min [facility] Body height 2024-04-19 22:00:00 172.7 cm [facility] Body weight 2024-04-19 22:00:00 72.576 kg [facility] BMI 2024-04-19 22:00:00 24.33 kg/m2 [facility] Systolic blood pressure 2024-03-11 12:45:00 122 mm[Hg] [facility] Diastolic blood pressure 2024-03-11 12:45:00 82 mm[Hg] [facility] Heart rate 2024-03-11 12:45:00 93 /min [facility] Body height 2024-03-11 12:45:00 172.7 cm [facility] Body weight 2024-03-11 12:45:00 72.077 kg [facility] BMI 2024-03-11 12:45:00 24.16 kg/m2 [facility] Oxygen saturation in Arterial blood by Pulse oximetry 2024-03-11 12:45:00 97 /min [facility] Systolic blood pressure 2024-01-17 13:05:00 124 mm[Hg] [facility] Diastolic blood pressure 2024-01-17 13:05:00 79 mm[Hg] [facility] Heart rate 2024-01-17 13:05:00 98 /min [facility] Body height 2024-01-17 13:05:00 172.7 cm [facility] Body weight 2024-01-17 13:05:00 70.852 kg [facility] BMI 2024-01-17 13:05:00 23.75 kg/m2 [facility] Oxygen saturation in Arterial blood by Pulse oximetry 2024-01-17 13:05:00 97 /min [facility] Systolic blood pressure 2023-12-17 19:53:00 139 mm[Hg] [facility] Diastolic blood pressure 2023-12-17 19:53:00 98 mm[Hg] [facility] Heart rate 2023-12-17 19:52:00 119 /min [facility] Body height 2023-12-17 19:52:00 170.2 cm [facility] Body weight 2023-12-17 19:52:00 70.262 kg [facility] BMI 2023-12-17 19:52:00 24.26 kg/m2 [facility] Oxygen saturation in Arterial blood by Pulse oximetry 2023-12-17 19:52:00 98 /min [facility] Systolic blood pressure 2023-12-13 16:45:00 136 mm[Hg] [facility] Diastolic blood pressure 2023-12-13 16:45:00 85 mm[Hg] [facility] Heart rate 2023-12-13 16:45:00 105 /min [facility] Body temperature 2023-12-13 16:45:[address] [facility] Body weight 2023-12-13 16:45:00 69.945 kg [facility] BMI 2023-12-13 16:45:00 24.15 kg/m2 [facility] Oxygen saturation in Arterial blood by Pulse oximetry 2023-12-13 16:45:00 98 /min [facility] Systolic blood pressure 2023-12-12 14:30:00 133 mm[Hg] [facility] Diastolic blood pressure 2023-12-12 14:30:00 84 mm[Hg] [facility] Heart rate 2023-12-12 14:30:00 110 /min [facility] Body temperature 2023-12-12 14:30:[address] [facility] Body height 2023-12-12 14:30:00 170.2 cm [facility] Body weight 2023-12-12 14:30:00 70.852 kg [facility] BMI 2023-12-12 14:30:00 24.46 kg/m2 [facility] Oxygen saturation in Arterial blood by Pulse oximetry 2023-12-12 14:30:00 99 /min [facility] Systolic blood pressure 2023-12-07 14:00:00 129 mm[Hg] [facility] Diastolic blood pressure 2023-12-07 14:00:00 70 mm[Hg] [facility] Heart rate 2023-12-07 14:00:00 87 /min [facility] Respiratory rate 2023-12-07 14:00:00 14 /min [facility] Oxygen saturation in Arterial blood by Pulse oximetry 2023-12-07 14:00:00 97 /min [facility] Body temperature 2023-12-07 13:10:[address] [facility] Body weight 2023-12-07 10:00:00 76.476 kg [facility] BMI 2023-12-07 10:00:00 26.41 kg/m2 [facility] Body height 2023-12-06 15:22:00 170.2 cm [facility] Systolic blood pressure 2023-12-06 21:20:00 129 mm[facility]Hg[facility] Diastolic blood pressure 2023-12-06 21:20:00 86 mm[Hg] [facility] Heart rate 2023-12-06 21:20:00 75 /min [facility] Body temperature 2023-12-06 21:20:[address] [facility] Respiratory rate 2023-12-06 21:20:00 16 /min [facility] Oxygen saturation in Arterial blood by Pulse oximetry 2023-12-06 21:20:00 97 /min [facility] Body height 2023-12-06 15:22:00 170.2 cm [facility] Body weight 2023-12-06 15:22:00 71.668 kg [facility] BMI 2023-12-06 15:22:00 26.41 kg/m2 [facility] Systolic blood pressure 2023-12-06 14:31:00 123 mm[Hg[facility] Diastolic blood pressure 2023-12-06 14:31:00 84 mm[Hg] [facility] Heart rate 2023-12-06 14:31:00 110 /min [facility] Body temperature 2023-12-06 14:31:[address] [facility] Respiratory rate 2023-12-06 14:31:00 18 /min [facility] Body height 2023-12-06 14:31:00 170.2 cm [facility] Body weight 2023-12-06 14:31:00 68.493 kg [facility] BMI 2023-12-06 14:31:00 23.65 kg/m2 [facility] Oxygen saturation in Arterial blood by Pulse oximetry 2023-12-06 14:31:00 100 /min [facility] Systolic blood pressure 2023-11-22 13:01:00 118 mm[Hg[facility] Diastolic blood pressure 2023-11-22 13:01:00 74 mm[Hg] [facility] Heart rate 2023-11-22 13:01:00 90 /min [facility] Body height 2023-11-22 13:01:00 172.7 cm [facility] Body weight 2023-11-22 13:01:00 68.856 kg [facility] BMI 2023-11-22 13:01:00 23.08 kg/m2 [facility] Oxygen saturation in Arterial blood by Pulse oximetry 2023-11-22 13:01:00 99 /min [facility] Systolic blood pressure 2023-10-17 14:21:00 138 mm[Hg[facility] Diastolic blood pressure 2023-10-17 14:21:00 79 mm[Hg] [facility] Heart rate 2023-10-17 14:21:00 68 /min [facility] Body weight 2023-10-17 14:21:00 68.947 kg [facility] BMI 2023-10-17 14:21:00 23.11 kg/m2 [facility] Heart rate 2023-10-13 11:23:00 64 /min [facility] Oxygen saturation in Arterial blood by Pulse oximetry 2023-10-13 11:23:00 100 /min [facility] Systolic blood pressure 2023-10-13 10:00:00 155 mm[Hg[facility] Diastolic blood pressure 2023-10-13 10:00:00 90 mm[Hg] [facility] Respiratory rate 2023-10-13 10:00:00 20 /min [facility] Body temperature 2023-10-13 09:22:[address] [facility] Body height 2023-10-13 09:22:00 172.7 cm [facility] Body weight 2023-10-13 09:22:00 68.04 kg [facility] BMI 2023-10-13 09:22:00 22.81 kg/m2 [facility] Systolic blood pressure 2023-09-24 18:41:00 125 mm[Hg[facility] Diastolic blood pressure 2023-09-24 18:41:00 74 mm[Hg] [facility] Heart rate 2023-09-24 18:41:00 88 /min [facility] Body height 2023-09-24 18:41:00 170.2 cm [facility] Body weight 2023-09-24 18:41:00 66.271 kg [facility] BMI 2023-09-24 18:41:00 22.88 kg/m2 [facility] Oxygen saturation in Arterial blood by Pulse oximetry 2023-09-24 18:41:00 100 /min [facility] Body temperature 2023-09-22 02:00:[address] [facility] Systolic blood pressure 2023-09-22 01:00:00 139 mm[Hg[facility] Diastolic blood pressure 2023-09-22 01:00:00 78 mm[Hg] [facility] Heart rate 2023-09-22 01:00:00 82 /min [facility] Respiratory rate 2023-09-22 01:00:00 9 /min [facility] Oxygen saturation in Arterial blood by Pulse oximetry 2023-09-22 01:00:00 99 /min [facility] Body height 2023-09-21 22:05:00 170.2 cm [facility] Body weight 2023-09-21 22:05:00 70.308 kg [facility] BMI 2023-09-21 22:05:00 24.28 kg/m2 [facility] Systolic blood pressure 2023-07-30 11:56:00 113 mm[Hg[facility] Diastolic blood pressure 2023-07-30 11:56:00 74 mm[Hg] [facility] Heart rate 2023-07-30 11:56:00 89 /min [facility] Body height 2023-07-30 11:56:00 170.2 cm [facility] Body weight 2023-07-30 11:56:00 69.037 kg [facility] BMI 2023-07-30 11:56:00 23.84 kg/m2 [facility] Oxygen saturation in Arterial blood by Pulse oximetry 2023-07-30 11:56:00 99 /min [facility] Systolic blood pressure 2023-06-04 12:03:00 112 mm[Hg] [facility] Diastolic blood pressure 2023-06-04 12:03:00 75 mm[Hg] [facility] Heart rate 2023-06-04 12:03:00 110 /min [facility] Body height 2023-06-04 12:03:00 170.2 cm [facility] Body weight 2023-06-04 12:03:00 69.854 kg [facility] BMI 2023-06-04 12:03:00 24.12 kg/m2 [facility] Oxygen saturation in Arterial blood by Pulse oximetry 2023-06-04 12:03:00 99 /min [facility] Systolic blood pressure 2023-05-09 15:52:00 111 mm[Hg] [facility] Diastolic blood pressure 2023-05-09 15:52:00 72 mm[Hg] [facility] Heart rate 2023-05-09 15:52:00 86 /min [facility] Respiratory rate 2023-05-09 15:52:00 18 /min [facility] Body height 2023-05-09 15:52:00 172.7 cm [facility] Body weight 2023-05-09 15:52:00 73.936 kg [facility] BMI 2023-05-09 15:52:00 24.78 kg/m2 [facility] Oxygen saturation in Arterial blood by Pulse oximetry 2023-05-09 15:52:00 98 /min [facility] Systolic blood pressure 2023 23:00:00 111 mm[Hg[facility] Diastolic blood pressure 2023 23:00:00 80 mm[Hg] [facility] Heart rate 2023 23:00:00 80 /min [facility] Respiratory rate 2023 23:00:00 18 /min [facility] Oxygen saturation in Arterial blood by Pulse oximetry 2023 23:00:00 97 /min [facility] Body temperature 2023 21:04:[address] [facility] Body height 2023 21:04:00 172.7 cm [facility] Body weight 2023 21:04:00 70.761 kg [facility] BMI 2023 21:04:00 23.72 kg/m2 [facility] Systolic blood pressure 2023-05-03 14:18:00 130 mm[Hg[facility] Diastolic blood pressure 2023-05-03 14:18:00 74 mm[Hg] [facility] Heart rate 2023-05-03 14:18:00 109 /min [facility] 2023-05-03 14:18:[address] [facility] Respiratory rate 2023-05-03 14:18:00 18 /min [facility] Body height 2023-05-03 14:18:00 172.7 cm [facility] Body weight 2023-05-03 14:18:00 71.033 kg [facility] BMI 2023-05-03 14:18:00 23.81 kg/m2 [facility] Oxygen saturation in Arterial blood by Pulse oximetry 2023-05-03 14:18:00 99 /min [facility] Systolic blood pressure 2023-05-02 13:35:00 120 mm[Hg] [facility] Diastolic blood pressure 2023-05-02 13:35:00 79 mm[Hg] [facility] Heart rate 2023-05-02 13:35:00 93 /min [facility] Respiratory rate 2023-05-02 13:35:00 17 /min [facility] Body height 2023-05-02 13:35:00 170.2 cm [facility] Body weight 2023-05-02 13:35:00 69.536 kg [facility] BMI 2023-05-02 13:35:00 24.01 kg/m2 [facility] Oxygen saturation in Arterial blood by Pulse oximetry 2023-05-02 13:35:00 99 /min [facility] Systolic blood pressure 2023-04-28 05:35:00 123 mm[Hg] [facility] Diastolic blood pressure 2023-04-28 05:35:00 76 mm[Hg] [facility] Heart rate 2023-04-28 05:35:00 58 /min [facility] Respiratory rate 2023-04-28 05:35:00 18 /min [facility] Oxygen saturation in Arterial blood by Pulse oximetry 2023-04-28 05:35:00 98 /min [facility] Body temperature 2023-04-28 01:02:[address] [facility] Body height 2023-04-28 01:02:00 170.2 cm [facility] Body weight 2023-04-28 01:02:00 70.308 kg [facility] BMI 2023-04-28 01:02:00 24.28 kg/m2 [facility] Systolic blood pressure 2023-04-27 16:07:00 125 mm[Hg[facility] Diastolic blood pressure 2023-04-27 16:07:00 76 mm[Hg] [facility] Heart rate 2023-04-27 16:07:00 72 /min [facility] Body temperature 2023-04-27 16:07:[address] [facility] Respiratory rate 2023-04-27 16:07:00 18 /min [facility] Oxygen saturation in Arterial blood by Pulse oximetry 2023-04-27 16:07:00 100 /min [facility] Body weight 2023-04-27 08:18:00 70.489 kg [facility] BMI 2023-04-27 08:18:00 24.34 kg/m2 [facility] Body height 2023-04-26 04:26:00 170.2 cm [facility] Systolic blood pressure 2023-04-05 12:01:00 100 mm[Hg] [facility] Diastolic blood pressure 2023-04-05 12:01:00 69 mm[Hg] [facility] Heart rate 2023-04-05 12:01:00 103 /min [facility] Body height 2023-04-05 12:01:00 170.2 cm [facility] Body weight 2023-04-05 12:01:00 72.757 kg [facility] BMI 2023-04-05 12:01:00 25.12 kg/m2 [facility] Oxygen saturation in Arterial blood by Pulse oximetry 2023-04-05 12:01:00 98 /min [facility] Systolic blood pressure 2023-03-29 09:53:00 113 mm[Hg] [facility] Diastolic blood pressure 2023-03-29 09:53:00 68 mm[Hg] [facility] Heart rate 2023-03-29 09:53:00 83 /min [facility] Respiratory rate 2023-03-29 09:53:00 18 /min [facility] Oxygen saturation in Arterial blood by Pulse oximetry 2023-03-29 09:53:00 97 /min [facility] Body temperature 2023-03-29 07:32:[address] [facility] Body height 2023-03-29 07:32:00 170.2 cm [facility] Body weight 2023-03-29 07:32:00 72.576 kg [facility] BMI 2023-03-29 07:32:00 25.06 kg/m2 [facility] Systolic blood pressure 2023-03-01 17:19:00 124 mm[Hg[facility] Diastolic blood pressure 2023-03-01 17:19:00 85 mm[Hg] [facility] Heart rate 2023-03-01 17:19:00 86 /min [facility] Oxygen saturation in Arterial blood by Pulse oximetry 2023-03-01 17:19:00 100 /min [facility] Body height 2023-03-01 17:12:00 170.2 cm [facility] Body weight 2023-03-01 17:12:00 72.848 kg [facility] BMI 2023-03-01 17:12:00 25.15 kg/m2 [facility] Systolic blood pressure 2023-02-05 12:05:00 108 mm[Hg] [facility] Diastolic blood pressure 2023-02-05 12:05:00 78 mm[Hg] [facility] Heart rate 2023-02-05 12:05:00 100 /min [facility] Body height 2023-02-05 12:05:00 172.7 cm [facility] Body weight 2023-02-05 12:05:00 73.437 kg [facility] BMI 2023-02-05 12:05:00 24.62 kg/m2 [facility] Oxygen saturation in Arterial blood by Pulse oximetry 2023-02-05 12:05:00 100 /min [facility] Systolic blood pressure 2022-12-07 13:03:00 111 mm[Hg] [facility] Diastolic blood pressure 2022-12-07 13:03:00 77 mm[Hg] [facility] Heart rate 2022-12-07 13:02:00 115 /min [facility] Body height 2022-12-07 13:02:00 170.2 cm [facility] Body weight 2022-12-07 13:02:00 74.118 kg [facility] BMI 2022-12-07 13:02:00 25.59 kg/m2 [facility] Oxygen saturation in Arterial blood by Pulse oximetry 2022-12-07 13:02:00 99 /min [facility] Systolic blood pressure 2022-10-10 13:04:00 119 mm[Hg] [place] [facility] Diastolic blood pressure 2022-10-10 13:04:00 80 mm[Hg] [facility] Heart rate 2022-10-10 13:04:00 106 /min [facility] Body height 2022-10-10 13:04:00 170.2 cm [facility] Body weight 2022-10-10 13:04:00 72.303 kg [facility] BMI 2022-10-10 13:04:00 24.97 kg/m2 [facility] Oxygen saturation in Arterial blood by Pulse oximetry 2022-10-10 13:04:00 99 /min [facility] Systolic blood pressure 2022-08-10 12:35:00 95 mm[Hg] [facility] [employer] Diastolic blood pressure 2022-08-10 12:35:00 67 mm[Hg] [facility] Heart rate 2022-08-10 12:35:00 111 /min [facility] Body weight 2022-08-10 12:35:00 71.623 kg [facility] BMI 2022-08-10 12:35:00 24.01 kg/m2 [facility] Systolic blood pressure 2022-06-12 12:04:00 116 mm[Hg] [facility] Diastolic blood pressure 2022-06-12 12:04:00 81 mm[Hg] [facility] Heart rate 2022-06-12 12:04:00 118 /min [facility] Body weight 2022-06-12 12:04:00 69.4 kg [facility] BMI 2022-06-12 12:04:00 23.26 kg/m2 [facility] Procedures Procedure Date / Time Performed Performing Clinician Source CT LUMBAR SPINE WO CONTRAST 2024-12-24 00:12:23 Dannyopheliasimona Caesarsaritha Tapia [facility] CT LUMBAR SPINE WO IV CONTRAST 2024-12-21 18:16:33 Kylee Stephens [facility] MR LUMBAR SPINE WO CONTRAST 2024-10-30 15:53:[address] [facility] EKG-12 LEAD 2024-04-20 20:35:12 Nelida [facility] CT CHEST PULMONARY ANGIOGRAM 2024-04-20 18:11:[address] [facility] TROPONIN I 2024-04-20 17:40:00 Nelida [facility] COMP. METABOLIC PANEL ([id number]) 2024-04-20 17:40:[address] [facility] CBC WITH DIFF 2024-04-20 17:40:00 Nelida [facility] N-TERMINAL PRO-BNP 2024-04-20 17:40:00 Nelida Mercer [facility] INFLUENZA A/B RSV COVID NAAT 2024-04-19 22:25:[address] [facility] HEPATIC FUNCTION PANEL ([id number]) (ALB,T.PRO,BILI T,BU/BC,ALT,AST,ALK PHOS) 2023-12-07 10:46:[address] [facility] BASIC METABOLIC PANEL (NA, K, CL, CO2, GLUCOSE, BUN, CREATININE, CA) 2023-12-07 10:46[facility] 2023-12-07 10:46:[address] [facility] HEPATIC FUNCTION PANEL ([id number]) (ALB,T.PRO,BILI T,BU/BC,ALT,AST,ALK PHOS) 2023-12-07 10:46:00 [facility]OLIC PANEL (NA, K, CL, CO2, GLUCOSE, BUN, CREATININE, CA) 2023-12-07 10:46:[address] [facility] CBC WITH DIFF 2023-12-07 10:46:[address] [facility] LAPAROSCOPIC CHOLECYSTECTOMY 2023-12-06 18:32:00 Phan, [facility] LAPAROSCOPIC CHOLECYSTECTOMY 2023-12-06 18:32:00 Phan, [facility] URINALYSIS 2023-12-06 17:39:00 ChelseyNayla beasley [facility] URINALYSIS 2023-12-06 17:39:00 Nayla Barbosa [facility] HB ECG ROUTINE & RHYTHM STRIP 2023-12-06 15:40:[address] [facility] HB ECG ROUTINE & RHYTHM STRIP 2023-12-06 15:40:[address] [facility] LIPASE 2023-12-06 15:33:00 ChelseyNayla miles [facility] MAGNESIUM 2023-12-06 15:33:00 ChelseyNayla [facility] TROPONIN I 2023-12-06 15:33:00 ChelseyNayla miles [facility] COMP. METABOLIC PANEL ([id number]) 2023-12-06 15:33:[address] [facility] CBC WITH DIFF 2023-12-06 15:33:00 ChelseyNayla beasley [facility] LIPASE 2023-12-06 15:33:00 ChelseyNayla [facility] MAGNESIUM 2023-12-06 15:33:00 ChelseyNayla [facility] TROPONIN I 2023-12-06 15:33:00 ChelseyNayla [facility] COMP. METABOLIC PANEL ([id number]) 2023-12-06 15:33:[address] [facility] CBC WITH DIFF 2023-12-06 15:33:00 Chelsey, K Alessia [facility] CONSENT/REFUSAL FOR DIAGNOSIS AND TREATMENT 2023-12-06 15:14:56 Doctor Unassigned, [place] [facility] CONSENT/REFUSAL FOR DIAGNOSIS AND TREATMENT 2023-12-06 15:14:56 Doctor Unassigned, [place] [facility] CT ABDOMEN PELVIS W CONTRAST 2023-10-13 10:43:[address] [facility] LIPASE 2023-10-13 09:32:00 Derrick Chance [facility] COMP. METABOLIC PANEL ([id number]) 2023-10-13 09:32:[address] [facility] CBC WITH DIFF 2023-10-13 09:32:00 Derrick [facility] URINALYSIS 2023-10-13 09:32[facility]00 [facility] AND TREATMENT 2023-10-13 09:17:43 Doctor Unassigned, [place] [facility] CT CHEST PULMONARY ANGIOGRAM 2023-09-22 00:42:[address] [facility] CT ABDOMEN PELVIS W CONTRAST 2023-09-22 00:40:[address] [facility] D-DIMER 2023-09-21 23:05:00 Kayce Flannery [facility] US GALL BLADDER 2023-09-21 22:51:43 [facility] 2023-09-21 22:17:00 Kayce Flannery [facility] TROPONIN I 2023-09-21 22:17:[address] [facility] COMP. METABOLIC PANEL ([id number]) 2023-09-21 22:17:[address] [facility] CBC WITH DIFF 2023-09-21 22:17:00 Kayce Flannery [facility] URINALYSIS 2023-09-21 22:17:[address] [facility] CONSENT/REFUSAL FOR DIAGNOSIS AND TREATMENT 2023-09-21 21:58:50 Doctor Unassigned, [place] [facility] CONSENT/REFUSAL FOR DIAGNOSIS AND TREATMENT 2023 20:57:38 Doctor Unassigned, [place] [facility] DISCLOSURE AND CONSENT, MEDICAL AND SURGICAL PROCEDURES 2023-05-04 05:01:00 Doctor Unassigned, [place] [facility] COMP. METABOLIC PANEL ([id number]) 2023-04-28 02:46:[address] [facility] CBC WITH DIFF 2023-04-28 02:46:00 Marina [facility]verria [facility] CONSENT/REFUSAL FOR DIAGNOSIS AND TREATMENT 2023-04-28 00:50:32 Doctor Unassigned, [place] [facility] LIPASE 2023-04-27 09:25:00 Nivia Rick [facility] CBC WITH DIFF 2023-04-27 09:25:[address] [facility] US GALL BLADDER 2023-04-26 22:54:[address] [facility] TROPONIN I 2023-04-26 17:06:00 Blade Marie [facility] TRANSTHORACIC ECHO (TTE) COMPLETE 2023-04-26 15:03:[address] [facility] THYROID STIMULATING HORMONE 2023-04-26 10:03:[address] [facility] PROCALCITONIN 2023-04-26 10:03:00 Blade Marie [facility] PHOSPHORUS 2023-04-26 10:02:00 Blade Marie [facility] MAGNESIUM 2023-04-26 10:02:00 Frank isaak [facility] TROPONIN I 2023-04-26 10:02:00 Frank isaak [facility] COMP. METABOLIC PANEL ([id number]) 2023-04-26 10:02:[address] [facility] LIPID PANEL ([id number])(TOTAL CHOLESTEROL, TRIGLYCERIDES, HDL) 2023-04-26 10:02:[address] [facility] DIFF CONSULT BY PATHOLOGIST 2023-04-26 10:02:[address] [facility] CBC WITH DIFF 2023-04-26 10:02:[address] [facility] N-TERMINAL PRO-BNP 2023-04-26 10:02:[address] [facility] DIFF CONSULT INTERPRETATION 2023-04-26 10:02:[address] [facility] CT ANGIOGRAM CHEST 2023-04-26 09:17:[address] [facility] XR CHEST 1 VW 2023-04-26 02:22:00 Singer [facility] LIPASE 2023-04-26 01:50:00 Singer [facility] MAGNESIUM 2023-04-26 01:50:00 Singer [facility] TROPONIN I 2023-04-26 01:50:00 Singer [facility] COMP. METABOLIC PANEL ([id number]) 2023-04-26 01:50:00 Singer [facility] CBC WITH DIFF 2023-04-26 01:50:00 Singer [facility] N-TERMINAL PRO-BNP 2023-04-26 01:50:00 Singer [facility] HB ECG ROUTINE & RHYTHM STRIP 2023-04-26 01:43:40 Singer [facility] CONSENT/REFUSAL FOR DIAGNOSIS AND TREATMENT 2023-04-26 01:31:41 Doctor Unassigned, [place] [facility] EKG-12 LEAD 2023-03-29 09:50:08 Sagrario Infante [facility] COMP. METABOLIC PANEL ([id number]) 2023-03-29 08:27:[address] [facility] TROPONIN I 2023-03-29 07:45:00 Sagrario Infante [facility] CBC WITH DIFF 2023-03-29 07:45:00 Sagrario Infante [facility] CONSENT/REFUSAL FOR DIAGNOSIS AND TREATMENT 2023-03-29 07:29:14 Doctor Unassigned, [place] [facility] NOTICE OF PRIVACY PRACTICES 2023-03-29 07:28:26 Doctor Unassigned, Kronenwetter [facility] Encounters Start Date/Time End Date/Time Encounter Type Admission Type [facility] Facility Care Department Encounter ID Source 2023-05-03 16:29:05 Outpatient R YUDY PHAN YUDY [facility] [id number] [facility] 2021-09-01 19:11:03 Emergency [facility] [id number] [facility] 2024-12-31 07:30:00 2024-12-31 07:30:00 Outpatient R SANCHEZ NIKIA [facility] [id number] [facility] 2024-12-25 00:00:00 2024-12-25 09:45:43 Patient Secure Msg Doctor Unassigned, Kronenwetter Doctor Unassigned, Kronenwetter [facility] 1.2.840.114 350.1.13.10 4.2.7.2.686 [id number] 044 [id number] [facility] 2024-12-25 00:00:00 2024-12-25 09:39:47 Refill [place] [facility] 1.2.840.114 350.1.13.10 4.2.7.2.686 [id number] 044 [id number] [facility] 2024-12-24 14:15:00 2024-12-24 15:03:44 Outpatient R CHENTE GARIBAY [facility] [id number] [facility] 2024-12-24 14:15:00 2024-12-24 15:03:44 Office Visit [place] [facility] 1.2.840.114 350.1.13.10 4.2.7.2.686 [id number] 044 [id number] [facility] 2024-12-23 17:22:00 2024-12-23 19:54:00 Emergency X AUFDERSIMONA , CAESAR DANNYERSIMONA , CAESAR [facility] ERT [id number] [facility] 2024-12-23 17:22:00 2024-12-23 19:54:00 Emergency Caesar Joshua [facility] 1.2.840.114 350.1.13.10 4.2.7.2.686 [id number] 084 [id number] [facility] 2024-12-21 17:15:00 2024-12-21 19:13:00 Emergency Opal Garibay [facility] 1.2840.114 350.1.13.70 8.2.7.2.686 [id number] [facility] 2024-12-21 17:15:00 2024-12-21 19:13:00 Emergency Emergency OPAL GARIBAY [facility] General Medicine [id number] [facility] 2024-12-18 19:58:00 2024-12-18 21:48:00 Emergency HERNÁN BARNES PHILLIP [facility] ERT [id number] [facility] 2024-12-18 19:58:00 2024-12-18 21:48:00 Emergency Hernán Rojo [facility] 1.2840.114 350.1.13.10 4.2.7.2.686 [id number] 084 [id number] [facility] 2024-12-15 00:00:00 2024-12-16 11:41:40 Telephone Chente Garibay [facility] 1.2.840.114 350.1.13.10 4.2.7.2.686 [id number] 044 [id number] [facility] 2024-12-16 00:00:00 2024-12-16 10:44:09 Patient Secure Msg Doctor Unassigned, Kronenwetter Doctor Unassigned, Kronenwetter [facility] 1.2.840.114 350.1.13.10 4.2.7.2.686 [id number] 044 [id number] [facility] 2024-12-10 00:00:00 2024-12-10 15:11:06 Refill Chente Garibay [facility] DAT?[facility] 1..114 350.1.13.10 4.2.7.2.686 [id number] 044 [id number] [facility] 2024-12-08 00:00:00 2024-12-10 11:02:32 Patient Secure Msg Doctor Unassigned, Kronenwetter Doctor Unassigned, Kronenwetter [facility] 1.114 350.1.13.10 4.2.7.2.686 [id number] 044 [id number] [facility] 2024-12-09 00:00:00 2024-12-10 10:46:04 Telephone Annabelle Cervantes Melody A [facility] 1.0.114 350.1.13.10 4.2.7.2.686 [id number] 019 [id number] [facility] 2024-12-08 12:15:00 2024-12-08 12:30:00 Office Visit Chente Garibay [facility] DAT?[facility] 1.114 350.1.13.10 4.2.7.2.686 [id number] 044 [id number] [facility] 2024-12-08 12:15:00 2024-12-08 12:15:00 Outpatient R CHENTE GARIBAY [facility] [id number] [facility] 2024-12-02 00:00:00 2024-12-03 06:19:06 Telephone Chente Garibay [facility] DAT?[facility] 1.84.114 350.1.13.10 4.2.7.2.686 [id number] 044 [id number] [facility] 2024-12-02 00:00:00 2024-12-02 10:58:45 Patient Secure Msg Doctor Unassigned, Kronenwetter Doctor Unassigned, Kronenwetter [facility] DAT?[facility] 1.2.840.114 350.1.13.10 4.2.7.2.686 [id number] 044 [id number] [facility] 2024-11-26 00:00:00 2024-11-26 14:02:31 Refill [place] Chente [facility] DAT?[facility] 1.2.840.114 350.1.13.10 4.2.7.2.686 [id number] 044 [id number] [facility] 2024-11-26 00:00:00 2024-11-26 13:19:29 Refill [place] [facility] DAT?[facility] 1.2.840.114 350.1.13.10 4.2.7.2.686 [id number] 044 [id number] [facility] 2024-11-14 00:00:00 2024-11-14 08:07:54 Telephone Annabelle Cervantes Melody A [facility]) 1.2.840.114 350.1.13.10 4.2.7.2.686 [id number] 019 [id number] [facility] 2024-11-12 13:45:00 2024-11-12 14:00:00 Office Visit [place] Cehnte [facility] DAT?[facility] 1.2.840.114 350.1.13.10 4.2.7.2.686 [id number] 044 [id number] [facility] 2024-11-12 13:45:00 2024-11-12 13:45:00 Outpatient R CHENTE GARIBAY [facility] [id number] [facility] 2024-09-30 00:00:00 2024-11-01 18:16:28 Patient Secure Msg Doctor Unassigned, Kronenwetter Doctor Unassigned, Kronenwetter [facility] 1..840.114 350.1.13.10 4.2.7.2.686 [id number] 044 [id number] [facility] 2024-10-01 00:00:00 2024-11-01 18:15:18 Patient Secure Msg Doctor Unassigned, Kronenwetter Doctor Unassigned, Kronenwetter [facility] 1.840.114 350.1.13.10 4.2.7.2.686 [id number] 044 [id number] [facility] 2024-10-30 08:33:53 2024-10-30 23:59:00 Hospital Encounter Naa Dubon [facility] 1.840.114 350.1.13.10 4.2.7.2.686 [id number] [facility] 2024-10-30 11:15:00 2024-10-30 13:19:17 Outpatient R AUSTYN GONSALVES [facility] [id number] [facility] 2024-10-30 11:15:00 2024-10-30 13:19:17 Office Visit Austyn Gonsalves [facility] 1..840.114 350.1.13.10 4.2.7.2.686 [id number] [facility] 2024-10-27 00:00:00 2024-10-27 08:49:19 Patient Secure Msg Doctor Unassigned, Kronenwetter Doctor Unassigned, Kronenwetter [facility] 1..840.114 350.1.13.10 4.2.7.2.686 [id number] 044 [id number] [facility] 2024-10-15 13:00:00 2024-10-15 13:26:55 Outpatient R CHARO JOSHI [facility] [id number] [facility] 2024-10-15 13:00:00 2024-10-15 13:26:55 Office Visit Charo Joshi [facility] 1.284.114 350.1.13.10 4.2.7.2.686 [id number] [facility] 2024-10-14 00:00:00 2024-10-14 09:14:13 Telephone Annabelle Cervantes Melody A [facility] ([facility] 1..114 350.1.13.10 4.2.7.2.686 [id number] 019 [id number] [facility] 2024-10-13 13:15:00 2024-10-13 13:15:00 Office Visit Garibay Chente [facility] 1.84.114 350.1.13.10 4.2.7.2.686 [id number] 044 [id number] [facility] 2024-10-13 13:15:00 2024-10-13 13:02:38 Outpatient R CHENTE GARIBAY [facility] [id number] [facility] 2024-09-29 00:00:00 2024-09-29 15:36:59 Patient Secure Msg Doctor Unassigned, Kronenwetter Doctor Unassigned, Kronenwetter [facility] 1.84.114 350.1.13.10 4.2.7.2.686 [id number] [id number] [facility] 2024-09-22 00:00:00 2024-09-22 14:21:45 Patient Secure Msg Doctor Unassigned, Kronenwetter Doctor Unassigned, Kronenwetter [facility] 1.2.840.114 350.1.13.10 4.2.7.2.686 [id number] 044 [id number] [facility] 2024-09-16 07:30:00 2024-09-16 07:45:00 Office Visit [facility]ayChente [facility] 1.2840.114 350.1.13.10 4.2.7.2.686 [id number] 044 [id number] [facility] 2024-09-16 07:30:00 2024-09-16 07:30:00 Outpatient R CHENTE GARIBAY [facility] [id number] [facility] 2024-08-07 00:00:00 2024-09-13 18:26:57 Patient Secure Msg Doctor Unassigned, Kronenwetter Doctor Unassigned, Kronenwetter [facility] DAT?[facility] 1.2840.114 350.1.13.10 4.2.7.2.686 [id number] 044 [id number] [facility] 2024-09-05 00:00:00 2024-09-08 06:16:14 [facility]ill [place] [facility] 1.284.114 350.1.13.10 4.2.7.2.686 [id number] 044 [id number] [facility] 2024-08-04 00:00:00 2024-09-06 18:22:42 Patient Secure Msg Doctor Unassigned, Kronenwetter Doctor Unassigned, Kronenwetter [facility] 1.84.114 350.1.13.10 4.2.7.2.686 [id number] 044 [id number] [facility] 2024-09-03 00:00:00 2024-09-03 09:27:25 Refill [facility] 1.84.114 350.1.13.10 4.2.7.2.686 [id number] 044 [id number] [facility] 2024-08-18 00:00:00 2024-08-18 15:01:29 Refill [facility] 1.2.840.114 350.1.13.10 4.2.7.2.686 [id number] 044 [id number] [facility] 2024-08-07 00:00:00 2024-08-07 09:48:16 Telephone Chente Garibay [facility] 1.2840.114 350.1.13.10 4.2.7.2.686 [id number] 044 [id number] [facility] 2024-08-06 07:15:00 2024-08-06 07:18:17 Out[facility] [id number] [facility] 2024-08-06 07:15:00 2024-08-06 07:18:17 Office Visit [place] [facility] DAT?[facility] 1.2840.114 350.1.13.10 4.2.7.2.686 [id number] [id number] [facility] 2024-08-04 00:00:00 2024-08-06 07:16:07 Telephone Chente Garibay [facility] 1.2840.114 350.1.13.10 4.2.7.2.686 [id number] 044 [id number] [facility] 2024-08-04 00:00:00 2024-08-04 13:31:00 [facility]ill [place] [facility] 1.2.840.114 350.1.13.10 4.2.7.2.686 [id number] 044 [id number] [facility] 2024-07-21 09:30:00 2024-07-21 09:45:00 Office Visit Chente Garibay [facility] DAT?[facility] 1.2.840.114 350.1.13.10 4.2.7.2.686 [id number] 044 [id number] [facility] 2024-07-21 09:30:00 2024-07-21 09:30:00 Outpatient CHENTE DAN [facility] [id number] [facility] 2024-07-16 00:00:00 2024-07-16 09:42:15 Refill [place] [facility] DAT?[facility] 1.2.840.114 350.1.13.10 4.2.7.2.686 [id number] 044 [id number] [facility] 2024-06-17 08:15:00 2024-06-17 08:30:00 Office Visit Chente Garibay [facility] DAT?[facility] 1.2.840.114 350.1.13.10 4.2.7.2.686 [id number] 044 [id number] [facility] 2024-06-17 08:15:00 2024-06-17 08:15:00 Outpatient CHENTE DAN [facility] [id number] [facility] 2024-05-12 00:00:00 2024-06-14 18:21:46 Patient Secure Msg Doctor Unassigned, Kronenwetter Doctor Unassigned, Kronenwetter [facility] 1.2.840.114 350.1.13.10 4.2.7.2.686 [id number] [facility] 2024-05-23 03:41:00 2024-05-23 04:09:00 Emergency X VASUT, ISAC TAVO, ISAC [facility] ERT [id number] [facility] 2024-05-23 03:41:00 2024-05-23 04:09:00 Emergency Vasut, Isac J [facility] 1.2.840.114 350.1.13.10 4.2.7.2.686 [id number] [facility] 2024-05-21 00:00:00 2024-05-21 11:34:27 Refill [place] [facility] DAT?[facility] 1.2.840.114 350.1.13.10 4.2.7.2.686 [id number] 044 [id number] [facility] 2024-05-21 00:00:00 2024-05-21 11:34:14 Refrobbie Garibay Chente [facility] 1.2.840.114 350.1.13.10 4.2.7.2.686 [id number] 044 [id number] [facility] 2024-05-19 00:00:00 2024-05-19 10:53:07 Refill [place] [facility] DAT?[facility] 1.2.840.114 350.1.13.10 4.2.7.2.686 [id number] 044 [id number] [facility] 2024-05-13 08:45:00 2024-05-13 09:00:00 Office Visit Garibay, Chente [facility] 1.2.840.114 350.1.13.10 4.2.7.2.686 [id number] 044 [id number] [facility] 2024-05-13 08:45:00 2024-05-13 08:45:00 Outpatient CHENTE DAN [facility] [id number] [facility] 2024-05-12 07:30:00 2024-05-12 07:30:00 Outpatient CHENTE DAN [facility] [id number] [facility] 2024-04-24 09:00:00 2024-04-24 09:30:00 Office Visit Chente Garibay [facility] 1.84.114 350.1.13.10 4.2.7.2.686 [id number] 044 [id number] [facility] 2024-04-24 09:00:00 2024-04-24 09:00:00 Outpatient R CHENTE GARIBAY [facility] [id number] [facility] 2024-04-21 00:00:00 2024-04-21 09:12:20 Nurse Triage Agnieszka Berg [facility] 1.114 350.1.13.10 4.2.7.2.686 [id number] 019 [id number] [facility] 2024-04-20 11:33:00 2024-04-20 15:53:00 Emergency X SYLVIENELIDA [facility] ERT [id number] [facility] 2024-04-20 11:33:00 2024-04-20 15:53:00 Emergency Sylvie St[place] [facility] 1.84.114 350.1.13.10 4.2.7.2.686 [id number] [id number] [facility] 2024-04-19 17:02:00 2024-04-19 19:17:00 Emergency X LORRAINE MCGEE EVERARDO LORRAINE [facility] ERT [id number] [facility] 2024-04-19 17:02:00 2024-04-19 19:17:00 Emergency Erin Mcgeeang [facility] 1..114 350.1.13.10 4.2.7.2.686 [id number] 084 [id number] [facility] 2024-04-15 00:00:00 2024-04-15 13:17:02 Patient Secure Msg Doctor Unassigned, Kronenwetter [facility] 1.840.114 350.1.13.10 4.2.7.2.686 [id number] 044 [id number] [facility] 2024-03-27 00:00:00 2024-03-27 08:44:14 Refill Chente Garibay [facility] AILYN DAUGHERTY?[facility]ILD[facility] 1.2.840.114 350.1.13.10 4.2.7.2.686 [id number] 044 [id number] [facility] 2024-03-17 00:00:00 2024-03-17 16:41:34 Telephone Chente Garibay [facility] AILYN DAUGHERTY?[facility] 1.2840.114 350.1.13.10 4.2.7.2.686 [id number] 044 [id number] [facility] 2024-03-11 00:00:00 2024-03-12 14:35:50 Telephone Chente Garibay [facility] AILYN DAUGHERTY?[facility] 1.2840.114 350.1.13.10 4.2.7.2.686 [id number] 044 [id number] [facility] 2024-03-11 00:00:00 2024-03-12 06:23:31 Telephone Chente Garibay [facility] AILYN DAUGHERTY?[facility] 1.2840.114 350.1.13.10 4.2.7.2.686 [id number] 044 [id number] [facility] 2024-03-11 00:00:00 2024-03-11 16:11:10 Patient Secure Msg Doctor Unassigned, Kronenwetter [facility] AILYN DAUGHERTY?[facility] 1.2.840.114 350.1.13.10 4.2.7.2.686 [id number] 044 [id number] [facility] 2024-03-11 00:00:00 2024-03-11 09:42:47 Telephone Chente Garibay [facility] AILYN DAUGHERTY?[facility] 1.2.840.114 350.1.13.10 4.2.7.2.686 [id number] 044 [id number] [facility] 2024-03-11 08:15:00 2024-03-11 08:30:00 [facility] 1.2840.114 350.1.13.10 4.2.7.2.686 [id number] 044 [id number] [facility] 2024-03-11 08:15:00 2024-03-11 08:15:00 Outpatient R CHENTE GARIBAY [facility] [id number] [facility] 2024-02-26 00:00:00 2024-02-26 00:00:00 Telephone [place] [facility] DAT?[facility]ILD[facility] 1.2840.114 350.1.13.10 4.2.7.2.686 [id number] 044 [id number] [facility] 2024-02-25 00:00:00 2024-02-25 00:00:00 Refill [place] [facility] 1.2840.114 350.1.13.10 4.2.7.2.686 [id number] 044 [id number] [facility] 2024-02-13 00:00:00 2024-02-13 00:00:00 Refill [place] [facility] 1.2840.114 350.1.13.10 4.2.7.2.686 [id number] 044 [id number] [facility] 2024-01-22 00:00:00 2024-01-22 00:00:00 Telephone [place] [facility] DAT?[facility] 1.2840.114 350.1.13.10 4.2.7.2.686 [id number] 044 [id number] [facility] 2024-01-17 08:45:00 2024-01-17 09:00:00 [facility] 1.2.840.114 350.1.13.10 4.2.7.2.686 [id number] 044 [id number] [facility] 2024-01-17 08:45:00 2024-01-17 08:20:21 Outpatient R CHENTE GARIBAY [facility] [id number] [facility] 2023-12-17 14:15:00 2023-12-17 14:15:00 Office Visit [facility] OFF[facility] BUILD[facility] 1.2.840.114 350.1.13.10 4.2.7.2.686 [id number] 044 [id number] [facility] 2023-12-17 14:15:00 2023-12-17 14:06:46 Outpatient R CHENTE GARIBAY [facility] [id number] [facility] 2023-12-17 00:00:00 2023-12-17 00:00:00 Telephone Chente Garibay [facility] 1.2.840.114 350.1.13.10 4.2.7.2.686 [id number] 044 [id number] [facility] 2023-12-13 11:15:00 2023-12-13 11:30:00 [facility] 1.2.840.114 350.1.13.10 4.2.7.2.686 [id number] [facility] 2023-12-13 11:15:00 2023-12-13 11:15:00 [facility] [id number] 2023-12-12 09:00:00 2023-12-12 09:30:00 Office Visit [place] [facility] 1..840.114 350.1.13.10 4.2.7.2.686 [id number] [id number] [facility] 2023-12-12 09:00:00 2023-12-12 09:00:00 Outpatient [facility] [id number] [facility] 2023-12-12 00:00:00 2023-12-12 00:00:00 [facility] [place] [facility] 1.840.114 350.1.13.10 4.2.7.2.686 [id number] [facility] 2023-12-06 09:23:00 2023-12-07 13:05:00 [facility] [id number] 2023-12-06 09:23:00 2023-12-07 13:05:00 [facility] 1.840.114 350.1.13.10 4.2.7.2.686 [id number] [facility] 2023-12-06 13:00:00 2023-12-06 15:27:00 Surgery Latoya [facility] 1.840.114 350.1.13.10 4.2.7.2.686 [id number] [facility] 2023-12-06 09:00:00 2023-12-06 10:00:04 [id number] 2023-12-06 09:00:00 2023-12-06 09:15:00 Office Visit Latoya [facility] 1.840.114 350.1.13.10 4.2.7.2.686 [id number] [facility] 2023-11-28 00:00:00 2023-11-28 00:00:00 Telephone [facility] 1.84.114 350.1.13.10 4.2.7.2.686 [id number] [id number] [facility] 2023-11-22 07:30:00 2023-11-22 07:45:00 Office [facility] 1.84.114 350.1.13.10 4.2.7.2.686 [id number] [facility] 2023-11-22 07:30:00 2023-11-22 07:30:00 Outpatient R [facility] [id number] [facility] 2023-11-22 00:00:00 2023-11-22 00:00:00 Telephone [place] [facility] DAT?[facility] 1.84.114 350.1.13.10 4.2.7.2.686 [id number] [facility] 2023-11-08 08:45:00 2023-11-08 08:45:00 Outpatient R YUDY [facility] [id number] [facility] 2023-11-01 00:00:00 2023-11-01 00:00:00 [facility] [place] [facility] 1.84.114 350.1.13.10 4.2.7.2.686 [id number] [id number] [facility] 2023-10-30 00:00:00 2023-10-30 00:00:00 [facility] [place] [facility] 1.840.114 350.1.13.10 4.2.7.2.686 [id number] [facility] 2023-10-24 00:00:00 2023-10-24 00:00:00 Refill [place] [facility] DAT?[facility] 1.2.840.114 350.1.13.10 4.2.7.2.686 [id number] [facility] 2023-10-22 00:00:00 2023-10-22 00:00:00 Telephone [place] [facility] 1.2.840.114 350.1.13.10 4.2.7.2.686 [id number] [id number] [facility] 2023-10-17 09:00:00 2023-10-17 09:30:00 [facility] [place] [facility] 1.2.840.114 350.1.13.10 4.2.7.2.686 [id number] [id number] [facility] 2023-10-17 09:00:00 2023-10-17 09:00:00 [facility] [id number] [facility] 2023-10-15 00:00:00 2023-10-15 00:00:00 Telephone [facility] 1.2.840.114 350.1.13.10 4.2.7.2.686 [id number] [facility] 2023-10-13 03:24:00 2023-10-13 05:59:00 Emergency X [facility] [id number] [facility] 2023-10-13 03:24:00 2023-10-13 05:59:00 Emergency Derrick Chance [facility] 1.2.840.114 350.1.13.10 4.2.7.2.686 [id number] [facility] 2023-10-10 00:00:00 2023-10-10 00:00:00 Telephone Chente Garibay [facility] DAT?[facility] 1.2.840.114 350.1.13.10 4.2.7.2.686 [id number] 044 [id number] [facility] 2023-10-09 00:00:00 2023-10-09 00:00:00 Telephone Chente Garibay [facility] DAT?[facility] 1.2.840.114 350.1.13.10 4.2.7.2.686 [id number] 044 [id number] [facility] 2023-09-26 07:00:00 2023-09-26 07:00:00 Outpatient CHENTE DAN [facility] [id number] [facility] 2023-09-26 00:00:00 2023-09-26 00:00:00 Telephone Chente Garibay [facility] DAT?[facility] 1.2.840.114 350.1.13.10 4.2.7.2.686 [id number] 044 [id number] [facility] 2023-09-26 00:00:00 2023-09-26 00:00:00 [facility] 1.2.840.114 350.1.13.10 4.2.7.2.686 [id number] 044 [id number] [facility] 2023-09-24 13:15:00 2023-09-24 13:15:00 Outpatient CHENTE DAN [facility] [id number] [facility] 2023-09-24 13:15:00 2023-09-24 13:15:00 [facility] 1.2.840.114 350.1.13.10 4.2.7.2.686 [id number] 044 [id number] [facility] 2023-09-21 16:06:00 2023-09-21 20:04:00 Emergency X KAYCE FLANNERY [facility] ERT [id number] [facility] 2023-09-21 16:06:00 2023-09-21 20:04:00 Emergency Kayce Flannery [facility] 1.2.840.114 350.1.13.10 4.2.7.2.686 [id number] [id number] [facility] 2023-09-18 00:00:00 2023-09-18 00:00:00 Refill [place] [facility] DAT?[facility] 1.2.840.114 350.1.13.10 4.2.7.2.686 [id number] 044 [id number] [facility] 2023-08-27 00:00:00 2023-08-27 00:00:00 Refill [place] [facility] DAT?[facility] 1.2.840.114 350.1.13.10 4.2.7.2.686 [id number] 044 [id number] [facility] 2023-07-30 07:15:00 2023-07-30 07:15:00 Office Visit [place] Chente [facility] DAT?[facility] 1.2.840.114 350.1.13.10 4.2.7.2.686 [id number] 044 [id number] [facility] 2023-07-30 07:15:00 2023-07-30 07:12:20 Outpatient R CHENTE GARIBAY [facility] [id number] [facility] 2023-07-30 00:00:00 2023-07-30 00:00:00 Refrobbie [facility] 1.2840.114 350.1.13.10 4.2.7.2.686 [id number] 044 [id number] [facility] 2023-07-30 00:00:00 2023-07-30 00:00:00 [facility] 1.2840.114 350.1.13.10 4.2.7.2.686 [id number] [id number] [facility] 2023-07-02 00:00:00 2023-07-02 00:00:00 Refill [place] [facility] 1.84.114 350.1.13.10 4.2.7.2.686 [id number] 044 [id number] [facility] 2023-06-11 00:00:00 2023-06-11 00:00:00 Refill [place] [facility] 1.84.114 350.1.13.10 4.2.7.2.686 [id number] 044 [id number] [facility] 2023-06-04 07:30:00 2023-06-04 07:45:00 Office Visit [place] [facility] 1.284.114 350.1.13.10 4.2.7.2.686 [id number] [id number] [facility] 2023-06-04 07:30:00 2023-06-04 07:30:00 Outpatient R CHENTE GARIBAY [facility] [id number] [facility] 2023-05-31 00:00:00 2023-05-31 00:00:00 Refill [place] [facility] 1.284.114 350.1.13.10 4.2.7.2.686 [id number] 044 [id number] [facility] 2023-05-17 00:00:00 2023-05-17 00:00:00 Telephone Latoya [facility] BUILDING 1.2.840.114 350.1.13.10 4.2.7.2.686 [id number] [facility] 2023-05-09 12:30:00 2023-05-09 12:30:00 [facility] 1.2.840.114 350.1.13.10 4.2.7.2.686 [id number] 044 [id number] [facility] 2023-05-09 12:30:00 2023-05-09 11:11:35 Out[facility] [id number] [facility] 2023-05-09 00:00:00 2023-05-09 00:00:00 Telephone Latoya [facility] BUILDING 1.2.840.114 350.1.13.10 4.2.7.2.686 [id number] [facility] 2023-05-09 00:00:00 2023-05-09 00:00:00 Telephone Chente Garibay [facility] DAT?[facility] 1.2.840.114 350.1.13.10 4.2.7.2.686 [id number] 044 [id number] [facility] 2023-05-09 00:00:00 2023-05-09 00:00:00 Telephone Chente Garibay [facility] DAT?[facility] 1.2.840.114 350.1.13.10 4.2.7.2.686 [id number] 044 [id number] [facility] 2023 16:08:00 2023 18:12:00 Emergency X BRENDA TUCKER [facility] ERT [id number] [facility] 2023 16:08:00 2023 18:12:00 Emergency Brenda Tucker [facility] 1.2840.114 350.1.13.10 4.2.7.2.686 [id number] [id number] [facility] 2023-05-04 00:00:00 2023-05-04 00:00:00 Orders Only Doctor Unassigned, Kronenwetter [facility] 1.2840.114 350.1.13.10 4.2.7.2.686 [id number] [facility] 2023-05-03 10:00:00 2023-05-03 10:30:00 Office Visit Latoya [facility] 1.840.114 350.1.13.10 4.2.7.2.686 [id number] [facility] 2023-05-03 10:00:00 2023-05-03 10:00:00 Outpatient R YUDY PHAN [facility] [id number] [facility] 2023-05-03 00:00:00 2023-05-03 00:00:00 Prep For Surgery Latoya [facility] 1.840.114 350.1.13.10 4.2.7.2.686 [id number] [facility] 2023-05-02 09:00:00 2023-05-02 09:00:00 Office Visit Chente [facility]ib[facility] 1..840.114 350.1.13.10 4.2.7.2.686 [id number] 044 [id number] [facility] 2023-05-02 09:00:00 2023-05-02 08:53:51 Outpatient R CHENTE GARIBAY [facility] [id number] [facility] 2023-04-27 20:05:00 2023-04-28 00:46:00 Emergency X MARINA ECHEVERRIA [facility] ERT [id number] [facility] 2023-04-27 20:05:00 2023-04-28 00:46:00 Emergency Marina Echeverria [facility] 1.840.114 350.1.13.10 4.2.7.2.686 [id number] [id number] [facility] 2023-04-25 20:33:00 2023-04-27 12:19:00 Outpatient X ALE AYALA [facility] ЕЛЕНА [id number] [facility] 2023-04-25 20:33:00 2023-04-27 12:19:00 Emergency Hernán Rojo, Ale Chaves David [facility] 1.840.114 350.1.13.10 4.2.7.2.686 [id number] [facility] 2023-04-05 07:15:00 2023-04-05 07:18:47 Outpatient CHENTE DAN [facility] [id number] [facility] 2023-04-05 07:15:00 2023-04-05 07:18:47 Office Visit Chente Garibay [facility] 1.840.114 350.1.13.10 4.2.7.2.686 [id number] 044 [id number] [facility] 2023-03-29 02:29:00 2023-03-29 04:58:00 Emergency SAGRARIO FISCHER [facility] ERT [id number] [facility] 2023-03-29 02:29:00 2023-03-29 04:58:00 Emergency Sagrario Infante [facility] 1.840.114 350.1.13.10 4.2.7.2.686 [id number] [id number] [facility] 2023-03-04 00:00:00 2023-03-04 00:00:00 Refill Chente Garibay [facility] AILYN DAUGHERTY?[facility] 1.2840.114 350.1.13.10 4.2.7.2.686 [id number] 044 [id number] [facility] 2023-03-01 12:15:00 2023-03-01 12:32:27 Outpatient R CHENTE GARIBAY [facility] [id number] [facility] 2023-03-01 12:15:00 2023-03-01 12:32:27 Office Visit Chente [facility]ib[facility] 1.84.114 350.1.13.10 4.2.7.2.686 [id number] 044 [id number] [facility] 2023-02-05 07:15:00 2023-02-05 07:25:23 Outpatient R CHENTE GARIBAY [facility] [id number] [facility] 2023-02-05 07:15:00 2023-02-05 07:25:23 Office Visit Chente Garibay [facility] 1.84.114 350.1.13.10 4.2.7.2.686 [id number] 044 [id number] [facility] 2023-01-03 00:00:00 2023-01-03 00:00:00 Refill Chente Garibay [facility] 1.84.114 350.1.13.10 4.2.7.2.686 [id number] 044 [id number] [facility] 2022-12-25 00:00:00 2022-12-25 00:00:00 Refill [facility] BU[facility] 1.2.840.114 350.1.13.10 4.2.7.2.686 [id number] 044 [id number] [facility] 2022-12-07 07:00:00 2022-12-07 07:15:00 Office Visit [facility] 1.2840.114 350.1.13.10 4.2.7.2.686 [id number] 044 [id number] [facility] 2022-12-07 07:00:00 2022-12-07 07:00:00 Outpatient R CHENTE GARIBAY [facility] [id number] [facility] 2022-11-20 00:00:00 2022-11-20 00:00:00 Telephone [place] [facility] DAT?[facility] BUILD[facility] 1.0.114 350.1.13.10 4.2.7.2.686 [id number] [id number] [facility] 2022-11-07 00:00:00 2022-11-07 00:00:00 Telephone [place] [facility] 1.2840.114 350.1.13.10 4.2.7.2.686 [id number] 044 [id number] [facility] 2022-10-19 00:00:00 2022-10-19 00:00:00 Refill [place] [facility] DAT?[facility] 1.2840.114 350.1.13.10 4.2.7.2.686 [id number] 044 [id number] [facility] 2022-10-10 07:00:00 2022-10-10 07:15:00 Office Visit [facility] 1.2840.114 350.1.13.10 4.2.7.2.686 [id number] 044 [id number] [facility] 2022-10-10 07:00:00 2022-10-10 07:00:00 Outpatient Susan PRABHA GARIBAYONY [facility] [id number] [facility] 2022-10-05 00:00:00 2022-10-05 00:00:00 Refill [place] [facility] 1.2.840.114 350.1.13.10 4.2.7.2.686 [id number] 044 [id number] [facility] 2022-09-19 00:00:00 2022-09-19 00:00:00 Telephone Chente Garibay [facility] 1.2.840.114 350.1.13.10 4.2.7.2.686 [id number] 044 [id number] [facility] 2022-09-07 00:00:00 2022-09-07 00:00:00 Refill [place] [facility] 1.2840.114 350.1.13.10 4.2.7.2.686 [id number] 044 [id number] [facility] 2022-08-23 00:00:00 2022-08-23 00:00:00 Refill [place] [facility] DAT?[facility] 1.2840.114 350.1.13.10 4.2.7.2.686 [id number] 044 [id number] [facility] 2022-08-10 07:45:00 2022-08-10 08:00:00 Office Visit Prabha [facility] 1.2.840.114 350.1.13.10 4.2.7.2.686 [id number] 044 [id number] [facility] 2022-08-10 07:45:00 2022-08-10 07:45:00 Outpatient R CHENTE GARIBAY [facility] [id number] [facility] 2022-07-24 00:00:00 2022-07-24 00:00:00 Telephone Nurse, Castillo Chahal [facility] 1.2.840.114 350.1.13.10 4.2.7.2.686 [id number] 044 [id number] [facility] 2022-07-09 00:00:00 2022-07-09 00:00:00 Refill [place] [facility] 1.2.840.114 350.1.13.10 4.2.7.2.686 [id number] [id number] [facility] 2022-06-26 00:00:00 2022-06-26 00:00:00 Refill [place] Chente [facility] 1.2.840.114 350.1.13.10 4.2.7.2.686 [id number] 044 [id number] [facility] 2022-06-12 07:00:00 2022-06-12 07:19:18 Office Visit Chente Garibay [facility] 1.2.840.114 350.1.13.10 4.2.7.2.686 [id number] [id number] [facility] 2022-06-12 07:00:00 2022-06-12 07:00:00 Outpatient R CHENTE GARIBAY [facility] [id number] [facility] 2022-06-09 00:00:00 2022-06-09 00:00:00 Abstract Sheila Andrew [facility] DAT?[facility] 1.2.840.114 350.1.13.10 4.2.7.2.686 [id number] [id number] [facility] 2022-06-08 00:00:00 2022-06-08 00:00:00 Refill Chente Garibay [facility] AILYN DAUGHERTY?[facility] 1.2840.114 350.1.13.10 4.2.7.2.686 [id number] 044 [id number] [facility] 2022-06-08 00:00:00 2022-06-08 00:00:00 Letter (Out) Chente Garibay [facility] AILYN DAUGHERTY?[facility] 1.2840.114 350.1.13.10 4.2.7.2.686 [id number] 044 [id number] [facility] 2022-05-10 00:00:00 2022-05-10 00:00:00 Telephone Chente Garibay [facility] AILYN DAUGHERTY?[facility] 1.2840.114 350.1.13.10 4.2.7.2.686 [id number] 044 [id number] [facility] 2022-05-01 00:00:00 2022-05-01 00:00:00 Refill Chente Garibay [facility] 1.2840.114 350.1.13.10 4.2.7.2.686 [id number] 044 [id number] [facility] 2022-05-01 00:00:00 2022-05-01 00:00:00 Telephone Chente Garibay [facility] 1.2840.114 350.1.13.10 4.2.7.2.686 [id number] 044 [id number] [facility] 2022-04-12 07:45:00 2022-04-12 08:00:00 Office Visit Chente Garibay [facility] AILYN DAUGHERTY?[facility] 1.2840.114 350.1.13.10 4.2.7.2.686 [id number] 044 [id number] [facility] 2022-04-12 07:45:00 2022-04-12 07:45:00 Outpatient R CHENTE GARIBAY [facility] [id number] [facility] 2022-04-12 07:45:00 2022-04-12 07:45:00 Outpatient R CHENTE GARIBAY [facility] [id number] [facility] 2022-04-10 00:00:00 2022-04-10 00:00:00 Letter (Out) Prabha [facility]Od[facility] CenterAL[facility] DA[facility]ILD[facility] 1.2.840.114 350.1.13.10 4.2.7.2.686 [id number] 044 [id number] [facility] 2022-04-07 03:22:00 2022-04-09 15:14:00 [id number] 2022-04-07 03:22:00 2022-04-09 15:14:00 Emergency [facility] 1.2840.114 350.1.13.10 4.2.7.2.686 [id number] [facility] 2022-04-04 00:00:00 2022-04-04 00:00:00 Refill [place] [facility] DAT?[facility] 1.2.840.114 350.1.13.10 4.2.7.2.686 [id number] 044 [id number] [facility] 2022-03-07 00:00:00 2022-03-07 00:00:00 Refill [place] [facility] 1.2.840.114 350.1.13.10 4.2.7.2.686 [id number] 044 [id number] [facility] 2022-02-06 09:30:00 2022-02-06 09:45:00 Office [facility] 1.2.840.114 350.1.13.10 4.2.7.2.686 [id number] 044 [id number] [facility] 2022-02-06 09:30:00 2022-02-06 09:30:00 Outpatient CHENTE DAN [facility] [id number] [facility] 2022-02-06 00:00:00 2022-02-06 00:00:00 Letter (Out) Doctor Unassigned, Kronenwetter [facility] 1.2.840.114 350.1.13.10 4.2.7.2.686 [id number] [id number] [facility] 2022-02-03 00:00:00 2022-02-03 00:00:00 Letter (Out) Chente Garibay [facility] 1.2.840.114 350.1.13.10 4.2.7.2.686 [id number] 044 [id number] [facility] 2022-01-09 07:15:00 2022-01-09 07:15:00 Outpatient CHENTE DAN [facility] [id number] [facility] 2021-12-26 14:30:00 2021-12-26 14:45:00 Office Visit [place] Chente [facility] 1.2.840.114 350.1.13.10 4.2.7.2.686 [id number] [id number] [facility] 2021-12-26 14:30:00 2021-12-26 14:44:40 Outpatient CHENTE DAN [facility] [id number] [facility] 2021-12-26 14:30:00 2021-12-26 14:30:00 Outpatient CHENTE DAN [facility] [id number] [facility] 2021-12-26 00:00:2021-12-26 00:00:00 Orders Only Doctor Unassigned, Kronenwetter [facility] 1.0.114 350.1.13.10 4.2.7.2.686 [id number] [facility] 2021-12-06 00:00:00 2021-12-06 00:00:00 Refill Chente Garibay [facility] 1..114 350.1.13.10 4.2.7.2.686 [id number] 044 [id number] [facility] 2021-11-07 07:15:00 2021-11-07 07:30:00 Office Visit Chente Garibay [facility] 1.84.114 350.1.13.10 4.2.7.2.686 [id number] [id number] [facility] 2021-11-07 07:15:00 2021-11-07 07:20:54 Outpatient R GARIBAYCHENTE NO [facility] [id number] [facility] 2021-11-07 07:15:00 2021-11-07 07:15:00 Outpatient Susan CARVALHOGARIBAYCHENTE NO [facility] [id number] [facility] 2021-10-06 07:45:00 2021-10-06 07:45:00 Outpatient Susan GARIBAY CHENTE [facility] [id number] [facility] 2021-10-06 07:45:00 2021-10-06 07:30:45 Outpatient R CHENTE GARIBAY [facility] [id number] [facility] 2021-10-06 07:10:11 2021-10-06 07:25:11 [facility] 1.284.114 350.1.13.10 4.2.7.2.686 [id number] [id number] [facility] 2021-10-06 00:00:00 2021-10-06 00:00:00 Orders Only Doctor Unassigned, Kronenwetter [facility] 1.2.840.114 350.1.13.10 4.2.7.2.686 [id number] [facility] 2021-09-05 12:00:00 2021-09-05 12:00:00 Outpatient R CHENTE GARIBAY [facility] [id number] [facility] 2021-09-05 12:00:00 2021-09-05 12:00:00 Outpatient R CHENTE GARIBAY [facility] [id number] [facility] 2021-09-05 10:58:09 2021-09-05 11:13:09 [facility] [place] [facility]?YURIAmena [facility] 1.2.840.114 350.1.13.10 4.2.7.2.686 [id number] [facility] 2021-09-05 00:00:00 2021-09-05 00:00:00 Telephone [place] [facility]?YURIAmena [facility] 1.2.840.114 350.1.13.10 4.2.7.2.686 [id number] [facility] 2021-08-11 07:45:00 2021-08-11 07:45:00 Outpatient R CHENTE GARIBAY [facility] [id number] [facility] 2021-08-11 07:23:32 2021-08-11 07:38:32 [facility] [place] [facility]ena [facility] 1.2.840.114 350.1.13.10 4.2.7.2.686 [id number] [facility] 2021-07-12 00:00:00 2021-07-12 00:00:00 [facility] [place] [facility] 1..114 350.1.13.10 4.2.7.2.686 [id number] [facility] 2021-07-07 00:00:00 2021-07-07 00:00:00 [facility] 1.84.114 350.1.13.10 4.2.7.2.686 [id number] [facility] 2021-06-13 08:30:00 2021-06-13 08:30:00 Outpatient R CHENTE GARIBAY [facility] [id number] [facility] 2021-06-13 08:30:00 2021-06-13 08:30:00 Outpatient CHENTE DAN [facility] [id number] [facility] 2021-06-13 07:51:33 2021-06-13 08:06:33 Office Visit [place] [facility] 1.114 350.1.13.10 4.2.7.2.686 [id number] [facility] 2021-06-13 00:00:00 2021-06-13 00:00:00 Orders Only Doctor Unassigned, [place] [facility] 1.114 350.1.13.10 4.2.7.2.686 [id number] [facility] 2021-05-11 00:00:00 2021-05-11 00:00:00 Refill [place] [facility] .114 350.1.13.10 4.2.7.2.686 [id number] [id number] [facility] 2021-04-14 07:00:43 2021-04-14 07:15:43 [facility] 1.840.114 350.1.13.10 4.2.7.2.686 [id number] [facility] 2021-04-14 07:15:00 2021-04-14 07:15:00 Outpatient R CHENTE GARIBAY [facility] [id number] [facility] 2021-04-12 08:15:00 2021-04-12 08:15:00 Outpatient R PHOENIXCHENTE [facility] [id number] [facility] 2021-03-18 00:00:00 2021-03-18 00:00:00 Refill [place] [facility] 1.0.114 350.1.13.10 4.2.7.2.686 [id number] [id number] [facility] 2021-03-09 00:00:00 2021-03-09 00:00:00 Refill [place] [facility] 1.0.114 350.1.13.10 4.2.7.2.686 [id number] [id number] [facility] 2021-02-17 00:00:00 2021-02-17 00:00:00 Refrobbie Garibay [facility] 1.0.114 350.1.13.10 4.2.7.2.686 [id number] 044 [id number] [facility] 2021-02-10 09:15:00 2021-02-10 09:15:00 Outpatient R GARIBAY CHENTE [facility] [id number] [facility] 2021-02-10 08:25:17 2021-02-10 08:40:17 Office Visit [place] [facility] 1.0.114 350.1.13.10 4.2.7.2.686 [id number] [id number] [facility] 2021-02-10 00:00:00 2021-02-10 00:00:00 Orders Only Doctor Unassigned, [place] [facility] 1..114 350.1.13.10 4.2.7.2.686 [id number] [facility] 2021-01-20 00:00:00 2021-01-20 00:00:00 Refill [place] [facility] 1..114 350.1.13.10 4.2.7.2.686 [id number] 044 [id number] [facility] 2021-01-10 00:00:00 2021-01-10 00:00:00 Telephone [place] [facility] 1..114 350.1.13.10 4.2.7.2.686 [id number] 044 [id number] [facility] 2021-01-07 00:00:00 2021-01-07 00:00:00 Refill [place] [facility] ..114 350.1.13.10 4.2.7.2.686 [id number] [id number] [facility] 2020-12-29 15:15:00 2020-12-29 15:15:00 Outpatient R CHENTE GARIBAY [facility] [id number] [facility] 2020-12-29 14:54:26 2020-12-29 15:09:26 Office Visit [place] [facility] Office Building One ..114 350.1.13.10 4.2.7.2.686 [id number] 044 [id number] [facility] 2020-12-29 00:00:00 2020-12-29 00:00:00 Letter (Out) Doctor Unassigned, [place] [facility] 1.2.840.114 350.1.13.10 4.2.7.2.686 [id number] 044 [id number] [facility] 2020-12-28 00:00:00 2020-12-28 00:00:00 Telephone [place] [facility] Office Building One 1.2840.114 350.1.13.10 4.2.7.2.686 [id number] 044 [id number] [facility] 2020-12-24 00:00:00 2020-12-24 00:00:00 Telephone [place] [facility] Office Building One 1.840.114 350.1.13.10 4.2.7.2.686 [id number] 044 [id number] [facility] 2020-12-23 00:00:00 2020-12-23 00:00:00 Refill [place] [facility] Building 1.840.114 350.1.13.10 4.2.7.2.686 [id number] 044 [id number] [facility] 2020-12-13 09:30:00 2020-12-13 09:30:00 Outpatient R CHENTE GARIBAY [facility] [id number] [facility] 2020-11-23 00:00:00 2020-11-23 00:00:00 Refrobbie Garibay, [facility] Office Building One 1.840.114 350.1.13.10 4.2.7.2.686 [id number] 044 [id number] [facility] 2020-11-11 00:00:00 2020-11-11 00:00:00 Jaja Garibay [facility] Office Building One 1.840.114 350.1.13.10 4.2.7.2.686 [id number] 044 [id number] [facility] 2020-10-25 00:00:00 2020-10-25 00:00:00 Refill Chente Garibay [facility] Office Building One 1..114 350.1.13.10 4.2.7.2.686 [id number] 044 [id number] [facility] 2020-10-18 08:30:00 2020-10-18 08:30:00 Outpatient R CHENTE GARIBAY [facility] [id number] [facility] 2020-10-11 10:15:00 2020-10-11 10:15:00 Outpatient R CHENTE GARIBAY [facility] [id number] [facility] 2020-10-11 09:35:25 2020-10-11 09:50:25 Office Visit [place] [facility] Office Building One 1..114 350.1.13.10 4.2.7.2.686 [id number] 044 [id number] [facility] 2020-10-05 00:00:00 2020-10-05 00:00:00 Telephone [place] [facility] Office Building One 1..114 350.1.13.10 4.2.7.2.686 [id number] 044 [id number] [facility] 2020-09-27 00:00:00 2020-09-27 00:00:00 Telephone Chente Garibay [facility] nal Building 1.2.114 350.1.13.10 4.2.7.2.686 [id number] 044 [id number] [facility] 2020-09-15 00:00:00 2020-09-15 00:00:00 Refill Chente Garibay [facility] Office Building One 1..114 350.1.13.10 4.2.7.2.686 [id number] 044 [id number] [facility] 2020-08-30 00:00:00 2020-08-30 00:00:00 Refill Chente Garibay [facility] Office Building One 1..840.114 350.1.13.10 4.2.7.2.686 [id number] 044 [id number] [facility] 2020-08-16 10:00:00 2020-08-16 10:00:00 Outpatient R CHENTE GARIBAY [facility] [id number] [facility] 2020-08-16 09:22:59 2020-08-16 09:37:59 Office Visit Chente Garibay [facility] Office Building One 1..840.114 350.1.13.10 4.2.7.2.686 [id number] 044 [id number] [facility] 2020-08-05 09:15:00 2020-08-05 09:15:00 Outpatient R PRABHA GARIBAYONY [facility] [id number] [facility] 2020-08-02 00:00:00 2020-08-02 00:00:00 [facility] 1..840.114 350.1.13.10 4.2.7.2.686 [id number] 044 [id number] [facility] 2020-07-08 16:15:00 2020-07-08 16:15:00 Outpatient R PRABHA GARIBAYONY [facility] [id number] [facility] 2020-07-08 13:18:41 2020-07-08 14:09:01 Office Visit Chente Garibay [facility] Building 1..840.114 350.1.13.10 4.2.7.2.686 [id number] 044 [id number] [facility] 2020-07-08 13:30:00 2020-07-08 13:30:00 Outpatient R CHENTE GARIBAY [facility] [id number] [facility] 2020-07-08 00:00:00 2020-07-08 00:00:00 Telephone [place] [facility] Office Building One 1.2.840.114 350.1.13.10 4.2.7.2.686 [id number] 044 [id number] [facility] 2020-07-07 00:00:00 2020-07-07 00:00:00 Telephone Chente Garibay [facility] Office Building One 1.2.840.114 350.1.13.10 4.2.7.2.686 [id number] 044 [id number] [facility] 2020-06-24 00:00:00 2020-06-24 00:00:00 Refill Chente Garibay [facility] Office Building One 1.2.840.114 350.1.13.10 4.2.7.2.686 [id number] 044 [id number] [facility] 2020-06-22 00:00:00 2020-06-22 00:00:00 Refill [place] [facility] Office Building One 1.2.840.114 350.1.13.10 4.2.7.2.686 [id number] 044 [id number] [facility] 2020-06-14 00:00:00 2020-06-14 00:00:00 Telephone Chente Garibay [facility] Office Building One 1.2.840.114 350.1.13.10 4.2.7.2.686 [id number] 044 [id number] [facility] 2020-06-07 14:00:00 2020-06-07 14:00:00 Outpatient R CHENTE GARIBAY [facility] [id number] [facility] 2020-06-07 00:00:00 2020-06-07 00:00:00 Telephone [place] [facility] Office Building One 1.2.840.114 350.1.13.10 4.2.7.2.686 [id number] 044 [id number] [facility] 2020-06-03 00:00:00 2020-06-03 00:00:00 Telephone Chente Garibay [facility] Office Building One 1.840.114 350.1.13.10 4.2.7.2.686 [id number] 044 [id number] [facility] 2020-05-31 09:53:09 2020-05-31 10:08:09 Office Visit Chente Garibay [facility] Building 1.2840.114 350.1.13.10 4.2.7.2.686 [id number] 044 [id number] [facility] 2020-05-31 10:00:00 2020-05-31 10:00:00 Outpatient R CHENTE GARIBAY [facility] [id number] [facility] 2020-05-27 00:00:00 2020-05-27 00:00:00 Refill Chente Garibay [facility] Office Building One 1.0.114 350.1.13.10 4.2.7.2.686 [id number] 044 [id number] [facility] 2020-05-26 00:00:00 2020-05-26 00:00:00 Refill Chente Garibay [facility] Office Building One 1..114 350.1.13.10 4.2.7.2.686 [id number] 044 [id number] [facility] 2020-05-19 14:00:00 2020-05-19 14:00:00 Outpatient R PRICILA ESPINOZA [facility] [id number] [facility] 2020-05-14 00:00:00 2020-05-14 00:00:00 Refill [place] [facility] Office Building One 1..114 350.1.13.10 4.2.7.2.686 [id number] 044 [id number] [facility] 2020-05-12 13:00:00 2020-05-12 13:00:00 Outpatient R JOANIE TAMAYO [facility] [id number] [facility] 2020-05-03 00:00:00 2020-05-03 00:00:00 Refill [place] [facility] Office Building One 1..114 350.1.13.10 4.2.7.2.686 [id number] 044 [id number] [facility] 2020-04-14 00:00:00 2020-04-14 00:00:00 Refill [place] Chente [facility] Office Building One 1..114 350.1.13.10 4.2.7.2.686 [id number] 044 [id number] [facility] 2020-03-18 08:45:00 2020-03-18 08:45:00 Outpatient R CHENTE GARIBAY [facility] [id number] [facility] 2020-03-18 07:55:07 2020-03-18 08:10:07 Office Visit [place] [facility] Building 1..114 350.1.13.10 4.2.7.2.686 [id number] 044 [id number] [facility] 2020-03-16 00:00:00 2020-03-16 00:00:00 Telephone Chente Garibay [facility] Office Building One 1..114 350.1.13.10 4.2.7.2.686 [id number] 044 [id number] [facility] 2020-03-08 08:45:00 2020-03-08 08:45:00 Outpatient R CHENTE GARIBAY [facility] [id number] [facility] 2020-03-08 07:21:42 2020-03-08 07:36:42 Telemedici ne Visit Chente Garibay [facility] Building 1.2.114 350.1.13.10 4.2.7.2.686 [id number] 044 [id number] [facility] 2020-03-01 23:04:49 2020-03-02 00:38:00 Emergency X LI HURTADO [facility] ERT [id number] [facility] it[facility] 2020-03-01 23:04:49 2020-03-02 00:38:00 Emergency Li Hurtado [facility] 1.2.840.114 350.1.13.10 4.2.7.2.686 [id number] 084 [id number] [facility] 2020-03-02 00:00:00 2020-03-02 [facility] 1.2840.114 350.1.13.10 4.2.7.2.686 [id number] 044 [id number] [facility] 2020-02-24 00:00:00 2020-02-24 00:00:00 Refill [place] [facility] Office Building One 1.2840.114 350.1.13.10 4.2.7.2.686 [id number] 044 [id number] [facility] 2020-02-12 00:00:00 2020-02-12 00:00:00 Telephone [place] [facility] Office Building One 1.2840.114 350.1.13.10 4.2.7.2.686 [id number] 044 [id number] [facility] ity [facility] 2020-02-10 13:15:00 2020-02-10 13:15:00 Outpatient R CINDYJOANIE EMERY [facility] [id number] [facility] 2020-02-10 08:07:04 2020-02-10 08:22:04 Telemedici ne [facility] 1.2840.114 350.1.13.10 4.2.7.2.686 [id number] [facility] 2020-02-10 00:00:00 2020-02-10 00:00:00 Telephone Chente Garibay [facility] Office Building One 1.840.114 350.1.13.10 4.2.7.2.686 [id number] 044 [id number] [facility] 2020-02-09 08:15:00 2020-02-09 08:15:00 Outpatient R CHENTE GARIBAY [facility] [id number] [facility] 2020-02-09 06:56:25 2020-02-09 07:11:25 [facility]ici ne [facility] 1.840.114 350.1.13.10 4.2.7.2.686 [id number] 044 [id number] [facility] 2020-01-30 00:00:00 2020-01-30 00:00:00 Orders Only Doctor Unassigned, [place] [facility] 1.2.840.114 350.1.13.10 4.2.7.2.686 [id number] [id number] [facility] 2020-01-27 00:00:00 2020-01-27 00:00:00 Telephone [place] [facility] Office Building One 1.2840.114 350.1.13.10 4.2.7.2.686 [id number] 044 [id number] [facility] 2020-01-27 00:00:00 2020-01-27 00:00:00 Telephone [place] [facility] Office Building One 1.2840.114 350.1.13.10 4.2.7.2.686 [id number] 044 [id number] [facility] 2020-01-21 00:00:00 2020-01-21 00:00:00 Telephone [place] [facility] Office Building One 1.840.114 350.1.13.10 4.2.7.2.686 [id number] 044 [id number] [facility] 2020-01-19 00:00:00 2020-01-19 00:00:00 Refill [place] [facility] Office Building One 1.114 350.1.13.10 4.2.7.2.686 [id number] 044 [id number] [facility] 2020-01-13 09:11:09 2020-01-13 23:59:00 Outpatient CHENTE DAN [facility] [id number] [facility] 2020-01-13 09:11:00 2020-01-13 23:59:00 Hospital Encounter Chente Garibay [facility] 1.114 350.1.13.10 4.2.7.2.686 [id number] [facility] 2020-01-13 00:00:00 2020-01-13 00:00:00 Outpatient CHENTE DAN [facility] [id number] [facility] 2019-12-24 00:00:00 2019-12-24 00:00:00 Telephone Chente Garibay [facility] Office Building One 1.114 350.1.13.10 4.2.7.2.686 [id number] 044 [id number] [facility] 2019-12-22 07:05:26 2019-12-22 07:35:26 Office Visit Chente Garibay [facility] Office Building One 1..114 350.1.13.10 4.2.7.2.686 [id number] 044 [id number] [facility] 2019-12-22 00:00:00 2019-12-22 00:00:00 Orders Only Doctor Unassigned, [place] [facility] 1..114 350.1.13.10 4.2.7.2.686 [id number] [id number] [facility] 2019-12-20 13:12:36 2019-12-20 17:57:00 Emergency X LI HURTADO [facility] ERT [id number] [facility] 2019-12-20 13:12:36 2019-12-20 17:57:00 Emergency Li Hurtado [facility] 1.2.840.114 350.1.13.10 4.2.7.2.686 [id number] 084 [id number] [facility] 2019-12-20 00:00:00 2019-12-20 00:00:00 Orders Only Doctor Unassigned, [place] [facility] 1.2.840.114 350.1.13.10 4.2.7.2.686 [id number] 009 [id number] [facility] 2019-12-19 00:00:00 2019-12-19 00:00:[address] 1.840.114 350.1.13.10 4.2.7.2.686 [id number] 044 [id number] [facility] 2019-12-11 08:33:50 2019-12-11 08:48:50 [facility] 1.840.114 350.1.13.10 4.2.7.2.686 [id number] 044 [id number] [facility] 2019-12-11 00:00:00 2019-12-11 00:00:00 Orders Only Doctor Unassigned, [place] [facility] 1.2840.114 350.1.13.10 4.2.7.2.686 [id number] 009 [id number] [facility] 2019-11-20 00:00:00 2019-11-20 00:00:[address] [facility] 1.840.114 350.1.13.10 4.2.7.2.686 [id number] 044 [id number] [facility] 2019-06-17 00:00:00 2019-06-17 00:00:00 Chente Butcher [facility] One 1.2.840.114 350.1.13.10 4.2.7.2.686 [id number] 044 [id number] [facility] Results Test Description Test Time Test Comments Results Result Comments Source CT Lumbar spine wo contrast 00:33:49 CT LUMBAR SPINE WO CONTRAST HISTORY: ?Low back pain, increased fracture risk COMPARISON: None. TECHNIQUE: Nonenhanced CT scan of the lumbar spine was done in multipledimensions. FINDINGS: The lumbar curvature is normal. The vertebral bodies are normal in heightand in normal alignment. No facet fracture or subluxation is present. Mild L4-S1 degenerative changes seen. The visualized sacrum and pelvic bones are unremarkable. Mild aortoiliac calcifications seen. [facility] MR Lumbar spine wo contrast 21:35:02 MR LUMBAR SPINE WO CONTRAST HISTORY: 49 year old male with PMH R L4-5 hemilaminectomy/discectomy [id number] at [facility] presenting to neurosurgery clinic with chronic,constant low back pain w/radiation down posterior BLE to calves worseningover last few years. + muscle spasms. BLE weakness R>L with numbness toright foot and toes. Denies gait instability, bowel/bladder incontinence orsaddle anesthesia. COMPARISON: Date 08/24/2020 TECHNIQUE: MRI lumbar spine without contrast FINDINGS: The lumbar lordosis is normal. Postsurgical changes of right L4-C5xeyuuxcquubrawt. The vertebral bodies are normal in height [...] foraminal narrowing. No significant spinal canal stenosis. [facility] CT CHEST PULMONARY ANGIOGRAM 18:59:53 INDICATION: ?PE suspected, high pretest prob COVID (+); chest pain, dyspnea, smoker ORDERING PROVIDER: ?NELIDA MERCER TECHNIQUE: ?Helical CT imaging was performed through the chest followingthe infusion of intravenous contrast according to pulmonary embolusprotocol. ?Maximum intensity projection images were created and reviewed. CT was performed in accordance with the principles of ALARA. HS:YRL: ?5944AFC: ?56130 COMPARISON: ?CT angiogram 09/21/2023 FINDINGS: ?No pulmonary [...] lobe isunchanged. No acute osseous abnormality demonstrated. [facility] ([facility]10) (ALB,T.PRO,BILI T,BU/BC,ALT,AST,ALK PHOS)2023-12-07 12:59:57* Test Item Value Reference Range Interpretation Comme nts TOTAL BILI (test code = 4848727558) 0.5 mg/dL 0.1-1.1 BILI UNCON (test code = 0925796443) 0.2 mg/dL 0.1-1.1 BILI CONJ (test code = 6879825832) 0.0 mg/dL 0.0-0.3 T PROTEIN (test code = 6388937604) 6.4 g/dL 6.3-8.2 ALBUMIN (test code = 9190650906) 3.7 g/dL 3.5-5.0 ALK PHOS (test code = 0371272557) 38 U/L 34-122 ALTv (test code = 1742-6) 45 U/L 5-50 AST(SGOT) (test code = 4222608888) 44 U/L 13-40 H Lab Interpretation (test cod e = 41721-2) Abnormal [facility] (NA, K, CL, CO2, GLUCOSE, BUN, CREATININE, CA)2023-12-07 12:59:57* Test Item Value Reference Range Interpretation Comme nts NA (test code = 3854207929) 134 mmol/L 135-145 L K (test code = 5336224148) 4.5 mmol/L 3.5-5.0 CL (test code = 8043538298) 106 mmol/L 98-108 CO2 TOTAL (test code = 4702217418) 24 mmol/L 23-31 AGAP (test code = 1844418542) 4 2-16 BUN (test code = 1225403736) 16 mg/dL 7-23 GLUCOSE (test code = 0625532658) 110 mg/dL 70-110 CREATININE (test code = 6479670593) 0.61 mg/dL 0.60-1.25 CALCIUM (test code = 9121779235) 8.9 mg/dL 8.6-10.6 eGFR (test code = 05146-4) 118.5 mL/min/1.73m2 CKD-EPI eGFR (2020). Assuming creatinine has been stable day-to-day for at least three months, the eGFR indicates Category G1 (>= 90 mL/min/1.73 m2) Lab Interpretation (test code = 94131-0) Abnormal [facility] (46606) (ALB,T.PRO,BILI T,BU/BC,ALT,AST,ALK PHOS)2023-12-07 12:59:57* Test Item Value Reference Range Interpretation Comme nts TOTAL BILI (test code = 5528517851) 0.5 mg/dL 0.1-1.1 BILI UNCON (test code = 9116840639) 0.2 mg/dL 0.1-1.1 BILI CONJ (test code = 4386972798) 0.0 mg/dL 0.0-0.3 T PROTEIN (test code = 3612221206) 6.4 g/dL 6.3-8.2 ALBUMIN (test code = 2815753250) 3.7 g/dL 3.5-5.0 ALK PHOS (test code = 2122845523) 38 U/L 34-122 ALTv (test code = 1742-6) 45 U/L 5-50 AST(SGOT) (test code = 2651628667) 44 U/L 13-40 H Lab Interpretation (test cod e = 50037-8) Abnormal [facility] with Wuqvesldmvok6801-81-98 12:29:33* Test Item Value Reference Range Interpretation [...] 34.1 g/dL 31.2-35.0 RDW-SD (test code = 48282-2) 44.3 fL 38.5-51.6 RDW-CV (test code = 788-0) 13.0 % 12.1-15.4 PLT (test code = 777-3) 251 150-328 MPV (test code = 88228-5) 10.4 fL 9.8-13.0 NRBC/100 WBC (test code = 8738411019) 0.0 0.0-10.0 NRBC x10^3 (test code = 8326326679) See_Comment [Automated message] The system which generated this result transmitted reference range: 10*3/?L. The reference range was not used to interpret this result as normal/abnormal. GRAN MAT (NEUT) % (test code = 770-8) 87.8 % IMM GRAN % (test code = 5960252751) 0.50 % LYMPH % (test code = 736-9) 6.6 % MONO % (test code = 5905-5) 4.8 % EOS % (test code = 713-8) 0.1 % BASO % (test code = 706-2) 0.2 % GRAN MAT x10^3(ANC) (test code = 8081860724) 13.83 10*3/uL 1.99-6.95 H IMM GRAN x10^3 (test code = 7493444930) 0.08 10*3/uL 0.00-0.06 H LYMPH x10^3 (test code = 731-0) 1.04 10*3/uL 1.09-3.23 L MONO x10^3 (test code = 742-7) 0.75 10*3/uL 0.36-1.02 EOS x10^3 (test code = 711-2) 0.06-0.53 L BASO x10^3 (test code = 704-7) 0.03 10*3/uL 0.01-0.09 Lab Interpretation (test code = 88795-0) Abnormal [facility] with Cifwalxktuoy9490-61-52 12:29:33* Test Item Value Reference Range Interpretation [...] 34.1 g/dL 31.2-35.0 RDW-SD (test code = 90469-0) 44.3 fL 38.5-51.6 RDW-CV (test code = 788-0) 13.0 % 12.1-15.4 PLT (test code = 777-3) 251 150-328 MPV (test code = 32336-1) 10.4 fL 9.8-13.0 NRBC/100 WBC (test code = 8952978320) 0.0 0.0-10.0 NRBC x10^3 (test code = 3395410065) See_Comment [Automated message] The system which generated this result transmitted reference range: 10*3/?L. The reference range was not used to interpret this result as normal/abnormal. GRAN MAT (NEUT) % (test code = 770-8) 87.8 % IMM GRAN % (test code = 1729025328) 0.50 % LYMPH % (test code = 736-9) 6.6 % MONO % (test code = 5905-5) 4.8 % EOS % (test code = 713-8) 0.1 % BASO % (test code = 706-2) 0.2 % GRAN MAT x10^3(ANC) (test code = 0846910035) 13.83 10*3/uL 1.99-6.95 H IMM GRAN x10^3 (test code = 9674888373) 0.08 10*3/uL 0.00-0.06 H LYMPH x10^3 (test code = 731-0) 1.04 10*3/uL 1.09-3.23 L MONO x10^3 (test code = 742-7) 0.75 10*3/uL 0.36-1.02 EOS x10^3 (test code = 711-2) 0.06-0.53 L BASO x10^3 (test code = 704-7) 0.03 10*3/uL 0.01-0.09 Lab Interpretation (test code = 49356-4) Abnormal [facility] CenterTr[facility] [id number] 16:42:32* Test Item Value Reference Range Interpretation Comme nts TROPONIN I (test code = 2986022958) 0.000 ng/mL <=0.034 MAXWELL (test code = [...] of biotin. Lab Interpretation (test code = 19481-4) Normal [facility] CenterTroponin [id number] 16:42:32* Test Item Value Reference Range Interpretation Comme nts TROPONIN I (test code = 1588001783) 0.000 ng/mL <=0.034 MAXWELL (test code = [...] of biotin. Lab Interpretation (test code = 09801-4) Normal [facility]. Metabolic Panel (35626)2023-12-06 16:31:12* Test Item Value Reference Range Interpretation Comme nts NA (test code = 7300309201) 137 mmol/L 135-145 K (test code = 3517326942) 4.3 mmol/L 3.5-5.0 CL (test code = 3338668623) 105 mmol/L 98-108 CO2 TOTAL (test code = 0069973677) 24 mmol/L 23-31 AGAP (test code = 0386421711) 8 2-16 BUN (test code = 2348218965) 15 mg/dL 7-23 GLUCOSE (test code = 5776544215) 101 mg/dL 70-110 CREATININE (test code = 0505286624) 0.76 mg/dL 0.60-1.25 TOTAL BILI (test code = 7630110653) 0.4 mg/dL 0.1-1.1 CALCIUM (test code = 8882630883) 9.6 mg/dL 8.6-10.6 T PROTEIN (test code = 5087240204) 7.6 g/dL 6.3-8.2 ALBUMIN (test code = 1811590943) 4.5 g/dL 3.5-5.0 ALK PHOS (test code = 0513453510) 56 U/L 34-122 ALTv (test code = 1742-6) 36 U/L 5-50 AST(SGOT) (test code = 4401485572) 36 U/L 13-40 eGFR (test code = 17090-8) 110.9 mL/min/1.73m2 CKD-EPI eGFR (20 21). Assuming creatinine has been stable day-to-day for at least three months, the eGFR indicates Category G1 (>= 90 mL/min/1.73 m2) [facility] Center[facility]esium2024-02-01 16:31:12* Test Item Value Reference Range Interpretation Comme nts MAGNESIUM (test code = 3880686668) 2.0 mg/dL 1.7-2.4 Lab Interpretation (test cod e = 93073-2) Normal [facility] Metabolic Panel (23833)2023-12-06 16:31:12* Test Item Value Reference Range Interpretation Comme nts NA (test code = 0406902297) 137 mmol/L 135-145 K (test code = 4228603816) 4.3 mmol/L 3.5-5.0 CL (test code = 3383230113) 105 mmol/L 98-108 CO2 TOTAL (test code = 6139978776) 24 mmol/L 23-31 AGAP (test code = 7030264535) 8 2-16 BUN (test code = 8774157537) 15 mg/dL 7-23 GLUCOSE (test code = 3081148050) 101 mg/dL 70-110 CREATININE (test code = 2056298410) 0.76 mg/dL 0.60-1.25 TOTAL BILI (test code = 2694817272) 0.4 mg/dL 0.1-1.1 CALCIUM (test code = 3566880866) 9.6 mg/dL 8.6-10.6 T PROTEIN (test code = 8165939634) 7.6 g/dL 6.3-8.2 ALBUMIN (test code = 8988094236) 4.5 g/dL 3.5-5.0 ALK PHOS (test code = 3658540984) 56 U/L 34-122 ALTv (test code = 1742-6) 36 U/L 5-50 AST(SGOT) (test code = 7068637870) 36 U/L 13-40 eGFR (test code = 22178-1) 110.9 mL/min/1.73m2 CKD-EPI eGFR (20 21). Assuming creatinine has been stable day-to-day for at least three months, the eGFR indicates Category G1 (>= 90 mL/min/1.73 m2) [facility] 16:31:12* Test Item Value Reference Range Interpretation Comme nts MAGNESIUM (test code = 5009371344) 2.0 mg/dL 1.7-2.4 Lab Interpretation (test cod e = 00259-3) Normal [facility] 16:30:51* Test Item Value Reference Range Interpretation Comme nts LIPASE (test code = 0516719907) 89 U/L 0-220 Lab Interpretation (test cod e = 23875-5) Normal [facility] 16:30:51* Test Item Value Reference Range Interpretation Comme nts LIPASE (test code = 8380198417) 89 U/L 0-220 Lab Interpretation (test cod e = 92874-6) Normal [facility] Center[facility]b with Tjvd0101-63-07 16:00:43* Test Item Value Reference Range Interpretation [...] 35.0 g/dL 31.2-35.0 RDW-SD (test code = 54522-3) 43.0 fL 38.5-51.6 RDW-CV (test code = 788-0) 13.0 % 12.1-15.4 PLT (test code = 777-3) 265 150-328 MPV (test code = 39892-5) 10.3 fL 9.8-13.0 NRBC/100 WBC (test code = 0462819162) 0.0 0.0-10.0 NRBC x10^3 (test code = 9775946639) See_Comment [Automated me ssage] The system which generated this result transmitted reference range: 10*3/?L. The reference range was not used to interpret this result as normal/abnormal. GRAN MAT (NEUT) % (test code = 770-8) 51.2 % IMM GRAN % (test code = 3072911083) 0.40 % LYMPH % (test code = 736-9) 35.5 % MONO % (test code = 5905-5) 7.4 % EOS % (test code = 713-8) 4.4 % BASO % (test code = 706-2) 1.1 % GRAN MAT x10^3(ANC) (test code = 0237715250) 4.39 10*3/uL 1.99-6.95 IMM GRAN x10^3 (test code = 7762841859) 0.03 10*3/uL 0.00-0.06 LYMPH x10^3 (test code = 731-0) 3.04 10*3/uL 1.09-3.23 MONO x10^3 (test code = 742-7) 0.63 10*3/uL 0.36-1.02 EOS x10^3 (test code = 711-2) 0.38 10*3/uL 0.06-0.53 BASO x10^3 (test code = 704-7) 0.09 10*3/uL 0.01-0.09 [facility] with [id number] 16:00:43* Test Item Value Reference Range Interpretation [...] 35.0 g/dL 31.2-35.0 RDW-SD (test code = 50056-8) 43.0 fL 38.5-51.6 RDW-CV (test code = 788-0) 13.0 % 12.1-15.4 PLT (test code = 777-3) 265 150-328 MPV (test code = 87367-4) 10.3 fL 9.8-13.0 NRBC/100 WBC (test code = 4744741297) 0.0 0.0-10.0 NRBC x10^3 (test code = 7170092314) See_Comment [Automated me ssage] The system which generated this result transmitted reference range: 10*3/?L. The reference range was not used to interpret this result as normal/abnormal. GRAN MAT (NEUT) % (test code = 770-8) 51.2 % IMM GRAN % (test code = 5515393341) 0.40 % LYMPH % (test code = 736-9) 35.5 % MONO % (test code = 5905-5) 7.4 % EOS % (test code = 713-8) 4.4 % BASO % (test code = 706-2) 1.1 % GRAN MAT x10^3(ANC) (test code = 0975134886) 4.39 10*3/uL 1.99-6.95 IMM GRAN x10^3 (test code = 0799964745) 0.03 10*3/uL 0.00-0.06 LYMPH x10^3 (test code = 731-0) 3.04 10*3/uL 1.09-3.23 MONO x10^3 (test code = 742-7) 0.63 10*3/uL 0.36-1.02 EOS x10^3 (test code = 711-2) 0.38 10*3/uL 0.06-0.53 BASO x10^3 (test code = 704-7) 0.09 10*3/uL 0.01-0.[address] [facility]TR[facility] [id number] 00:59:19* Test Item Value Reference Range Interpretation Comme nts TROPONIN I (test code = 8250007456) 0.003 ng/mL <=0.034 MAXWELL (test code = [...] of biotin. Lab Interpretation (test code = 23356-3) Normal [facility] WITH [id number] 23:51:53* Test Item Value Reference Range Interpretation Comme nts WBC (test code = 6690-2) 12.01 See_Comment H [Automated LIQUITYa ge] The system which generated this result transmitted reference range: 4.20 - 10.70 10*3/?L. The reference range was not used to interpret this result as normal/abnormal. RBC (test code = 789-8) 4.68 See_Comment [Automated LIQUITYa Poolami] The system which generated this result transmitted [...] g/dL 31.2-35.0 H RDW-SD (test code = 51519-0) 42.2 fL 38.5-51.6 RDW-CV (test code = 788-0) 12.9 % 12.1-15.4 PLT (test code = 777-3) 346 See_Comment H [Automated messa ge] The system which generated this result transmitted reference range: 150 - 328 10*3/?L. The reference range was not used to interpret this result as normal/abnormal. MPV (test code = 24101-4) 10.7 fL 9.8-13.0 NRBC/100 WBC (test code = 7601831142) 0.0 See_Comment [Automated MyPronostic ssage] The system which generated this result transmitted reference range: 0.0 - 10.0 /100 WBCs. The reference range was not used to interpret this result as normal/abnormal. NRBC x10^3 (test code = 2224619295) See_Comment [Automated messa ge] The system which generated this result transmitted reference range: 10*3/?L. The reference range was not used to interpret this result as normal/abnormal. SEG % (test code = 07764-1) 53 % 33-76 BAND % (test code = 36928-9) 3 % 0-1 H LYMPH % (test code = 69821-6) 31 % 14-54 REACT LYMPH % (test code = 6092938380) 2 % MONO % (test code = 17174-3) 8 % 0-4 H EOS % (test code = 50666-6) 3 % 0-3 ANC (test code = 753-4) 6.73 10*3/uL 1.99-6.95 Lab Interpretation (test code = 91049-1) Abnormal [facility]. METABOLIC PANEL (17318)2023-09-21 23:26:27* Test Item Value Reference Range Interpretation Comme nts NA (test code = 7854351857) 143 mmol/L 135-145 K (test code = 3077371808) 4.4 mmol/L 3.5-5.0 CL (test code = 1436885672) 107 mmol/L 98-108 CO2 TOTAL (test code = 6688809480) 27 mmol/L 23-31 AGAP (test code = 4215419164) 9 2-16 BUN (test code = 5929130067) 14 mg/dL 7-23 GLUCOSE (test code = 8660348562) 114 mg/dL 70-110 H CREATININE (test code = 7844991532) 1.92 mg/dL 0.60-1.25 H TOTAL BILI (test code = 9598361866) 0.3 mg/dL 0.1-1.1 CALCIUM (test code = 8888502257) 9.5 mg/dL 8.6-10.6 T PROTEIN (test code = 5716351692) 7.2 g/dL 6.3-8.2 ALBUMIN (test code = 2657133182) 4.7 g/dL 3.5-5.0 ALK PHOS (test code = 5966674191) 53 U/L 34-122 ALTv (test code = 1742-6) 34 U/L 5-50 AST(SGOT) (test code = 3288575726) 24 U/L 13-40 eGFR (test code = 81875-8) 42.4 mL/min/1.73m2 CKD-EPI eGFR (2020). Assuming creatinine has been stable day-to-day for at least three months, the eGFR indicates Category G3b (30 - 44 mL/min/1.73 m2) Lab Interpretation (test code = 27256-7) [facility]normal [facility]2023-[facility]17 23:25:46* Test Item Value Reference Range Interpretation Comme nts LIPASE (test code = 4025134264) 320 U/L 0-220 H Lab Interpretation (test cod e = 71922-5) [facility]normal [facility] CenterDIFF CONSULT [id number] 21:49:53 LEUKOCYTOSIS WITH ABSOLUTE NEUTROPHILIA AND LYMPHOCYTOSIS. NO INCREASE IN BLASTS IDENTIFIED. NORMOCYTIC, MILDLY HYPERCHROMIC RED BLOOD CELLS. PLATELETS ARE UNREMARKABLE.[facility] CenterPROCALCITONIN2023-06-22 16:26:27 * Test Item Value Reference Range Interpretation Comme nts Procalcitonin (test code = 5384860104) <=0.07 MAXWELL (test code = MAXEWLL) INTERPRETATION OF PROCALCITONIN RESULTS IN ADULTS >= [...] lung abscess/empyema. For further information please refer to:[email or web address] Lab Interpretation (test code = 82485-6) Normal [facility] CenterTHYROID STIMULATING [id number] 11:53:42 * Test Item Value Reference Range Interpretation Comme nts TSH (test code = 3248972864) 4.40 See_Comment Biotin has been reported to cause a negative bias, interpret results relative to patient's use of biotin. [Automated message] The system which generated this result transmitted reference range: 0.45 - 4.70 mIU/L. The reference range was not used to interpret this result as normal/abnormal. Lab Interpretation (test code = 12794-8) Normal [facility] CenterCBC WITH [id number] 11:52:42* Test Item Value Reference Range Interpretation [...] g/dL 31.2-35.0 H RDW-SD (test code = 58078-1) 42.6 fL 38.5-51.6 RDW-CV (test code = 788-0) 12.9 % 12.1-15.4 PLT (test code = 777-3) 226 See_Comment [Automated LIQUITYa ge] The system which generated this result transmitted reference range: 150 - 328 10*3/?L. The reference range was not used to interpret this result as normal/abnormal. MPV (test code = 80974-2) 11.4 fL 9.8-13.0 NRBC/100 WBC (test code = 9337505775) 0.0 See_Comment [Automated MyPronostic ssage] The system which generated this result transmitted reference range: 0.0 - 10.0 /100 WBCs. The reference range was not used to interpret this result as normal/abnormal. NRBC x10^3 (test code = 8917622207) See_Comment [Automated LIQUITYa ge] The system which generated this result transmitted reference range: 10*3/?L. The reference range was not used to interpret this result as normal/abnormal. GRAN MAT (NEUT) % (test code = 770-8) 59.3 % IMM GRAN % (test code = 5842063744) 0.30 % LYMPH % (test code = 736-9) 31.7 % MONO % (test code = 5905-5) 6.3 % EOS % (test code = 713-8) 1.7 % BASO % (test code = 706-2) 0.7 % GRAN MAT x10^3(ANC) (test code = 9273676686) 7.59 10*3/uL 1.99-6.95 H IMM GRAN x10^3 (test code = 8153965100) 0.04 10*3/uL 0.00-0.06 LYMPH x10^3 (test code = 731-0) 4.07 10*3/uL 1.09-3.23 H MONO x10^3 (test code = 742-7) 0.81 10*3/uL 0.36-1.02 EOS x10^3 (test code = 711-2) 0.22 10*3/uL 0.06-0.53 BASO x10^3 (test code = 704-7) 0.09 10*3/uL 0.01-0.09 REACT LYMPHS (test code = 7828731440) Rare Lab Interpretation (test code = 55935-5) [facility]normal [facility] CenterTROPONIN [id number] 11:34:03* Test Item Value Reference Range Interpretation Comme nts TROPONIN I (test code = 8630063081) 0.003 ng/mL <=0.034 MAXWELL (test code = [...] of biotin. Lab Interpretation (test code = 33508-1) Normal [facility] CenterN-TERMINAL [id number] 11:30:21* Test Item Value Reference Range Interpretation Comme nts NT-proBNP (test code = 5999479162) 77 pg/mL <=125 MAXWELL (test code = MAXWELL) Biotin has been reported to cause a negative bias, interpret results relative to patient's use of biotin. Lab Interpretation (test code = 14235-4) Normal [facility] CenterLIPID PANEL (03049)(TOTAL CHOLESTEROL, TRIGLYCERIDES, HDL)2023-04-26 11:23:40* Test Item Value Reference Range Interpretation Comme nts CHOL (test code = 5921953938) 131 mg/dL 120-200 HDL (test code = 0685733025) 35 mg/dL >=40 L HDLC RATIO (test code = 5193106914) 3.7 <=5.0 TRIG (test code = 3220211258) 157 mg/dL 30-170 LDL CHOL (test code = 36522-3) 65 mg/dL <=160 VLDL (test code = 7788649227) 31 mg/dL 5-60 Lab Interpretation (test cod e = 11017-4) [facility]normal [facility] CenterMAGNESIUM2023-06-22 11:23:20* Test Item Value Reference Range Interpretation Comme nts MAGNESIUM (test code = 1487265233) 1.7 mg/dL 1.7-2.4 Lab Interpretation (test cod e = 58809-3) Normal [facility]. METABOLIC PANEL (07459)2023-04-26 11:23:00* Test Item Value Reference Range Interpretation Comme nts NA (test code = 9827247889) 139 mmol/L 135-145 K (test code = 9524737869) 3.6 mmol/L 3.5-5.0 CL (test code = 8221926235) 100 mmol/L 98-108 CO2 TOTAL (test code = 3288412329) 31 mmol/L 23-31 AGAP (test code = 2711650992) 8 2-16 BUN (test code = 3354589833) 10 mg/dL 7-23 GLUCOSE (test code = 8675602703) 114 mg/dL 70-110 H CREATININE (test code = 6472215984) 0.69 mg/dL 0.60-1.25 TOTAL BILI (test code = 8768663436) 0.5 mg/dL 0.1-1.1 CALCIUM (test code = 8050666678) 8.9 mg/dL 8.6-10.6 T PROTEIN (test code = 7153793822) 6.2 g/dL 6.3-8.2 L ALBUMIN (test code = 8857878067) 3.7 g/dL 3.5-5.0 ALK PHOS (test code = 8893491801) 58 U/L 34-122 ALTv (test code = 1742-6) 21 U/L 5-50 AST(SGOT) (test code = 1908456498) 18 U/L 13-40 eGFR (test code = 6131426456) 122.9 mL/min/1.73m2 MAXWELL (test code = MAXWELL) [...] imaging tests). Lab Interpretation (test code = 16221-9) [facility]normal [facility] CenterPHOSPHORUS2023-06-22 11:23:00* Test Item Value Reference Range Interpretation Comme nts PHOSPHORUS (test code = 9592004107) 3.8 mg/dL 2.5-5.0 Lab Interpretation (test cod e = 98273-6) Normal [facility] CenterTROPONIN [id number] 03:11:32* Test Item Value Reference Range Interpretation Comme nts TROPONIN I (test code = 2016685952) 0.001 ng/mL <=0.034 MAXWELL (test code = [...] of biotin. Lab Interpretation (test code = 05532-8) Normal [facility] CenterN-TERMINAL [id number] 03:08:10* Test Item Value Reference Range Interpretation Comme nts NT-proBNP (test code = 0241941637) 39 pg/mL <=125 MAXWELL (test code = MAXWELL) Biotin has been reported to cause a negative bias, interpret results relative to patient's use of biotin. Lab Interpretation (test code = 29924-1) Normal [facility] CenterMAGNESIUM2023-06-22 02:59:47* Test Item Value Reference Range Interpretation Comme nts MAGNESIUM (test code = 2505004929) 1.7 mg/dL 1.7-2.4 Lab Interpretation (test cod e = 45878-2) Normal [facility] CenterCOM. METABOLIC PANEL (59583)2023-04-26 02:59:27* Test Item Value Reference Range Interpretation Comme nts NA (test code = 2369916673) 140 mmol/L 135-145 K (test code = 8083194205) 3.7 mmol/L 3.5-5.0 CL (test code = 0014465247) 101 mmol/L 98-108 CO2 TOTAL (test code = 9199564796) 27 mmol/L 23-31 AGAP (test code = 4502120812) 12 2-16 BUN (test code = 5413895820)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 principles of ALA. HS:Y RL: [facility]: [id number] COMPARISON: CT angiogram 09/21/2023 FINDINGS: No pulmonary [...] Lab Results: Lab Results COMP. METABOLIC PANEL (39837) - Abnormal Result Value Ref Range NA [...] 0.0 0.0 - 10.0 /100 WBCs NRBC x103<0.01 10*3/?L GRAN MAT (NEUT) % 47.9 % IMM GRAN % 0.20 % LYMPH % 39.6 % MONO % 8.4 % EOS % 3.1 % BASO % 0.8 % GRAN MAT x103(ANC) 2.28 1.99 - 6.95 10*3/uL IMM GRAN x103<0.03 0.00 - 0.06 10*3/uL LYMPH x1031.89 1.09 - 3.23 10*3/uL MONO x1030.40 0.36 - 1.02 10*3/uL EOS x1030.15 0.06 - 0.53 10*3/uL BASO x1030.04 0.01 - 0.09 10*3/uL EKG: If EKG completed, see Procedure Note. Orders and Treatments: Orders Placed This Encounter Procedures CT CHEST PULMONARY ANGIOGRAM CBC WITH DIFF COMP. METABOLIC PANEL (42576) TROPONIN I N-TERMINAL PRO-BNP Orders Placed This [...] ED Physician in the absence of a instrument tech: yes Previous ECG: Previous ECG: Compared to [...] Reviewed: notes. Details: Recent encounter: 1. 04/19/2024. [facility] ED. 5 days of cold symptoms. COVID [...] signed by: Nelida Mercer MD 04/20/24 1535 [facility] - Quykoa0722-38-73 19:15:33 Pt given printed and verbal discharge [...] gait, in no apparent distress. Cheri Blanca RNWilson Memorial HospitalDxgnqj5207-68-64 16:58:02 Patient reports that he has been having a cough, congestion for at least 1 week and has gotten worse. States that he has been taking OTC Cough / cold medicine with minimal relief. Patient reports that he has a sore throat and his throat and chest forde when he coughs. [facility] HospitalDxntfb7603-81-21 16:52:00 [facility] Emergency Department Note Patient Name: Kinga Ames Date of : 1975 48 year old male Treatment Room: [facility] ED [facility] Primary Care Physician: Chente Garibay Patient Escorted by: Self [9] Mode of Arrival: Personal means [1] EMS Treatment Prior to ED Arrival: IRRIGATION MANAGER treatment: None Travel and Exposure Screening: Symptoms [...] N/A 12/06/2023 Surgeon: Yudy Phan MD; Location: [facility] L3-L4 Review of Systems: Review [...] ID #[id number] Lorraine Mcgee DO 04/19/24 1852 [facility] HospitalJhugfk4025-12-87 07:56:27 Outpatient Medication Detail Disp Refills Start End MARYJANE dextroamphetamine-amphetamine (ADDERALL) 20 mg tablet 60 tablet 0 02/25/2024 -- -- Sig: Take 1 tablet by mouth in the morning and 1 tablet in the evening. Sent to pharmacy as: dextroamphetamine-amphetamine 20 mg tablet (AdderalL) Class: eRX Earliest Fill Date: 02/25/2024 Route: Oral Order: [id number] Date/Time Signed: 02/25/2024 09:32 E-Prescribing Status: Receipt [...] authorizing provider and meeting all other requirements [place] 017684-05-23 07:49:24 Kinga Ames is a 48 year old male Pt is needing a refill for ADDERALL 20 mg tablet. [facility]/pharmacy #[address] [place] [address] Jenny AlWilson Memorial HospitalCimqby9132-66-01 06:34:30 Addended by: CHENTE GARIBAY MD on: 03/18/2024 06:34 AM Modules accepted: Orders [place] 017684-05-13 16:27:46 Copied from [facility] #[id number]. Topic: Clinical - Medical Advice >> March 17, 2024 4:23 PM Patient Public Affairs Specialist wrote: Pt called and states that [facility] [place] [facility] Please send WILLIAN due to limited supply. Katherine AbdiWilson Memorial HospitalImkfny4850-87-03 06:35:35 Sent meds this morning [facility] HospitalZtcxbu6652-29-32 11:59:11 Kinga Ames is a 48 year old male. Patient calling stating that the [facility] [place] [facility] refusing to fill any of his medication that's prescribed by Dr. Garibay. Patient is asking if the prescriptions zolpidem 10 mg tablet , diazePAM 10 mg tablet ,and HYDROcodone-acetaminophen 7.5-325 mg per tablet to the [facility] in [place]. [facility]/pharmacy #6725 - [place] [address] Maggi ThorntonMagruder HospitalIhjuta0464-77-79 09:39:16 Patient called back stating he is on his way to the clinic to discuss the medications [facility] pharmacy will not accept going forward and stated he has to find a new pharmacy. Apolinar ArauzWilson Memorial HospitalKmrjgs8010-18-46 09:27:17 Kinga Ames is a 48 year old male. Patient is calling stating that the pharmacy stated that they have not received the prescription HYDROcodone-acetaminophen 7.5-325 mg per tablet . Patient is asking if the medication can be resent again. Maggi ThorntonMagruder HospitalNhiewv4917-10-23 12:00:43 Images from the original note were not included. Received PA placed in providers basket Tete HuiMagruder HospitalLjamsy7721-64-94 10:51:24 Rx clarification received from [facility] pharmacy Placing in providers basket for review Diego RileyAkron Children'S HospitalJtfabn8883-35-24 08:42:18 Images from the original note were [...] by Chente Garibay MD Provider Review Required Kfxkeq3502/25/2024 08:35 AM Protocol Details This refill cannot be delegated Valid encounter within last 12 months To be filled at: [facility] [address] [place] [address] Recent Visits Date Type Provider Dept 01/17/24 Office Visit hCente Garibay MD Ang-Db [...] and meeting all other requirements Constance Vásquez [facility] - Dvdpvi2481-54-78 08:35:16 Notes: Please Review Last Refilled: HYDROcodone-acetaminophen 7.5-325 mg per tablet 120 tablet 0 01/17/2024 02/16/2024 No Sig: Take 1 tablet by mouth every 6 (six) hours as needed for Pain for up to 30 days. Indications: chronic pain Sent to pharmacy as: hydrocodone 7.5 mg-acetaminophen 325 mg tablet (NORCO) Class: eRX Earliest Fill Date: 01/17/2024 Route: Oral Order: [id number] Date/Time Signed: 01/17/2024 08:14 E-Prescribing Status: Receipt [...] authorizing provider and meeting all other requirements [facility] - Lsgkqy0047-13-32 08:27:22 Copied from [facility] #[id number]. Topic: Clinical - Order >> Feb 13, 2024 8:24 AM Patient Public Affairs Specialist wrote: Patient requesting a refill of: Medication: HYDROcodone-acetaminophen Dose: 7.5 -325 mg per tablet Route: refill Quantity: 120 Pharmacy: [facility] Last appt.: 01/17/24 Next appt.: . T [place] 017684-03-20 06:20:09 Addended by: CHENTE GARIBAY MD on: 01/23/2024 06:20 AM Modules accepted: Orders T [place] 017684-03-19 11:09:59 Please review and advise. Stephanie Castelan RNWilson Memorial HospitalRrriri7628-23-24 11:06:23 Copied from [facility] #[id number]. Topic: Clinical - Medical Advice >> Jan 22, 2024 11:02 AM Patient Public Affairs Specialist wrote: Patient is notifying the clinic that the [facility] [address] AT [address] will not fill his prescription due to the fact that the pharmacist refuses to due to the other medicines the patient is currently on. Patient is requesting prescription be sent to [place] [address] [place] [address] [facility] Dashawn EvansWilson Memorial HospitalAhtpgu5325-34-84 09:34:45 Contacted patient and advised him we received his request and it will be sent when [place] gets to the request. He verbalized understanding T [place] 017684-03-19 09:18:32 Copied from [facility] #[id number]. Topic: Clinical - Medical Advice >> Jan 22, 2024 9:15 AM Patient Public Affairs Specialist wrote: Patient needs a prescription for dextroamphetamine-amphetamine 10 mg tablet to be sent to [facility] Pharmacy [place], [place] - [address] [place] [address] Drive [address] due to other pharmacy being out of medication. Please send stat due to patient currently being at [facility]. Patient is completely out of the medication. Dash[facility]Iredell [facility]2024-02-12 15:40:27 I thought we were doing the T#[address] [facility]2024-02-12 14:23:58 Kinga Ames is a 48 year old male Pt is calling stating he spoke w his pharmacy & they told pt they have (HYDROcodone-acetaminophen (NORCO) 10-325 mg tablet) in 7.5 mg. Pt is wanting to see if pcp can prescribe him the 7.5mg Please advise [facility]/pharmacy #6734 - [place], [place] - [address] [facility] [address] [address] [facility] Jame NeriMagruder HospitalVrlcjz5646-56-91 12:10:31 He needs it sent to [facility] which is what I pended it for [facility]2024-02-08 10:56:19 So what am I supposed to do COATER [facility] HospitalViuctc6454-30-53 16:12:24 Kinga Ames is a 48 year old male would like a call from the clinic in regards to the medication HYDROcodone-acetaminophen 5-325 mg tablet. Please advise WILLIAN. [phone] (home) Patient is currently taking Tylenol 3 and has one pill left. Y EvansWilson Memorial HospitalLgxucy5017-03-86 11:15:21 Kinga Ames is a 48 year old male Pt is needing to speak to nurse directly in concerns of what to do since shortages all thru [facility] for HYDROcodone-acetaminophen 5-325 mg tablet . Pt states also that the tylenol #3 does not work and not sure if he can call in something else. Pt states unsure what to do now. Y MejiaWilson Memorial HospitalYkqhqy6370-97-49 10:36:10 Kinga Ames is a 48 year old male Pt called and states that he is now needing medication sent to the [facility] in [place]. They have medication in stock. Please advise. Y AbdiWilson Memorial HospitalPqfkto6446-38-88 09:27:11 Kinga Ames is a 48 year old male Needs HYDROCODONE Rx sent to [facility] [address] IN [place], [place] - [facility] [address] He states its the only place he can find with the Rx in stock however it is only half of the prescribed quantity Y MoralesWilson Memorial HospitalVykknu0484-41-42 09:18:10 Pt would like to request an alternative medication for his pain. LUC 12/12/23 Please advise. [facility]/pharmacy #6725 - [place], [place] - [address] [facility] [address] [facility] [address] [facility] [address] COATER Pierce SwanWilson Memorial HospitalYcuhzs4404-38-75 09:07:21 Kinga Ames is a 48 year old male Pt called and states that pharmacy never received medication. Please re-send medication. HYDROcodone-acetaminophen 5-325 mg tablet [facility] [place], [place] - [address] [facility] [address] [facility]2024-02-02 10:54:45 Problem: Pain Goal: Control of pain at or below patient's documented comfort goal Outcome: Resolved Goal: Reduction in pain sensation Outcome: Resolved Problem: Falls, Risk of Goal: Absence of falls Outcome: Resolved Problem: Infection Risk Goal: Absence of infection Outcome: Resolved Problem: Discharge Planning Goal: Adequate for discharge Outcome: Resolved Goal: Effective communication Outcome: Resolved [id number] 10:42:51 Problem: Pain Goal: Control of pain at or below patient's documented comfort goal Outcome: Resolved Goal: Reduction in pain sensation Outcome: Resolved Problem: Falls, Risk of Goal: Absence of falls Outcome: Resolved Problem: Infection Risk Goal: Absence of infection Outcome: Resolved Problem: Discharge Planning Goal: Adequate for discharge Outcome: Resolved Goal: Effective communication Outcome: Resolved [facility]2024-02-02 03:47:40 Problem: Pain Goal: Control of pain [...] Goal: Effective communication Outcome: Progressing as expected Y Zacarias V [facility] CenterJnikpy5807-09-26 17:09:12 Problem: Pain Goal: Control of pain [...] Goal: Effective communication Outcome: Progressing as expected Y Orellana [facility] CenterXywzjn9137-14-22 13:15:00 FULL OPERATIVE NOTE Date of Surgery: 12/06/2023 Preoperative diagnosis: Acute on chronic cholecystitis Postoperative diagnosis: Same Procedure: Laparoscopic cholecystectomy (CPT 64980) Surgeons: Faculty: Yudy Phan MD Resident: None available Anesthesiologist: Nick Nunes CRNA; Berta Marie MD Anesthesia: General endotracheal intubation EBL: [...] and used throughout the operative procedure. The patients abdomen was then prepped and draped in [...] operative procedure. Yudy Phan M.D. 12/06/2023 14:13 [place] [id number] 11:40:06 Pt to surgery by w/c Y Escoto [facility] CenterJciyvu8824-17-38 11:28:04 Patient report called to Elian SAXENA. Will come sheepskin pickler patient for surgery. Y Burroughs [place] [id number] 09:21:22 Patient states "my gallbladder has been bad for a while." Patient c/o abdominal pain and vomiting, referred to the ER by Dr. Phan. Y Beard [place] [id number] 09:14:00 Associated Order(s): EKG-12 Lead ROUTINE ONCE Pre-Procedure Diagnose(s): Abdominal pain, unspecified abdominal location Post-Procedure Diagnose(s): Abdominal pain, unspecified abdominal location [facility] Emergency Department Note Patient Name: Kinga Ames Date of : 1975 48 year old male Treatment Room: TX5/TX5 Primary Care Physician: Chente Garibay Patient Escorted by: Family [5] Mode of Arrival: Personal means [1] EMS Treatment Prior to ED Arrival: IRRIGATION MANAGER treatment comments: Tylenol #3 Travel and Exposure [...] 0.0 0.0 - 10.0 /100 WBCs NRBC x103<0.01 10*3/?L GRAN MAT (NEUT) % 51.2 % IMM GRAN % 0.40 % LYMPH % 35.5 % MONO % 7.4 % EOS % 4.4 % BASO % 1.1 % GRAN MAT x103(ANC) 4.39 1.99 - 6.95 10*3/uL IMM GRAN x1030.03 0.00 - 0.06 10*3/uL LYMPH x1033.04 1.09 - 3.23 10*3/uL MONO x1030.63 0.36 - 1.02 10*3/uL EOS x1030.38 0.06 - 0.53 10*3/uL BASO x1030.09 0.01 - 0.09 10*3/uL COMP. METABOLIC PANEL (38207) NA 137 135 - 145 mmol/L K [...] Procedures Cbc with Diff Comp. Metabolic Panel (62441) Urinalysis Magnesium Lipase Troponin I Orders Placed [...] ED Physician in the absence of a instrument tech: yes Previous ECG: Previous ECG: Compared to [...] this a planned re-admission?: No Treatment Team: [employer] [[id number]] Is this patient COVID positive or a patient under investigation (PUI)?: No Electronically signed by: Nayla Barbosa PAC 12/06/23 1139 COATER Associated attestation - Sagrario Infante DO - 12/06/2023 5:57 PM LEAD COATER I was personally available for consultation in the Emergency Department during this encounter and patient evaluation by Alessia Barbosa. [facility]cgtdu2167-41-38 13:57:03 Kinga Ames is a 48 year old male is requesting a prescription for tylenol 3 because HYDROcodone-acetaminophen 10-325 mg tablet is currently on back order. Please advise. [phone] (home) [facility] Dashawn JohnsonSh[place] [address]-01-18 15:39:43 Addended by: CHENTE GARIBAY MD on: 11/22/2023 03:39 PM Modules accepted: Orders [place] [id number] 10:08:20 Addended by: CHENTE GARIBAY MD on: 11/22/2023 10:08 AM Modules accepted: Orders [place] [id number] 09:10:01 Pt is calling to have the Rx for his dextroamphetamine-amphetamine 10 mg tablet resent. States pharmacy is missing medication. Please advise. [facility] Pierce SwanJimmy [place] [id number] 09:52:21 Patient is requesting hydrocodone refill. His tylenol 3 was just filled 10/15/23 qty 120 and is not up for renewal until 11/04/23. Advised patient we cannot fill pain medication until 11/04/23. Please advise [facility] Constance Vásquez [facility]2023-12-28 09:22:10 Kinga Ames is a 48 year old male Pt called requesting to speak with a nurse. He states that his refill got denied because it was too soon, but he states that he hasn't gotten his medication in 2 months due to it being out of stock. Please advise. Call back number: [phone] COATER Katherine AbdiWilson Memorial HospitalWsspcz8221-32-51 09:05:11 Kinga Ames is a 48 year old male calling wanting to speak with a nurse about his medication refill being denied COATER Meek BrodyWilson Memorial HospitalZnjfdg6156-24-41 09:32:34 Kinga Ames is a 48 year old male Pt is calling stating he spoke w his pharmacy & they have the medication in stock. Pt is needing it refilled. Pt has not taken it for 2 mnth now. Med:(HYDROcodone-acetaminophen 10-325 mg tablet) Please advise Thank you [facility]/pharmacy #[id number] - [place], [place] - [address] [address] [facility] Jame NeriMagruder HospitalFbumva2717-91-36 12:54:06 Kinga Ames is a 48 year old male Pt states [facility] is requesting a new script for the HYDROcodone-acetaminophen 10-325 mg tablet because last filled on 08/27/23 because not in stock since then. Contact pt because has concerns if medication not being in stock. Pt would like to speak to nurse before sending because unsure if he should get the acetaminophen-codeine 300-30 mg tablet or HYDROcodone-acetaminophen 10-[address] [facility]2023-08-28 08:47:35 Recent Visits Date Type Provider Dept 06/04/23 Office Visit Chente Garibay MD Ang[facility] Med 05/09/23 Office Visit Chente Garibay MD [facility] Med 05/02/23 Office Visit Chente Garibay MD [...] authorizing provider and meeting all other requirements [facility]Imxyvk7819-33-58 07:55:23 Pt calling for refills dextroamphetamine-amphetamine 10 mg tablet diazePAM 10 mg tablet HYDROcodone-acetaminophen 10-325 mg tablet [id number] [facility] Eunice RomeroWilson Memorial HospitalPxtvfc4852-07-92 08:24:45 Images from the original note were not [...] last 12 months To be filled at: [facility] #[id number] - [place], [place] - [address] [facility] Recent Visits Date Type Provider Dept 06/04/23 [...] provider and meeting all other requirements [facility] [id number] 07:41:55 Kinga Ames is a 48 year old male Patient is calling to refill medication. [id number] - [place], [place] - [address] [facility] Atgngb2018-05-55 07:30:00Addended by: CHENTE GARIBAY MD on: 06/04/2023 07:12 AM Modules accepted: Orders [facility]
--- NOTE | 2024-12-25 16:26 | ER ---
Nurse's Notes [facility] Name: Juanito Diaz Age: 49 yrs Sex: Male : 1975 Arrival Date: 12/25/2024 Time: 14:51 Bed 15 Private MD: Diagnosis: Acute on chronic low back pain Presentation: 12/25 15:21 Chief complaint: Patient states: was sitting and stood up and his back made a popping me1 sound and he started having lower back pain that radiates down the back of both legs, worse on the right. 10 sharp and shooting. Was seen here on the for the same thing. Coronavirus screen: Vaccine status: Patient reports being unvaccinated. Ebola Screen: No symptoms or risks identified at this time. Initial Sepsis Screen: Does the patient meet any 2 criteria? No. Patient's initial sepsis screen is negative. Does the patient have a suspected source of infection? No. Patient's initial sepsis screen is negative. Risk Assessment: Do you want to hurt yourself or someone else? Patient reports no desire to harm self or others. Onset of symptoms was December 25, 2024. 15:21 [place] [facility] [place] Acuity: OLYA 4 me1 Triage Assessment: 15:22 General: Appears uncomfortable, well groomed, well developed, well nourished, Behavior me1 is calm, cooperative, appropriate for age, Reports lower back pain that radiates down the back of both legs. Pain: Complains of pain in lumbar area, left low back and right low back Pain radiates to posterior aspect bilateral legs. EENT: No signs and/or symptoms were reported regarding the EENT system. Neuro: Level of Consciousness is awake, alert, obeys commands, Oriented to person, place, time, situation, Appropriate for age. Cardiovascular: Patient's skin is warm and dry. Respiratory: Airway is patent Respiratory effort is even, unlabored, Respiratory pattern is regular, symmetrical. Derm: Skin is intact, is healthy with good turgor, Skin is pink, warm \T\ dry. Musculoskeletal: Range of motion: intact in all extremities. Historical: - Allergies: 15:22 GABAPENTIN; me1 - PMHx: 15:22 Hypercholesterolemia; me1 - PSHx: 15:22 BACK SURGERY 2011; Cholecystectomy; me1 - Immunization history:: Adult Immunizations up to date. - Infectious Disease History:: Denies. - Social history:: Smoking status: Patient reports the use of cigarette tobacco products, smokes one pack cigarettes per day. Screenin:00 [facility] ED Fall Risk Assessment (Adult) History of falling in the last 3 months, db including since admission No falls in past 3 months (0 pts) Confusion or Disorientation No (0 pts) Intoxicated or Sedated No (0 pts) Impaired Gait No (0 pts) Mobility Assist Device Used No (0 pt) Altered Elimination No (0 pt) Score/Fall Risk Level 0 - 2 = Low Risk Oriented to surroundings, Maintained a safe environment. Abuse screen: Denies threats or abuse. Denies injuries from another. Nutritional screening: No deficits noted. Tuberculosis screening: No symptoms or risk factors identified. Assessment: 16:00 Reassessment: Patient appears in no apparent distress at this time. Patient and/or db family updated on plan of care and expected duration. Pain level reassessed. Patient is alert, oriented x 3, equal unlabored respirations, skin warm/dry/pink. General: Appears in no apparent distress. comfortable, Behavior is calm, cooperative. Pain: Complains of pain in back. Neuro: Level of Consciousness is awake, alert, obeys commands, Oriented to person, place, time, situation. Respiratory: Airway is patent Respiratory effort is even, unlabored, Respiratory pattern is regular, symmetrical. Musculoskeletal: No deficits noted. No signs and/or symptoms reported regarding the musculoskeletal system. Circulation, motion, and sensation intact. Capillary refill < 3 seconds, Range of motion: intact in all extremities, Reports pain in back. Vital Signs: 15:21 BP 144 / 96; Pulse 97; Resp 18; Temp 98.4; Pulse Ox 98% ; Weight 81.65 kg; Height 5 ft. me1 8 in. ; Pain 10/10; 15:30 BP 124 / 89; Pulse 86; Resp 16; Pulse Ox 98% on R/A; db 16:00 BP 133 / 87; Pulse 85; Resp 16; Pulse Ox 96% on R/A; db 16:30 BP 126 / 83; Pulse 76; Resp 18; Pulse Ox 98% on R/A; db 15:21 Body Mass Index 27.37 (81.65 kg, 172.72 cm) me1 15:21 Pain Scale: Adult ms1 ED Course: 14:52 Patient arrived in ED. cj3 15:07 Vince Rodriguez MD is Attending Physician. sp3 15:22 Triage completed. me1 15:22 Arm band placed on Patient placed in an exam room. me1 16:00 Patient has correct armband on for positive identification. Provided Education on: db DISCHARGE AND PAIL CONTROL. 16:00 No provider procedures requiring assistance completed. Patient did not have IV access db during this emergency room visit. 16:21 Ludmila Baker, RN is Primary Nurse. db Administered Medications: 16:20 Drug: morphine IM 6 mg IM once Route: IM; Site: right ventrogluteal; db 17:07 Follow up: Response: No adverse reaction db 16:22 Drug: Ketorolac IM 30 mg IM once Route: IM; Site: right ventrogluteal; db 17:07 Follow up: Response: No adverse reaction db 16:22 Drug: Hydrocodone-Acetaminophen PO (7.5 mg-325 mg) 1 tabs PO once Route: PO; db 17:07 Follow up: Response: No adverse reaction db 16:46 Not Given (Duplicate Order): morphine5 mg IM once db Medication: 16:00 VIS not applicable for this client. db Outcome: 16:00 Discharged to home ambulatory, with family, db 16:00 Condition: stable 16:00 Discharge instructions given to patient, Instructed on discharge instructions, follow up and referral plans. 16:26 Discharge ordered by . sp3 17:07 Patient left the ED. db Signatures: Vince Rodriguez MD MD sp3 Ludmila Baker, RN RN Diann Cervantes RN RN ms1 Thais Greene 3
--- NOTE | 2024-12-25 16:27 | EDPHYS ---
Physician Documentation [facility] Name: Juanito Diaz Age: 49 yrs Sex: Male : 1975 Arrival Date: 12/25/2024 Time: 14:51 Bed 15 Private MD: ED Physician Vince Rodriguez HPI: 12/25 16:13 This 49 yrs old Male presents to ER via Wheelchair with complaints of Leg Pain, Back sp3 Pain. 16:13 49-year-old male with history of hyperlipidemia, chronic back pain, multiple back sp3 surgeries now presents with worsening radiculopathy lumbar bilateral without trauma or any other inciting event. Patient states it flares up like this once a lot. He was here last month for similar symptoms. He denies any loss of bowel or bladder control, headache, neck pain, chest pain or shortness of breath, abdominal pain, vomit, diarrhea, rash, syncope, near syncope, or any other signs or symptoms on ROS at this time.. Historical: - Allergies: 15:22 GABAPENTIN; me1 - PMHx: 15:22 Hypercholesterolemia; me1 - PSHx: 15:22 BACK SURGERY 2011; Cholecystectomy; me1 - Immunization history:: Adult Immunizations up to date. - Infectious Disease History:: Denies. - Social history:: Smoking status: Patient reports the use of cigarette tobacco products, smokes one pack cigarettes per day. ROS: 16:21 Constitutional: Negative for fever, chills, and weight loss, Eyes: Negative for injury, sp3 pain, redness, and discharge, ENT: Negative for injury, pain, and discharge, Neck: Negative for injury, pain, and swelling, Cardiovascular: Negative for chest pain, palpitations, and edema, Respiratory: Negative for shortness of breath, cough, wheezing, and pleuritic chest pain, Abdomen/GI: Negative for abdominal pain, nausea, vomiting, diarrhea, and constipation, MS/Extremity: Negative for injury and deformity, Skin: Negative for injury, rash, and discoloration, Neuro: Negative for headache, weakness, numbness, tingling, and seizure, Psych: Negative for depression, anxiety, suicide ideation, homicidal ideation, and hallucinations, Allergy/Immunology: Negative for hives, rash, and allergies, Endocrine: Negative for neck swelling, polydipsia, polyuria, polyphagia, and marked weight changes, Hematologic/Lymphatic: Negative for swollen nodes, abnormal bleeding, and unusual bruising, 16:21 All other systems are negative, Exam: 16:21 Constitutional: This is a well developed, well nourished patient who is awake, alert, sp3 and in no acute distress. Head/Face: Normocephalic, atraumatic. Eyes: Pupils equal round and reactive to light, extra-ocular motions intact. Lids and lashes normal. Conjunctiva and sclera are non-icteric and not injected. Cornea within normal limits. Periorbital areas with no swelling, redness, or edema. ENT: Nares patent. No nasal discharge, no septal abnormalities noted. External auditory canals are clear. Oropharynx with no redness, swelling, or masses, exudates, or evidence of obstruction, uvula midline. Mucous membranes moist. Neck: Trachea midline, no thyromegaly or masses palpated, and no cervical lymphadenopathy. Supple, full range of motion without nuchal rigidity, or vertebral point tenderness. No Meningismus. Chest/axilla: Normal chest wall appearance and motion. Nontender with no deformity. No lesions are appreciated. Cardiovascular: Regular rate and rhythm with a normal S1 and S2. No gallops, murmurs, or rubs. Normal PMI, no JVD. No pulse deficits. Respiratory: Lungs have equal breath sounds bilaterally, clear to auscultation and percussion. No rales, rhonchi or wheezes noted. No increased work of breathing, no retractions or nasal flaring. Abdomen/GI: Soft, non-tender, with normal bowel sounds. No distension or tympany. No guarding or rebound. No evidence of tenderness throughout. Skin: Warm, dry with normal turgor. Normal color with no rashes, no lesions, and no evidence of cellulitis. MS/ Extremity: Pulses equal, no cyanosis. Neurovascular intact. Full, normal range of motion. Neuro: Awake and alert, GCS 15, oriented to person, place, time, and situation. Cranial nerves II-XII grossly intact. Motor strength 5/5 in all extremities. Sensory grossly intact. Cerebellar exam normal. Normal gait. Psych: Awake, alert, with orientation to person, place and time. Behavior, mood, and affect are within normal limits. 16:21 Back: , 16:25 Back: Pain on straight leg raise bilaterally at 30 degrees. No other neurological sp3 abnormalities or deficits. Patient in no acute distress., Vital Signs: 15:21 BP 144 / 96; Pulse 97; Resp 18; Temp 98.4; Pulse Ox 98% ; Weight 81.65 kg; Height 5 ft. me1 8 in. ; Pain 10/10; 15:30 BP 124 / 89; Pulse 86; Resp 16; Pulse Ox 98% on R/A; db 16:00 BP 133 / 87; Pulse 85; Resp 16; Pulse Ox 96% on R/A; db 16:30 BP 126 / 83; Pulse 76; Resp 18; Pulse Ox 98% on R/A; db 15:21 Body Mass Index 27.37 (81.65 kg, 172.72 cm) me1 15:21 Pain Scale: Adult me1 MDM: 15:17 Medical Screening Exam initiated sp3 16:25 Data reviewed: vital signs, nurses notes, old medical records. ED course: Acute on sp3 chronic back pain. I do not read patient has a new process going on medically or traumatically. Will give IM morphine and IM ketorolac coupled with 1 p.o. [place] and discharge patient home. He can follow-up with his PCP and/or pain management doctor for continued interventions.. Administered Medications: 16:20 Drug: morphine IM 6 mg IM once Route: IM; Site: right ventrogluteal; db 17:07 Follow up: Response: No adverse reaction db 16:22 Drug: Ketorolac IM 30 mg IM once Route: IM; Site: right ventrogluteal; db 17:07 Follow up: Response: No adverse reaction db 16:22 Drug: Hydrocodone-Acetaminophen PO (7.5 mg-325 mg) 1 tabs PO once Route: PO; db 17:07 Follow up: Response: No adverse reaction db 16:46 Not Given (Duplicate Order): morphine5 mg IM once db Disposition Summary: 12/25/24 16:26 Discharge Ordered Notes: Location: Home sp3 Condition: Stable sp3 Diagnosis - Acute on chronic low back pain sp3 Followup: sp3 - With: Private Physician - When: Upon discharge from the Emergency Department - Reason: Continuance of care Discharge Instructions: - Discharge Summary Sheet sp3 - Chronic Pain, Adult sp3 Forms: - Medication Reconciliation Form sp3 - Antibiotic Education sp3 - Prescription Opioid Use sp3 - Patient Portal Instructions sp3 - Leadership Thank You Letter sp3 Signatures: Vince Rodriguez MD MD sp3 Ludmila Baker RN RN db Diann Cervantes RN RN me1
[2024-12-25] MEDS ORDERED: MORPHINE 2 MG/ML SYR ONE (16:29)
[2024-12-25] MEDS ORDERED: MORPHINE 4 MG/ML SYR ONE (16:29)
[2024-12-25] MEDS ORDERED: KETOROLAC 30 MG/ML INJ ONE (16:29)
[2024-12-25] MEDS ORDERED: HYDROCODONE/APAP 7.5/325 MG TAB ONE (16:30)
[2024-12-26 17:49] VITALS: TEMP 98.4
[2024-12-26 18:05] VITALS: BP 126/83; O2SAT 98
== END 2024-12-25 17:07 | disposition home or self-care (01) ==
LOC: ER 14:51
DX: M54.50 Low back pain, unspecified (principal)
CPT/HCPCS: 96372; 99284; J2270

== ENCOUNTER 2025-08-30 11:50 | Emergency (ER) | payer SELFPAY ==
[2025-08-30] MEDS ORDERED: KETOROLAC 30 MG/ML INJ ONE (12:41)
[2025-08-30] MEDS ORDERED: HYDROCODONE/APAP 5/325 MG TAB ONE (12:42)
[2025-08-30] MEDS ORDERED: CYCLOBENZAPRINE 10 MG TAB ONE (12:42)
--- NOTE | 2025-08-30 14:12 | ER ---
Nurse's Notes [facility] Name: Juanito Diaz Age: 50 yrs Sex: Male : 1975 Arrival Date: 08/30/2025 Time: 11:50 Bed 8 Private MD: Diagnosis: Low back pain Presentation: 08/30 12:01 Chief complaint: Patient states: Back pain for 2-3 weeks. Coronavirus screen: Client ll1 denies travel out of the [place] in the last 14 days. At this time, the client does not indicate any symptoms associated with coronavirus-19. Ebola Screen: Patient denies travel to an Ebola-affected area in the 21 days before illness onset. Initial Sepsis Screen: Does the patient meet any 2 criteria? No. Patient's initial sepsis screen is negative. Does the patient have a suspected source of infection? No. Patient's initial sepsis screen is negative. Risk Assessment: Do you want to hurt yourself or someone else? Patient reports no desire to harm self or others. Onset of symptoms was August 09, 2025. 12:01 Method Of Arrival: Ambulatory 1 12:01 Acuity: OLYA 3 ll1 Triage Assessment: 12:01 General: Appears uncomfortable, Behavior is calm, cooperative, appropriate for age. ll1 Pain: Complains of pain in back Quality of pain is described as aching. Musculoskeletal: Reports pain in back. Historical: - Allergies: 11:59 GABAPENTIN; ll1 11:59 Wasps; ll1 - PMHx: 11:59 Hypercholesterolemia; broken back 2011 (Cholecystectomy); ll1 - PSHx: 11:59 BACK SURGERY 1999; Cholecystectomy; January 20 spinal fusion (Cholecystectomy); ll1 - Immunization history:: Adult Immunizations up to date. - Infectious Disease History:: Denies. - Social history:: Smoking status: unknown. Screenin:[address] [facility] ED Fall Risk Assessment (Adult) History of falling in the last 3 months, kj2 including since admission No falls in past 3 months (0 pts) Confusion or Disorientation No (0 pts) Intoxicated or Sedated No (0 pts) Impaired Gait No (0 pts) Mobility Assist Device Used No (0 pt) Altered Elimination No (0 pt) Score/Fall Risk Level 0 - 2 = Low Risk Maintained a safe environment, Hourly rounding (assess needs \T\ fall precautionary measures) done. Abuse screen: Denies threats or abuse. Denies injuries from another. Nutritional screening: No deficits noted. Tuberculosis screening: No symptoms or risk factors identified. Assessment: 12:32 Reassessment: Patient and/or family updated on plan of care and expected duration. Pain ll1 level reassessed. 14:35 Neuro: Level of Consciousness is awake, alert, obeys commands, Oriented to person, kj2 place, time, situation. Vital Signs: 12:01 BP 131 / 69; Pulse 100; Resp 16; Temp 97.7; Pulse Ox 100% ; Weight 79.38 kg; Height 5 ll1 ft. 9 in. ; Pain 10/10; 12:01 Body Mass Index 25.84 (79.38 kg, 175.26 cm) ll1 12:01 Pain Scale: Adult ll1 ED Course: 11:53 Patient arrived in ED. al6 11:53 [facility] Fer[facility]C [facility] dr5 11:53 Evangelist Cueva MD is Attending Physician. dr5 12:02 Triage completed. ll1 12:02 Arm band placed on. ll1 12:32 Patient placed in an exam room, on a stretcher. ll1 12:40 Emre Mcgraw, HEMANTH is Primary Nurse. bp 14:25 Patient has correct armband on for positive identification. Bed in low position. Call kj2 light in reach. Provided Education on: DISCHARGE INSTRUCTIONS REVIEWED. 14:37 No provider procedures requiring assistance completed. kj2 14:39 Patient did not have IV access during this emergency room visit. kj2 Administered Medications: 12:46 Drug: Ketorolac IM 30 mg IM once Route: IM; Site: right gluteus; bp 14:37 Follow up: Response: No adverse reaction kj2 12:46 Drug: Cyclobenzaprine PO 10 mg PO once Route: PO; bp 14:37 Follow up: Response: No adverse reaction kj2 12:47 Drug: HYDROcodone-acetaminophen PO 5 mg-325 mg 2 tabs PO once Route: PO; bp 14:38 Follow up: Response: No adverse reaction kj2 12:47 Drug: Dexamethasone IM 10 mg IM once Route: IM; Site: right gluteus; bp 14:37 Follow up: Response: No adverse reaction kj2 14:35 Drug: Diazepam IM 5 mg IM once Route: IM; Site: right deltoid; kj2 14:37 Follow up: Response: Medication administered at discharge. kj2 Medication: 14:39 VIS not applicable for this client. kj2 Outcome: 14:12 Discharge ordered by . dr5 14:39 Discharged to home ambulatory, kj2 14:39 Condition: stable 14:39 Discharge instructions given to patient, Instructed on discharge instructions, follow up and referral plans. Demonstrated understanding of instructions, follow-up care, medications, Prescriptions given X 3, 14:40 Patient left the ED. kj2 Signatures: Emre Mcgraw, RN RN Martín Morel RN RN ll1 Laura Lopez RN RN kj2 Orlando Ferrera, PHYSICAL BIOCHEMIST-C PHYSICAL BIOCHEMIST-Cdr5 Khushboo Arizmendi
--- NOTE | 2025-08-30 14:12 | EDPHYS ---
Physician Documentation [facility] Name: Juanito Diaz Age: 50 yrs Sex: Male : 1975 Arrival Date: 08/30/2025 Time: 11:50 Bed 8 Private MD: ED Physician Evangelist Cueva HPI: 08/30 15:33 This 50 yrs old Male presents to ER via Ambulatory with complaints of Back dr5 Pain. 15:33 The patient presents with pain that is chronic, with no known mechanism of injury. dr5 Onset: The symptoms/episode began/occurred 3 week(s) ago. Patient is a 50 year old male with hx of HLD and chronic back pain coming in with 2-3 weeks of continued lower back pain. Patient denies falls or trauma.. Historical: - Allergies: 11:59 GABAPENTIN; ll1 11:59 Wasps; ll1 - PMHx: 11:59 Hypercholesterolemia; broken back 2011 (Cholecystectomy); ll1 - PSHx: 11:59 BACK SURGERY 1999; Cholecystectomy; January 20 spinal fusion (Cholecystectomy); ll1 - Immunization history:: Adult Immunizations up to date. - Infectious Disease History:: Denies. - Social history:: Smoking status: unknown. ROS: 15:50 Constitutional: as per hpi dr5 Exam: 15:50 Constitutional: This is a well developed, well nourished patient who is awake, alert, dr5 and in no acute distress. Head/Face: Normocephalic, atraumatic. Eyes: Pupils equal round and reactive to light, extra-ocular motions intact. Lids and lashes normal. Conjunctiva and sclera are non-icteric and not injected. Cornea within normal limits. Periorbital areas with no swelling, redness, or edema. ENT: Nares patent. No nasal discharge, no septal abnormalities noted. Tympanic membranes are normal and external auditory canals are clear. Oropharynx with no redness, swelling, or masses, exudates, or evidence of obstruction, uvula midline. Mucous membranes moist. Neck: Trachea midline, no thyromegaly or masses palpated, and no cervical lymphadenopathy. Supple, full range of motion without nuchal rigidity, or vertebral point tenderness. No Meningismus. Chest/axilla: Normal chest wall appearance and motion. Nontender with no deformity. No lesions are appreciated. Cardiovascular: Regular rate and rhythm with a normal S1 and S2. Normal PMI, no JVD. No pulse deficits. Respiratory: Lungs have equal breath sounds bilaterally, clear to auscultation. No rales, rhonchi or wheezes noted. No increased work of breathing, no retractions or nasal flaring. Skin: Warm, dry with normal turgor. Normal color with no rashes, no lesions, and no evidence of cellulitis. MS/ Extremity: Pulses equal, no cyanosis. Neurovascular intact. Full, normal range of motion. Neuro: Awake and alert, GCS 15, oriented to person, place, time, and situation. Cranial nerves II-XII grossly intact. Motor strength 5/5 in all extremities. Sensory grossly intact. Cerebellar exam normal. Normal gait. 15:50 Back: pain, that is moderate, ROM is normal, normal spinal alignment noted, vertebral tenderness, is appreciated at lumbar spine, 16:01 Neuro: Exam negative for acute changes, Orientation: is normal, dr5 Vital Signs: 12:01 BP 131 / 69; Pulse 100; Resp 16; Temp 97.7; Pulse Ox 100% ; Weight 79.38 kg; Height 5 ll1 ft. 9 in. ; Pain 10/10; 12:01 Body Mass Index 25.84 (79.38 kg, 175.26 cm) ll1 12:01 Pain Scale: Adult ll1 MDM: 11:53 Medical Screening Exam initiated dr5 15:50 Differential diagnosis: arthritis, Fatigue Osteoarthritis sprain. Data reviewed: vital dr5 signs, nurses notes. Consideration of Admission/Observation Escalation of care including admission/observation considered. Escalation considered patient back pain did not have improvement with pain medicine and had back pain red flags such as perirectal numbness or bowel or bladder incontinence. I considered the following discharge prescriptions or medication management in the emergency department I discussed and recommended Over The Counter medications, Medications were administered in the Emergency Department. See MAR. Test considered but Not performed: X-ray: Considered x-ray and/or CT scan but declined due to patient having follow-up with orthopedic next month and patient has not had any recent falls. Joint decision-making with patient did not do any diagnostics or imaging during this visit. Patient reports he would do fine which is pain medication. Historians other than the Patient: Spouse/Significant Other: Spouse. Care significantly affected by the following chronic conditions: Hyperlipidemia, Cholecystectomy. Care significantly affected by the following Social Determinants of Health: Poor access to healthcare and/or lack of insurance, Poor access to transportation, Problems related to employment. Counseling: I had a detailed discussion with the patient and/or guardian regarding the historical points, exam findings, and any diagnostic results supporting the discharge/admit diagnosis, the presence of at least one elevated blood pressure reading (>120/80) during this emergency department visit, the need for outpatient follow up, for definitive care, a family practitioner, a orthopedic surgeon, to return to the emergency department if symptoms worsen or persist or if there are any questions or concerns that arise at home. Medication response: Valium, [place], dexamethasone. Response to treatment: the patient's symptoms have markedly improved after treatment. Special discussion: I discussed with the patient/guardian in detail that at this point there is no indication for admission to the hospital. It is understood, however, that if the symptoms persist or worsen the patient needs to return immediately for re-evaluation. Based on the history and exam findings, there is no indication for further emergent testing or inpatient evaluation. I discussed with the patient/guardian the need to see the orthopedic surgeon for further evaluation of the symptoms. ED course: Medication given in ER. Will have patient follow-up primary care doctor and orthopedics spine doctor as scheduled. Will give patient muscle laxer's and pain medication. All questions answered. Strict ER precautions given.. Administered Medications: 12:46 Drug: Ketorolac IM 30 mg IM once Route: IM; Site: right gluteus; bp 14:37 Follow up: Response: No adverse reaction kj2 12:46 Drug: Cyclobenzaprine PO 10 mg PO once Route: PO; bp 14:37 Follow up: Response: No adverse reaction kj2 12:47 Drug: HYDROcodone-acetaminophen PO 5 mg-325 mg 2 tabs PO once Route: PO; bp 14:38 Follow up: Response: No adverse reaction kj2 12:47 Drug: Dexamethasone IM 10 mg IM once Route: IM; Site: right gluteus; bp 14:37 Follow up: Response: No adverse reaction kj2 14:35 Drug: Diazepam IM 5 mg IM once Route: IM; Site: right deltoid; kj2 14:37 Follow up: Response: Medication administered at discharge. kj2 Disposition: 17:54 Co-signature as Attending PhysicianEvangelist MD I reviewed the patient's care rn provided by the Advanced Practice Provider and agree with the diagnosis and treatment plan. Disposition Summary: 08/30/25 14:12 Discharge Ordered Notes: Location: Home dr5 Condition: Stable dr5 Diagnosis - Low back pain dr5 Followup: dr5 - With: Emergency Department - When: As needed - Reason: Worsening of condition Followup: dr5 - With: Private Physician - When: 1 - 2 days - Reason: Recheck today's complaints, Continuance of care, Re-evaluation by your physician Discharge Instructions: - Discharge Summary Sheet dr5 - Acute Back Pain, Adult dr5 Forms: - Medication Reconciliation Form dr5 - Prescription Opioid Use dr5 - Patient Portal Instructions dr5 - Leadership Thank You Letter dr5 Prescriptions: - Cyclobenzaprine 10 mg Oral Tablet - take 1 tablet ORAL route every 8 hours As needed; 30 tablet; Refills: 0, dr5 Product Selection Permitted - Tramadol 50 mg Oral Tablet - take 1 tablet ORAL route every 8 hours as needed; 12 tablet; Refills: 0, dr5 Product Selection Permitted - Medrol (Enrique) 4 mg Oral Tablets, Dose Pack - take 1 tablet ORAL route as directed - follow package instructions; 1 packet; dr5 Refills: 0, Product Selection Permitted Signatures: Evangelist Cueva MD MD rn Peltier, Brian RN RN Martín Morel RN RN ll1 Laura Lopez RN RN kj2 Orlando Ferrera, FAREED-C ASSISTANT TEACHER PRIMARY-Cdr5
[2025-08-30] MEDS ORDERED: DIAZEPAM 10 MG/2 ML INJ SYRINGE ONE (14:30)
[2025-08-30 15:24] VITALS: BP 131/69; TEMP 97.7; O2SAT 100
== END 2025-08-30 14:40 | disposition home or self-care (01) ==
LOC: ER 11:50
DX: M54.50 Low back pain, unspecified (principal)
CPT/HCPCS: 96372; 99284; J1100; J1885; J3360